=== PATIENT | female | born 1955 | race Caucasian/White ===

== ENCOUNTER → 2020-07-20 15:04 | Outpatient (CLI) | payer MEDICARE, SELFPAY ==
[2020-07-20 14:29] VITALS: BMI 45.1
--- NOTE | 2020-07-20 15:38 | RAD_ITS ---
STUDY: X-RAY - PELVIS AND RIGHT HIP REASON FOR EXAM: Female, 65 years old. Right Hip Pain TECHNIQUE: 3 views of the pelvis and hip. COMPARISON: None. FINDINGS: There is a non-specific bowel gas pattern. Normal visualized soft tissue structures. Dysraphism of the sacrum. Chronic defect of the left iliac crest. Normal bilateral superior and inferior pubic rami. Normal pubic symphysis. Normal bilateral ischial tuberosities. Severe narrowing of the weightbearing portion of the right hip with periarticular sclerosis, marginal osteophytosis and cyst formation. Erosive changes of the acetabulum and femoral head. There is osseous buttressing of the medial surface of the femoral neck, possibly prior stress fracture injury. RAD/Hip uni 4+ views with Pelvis IMPRESSION: Severe osteoarthritic changes of the right hip as described above. Osseous buttressing of the medial surface of the right femoral neck, possibly prior stress injury. Electronically Signed: Daphne Amin MD at 16:32 EDT , Service support ,
[2020-07-20 16:46] LABS: Absolute Lymphocyte Count 2.04 X10^3/uL (0.83-4.51); Absolute Neutrophil Count 4.3 X10^3/uL (2.0-7.7); Basophil# 0.02 X10^3/uL; Basophil% 0.3 % (0-1); Eosinophil# 0.13 X10^3/uL; Eosinophils% 1.9 % (0-5); Hematocrit 42.2 % (37-47); Hemoglobin 13.3 g/dL (12.0-15.0); Lymphocyte # 2.04 X10^3/ul (0.83-4.51); Lymphocyte % 29.8 % (19-41); Mean Corp Hgb Conc 31.5 g/dL (32-36); Mean Corpuscular Hgb 27.7 pg (27.0-32.0); Mean Corpuscular Volume 87.7 fL (81-99); Mean Platelet Vol. 10.9 fl (6.2-12.0); Monocyte% 5.8 % (0-10); NRBC Flagged by Analyzer 0 % (0-5); Neutrophil # 4.25 X10^3/uL (2.7-7.7); Neutrophil % 62.1 % (47-70); Platelet Count 331 K/mm3 (150-450); RBC Distribution Width CV 14.4 % (11.6-14.6); RBC Distribution Width SD 46.5 fl (35.1-43.9); Red Blood Count 4.81 M/mm3 (4.2-5.4); White Blood Count 6.9 K/mm3 (4.4-11.0)
[2020-07-20 17:14] LABS: ALB/GLOB Ratio 0.9 RATIO (0.9-2.4); AST(SGOT) 15 U/L (15-37); Alanine Aminotransfer ALT/SGPT 22 U/L (13-56); Albumin, Serum 3.7 g/dL (3.2-5.0); Alkaline Phosphatase 74 U/L (45-117); Anion Gap 6 (5-15); BUN 19 mg/dL (7-18); BUN/Creat Ratio 16.5 RATIO (10-20); Calcium,Total 9.1 mg/dL (8.5-10.1); Chloride 105 mmol/L (98-107); Cholesterol 234 mg/dL (200); Creatinine, Serum 1.15 mg/dL (0.55-1.02); EST Glomerular Filtration Rate 51 mL/min (>60); Est Glom Filt Rate - Afr Amer 61 mL/min (>60); Glucose 96 mg/dL (74-106); High Density Lipoprotein 66 mg/dL; Potassium 4.1 mmol/L (3.5-5.1); Protein, Total 7.7 g/dL (6.4-8.2); Sodium Level 141 mmol/L (136-145); Triglycerides 114 mg/dL; Very Low Density Lipoprotein 23 mg/dL (5-40)
== END ==
PROVIDERS: PCP Internal Medicine; Referring Provider Internal Medicine; Visit Provider Internal Medicine
DX: M25.551 Pain in right hip (principal); I10 Essential (primary) hypertension
CPT/HCPCS: 36415; 73503; 80053; 80061; 85025

== ENCOUNTER → 2020-11-03 09:24 | Outpatient (CLI) | payer MEDICARE, SELFPAY ==
[2020-11-03 11:49] LABS: ALB/GLOB Ratio 1.1 RATIO (0.9-2.4); AST(SGOT) 18 U/L (15-37); Alanine Aminotransfer ALT/SGPT 31 U/L (13-56); Albumin, Serum 3.8 g/dL (3.2-5.0); Alkaline Phosphatase 66 U/L (45-117); Anion Gap 5 (5-15); BUN 20 mg/dL (7-18); BUN/Creat Ratio 16.9 RATIO (10-20); Calcium,Total 9.4 mg/dL (8.5-10.1); Chloride 104 mmol/L (98-107); Creatinine, Serum 1.18 mg/dL (0.55-1.02); EST Glomerular Filtration Rate 49 mL/min (>60); Est Glom Filt Rate - Afr Amer 59 mL/min (>60); Globulin 3.5 g/dL (2.2-4.2); Glucose 94 mg/dL (74-106); Potassium 4.6 mmol/L (3.5-5.1); Protein, Total 7.3 g/dL (6.4-8.2); Sodium Level 139 mmol/L (136-145)
== END ==
PROVIDERS: PCP Internal Medicine; Referring Provider Physician Assistant; Visit Provider Physician Assistant
DX: I10 Essential (primary) hypertension (principal)
CPT/HCPCS: 36415; 80053

== ENCOUNTER 2020-12-15 13:30 | Outpatient (RCR) | payer MEDICARE, SELFPAY ==
[2020-08-26 10:39] VITALS: BMI 43.4
--- NOTE | 2020-08-31 14:21 | HP.PTEVAL ---
Patient's Visit Information VALDEZ KHAN is a 65 year old F referred to Physical Therapy by Dr. Jordon Jay DO with a diagnosis of RIGHT HIP DJD. Date of Evaluation: 08/31/20 Physical Therapist: Bette Wakefield PT, Cert MDT - Visit Plan Frequency: 2-3x /Week Duration: 4-6 Weeks Plan: AQUATIC THERAPY FOR PAIN RELEIF, POSTURE CORRECTION/STRENGTHENING, INSTRUCTION IN APPROPRIATE BODY MECHANICS AND ACTIVITY MODIFICATIONS. DLS STARTING WITH A NEUTRAL SPINE PROGRESSING ROM TOLERATED. EVA LE ROM, STRETCHING AND STRENGTHENING. HEP INSTRUCTION. - Subjective PART OF THIS HISTORY COMES FROM ORTHO CONSULT WITH DR. JAY BUT ALL WAS REVIEWED WITH MYA AND EDITED BY THIS PT. VALDEZ KHAN is a 65 year old F here today to establish as a new patient. Patient has c/o right hip swelling, grinding and popping. Patient voiced her right lateral thigh feels like it is getting hard. Also getting right thigh spasms. Previous Anterior right thigh numbness, in 2018. C/o right knee, foot and ankle swelling, reports calf pain with ambulation. Denies h/o DVT's. Onset: 2018. Before 2018, patient only had some numbness at the time. 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 Patient has previously had one injection in 2018, which helped for three months. Denies h/o falls. Denies any previous physical therapy. Denies any previous surgeries. Patient reports her ambulation is affected. Patient just began ambulating with a walker for about one month. Was using a cane before the walker for about 1.5 years due to her right hip pain. Patient was taking ibuprofen for pain relief and was told to d/c by Dr. Khan because of her kidney levels. Patient was told to switch to Tylenol. Patient continues to take 2 ibuprofen once or twice daily. Patient reports the tylenol just does not do anything to help. She reports the pain is really bad at night. This PT encouraged patient to call Dr. Khan about other alternatives to Tylonol due to reports of high pain levels. Pain: Worst 8/10, Least 2/10. Patient reports her right hip pain is sharp and she denies low back pain. Denies previous surgeries with her right hip and back. 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 Other: Patient reports she quit work in Apr 2017 due to right hip pain and she went on disability the beginning of this month (August 2020). Patient reports her put her on a diet program to lose weight and she has not contacted the [facility] because she wants to see how that goes first. - Objective Sitting/Standing Posture: POOR. PATIENT SITS AND STANDS WITH DECREASED DAVINA BEARING ON THE RIGHT LE. Lordosis: NORMAL. Active Correction of posture: INCREASES RIGHT HIP PAIN. Other Observations: SLOW ANTALGIC INDEP GAIT INTO PT X APPROX 300 FEET WITH A FWW THAT IS TOO HIGH FOR PATIENT. LIMPING ON R LE AND LEANING ON FOREARMS ON WALKER. NO LOB. UE DEPENDENT TO TRANSFER FROM SIT TO STAND AND REVERSE. Motor deficit: LLE GROSSLY 5/5 WITH MMT EXCEPT HIP 4-/5. RLE: HIP 3-/5, KNEE EXT 3-/5, KNEE FLEX 3+/5, ANKLE DORSIFLEX 2/5, PLANTAR FLEX 3+/5. Sensory deficit: EVA LE LIGHT TOUCH SENSATION INTACT AND SYMMETRICAL EXCEPT RIGHT TOE AREA. ROM deficit: TIGHT EVA GASTROC SOLEUS COMPLEX'S, RIGHT HS'S AND EVA HIP FLEXORS. Dural Signs: NEGATIVE EVA LE'S. Lumbar mvmt loss: flex - MOD. ext - BLANCA. R SG - MOD. L SG - MOD. Core strength: POOR. Palpation: TENDERNESS WITH PALPATION OF THE RIGHT HIP REGION AND LATERAL RIGHT KNEE. RIGHT ANKLE EDEMA. TREATMENT: NEUROMUSCULAR REEDUCATION - RETRAINING OF MVMT AND POSTURE FOR SITTING, LYING AND STANDING ACTIVITIES. WALKER ADJUSTMENT FOR APPROPRIATE HEIGHT AND GAIT TRAINING WITH FWW WBAT R LE. - Goals Goal 1:: DECREASE C/O RIGHT HIP PAIN TO EASE ADL'S Goal Time Frame: 4-6 Weeks Goal 2:: PATIENT WILL BE ABLE TO AMBULATE INDEP'LY COMMUNITY DISTANCES WITH LEAST ASSISTIVE DEVICE Goal Time Frame: 4-6 Weeks Goal 3:: PATIENT WILL BE INDEP WITH A WATER EX PROGRAM FOR CONTINUED IMPROVEMENT ONCE FORMAL PHYSICAL THERAPY CONCLUDES Goal Time Frame: 4-6 Weeks Goal 4:: PATIENT WILL BE ABLE TO GO UP AND DOWN STEPS SAFELY RECIPRICALLY WITH LEAST ASSISTIVE DEVICE Goal Time Frame: 4-6 Weeks Goal 5:: LEFS SCORE WILL IMPROVE BY 10 POINTS. Goal Time Frame: 4-6 Weeks - Anticipated Interventions Patient/Client Instruction: Educate patient on: Condition, Plan of Care, Risk Factors, Benefits of Fitness Program For the Purpose of:: To improve self management Therapeutic Exercise to Include: Strength training, Body mechanics, Postural training, Flexibilty training, Gait and locomotor training, Neuromotor development, In an aquatic setting, Dynamic Lumbar Stabilization For the Purpose of:: To decrease pain, To increase ROM, To improve muscle performance and motor function, To increase tolerance to activity/condition/position, To improve ability of physical actions for home/community/work/leisure, To improve gait and locomotor functions Thank you for the opportunity to evaluate your patient. For Medicare and Medicare HMO plans, please review the plan of care and approve it. It will need to be FAXED BACK to us at [phone] for Medicare purposes. For Medicare only, by signing this I certify the plan of care. Please let me know if there are questions or concerns regarding this plan of care. Physician Signature: Date:
--- NOTE | 2020-10-14 16:17 | HP.PTREVAL_ITS ---
Dr. Jordon Jay, DO, It has been my pleasure to treat VALDEZ KHAN over the last 9 visits for RIGHT HIP DJD. Please see the progress note below for an update on the physical therapy plan of care! Subjective: PATIENT REPORTS SHE CAN DO THINGS LONGER THAN SHE COULD BEFORE AND SHE CAN SIT UP STRAIGHTER. STATES SHE CAN STAND LONGER TOO (ABOUT 20 TO 25 [place]) BUT THAT IS STILL WITH MOST OF THE WEIGHT ON THE LEFT FOOT. STATES SHE TRIED TO DO A LITTLE VACUUMING TODAY AND RESULTED IN INCREASED HIP AND KNEE PAIN. PATIENT REPORTS SHE HAS LOST [address] JAY WANTS HER TO LOSE [address] JAY SAID HER HIP IS BONE ON BONE AND SHE NEEDS SURGERY BUT WANTS HER TO DO PT AND LOSE WEIGHT FIRST. FOLLOW UP WITH DR. JAY PENDING IN ABOUT 1 MONTH. PATIENT Objective/Function: PATIENT WAS SEEN TODAY FOR RE-ASSESSMENT OF PROGRESS TOWARD THE SET PT GOALS AND THE NEED FOR FURTHER PHYSICAL THERAPY VS READINESS FOR DISCHARGE. PATIENT IS MAKING SLOW PROGRESS TOWARD SET PT GOALS AND IS REPORTING DECREASED PAIN IN HER HIP AND IMPROVED FUNCTION (SEE LEFS) BUT R KNEE PAIN IS NOT GETTING BETTER (NO WORSE). SHE IS A GOOD CANDIDATE TO CONTINUE AQUATIC THERAPY BASED ON PROGRESS MADE AND ROOM FOR FURTHER IMPROVEMENT. UPON EXAM TODAY: Sitting/Standing Posture: POOR. PATIENT SITS AND STANDS WITH DECREASED DAVINA BEARING ON THE RIGHT LE. Lordosis: NORMAL. Active Correction of posture: NE - INCREASED PAIN AT EVAL. Other Observations: SLOW ANTALGIC INDEP GAIT INTO PT X APPROX 300 FEET WITH FWW LIMPING ON R LE BUT NOT LEANING FORWARD ON FOREARMS LIKE UPON INITIAL EVAL. NO LOB. NOW ABLE TO TRANSFER FROM SIT TO STAND AND REVERSE WITHOUT UE ASSIST BUT AGAIN WITH MOST WEIGHT BEARING ON LLE. Motor deficit: LLE GROSSLY 5/5 WITH MMT EXCEPT HIP 4/5. RLE: HIP 3/5, KNEE EXT 3/5, KNEE FLEX 4-/5, ANKLE DORSIFLEX 2/5, PLANTAR FLEX 3+/5. ROM deficit: TIGHT EVA GASTROC SOLEUS COMPLEX'S, RIGHT HS'S AND EVA HIP FLEXORS. Core strength: POOR Plan Plan: RECOMMEND CONTINUED PT/AQUATIC THERAPY AND PATIENT IS AGREEABLE. 2X'S A WK X 10 VISITS. AQUATIC THERAPY FOR PAIN RELEIF, POSTURE CORRECTION/STRENGTHENING, INSTRUCTION IN APPROPRIATE BODY MECHANICS AND ACTIVITY MODIFICATIONS. DLS STARTING WITH A NEUTRAL SPINE PROGRESSING ROM TOLERATED. EVA LE ROM, STRETCHING AND STRENGTHENING. HEP INSTRUCTION. Balance/Gait/Functional tests - Balance/Special Test Scores Lower Extremity Functional Score: 25 Goals Goal 1:: DECREASE C/O RIGHT HIP PAIN TO EASE ADL'S Goal Time Frame: 4-6 Weeks Goal Progress: Progressing Goal 2:: PATIENT WILL BE ABLE TO AMBULATE INDEP'LY COMMUNITY DISTANCES WITH LEAST ASSISTIVE DEVICE Goal Time Frame: 4-6 Weeks Goal Progress: Progressing Goal 3:: PATIENT WILL BE INDEP WITH A WATER EX PROGRAM FOR CONTINUED IMPROVEMENT ONCE FORMAL PHYSICAL THERAPY CONCLUDES Goal Time Frame: 4-6 Weeks Goal Progress: Progressing Goal 4:: PATIENT WILL BE ABLE TO GO UP AND DOWN STEPS SAFELY RECIPRICALLY WITH LEAST ASSISTIVE DEVICE Goal Time Frame: 4-6 Weeks Goal Progress: Progressing Goal 5:: LEFS SCORE WILL IMPROVE BY 10 POINTS. Goal Time Frame: 4-6 Weeks Goal Progress: Goal Met Goal 6:: LEFT SCORE WILL IMPROVE BY 5 MORE POINTS. Goal Time Frame: 2-4 Weeks Anticipated Interventions Patient/Client Instruction: Educate patient on: Condition, Plan of Care, Risk Factors, Benefits of Fitness Program For the Purpose of:: To improve self management Therapeutic Exercise to Include: Strength training, Body mechanics, Postural training, Flexibilty training, Gait and locomotor training, Neuromotor development, In an aquatic setting, Dynamic Lumbar Stabilization For the Purpose of:: To decrease pain, To increase ROM, To improve muscle performance and motor function, To increase tolerance to activity/condition/position, To improve ability of physical actions for home/community/work/leisure, To improve gait and locomotor functions Please do not hesitate to contact me at [phone] by phone or if you have questions or concerns regarding this new plan of care! Sincerely, Bette Wakefield, PT, Cert MDT
--- NOTE | 2020-11-14 16:57 | HP.PTREVAL_ITS ---
Dr. Jordon Jay, DO, It has been my pleasure to treat VALDEZ KHAN over the last 18 visits for RIGHT HIP DJD. Please see the progress note below for an update on the physical therapy plan of care! Subjective: I AM BETTER THAN I WAS BEFORE I STARTED HERE. I'M ABLE TO MOVE A LITTLE BETTER AND WALK A LITTLE BETTER BUT THERE IS STILL A LOT OF PAIN ROSE ENT REPORTS SHE IS HAVING A LOT OF PAIN IN THE SIDE OF HER RIGHT KNEE AND PAIN IN HER THIGH. PATIENT REPORTS HER RIGHT KNEE STARTED HURTING MORE ABOUT 2 WEEKS AGO FOR NO APPARENT REASON AND SHE HAS STOPPED IMROVING VERY MUCH IF AT ALL SINCE THEN. RIGHT GROIN PAIN COMES AND GOES - I FEEL LIKE THE GROIN PAIN HAS GOT BETTER BUT STILL GETS A LOT OF GROIN PAIN MOVING IN STANDING. Objective/Function: PATIENT WAS SEEN TODAY FOR RE-ASSESSMENT OF PROGRESS TOWARD THE SET PT GOALS AND THE NEED FOR FURTHER PHYSICAL THERAPY VS READINESS FOR DISCHARGE. PATIENT WITH C/O INCREASED RIGHT KNEE PAIN AND LACK OF CONTINUED IMPROVEMENT. PHYSICIAN RE-CHECK IS INDICATED AND SCHEDULED FOR SATURDAY. VERY MINIMAL RIGHT LE STRENGTH IMPROVMENT WITH TESTING TODAY COMPARED TO LAST RE-CHECK AND OTHERWISE OBJECTIVELY PATIENT DOES NOT APPEAR TO BE IMPROVING. UPON EXAM TODAY: Sitting/Standing Posture: POOR. PATIENT SITS AND STANDS WITH DECREASED DAVINA BEARING ON THE RIGHT LE. Lordosis: NORMAL. Active Correction of posture: NE. Other Observations: SLOW ANTALGIC INDEP GAIT INTO PT X APPROX 300 FEET WITH FWW LIMPING ON R LE. NO LOB. NOW ABLE TO TRANSFER FROM SIT TO STAND AND REVERSE WITHOUT UE ASSIST BUT AGAIN WITH MOST WEIGHT BEARING ON LLE. Motor deficit: LLE GROSSLY 5/5 WITH MMT EXCEPT HIP 4/5. RLE: HIP 3+/5, KNEE EXT 4-/5, KNEE FLEX 4/5, ANKLE DORSIFLEX 2/5, PLANTAR FLEX 3+/5. ROM deficit: TIGHT EVA GASTROC SOLEUS COMPLEX'S, RIGHT HS'S AND EVA HIP FLEXORS. Core strength: POOR Plan Plan: HOLD PT UNTIL PHYSICIAN RE-ASSESSMENT. Balance/Gait/Functional tests - Balance/Special Test Scores Lower Extremity Functional Score: 26 Goals Goal 1:: DECREASE C/O RIGHT HIP PAIN TO EASE ADL'S Goal Time Frame: 4-6 Weeks Goal Progress: Not Progressing Goal 2:: PATIENT WILL BE ABLE TO AMBULATE INDEP'LY COMMUNITY DISTANCES WITH LEAST ASSISTIVE DEVICE Goal Time Frame: 4-6 Weeks Goal Progress: Not Progressing Goal 3:: PATIENT WILL BE INDEP WITH A WATER EX PROGRAM FOR CONTINUED IMPROVEMENT ONCE FORMAL PHYSICAL THERAPY CONCLUDES Goal Time Frame: 4-6 Weeks Goal Progress: Not Progressing Goal 4:: PATIENT WILL BE ABLE TO GO UP AND DOWN STEPS SAFELY RECIPRICALLY WITH LEAST ASSISTIVE DEVICE Goal Time Frame: 4-6 Weeks Goal Progress: Not Progressing Goal 5:: LEFS SCORE WILL IMPROVE BY 10 POINTS. Goal Time Frame: 4-6 Weeks Goal Progress: Not Progressing Goal 6:: LEFS SCORE WILL IMPROVE BY 5 MORE POINTS Goal Time Frame: 2-4 Weeks Goal Progress: Not Progressing Anticipated Interventions Patient/Client Instruction: Educate patient on: Condition, Plan of Care, Risk Factors, Benefits of Fitness Program For the Purpose of:: To improve self management Therapeutic Exercise to Include: Strength training, Body mechanics, Postural training, Flexibilty training, Gait and locomotor training, Neuromotor development, In an aquatic setting, Dynamic Lumbar Stabilization For the Purpose of:: To decrease pain, To increase ROM, To improve muscle performance and motor function, To increase tolerance to activity/condition/position, To improve ability of physical actions for home/community/work/leisure, To improve gait and locomotor functions Please do not hesitate to contact me at [phone] by phone or if you have questions or concerns regarding this new plan of care! Sincerely, Bette Wakefield, PT, Cert MDT
--- NOTE | 2020-12-15 14:01 | HP.PTDCSUM ---
It has been my pleasure to treat VALDEZ KHAN referred by Dr. Jordon Jay DO, with the diagnosis of RIGHT HIP DJD for a total of 25 visit(s). Discharge Date: 12/15/20 Please see the following information for a summary of their discharge status. Subjective: PATIENT REPORTS DELAYED ONSET ACHING RIGHT HIP AFTER EACH VISIT AND I CAN ONLY TAKE SO MUCH. PATIENT REPORTS UP TO 8/10 PAIN ABOUT 2 HOURS AFTER LAST SESSION. PATIENT DOES REPORT IMPROVEMENT WITH PT THIS EPISODE OF CARE IN TERMS OF HER HIP FEELING LOOSER AND STATES SHE IS ABLE TO WALK A LITTLE BIT BETTER AND FOR A LITTLE BIT LONGER. PATIENT REPORTS SHE FEELS SHE DID BETTER IN THE WATER THAN ON LAND BUT THE DOCTOR WANTED HER TO TRY [place]. STATES SHE STILL NEEDS TO LOSE SOME WEIGHT TO MEET DR. JAY'S EXPECTATIONS TO HAVE SURGERY. STATES SHE IS CONTINUING TO USE THE WALKER FOR SAFETY. RLE Pain Intensity (Out of 10): 4 % Improvement: 40 Objective/Function: PATIENT WAS SEEN TODAY FOR RE-ASSESSMENT OF PROGRESS TOWARD THE SET PT GOALS AND THE NEED FOR FURTHER PHYSICAL THERAPY VS READINESS FOR DISCHARGE. THERE ARE NO SIGNIFICANT OBJECTIVE CHANGES SINCE LAST RE-CHECK. PATIENT TOLERATES WATER EX BETTER THAN LAND EX AND IS INDEP WITH A POOL PROGRAM. THIS PT ENCOURAGED PATIENT TO CONTINUE WITH INDEP WATER EX TOLERATED UNTIL SHE IS ALIN TO HAVE SURGERY AND SHE WILL CONSIDER. PATIENT WITH C/O INCREASED RIGHT KNEE PAIN AND STILL LACK OF CONTINUED IMPROVEMENT. UPON EXAM TODAY: Sitting/Standing Posture: POOR. PATIENT SITS AND STANDS WITH DECREASED DAVINA BEARING ON THE RIGHT LE. Lordosis: NORMAL. Active Correction of posture: NE. Other Observations: SLOW ANTALGIC INDEP GAIT INTO PT X APPROX 300 FEET WITH FWW LIMPING ON R LE. NO LOB. NOW ABLE TO TRANSFER FROM SIT TO STAND AND REVERSE WITHOUT UE ASSIST BUT AGAIN WITH MOST WEIGHT BEARING ON LLE. Motor deficit: LLE GROSSLY 5/5 WITH MMT EXCEPT HIP 4/5. RLE: HIP 3+/5, KNEE EXT 4-/5, KNEE FLEX 4/5, ANKLE DORSIFLEX 2/5, PLANTAR FLEX 3+/5. ROM deficit: TIGHT EVA GASTROC SOLEUS COMPLEX'S, RIGHT HS'S AND EVA HIP FLEXORS. Core strength: POOR Goal 1:: DECREASE C/O RIGHT HIP PAIN TO EASE ADL'S Goal Progress: Not Progressing Goal 2:: PATIENT WILL BE ABLE TO AMBULATE INDEP'LY COMMUNITY DISTANCES WITH LEAST ASSISTIVE DEVICE Goal Progress: Not Progressing Goal 3:: PATIENT WILL BE INDEP WITH A WATER EX PROGRAM FOR CONTINUED IMPROVEMENT ONCE FORMAL PHYSICAL THERAPY CONCLUDES Goal Progress: Not Progressing Goal 4:: PATIENT WILL BE ABLE TO GO UP AND DOWN STEPS SAFELY RECIPRICALLY WITH LEAST ASSISTIVE DEVICE Goal Progress: Not Progressing Goal 5:: LEFS SCORE WILL IMPROVE BY 10 POINTS. Goal Progress: Not Progressing Goal 6:: LEFS SCORE WILL IMPROVE BY 5 MORE POINTS Goal Progress: Not Progressing Plan: D/C If there are questions or concerns regarding this patient's physical therapy, please feel free to call me at [phone]. Thank you for the referral of this patient. Sincerely, Bette Wakefield, PT, Cert MDT Balance/Gait/Functional tests - Balance/Special Test Scores Lower Extremity Functional Score: 24
== END 2020-12-15 19:00 | disposition home or self-care (01) ==
LOC: PT 13:30
PROVIDERS: PCP Internal Medicine; Referring Provider Orthopaedic Surgery; Visit Provider Orthopaedic Surgery
DX: M16.11 Unilateral primary osteoarthritis, right hip (principal)
CPT/HCPCS: 97035; 97110; 97112; 97113; 97162; 97164; 97530

== ENCOUNTER → 2021-02-03 10:42 | Outpatient (CLI) | payer MEDICARE, SELFPAY ==
[2021-02-03 12:36] LABS: Absolute Lymphocyte Count 1.65 X10^3/uL (0.83-4.51); Absolute Neutrophil Count 3.4 X10^3/uL (2.0-7.7); Basophil# 0.02 X10^3/uL; Basophil% 0.4 % (0-1); Eosinophil# 0.15 X10^3/uL; Eosinophils% 2.7 % (0-5); Hematocrit 39.9 % (37-47); Lymphocyte # 1.65 X10^3/ul (0.83-4.51); Lymphocyte % 29.2 % (19-41); Mean Corp Hgb Conc 32.6 g/dL (32-36); Mean Corpuscular Hgb 28.1 pg (27.0-32.0); Mean Corpuscular Volume 86.4 fL (81-99); Mean Platelet Vol. 10.9 fl (6.2-12.0); Monocyte# 0.41 X10^3/uL; Monocyte% 7.2 % (0-10); NRBC Flagged by Analyzer 0 % (0-5); Neutrophil # 3.42 X10^3/uL (2.7-7.7); Neutrophil % 60.3 % (47-70); Platelet Count 305 K/mm3 (150-450); RBC Distribution Width SD 47.9 fl (35.1-43.9); Red Blood Count 4.62 M/mm3 (4.2-5.4); White Blood Count 5.7 K/mm3 (4.4-11.0)
[2021-02-03 12:48] LABS: AST(SGOT) 12 U/L (15-37); Alanine Aminotransfer ALT/SGPT 16 U/L (13-56); Albumin, Serum 3.7 g/dL (3.2-5.0); Alkaline Phosphatase 59 U/L (45-117); Anion Gap 6 (5-15); BUN 20 mg/dL (7-18); Calcium,Total 9.6 mg/dL (8.5-10.1); Chloride 106 mmol/L (98-107); Creatinine, Serum 1.33 mg/dL (0.55-1.02); EST Glomerular Filtration Rate 43 mL/min (>60); Est Glom Filt Rate - Afr Amer 52 mL/min (>60); Globulin 3.7 g/dL (2.2-4.2); Glucose 110 mg/dL (74-106); Potassium 3.8 mmol/L (3.5-5.1); Protein, Total 7.4 g/dL (6.4-8.2); Sodium Level 140 mmol/L (136-145)
== END ==
PROVIDERS: PCP Internal Medicine; Referring Provider Internal Medicine; Visit Provider Internal Medicine
DX: Z01.818 Encounter for other preprocedural examination (principal)
CPT/HCPCS: 36415; 80053; 85025

== ENCOUNTER → 2021-02-07 14:40 | Outpatient (CLI) | payer MEDICARE, SELFPAY ==
--- NOTE | 2021-02-07 14:52 | CT_ITS ---
INDICATION: CT template preoperative assessment and measurement of right total hip arthroplasty. COMPARISON: None. TECHNIQUE: Scans through the pelvis and right femur were obtained without oral or IV contrast. Thin slice axial reformat and coronal reformat images were obtained. CT scan done according to ALARA (As Low As Reasonably Achievable). FINDINGS: Measurements are available from images. There is severe right hip degeneration with subchondral cystic sclerotic degeneration without femoral head collapse. Femur is normal. There is laminectomy of L5-S1. There are partially calcified uterine fibroids. IMPRESSION: Treatment planning/staging right hip prearthroplasty scan. Advanced right hip degeneration. Electronically Signed: Kennedy Villanueva MD at 10:49 EST Tel , Service support , INDICATION: CT template preoperative assessment and measurement of right total hip arthroplasty. COMPARISON: None. TECHNIQUE: Scans through the pelvis and right femur were obtained without oral or IV contrast. Thin slice axial reformat and coronal reformat images were obtained. CT scan done according to ALARA (As Low As Reasonably Achievable). FINDINGS: Measurements are available from images. There is severe right hip degeneration with subchondral cystic sclerotic degeneration without femoral head collapse. Femur is normal. There is laminectomy of L5-S1. There are partially calcified uterine fibroids. CT/Extremity Lower without Contra
== END ==
PROVIDERS: PCP Internal Medicine; Referring Provider Orthopaedic Surgery; Visit Provider Orthopaedic Surgery
DX: M16.11 Unilateral primary osteoarthritis, right hip (principal)
CPT/HCPCS: 73700

== ENCOUNTER 2021-02-21 08:40 | Day surgery (SDC) | payer MEDICARE, SELFPAY ==
--- NOTE | 2021-02-07 14:53 | EKG12_ITS ---
Test Reason : PRE OP Blood Pressure : / mmHG Vent. Rate : 099 BPM Atrial Rate : 099 BPM P-R Int : 146 ms QRS Dur : 070 ms QT Int : 328 ms P-R-T Axes : 051 -51 009 degrees QTc Int : 420 ms Normal sinus rhythm Left axis deviation Inferior infarct , age undetermined Anterolateral infarct , age undetermined Abnormal ECG Confirmed by TATIANA ALMODOVAR, CT ([id number]), slot editor MONIKA DUTTA ([id number]) on 02/08/2021 7:42:06 AM Referred By: Jordon Jay Confirmed By:CT SIMPSON MD
[2021-02-07 16:50] LABS: Absolute Lymphocyte Count 2.05 X10^3/uL (0.83-4.51); Absolute Neutrophil Count 4.7 X10^3/uL (2.0-7.7); Basophil# 0.03 X10^3/uL; Basophil% 0.4 % (0-1); Eosinophil# 0.15 X10^3/uL; Eosinophils% 2.1 % (0-5); Hematocrit 41.1 % (37-47); Hemoglobin 13.5 g/dL (12.0-15.0); Lymphocyte # 2.05 X10^3/ul (0.83-4.51); Lymphocyte % 28.2 % (19-41); Mean Corp Hgb Conc 32.8 g/dL (32-36); Mean Corpuscular Hgb 28.5 pg (27.0-32.0); Mean Corpuscular Volume 86.7 fL (81-99); Monocyte# 0.38 X10^3/uL; Monocyte% 5.2 % (0-10); NRBC Flagged by Analyzer 0 % (0-5); Neutrophil # 4.66 X10^3/uL (2.7-7.7); Platelet Count 310 K/mm3 (150-450); RBC Distribution Width CV 14.9 % (11.6-14.6); RBC Distribution Width SD 47.8 fl (35.1-43.9); Red Blood Count 4.74 M/mm3 (4.2-5.4); White Blood Count 7.3 K/mm3 (4.4-11.0)
[2021-02-07 17:09] LABS: Partial Thromboplast Time 30.2 Seconds (24.1-36.2); Prothrombin Time (Protime)PT. 12.9 SECONDS (11.7-14.9)
[2021-02-07 17:37] LABS: Magnesium 2.2 mg/dL (1.6-2.6)
[2021-02-07 17:39] LABS: Anion Gap 8 (5-15); BUN 14 mg/dL (7-18); BUN/Creat Ratio 13.9 RATIO (10-20); Calcium,Total 9.4 mg/dL (8.5-10.1); Chloride 105 mmol/L (98-107); Creatinine, Serum 1.01 mg/dL (0.55-1.02); EST Glomerular Filtration Rate 59 mL/min (>60); Est Glom Filt Rate - Afr Amer 71 mL/min (>60); Glucose 88 mg/dL (74-106); Potassium 3.5 mmol/L (3.5-5.1); Sodium Level 140 mmol/L (136-145)
[2021-02-09 08:42] LABS: Fructosamine 241 umol/L (0-285)
[2021-02-21] VITALS (12 sets, daily range): BP systolic 70–136; BP diastolic 46–82; PULSE 54–99; RESP 16; TEMP 36.2–36.6; O2SAT 97–100; BMI 40.7
[2021-02-21] MEDS: Lactated Ringers 1,000 ML 100 ML IV ×2 (09:31→12:01)
[2021-02-21] MEDS: Lactated Ringers 1,000 ML 999 ML IV (09:31)
[2021-02-21] MEDS: Scopolamine 1mg/72hr Patch 1 PATCH TD (09:32)
[2021-02-21] MEDS: Gabapentin 600 MG Tablet PO (09:32)
[2021-02-21] MEDS: Acetaminophen 500 MG Tablet 1000 MG PO ×2 (09:32→18:17)
[2021-02-21 10:00] LABS: Bedside Glucose 86 mg/dL (70-110)
--- NOTE | 2021-02-21 10:57 | PCM.HP.BLA ---
History and Physical Date of Admission: 02/21/21 Date of Service: 01/25/21 MR#:[id number]: VALDEZ KHANRep #:[id number] Provider:Dr. Jordon Jay, DOAge/Sex: 65/F Location:[facility]:Signed Intake Vital Signs 01/25/21 15:15 Height 4 ft 11 in Weight: 195 lb 4 oz BMI 39.4 Intake Visit Reasons: RIGHT HIP Is patient in pain?: Yes Allergies Sulfa (Sulfonamide Antibiotics) Allergy (Severe, Verified 01/25/21 14:58) Anaphylaxis cigarette smoke Allergy (Mild, Verified 01/25/21 14:58) hoarsness house dust mite Allergy (Mild, Verified 01/25/21 14:58) hoarsness Medications aspirin 81 mg tablet,delayed release 81 mg PO DAILY 07/05/20 [History Confirmed 01/25/21] vitamin C 500 mg-multivitamin with minerals chewable tablet tablet PO 07/05/20 [History Confirmed 01/25/21] zinc gluconate 30 mg tablet 30 mg PO DAILY 07/05/20 [History Confirmed 01/25/21] amlodipine 10 mg tablet 10 mg PO DAILY #120 tab 11/14/20 [Rx Confirmed 01/25/21] acetaminophen 500 mg tablet 1,000 mg PO Q6H PRN tab 11/17/20 [History Confirmed 01/25/21] PFSH Medical History History of basal cell carcinoma history of club feet history of cracked palate History of pneumonia Hypertension Osteoarthritis of right hip Right hip pain Seasonal allergies Surgical History H/O foot surgery History of Hx of rhinoplasty Family History Mother Hypertension Hyperlipemia Arthritis Father Hypertension Skin cancer Arthritis Social History household members: spouse housing: house Smoking Status: Never smoker alcohol intake: never substance use type: does not use what type of physical activity do you participate in: none do you feel safe at home: Yes HPI RIGHT HIP Details: Parts of this documentation were recorded by a scribe, this documentation accurately reflects the service provided and the decisions made by me, Dr. Jordon Jay DO 01/25/21 0759. VALDEZ KHAN is a 65 year old F here today for continued right hip pain. Patient complains of pain over her lateral hip into her lateral knee. Patient notes that she has popping and clicking of her hip. She denies any instability. Patient completed aquatic therapy and land therapy which the aquatic was slightly helpful. Patient notes that she ambulates with a walker due to her increased pain. Patient is taking aleve for pain. Patient had injections over her lateral hip a few years ago. Ortho Exam General General: Yes no acute distress Neurologic: Yes alert Psychologic: Yes reasonable and appropriate Right Hip Skin: Yes CDI, No Ecchymosis, No soft tissue swelling and No Erythema Special Tests: Yes TTP Greater Troch and Yes Illiotibial band tenderness HIP: Skin: No Ecchymosis, No soft tissue swelling and No Erythema internal rotation @90 degree flexion: 10 (w/ groin Pain) degrees external rotation @90 degree extension: 20 degrees Special Tests: Yes Illiotibial band tenderness HIP: tender on bursa, distal IT band tenderness, 20 degrees external rotation, 10 degrees internal w/ groin pain Coding Level of Care Code Off vis,est,level 3 Diagnoses Trochanteric bursitis, right hip M70.61 Osteoarthritis of right hip M16.11 Osteoarthritis type: primary Assessment and Plan Assessment and Plan (1) Trochanteric bursitis, right hip: Status: Acute Plan - Dr. Jordon Jay, DO: Educated the patient about the anatomy of the hip and etiology of her pain. Spoke with her about her IT band syndrome and greater troch bursitis. Recommended the patient have an injection for her lateral hip pain. Explained her hip osteoarthritis is causing her groin pain. Spoke with the patient that a total hip arthroplasty will help her groin pain but she will continue to have her lateral hip pain. Explained she surgical procedure, risks and recovery for a total hip arthroplasty. She will be on a blood thinner following her surgery to prevent risk of blood clot. She will wear compression stockings to help with the swelling. Explained the patient will be walking immediately post op. Patient will be in outpatient physical therapy post op. Spoke with her about her hip precautions. Explained the curve for lessened pain. She will need to take antibiotics prior to any dental procedures. Patient will need a CT scan for the makoplasty prior to the procedure. Patient will be same day surgery. Spoke with the increased risk of failure if she gains weight. Risks, benefits and alternatives of surgery reviewed including but not limited to bleeding, infection, nerve, artery and/or tissue damage, fracture, VTE, leg length discrepancy, dislocation, need for hip precautions, continued pain and expected post-operative course. Follow up for post op or sooner if pain, swelling, numbness or associated symptoms, or concerns develop. All questions answered. Patient in agreement of plan. (2) Osteoarthritis of right hip: Status: Acute Qualifiers: Osteoarthritis type: primary Qualified Code(s): M16.11 - Unilateral primary osteoarthritis, right hip 01/25/21 1649<Electronically signed by Jordon Jay DO>Date Jordon Jay DO Cosigner Signature:Date I have re-examined the patient. There are no clinical changes since date of exam
[2021-02-21] MEDS: Cefazolin 2 GM in 0.9% Normal Saline 100 ML IV (11:17)
[2021-02-21] MEDS: dexAMETHasone 10 MG/ML Vial IV (11:30)
--- NOTE | 2021-02-21 11:30 | HIP_PTH ---
PATIENT: VALDEZ KHAN LOC: [facility] [place] U#:[id number] AGE/SX: 65/F ROOM: RE02/21/[address]: Dr. Jordon Jay DO : 1955 BED: DIS: 02/21/2021 SPEC #: [id number] RECD: 02/21/21 14:25 STATUS: [place] #: [id number] KYLEIGH: 02/21/21 11:[address]: Jordon Jay DEPT: SURGICAL PATHOLOGY RECD BY: Russ Heath ENTERED: 02/22/21 09:37 SP TYPE: TOTAL HIP OTHR DR: Dr. Charity Khan MD Tissues: Hip, NOS Procedures: Decalcification bone/plaque Surgery Specimen Level IV HEADER OPERATION: ERAS, total hip replacement robotic arm assist PRE-OP DIAGNOSIS: Osteoarthritis of right hip TISSUE SUBMITTED: Right hip bone and soft tissue MICROSCOPIC DIAGNOSIS Bone and tissue of right hip, total hip resection: Severe degenerative joint disease. Mild synovial hyperplasia and associated mild chronic inflammation. AM:lexy 02/24/2021 MICROSCOPIC DESCRIPTION Slides are reviewed. GROSS DESCRIPTION Received is one container labeled with the patient's name and designated bone and soft tissue hip, right. The specimen consists of a hernandez femoral head measuring 6 x 5 x 5 cm. The articular surface displays prominent osteophyte formation, eburnation and bone erosion. Also present in the specimen container are multiple irregular fragments of bone reamings and pink-yellow soft tissue measuring in aggregate 6 x 5.5 x 2 cm. Clinical Services Assistant sections are submitted in two cassettes as follows: 1 - soft tissue, 2 - bone after decalcification. / AM:lexy 02/22/21 TC:5 CPT: 77851, 79269
--- NOTE | 2021-02-21 14:07 | PCM.OPRPT ---
Report of Operation Date of Procedure: 02/21/21 Description of Surgical Findings:: Preoperative diagnosis: Right hip DJD Postoperative diagnosis: Same Procedure: CT-guided Makoplasty assisted right total hip arthroplasty Implants: [place] Accolade II stem size 3, 127 degree neck angle 0 neck length 52 mm Trident II acetabular shell with 35 mm cancellous screw 36 mm ceramic head Anesthesia: Spinal EBL: 300 cc Complications: None Condition: Stable to PACU Indication for procedure: This is a 65-year-old obese female who has had long-standing arthrosis of the hip who has failed conservative treatment and wished to undergo total hip arthroplasty. We did discuss operative versus nonoperative intervention including risks of bleeding, infection , nerve artery tissue damage, need for further surgery, fracture, leg length discrepancy dislocation blood clot and need for postoperative physical therapy and postoperative expectations. An informed consent was signed. Procedure: Patient was met in the preoperative holding area once again the operative extremity was identified by both patient and physician and was marked. Patient was met by anesthesia . Anesthesia was started. patient was then positioned in the lateral decubitus position on a well-padded pegboard with an axillary roll. All bony prominences were checked and padded. The patient was prepped and draped in the usual sterile fashion. A timeout was called to ensure the proper patient procedure and extremity were being contemplated. Anatomic landmarks were palpated and marked for a standard posterior lateral approach. Prior to this the ASIS was palpated and 3 fingerbreadths proximal to this 3 pins were placed at a 45 degree angle into the iliac crest with good purchase, stab incisions were made with a 15 blade into the skin prior to placement. The Makoplasty array was then secured. A 10 blade scalpel was used to make a posterior incision through the skin and subcutaneous tissue. retractors were used and electrocautery was used to maintain meticulous hemostasis and dissect full-thickness flaps until the gluteal fascia was reached. The gluteal fascia was incised in line with the gluteal fibers. The bursal tissue was then freed from the underside and a Charnley retractor was placed. The femoral trochanteric checkpoint was placed and leg length was assessed using the trochanteric checkpoint and an EKG lead that was placed on the knee prior to prepping the leg .the fat pad was then elevated off of the external rotators with electrocautery and the external rotators were dissected off of the greater trochanter including the piriformis and were tagged with #1 Ethibond for later repair. The joint capsule opened with posterior trapdoor technique. The hip was surgically dislocated. The measurement on the preoperative CT from the top of the lesser trochanter to the femoral neck cut was marked Hohmann was placed around the lesser trochanter. A neck cutting guide was used to tabatha the neck with a Bovie and an oscillating saw was used complete the femoral neck cut. The femoral head was then removed and sized. We then turned our attention to the acetabulum. A Bovie was used to make a perforation in the anterior joint capsule and a Oakley retractor was placed this was repeated in the 6 o'clock position and a wide balnca was placed there. With a long handled knife the labral and pulvinar tissue were removed. We then registered the acetabulum with the pointing array and confirmed our landmarks. Once the socket was thoroughly prepared and labral tissue and pulvinar was removed we single reamed with the robotic arm. We then used the robotic arm to position the acetabular implant and impacted it into place under robotic guidance. We then proceeded to place a posterior superior screw by drilling first measuring and inserting the screw. We then inserted a trial liner. And turned our attention back to the femur at this point a femoral elevator was used. As well as a pointed wide Hohmann around the lesser trochanter and a Hohmann to help retract the gluteus medius. A box chisel was used to remove excess lateral neck followed by a canal finder and a lateralizing reamer. This was followed by sequential broaches. Attention was made of the version within the canal based on preoperative templating. Once the final broach was seated we then trialed reduced the hip it was determined that a 127 degree neck angle with a 0 neck length was the appropriate size. We then checked stability with shuck testing as well as flexion and internal rotation. then proceeded with hip extension and checked leg lengths at the knees and heels as well as with the trochanteric checkpoint and knee EKG lead. At this point trials were removed. A liner was inserted to the cup. The femoral stem was inserted. We re-trialed and then proceeded to impact the femoral head onto the Jean taper. We then surgically reduce the hip check stability again and leg lengths and were satisfied. Betadine rinse was allowed to sit for 5 minutes while everyone changed their gloves. Thorough irrigation was performed. Followed by closure of the external rotators with #2 FiberWire followed by closure of gluteal fascia with #1 Ethibond. 0 Vicryl fat stitches and 2-0 Vicryl subcutaneous stitches and dilia in the skin. A pulls were placed in the pin sites over the iliac crest with Xeroform 4 x 4 and OpSite. dressing was applied to incisional area with Mepilex Ag and an abduction pillow was placed. Patient tolerated the procedure well there was no intraoperative complications all counts were correct and the patient was brought back to the PACU in stable condition
--- NOTE | 2021-02-21 14:10 | RAD_ITS ---
STUDY: X-RAY - PELVIS AND RIGHT HIP REASON FOR EXAM: Postoperative evaluation of right hip arthroplasty. TECHNIQUE: 2 views of the pelvis and hip. COMPARISON: Radiographs 07/20/2020. FINDINGS: There is postoperative gas in the soft tissues. There is dysraphism of the sacrum and chronic deformity of the left iliac wing. Normal bilateral superior and inferior pubic rami. Normal pubic symphysis. Normal bilateral ischial tuberosities. There is a right hip arthroplasty without evidence of complication. RAD/Hip Min 2 Views (Portable) IMPRESSION: Uncomplicated right hip arthroplasty. Electronically Signed: Slade Sutton MD at 9:14 EST Tel , Service support ,
--- NOTE | 2021-02-21 14:10 | EX.PCM.DISCH ---
Discharge Instructions Dressing / Incision Additional Dressing/Incision Instructions:: Do not shower 72hrs. Begin daily showering warm water antibacterial soap postop day #3( 72hrs Post-operatively) and then daily. Leave the dressing on for 72 hours postoperatively then may remove prior to first shower and change dressing daily after this until no drainage for 2 consecutive days then may leave open to air. Follow hip precautions that were reviewed in hospital. Wear compression stockings, may remove at night. Start physical therapy as directed in hospital. Follow prescriptions instructions do not take any other pain medication or differ dosing without consulting your physician. Do not take oral NSAIDs until blood thinner has been completed , then may begin the day after completion if needed . May resume baby aspirin 48 hours after surgery , call Dr. Jay's office with any concerns. Follow Up Care Please Follow Up With: Jordon Jay DO When: 2 weeks Test Results: Test results from this visit will be discussed in further detail at your follow-up appointment, if applicable. Discharge Plan Admission Attending Provider: Jordon Jay Primary Care Provider: Charity Khan Discharge Orders/Prescriptions Prescriptions: New acetaminophen 500 mg Tablet 1,000 mg PO Q6H Qty: 90 RF: 0 ondansetron HCl [Zofran] 4 MG tablet 4 mg PO Q6H PRN PRN (Reason: Nausea) 5 Days Qty: 5 RF: 0 cephalexin [cephalexin] 500 MG capsule 1,000 mg PO Q8 Qty: 4 RF: 0 oxycodone 5 mg tablet 5 mg PO Q4H PRN (Reason: pain) 7 Days Qty: 60 RF: 0 Eliquis 2.5 mg tablet 2.5 mg PO BID Qty: 42 RF: 0 Continued Emergen-C 500 mg tablet,chewable 1 tablet PO DAILY RF: 0 zinc gluconate 30 mg tablet 30 mg PO DAILY RF: 0 acetaminophen [Tylenol Extra Strength] 500 mg tablet 1,000 mg PO Q6H PRN (Reason: Pain) RF: 0 amlodipine 10 mg tablet 10 mg PO DAILY Qty: 120 RF: 0 mupirocin 2 % ointment 1 applic topical BID Qty: 22 RF: 0 Discontinued aspirin 81 mg tablet,delayed release (DR/EC) 81 mg PO DAILY RF: 0 Referrals / Follow Up: Charity Khan MD [Primary Care Provider] - Disposition Disposition (needs filled in before D/C Order can be placed): Home, Self Care
[2021-02-21] MEDS: Lactated Ringers 1,000 ML 125 ML IV (16:01)
[2021-02-21] MEDS: Cefazolin 1 GM/50 ML BAG IV (18:00)
== END 2021-02-21 18:40 | disposition home or self-care (01) ==
LOC: SDC 08:41 → AC 08:47
PROVIDERS: Anesthesiology; PCP Internal Medicine; Referring Provider Orthopaedic Surgery; Visit Provider Orthopaedic Surgery
PROC: 8E0Y0CZ Robotic Assisted Procedure of Lower Extremity, Open Approach (ICD-10-PCS; CPT 27130; principal; 2021-02-21 11:00)
DX: M16.11 Unilateral primary osteoarthritis, right hip (principal); M70.61 Trochanteric bursitis, right hip; I10 Essential (primary) hypertension; E66.9 Obesity, unspecified; Z68.41 Body mass index [BMI] 40.0-44.9, adult; Z79.899 Other long term (current) drug therapy; Z79.82 Long term (current) use of aspirin
CPT/HCPCS: 01214; 27130; 36415; 73502; 80048; 82962; 82985; 83735; 85025; 85610; 85730; 86850; 86900; 86901; 87077; 87081; 87426; 88305; 88311; 93005; 97161; C1776; C9803; J7120; J2405

== ENCOUNTER 2021-04-10 12:00 | Outpatient (RCR) | payer MEDICARE, SELFPAY ==
--- NOTE | 2021-02-23 12:35 | HP.PTEVAL ---
Patient's Visit Information VALDEZ KHAN is a 65 year old F referred to Physical Therapy by Dr. Jordon Jay DO with a diagnosis of RIGHT THR. Date of Evaluation: 02/23/21 Physical Therapist: Bette Wakefield PT, Cert MDT - Visit Plan Frequency: 2-3x /Week Duration: 4-6 Weeks Plan: RIGHT LE REHAB PER THR PROTOCOL. - Subjective DX AND DOS: R THR 02/21/21. Work/Leisure: DISABLED. Present symptoms: RIGHT HIP PAIN. PATIENT DENIES EVA LE NUMBNESS AND TINGLING NOW. Present since: 2018. Pain Scale: WORST 8/10, LEAST 3/10. Currently: 3/10. Commenced as a result of: ARTHRITIS. Worse: STANDING AND WALKING. Better: ALEVE, LYING DOWN. Disturbed sleep: YES. Gait: USING FWW AT HOME MAINLY JUST TO THE BATHROOM AND BACK. GOING TO THE KITCHEN A LITTLE BIT TOO. Difficulty initiating urination: NO NEW BOWEL OR BLADDER PROBLEMS. Unexplained weight loss: ON A DIET AND HAS LOST ABOUT 25 LBS. Imaging: NONE SINCE SURGERY THAT PATIENT IS AWARE OF. PRIOR TREATMENT: PATIENT DID [facility]AND AND WATER PT FROM ABOUT AUGUST 2020 TO NOV 2020 HERE AT [facility]. OTHER: STATES SHE WAS ABLE TO WALK ALL THE WAY AROUND THE NURSES STATION IN THE HOSPITAL. SUBJECTIVE PT EVAL INFO FROM 08/31/20: PART OF THIS HISTORY COMES FROM ORTHO CONSULT WITH DR. JAY BUT ALL WAS REVIEWED WITH MYA AND EDITED BY THIS PT. VALDEZ KHAN is a 65 year old F here today to establish as a new patient. Patient has c/o right hip swelling, grinding and popping. Patient voiced her right lateral thigh feels like it is getting hard. Also getting right thigh spasms. Previous Anterior right thigh numbness, in 2018. C/o right knee, foot and ankle swelling, reports calf pain with ambulation. Denies h/o DVT's. Onset: 2018. Before 2018, patient only had some numbness at the time. 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 Patient has previously had one injection in 2018, which helped for three months. Denies h/o falls. Denies any previous physical therapy. Denies any previous surgeries. Patient reports her ambulation is affected. Patient just began ambulating with a walker for about one month. Was using a cane before the walker for about 1.5 years due to her right hip pain. Patient was taking ibuprofen for pain relief and was told to d/c by Dr. Khan because of her kidney levels. Patient was told to switch to Tylenol. Patient continues to take 2 ibuprofen once or twice daily. Patient reports the tylenol just does not do anything to help. She reports the pain is really bad at night. This PT encouraged patient to call Dr. Khan about other alternatives to Tylonol due to reports of high pain levels. Pain: Worst 8/10, Least 2/10. Patient reports her right hip pain is sharp and she denies low back pain. Denies previous surgeries with her right hip and back. 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 Other: Patient reports she quit work in Apr 2017 due to right hip pain and she went on disability the beginning of this month (August 2020). Patient reports her put her on a diet program to lose weight and she has not contacted the [facility] because she wants to see how that goes first. - Objective DATE OF SURGERY: 02/21/21. GAIT: THIS PATIENT CAME TO PT IN HER WHEELCHAIR STATING SHE CAN'T WALK VERY FAR. SHE DID NOT BRING HER WALKER. CLINIC WALKER USED AND PATIENT ABLE TO DEMO INDEP GAIT SHORT DISTANCES IN THE TREATMENT ROOM WITH FWW WBAT ON RIGHT LE. INDEP TRANSFERS SIT TO STAND AND REVERSE. ALSO INDEP SIT TO SUPINE AND REVERSE. SENSATION: TU.44. GIRTH PATELLA: 50.75 CM. GIRTH 6 SUPRAPATELLAR: 68 CM. KNEE FLEXION AROM: R 100 DEG IN SUPINE WITH A HEEL SLIDE. KNEE EXT AROM: FULL. KNEE FLEXION MMT: 4-/5. KNEE EXT MMT: 3+/5. HIP FLEXION AROM: 80 DEG. HIP EXTENSION AROM: -20 DEG. HIP FLEXION MMT: 3-/5. HIP EXTENSION MMT: NT. INCISION: INSISION IS BANDAGED AND NOT VISIBLE. REVIEWED SIGNS OF INFECTION WITH PATIENT TO WATCH OUT FOR. TREATMENT: INSTRUCTED PATIENT IN AP'S, ANKLE CIRCLES, QS'S, GS'S, HEEL SLIDES AND ASSISTED SLR'S (). PATIENT DID WELL WITH THE EX'S AFTER INSTRUCTIONS GIVEN AND I SHOWED HER WHERE THE EX'S ARE IN THE BOOK SHE WAS GIVEN FOR SURGERY. THR PRECAUTIONS REVIEWED AND PATIENT COMMUNICATES A GOOD UNDERSTANDING. - Balance/Special Test Scores Lower Extremity Functional Score: 7 WOMAC Total Score: 72 WOMAC Percentatge: 25.0000 - Goals Goal 1:: INDEP AND SAFE GAIT ON LEVEL SURFACES AND UP AND DOWN STEPS WITH LEAST ASSISTIVE DEVICE. Goal Time Frame: 4-6 Weeks Goal 2:: INCREASE FUNCTION ROM OF RIGHT LE TO EASE ADLS. Goal Time Frame: 4-6 Weeks Goal 3:: IMRPOVE RIGHT LE FUNCTIONAL STRENGTH TO EASE ADL'S Goal Time Frame: 4-6 Weeks Goal 4:: PATIENT WILL BE INDEP WITH A HEP FOR CONTINUED IMPROVEMENT ONCE FORMAL PHYSICAL THERAPY CONCLUDES. Goal Time Frame: 4-6 Weeks - Anticipated Interventions Patient/Client Instruction: Educate patient on: Condition, Plan of Care, Risk Factors For the Purpose of:: To improve self management Therapeutic Exercise to Include: Strength training, Flexibilty training, Gait and locomotor training, Neuromotor development, Active ROM For the Purpose of:: To decrease pain, To increase ROM, To improve muscle performance and motor function, To increase tolerance to activity/condition/position, To improve ability of physical actions for home/community/work/leisure, To improve gait and locomotor functions Thank you for the opportunity to evaluate your patient. For Medicare and Medicare HMO plans, please review the plan of care and approve it. It will need to be FAXED BACK to us at [phone] for Medicare purposes. For Medicare only, by signing this I certify the plan of care. Please let me know if there are questions or concerns regarding this plan of care. Physician Signature: Date:
--- NOTE | 2021-03-16 13:30 | HP.PTREVAL_ITS ---
Dr. Jordon Jay, DO, It has been my pleasure to treat VALDEZ KHAN over the last 11 visits for RIGHT THR. Please see the progress note below for an update on the physical therapy plan of care! Subjective: PATIENT REPORTS SHE IS DOING REALLY GOOD. SHE REPORTS THE THERAPY IS REALLY HELPING. REPORTS SHE WOULD REALLY LIKE TO CONTINUE THERAPY. FOLLOW UP [facility] DR. JAY 04/03/20 Objective/Function: PATIENT WAS SEEN TODAY FOR RE-ASSESSMENT OF PROGRESS TOWARD THE SET PT GOALS AND THE NEED FOR FURTHER PHYSICAL THERAPY VS READINESS FOR DISCHARGE. UPON EXAM TODAY: DATE OF SURGERY: 02/21/21. GAIT: THIS PATIENT AMBULATES INDEP'LY INTO PT TODAY WITH A STRAIGHT CANE AND NO LOB. SHE DEMO'S INDEP TRANSFERS SIT TO STAND AND REVERSE WITHOUT UE ASSIST. ALSO INDEP SIT TO SUPINE AND REVERSE. TU.28 WITH STRAIGHT CANE. KNEE FLEXION AROM: R 115 DEG IN SUPINE WITH A HEEL SLIDE. KNEE EXT AROM: FULL. KNEE FLEXION MMT: 4/5. KNEE EXT MMT: 4/5. HIP FLEXION AROM: 85 DEG. HIP EXTENSION AROM: -10 DEG. HIP FLEXION MMT: 4/5. OTHER: PATIENT IS PLEASANT AND COOPERATIVE TO WORK WITH AND MAKING GOOD PROGRESS WITH PHYSICAL THEAPY. SHE IS A GOOD CANDIDATE TO CONTINUE PT BASED ON PROGRESS MADE AND ROOM FOR FURHTER IMPROVEMENT. PATIENT IS AGREEABLE. Plan Plan: RIGHT LE REHAB PER THR PROTOCOL. Balance/Gait/Functional tests - Balance/Special Test Scores Lower Extremity Functional Score: 40 WOMAC Total Score: 21 WOMAC Percentage: 78.1300 Goals Goal 1:: INDEP AND SAFE GAIT ON LEVEL SURFACES AND UP AND DOWN STEPS WITH LEAST ASSISTIVE DEVICE. Goal Time Frame: 4-6 Weeks Goal Progress: Progressing Goal 2:: INCREASE FUNCTION ROM OF RIGHT LE TO EASE ADLS. Goal Time Frame: 4-6 Weeks Goal Progress: Progressing Goal 3:: IMRPOVE RIGHT LE FUNCTIONAL STRENGTH TO EASE ADL'S Goal Time Frame: 4-6 Weeks Goal Progress: Progressing Goal 4:: PATIENT WILL BE INDEP WITH A HEP FOR CONTINUED IMPROVEMENT ONCE FORMAL PHYSICAL THERAPY CONCLUDES. Goal Time Frame: 4-6 Weeks Goal Progress: Progressing Anticipated Interventions Patient/Client Instruction: Educate patient on: Condition, Plan of Care, Risk Factors For the Purpose of:: To improve self management Therapeutic Exercise to Include: Strength training, Flexibilty training, Gait and locomotor training, Neuromotor development, Active ROM For the Purpose of:: To decrease pain, To increase ROM, To improve muscle performance and motor function, To increase tolerance to activity/condition/position, To improve ability of physical actions for home/community/work/leisure, To improve gait and locomotor functions Please do not hesitate to contact me at [phone] by phone or if you have questions or concerns regarding this new plan of care! Sincerely, Bette Wakefield, PT, Cert MDT
--- NOTE | 2021-04-10 15:08 | HP.PTREVAL_ITS ---
Dr. Jordon Jay, DO, It has been my pleasure to treat VALDEZ KHAN over the last 20 visits for RIGHT THR. Please see the progress note below for an update on the physical therapy plan of care! Subjective: PATIENT REPORTS THE STANDING PART IS A LOT BETTER NOW. STATES THAT SHE USE TO ONLY BE ABLE TO STAND ABOUT 5 TO 10 MINUTES EVEN WITHOUT BEARING WEIG HT ON HER RIGHT LEG AND NOW SHE CAN STAND WITH WEIGHT ON IT FOR 25 MIN OR SO WITHOUT IT ACHING. YESTERDAY I ONLY USED THE CANE ONE TIME. WOKE UP WITH RIGHT SIDE ACHYING TODAY FOR NO APPARENT REASON. NO RIGHT SIDE PAIN YESTERDAY. PATIENT REPORTS SHE IS CONSIDERING A LOCAL POOL MEMBERSHIP TO RESUME HER POOL EX PROGRAM WHEN OK'D BY DR. JAY. Objective/Function: PATIENT WAS SEEN TODAY FOR RE-ASSESSMENT OF PROGRESS TOWARD THE SET PT GOALS AND THE NEED FOR FURTHER PHYSICAL THERAPY VS READINESS FOR DISCHARGE. UPON EXAM TODAY: DATE OF SURGERY: 02/21/21. GAIT: THIS PATIENT AMBULATES INDEP'LY INTO PT TODAY WITH A STRAIGHT CANE BUT IT IS NOT NECESSARY FOR HER TO USE IT. SHE DEMO'S INDEP TRANSFERS SIT TO STAND AND REVERSE WITHOUT UE ASSIST. ALSO INDEP SIT TO SUPINE AND REVERSE. TU.78 WITHOUT AD. KNEE FLEXION AROM: R 120 DEG IN SUPINE WITH A HEEL SLIDE. KNEE EXT AROM: FULL. KNEE FLEXION MMT: 5/5. KNEE EXT MMT: 5/5. HIP FLEXION AROM: 90 DEG. HIP E XTENSION AROM: TO NEUTRAL. HIP FLEXION MMT: 4/5. OTHER: PATIENT IS PLEASANT AND COOPERATIVE TO WORK WITH AND MAKING GOOD PROGRESS WITH PHYSICAL THEAPY. SHE IS A GOOD CANDIDATE TO CONTINUE PT BASED ON PROGRESS MADE AND ROOM FOR FURHTER IMPROVEMENT. PATIENT IS AGREEABLE. TODAY SHE DEMO'S IMPROVED TUG TIME, INCREASED RIGHT HIP/KNEE FLEX ROM AND INCREASED RIGHT LE STRENGTH. RIGHT HIP EXTERNAL ROTATION IS STILL LIMITED MAKING IT DIFFICULT TO DO ADLS SUCH PUTTING SHOES AND SOCKS ON. PATIENT TOLERATED ABOVE EX'S WELL TODAY AND DEMONSTRATED/COMMUNICATED A GOOD UNDERSTANDING OF HOME INSTRUCTIONS AFTER GIVEN. Plan Plan: CONTINUE PT DECREASING TO 2X'S PER WEEK AND PROGRESSING TOLERATED FOR RIGHT LE REHAB PER THR PROTOCOL. PATIENT IS AGREEABLE. INCREASE FOCUS ON CORE STRENGTH AND ROM TOLERATED. Balance/Gait/Functional tests - Balance/Special Test Scores Lower Extremity Functional Score: 42 WOMAC Total Score: 17 WOMAC Percentage: 82.3000 Goals Goal 1:: INDEP AND SAFE GAIT ON LEVEL SURFACES AND UP AND DOWN STEPS WITH LEAST ASSISTIVE DEVICE. Goal Time Frame: 4-6 Weeks Goal Progress: Progressing Goal 2:: INCREASE FUNCTION ROM OF RIGHT LE TO EASE ADLS. Goal Time Frame: 4-6 Weeks Goal Progress: Progressing Goal 3:: IMRPOVE RIGHT LE FUNCTIONAL STRENGTH TO EASE ADL'S Goal Time Frame: 4-6 Weeks Goal Progress: Progressing Goal 4:: PATIENT WILL BE INDEP WITH A HEP FOR CONTINUED IMPROVEMENT ONCE FORMAL PHYSICAL THERAPY CONCLUDES. Goal Time Frame: 4-6 Weeks Goal Progress: Progressing Anticipated Interventions Patient/Client Instruction: Educate patient on: Condition, Plan of Care, Risk Factors For the Purpose of:: To improve self management Therapeutic Exercise to Include: Strength training, Flexibilty training, Gait and locomotor training, Neuromotor development, Active ROM For the Purpose of:: To decrease pain, To increase ROM, To improve muscle performance and motor function, To increase tolerance to activity/condition/position, To improve ability of physical actions for home/community/work/leisure, To improve gait and locomotor functions Please do not hesitate to contact me at [phone] by phone or if you have questions or concerns regarding this new plan of care! Sincerely, Bette Wakefield, PT, Cert MDT
== END 2021-04-10 19:00 | disposition home or self-care (01) ==
LOC: PT 12:00
PROVIDERS: PCP Internal Medicine; Referring Provider Orthopaedic Surgery; Visit Provider Orthopaedic Surgery
DX: Z47.1 Aftercare following joint replacement surgery (principal); M54.50 Low back pain, unspecified; Z96.641 Presence of right artificial hip joint
CPT/HCPCS: 97110; 97162; 97164; 97530

== ENCOUNTER 2021-05-24 12:40 | Outpatient (RCR) | payer MEDICARE, SELFPAY ==
--- NOTE | 2021-05-24 14:04 | HP.PTEVAL_ITS ---
Patient's Visit Information VALDEZ KHAN is a 65 year old F referred to Physical Therapy by Dr. Jordon Jay DO with a diagnosis of LUMBAR DEGNERATIVE SPONDYLOSIS, DDD AND SCOLIOSIS. Date of Evaluation: 05/24/21 Physical Therapist: Bette Wakefield, PT, Cert MDT - Visit Plan Frequency: 1x/Week Duration: 1 Week Plan: RECOMMEND FOLLOW UP WITH PAIN MGMT DOCTOR AND/OR SALESPERSON PIANOS AND ORGANS PER DR. JAY DUE TO PATIENTS HIGH PT CO-PAY AND RECENT PREVIOUS EPISODES OF CARE WITH PT THAT INCORPORATED CORE STRENGTH AND STABILITY EX'S. ALSO RECOMMEND PATIENT CONTINUE CURRENT HEP AND INDEP POOL EX'S TOLERATED WHILE SEEKING OTHER CONSULTS. PATIENT AGREEABLE. - Subjective Disability: YES - APPROX NOV 2019 FOR R HIP. Present symptoms: PAIN AT THE TOP OF THE RIGHT HIP AND IN RIGHT LOW BACK. Present since: MAR 2021. Pain Scale: WORST 7/10, LEAST 2/10. Currently: 3/10. Commenced as a result of: NO APPARENT REASON. Symptoms at onset: PAIN TOP OF RIGHT HIP. Worse: STANDING AND WALKING. Better: LEANING TO THE LEFT IN SITTING. Disturbed sleep: YES. Previous history/Previous treatment: PHYSICAL THERPAY AND MALOXACAM. Coughing/sneezing/straining: POSITIVE. Gait: INDEP GAIT WITHOUT ASSITVIVE DEVICE LIMITING GAIT TO ABOUT A BLOCK. Difficulty initiating urination: NO BOWL OR BLADDER DYSFUNCTION. Accidents: NO. Unexplained weight loss: NO. Imaging: RECENT LUMBAR X-RAY: STUDY: X-RAY - LUMBAR SPINE. REASON FOR EXAM: Female, 65 years old. pain. TECHNIQUE: 2 view(s) of the lumbar spine were obtained. COMPARISON: None. . FINDINGS: Normal lumbar lordosis. There is a dextroscoliosis of the lumbar spine. There is a normal alignment of the vertebrae. Normal vertebral bodies and endplates. Normal disc space heights. Facet. hypertrophy in the lower lumbar spine. The soft tissue structures are unremarkable. . RAD/Lumbar Spine 2 or 3 Views. IMPRESSION: Dextroscoliosis with degenerative disc disease. MRI would be useful. . Electronically Signed: Forrest Vann MD. at 9:47 EST. , Fax . . PMH/Recent major surgery: R THR FEB 21 2021. EVA CLUB FEET WITH SURGERIES. SKIN CANCER. HTN. OTHER: PATIENT REPORTS AT HER [address] JAY TOLD HER THAT HER R THR IS HEALED AND THAT SHE HAS DEVELOPED SCOLIOSIS. PATIENT REPORTS SHE IS DOING HER HOME EX'S FROM HER PRIOR EPISODE OF CARE WITH PT INCLUDING EVA LE DURAL STRETCHING, SINK EX'S AND BRIDGING. - Objective Sitting/Standing Posture: SCOLIOTIC. Active Correction of posture: BETTER ACTIVELY BUT WORSE WITH LUMBAR SUPPORT IN SITTING. Other Observations: INDEP GAIT AND TRANSFERS. NO AD. NO LOB. Motor deficit: EVA LE'S GROSSLY 5/5 WITH MMTING EXCEPT RIGHT HIP 4/5. Sensory deficit: EVA LE LIGHT TOUCH SENSATION GROSSLY INTACT AND SYMMETRICAL. ROM deficit: RIGHT FOOT DROP. Dural Signs: NEGATIVE EVA LE'S. Lumbar mvmt loss: flex - NIL. ext - MOD. R SG - MIN. L SG - MOD. PATIENT REPORTS PINCHING PAIN WHEN BENDS TO THE RIGHT. Core strength: POOR. Palpation: RIGHT RIB HUMP. TENDERNESS RIGHT ILIAC CREST. TREATMENT: NEUROMUSCULAR REEDUCATION - RETRAINING OF MVMT AND POSTURE FOR SITTING, LYING AND STANDING ACTIVITIES. REVIEWED HOME EX AND INSTRUCTIONS GIVEN LAST EPISODE OF CARE WITH PT. ENCOURAGED RESUMPTION OF INDEP POOL PROGRAM. PATIENT COMMUNICATED A GOOD UNDERSTANDING OF ALL INSTRUCTIONS GIVEN. PATIENT AGREEABLE WITH POC. - Balance/Special Test Scores Oswestry Low Back Score: 19 - Goals Goal 1:: SUCCESSFUL COMPLETION OF INITIAL EVAL Goal Time Frame: 1 Week Goal 2:: PATIENT WILL COMMUNICATE A GOOD UNDERSTANDING OF HOME INSTRUCTIONS. Goal Time Frame: 1 Week - Anticipated Interventions Patient/Client Instruction: Educate patient on: Condition, Plan of Care For the Purpose of:: To improve self management Therapeutic Exercise to Include: Neuromotor development For the Purpose of:: To improve ability of physical actions for home/community/work/leisure Thank you for the opportunity to evaluate your patient. For Medicare and Medicare HMO plans, please review the plan of care and approve it. It will need to be FAXED BACK to us at [phone] for Medicare purposes. For Medicare only, by signing this I certify the plan of care. Please let me know if there are questions or concerns regarding this plan of care. Physician Signature: Date:
== END 2021-05-24 19:00 | disposition home or self-care (01) ==
LOC: PT 12:40
PROVIDERS: PCP Internal Medicine; Referring Provider Orthopaedic Surgery; Visit Provider Orthopaedic Surgery
DX: M43.06 Spondylolysis, lumbar region (principal); M51.36 Other intervertebral disc degeneration, lumbar region; M41.9 Scoliosis, unspecified
CPT/HCPCS: 97112; 97162

== ENCOUNTER → 2021-08-07 | Outpatient (CLI) | payer MEDICARE, SELFPAY ==
--- NOTE | 2021-08-07 12:08 | MRI_ITS ---
STUDY: MRI CERVICAL SPINE WITHOUT CONTRAST REASON FOR EXAM: Female, 66 years old. Right C6 radiculopathy TECHNIQUE: Standardized fat and water weighted pulse sequences were obtained in the sagittal and axial planes. COMPARISON: None FINDINGS: Normal foramen magnum and brainstem-cervical cord junction. Normal craniovertebral junction. Normal anterior atlantoaxial articulation. Normal odontoid process. Normal cervical lordosis. Normal vertebral bodies and posterior osseous elements. C2-3: Normal endplates. Normal disc height, signal and morphology. Normal central canal and intervertebral neural foramina. C3-4: Mild right facet hypertrophy and right uncovertebral joint hypertrophy produces moderate right neural foraminal stenosis. No central spinal stenosis. C4-5: Mild broad disc osteophyte complex produces mild spinal stenosis and mild bilateral neural foraminal stenosis. C5-6: Moderate bilobed disc osteophyte complex and bilateral hypertrophy produces moderate spinal stenosis with abutment of the central spinal cord, moderate right neural foraminal stenosis and mild left neural foraminal stenosis. C6-7: Moderate broad disc osteophyte complex produces moderate spinal stenosis with abutment of the central spinal cord but no neural foraminal stenosis. C7-T1: Mild broad disc osteophyte complex present mild spinal stenosis but no neural foraminal stenosis. Normal cervical cord. Normal visualized soft tissue structures. MRI/Spine Cervical (Routine) IMPRESSION: Multilevel degenerative changes, as described above. Electronically Signed: Forrest Vann MD at 9:14 EDT ,
--- NOTE | 2021-08-07 12:08 | MRI_ITS ---
STUDY: MRI THORACIC SPINE WITHOUT CONTRAST REASON FOR EXAM: Female, 66 years old. Degenerative scoliosis -- TECHNIQUE: Standardized fat and water weighted pulse sequences were obtained in the sagittal and axial planes. COMPARISON: 07/03/2021 FINDINGS: Normal kyphosis of the thoracic spine. Mild levoscoliosis of the lower thoracic spine. T1-2, T2-3, T3-4, T4-5, T5-6, T6-7, T7-8, T8-9, T9-10, T10-11, T11-12: At T7/T8, there is a small left paracentral disc protrusion which produces mild spinal stenosis with abutment of the left hemicord but no jey cord compression. There is dilatation of the central canal within the spinal cord extending from T8 to T10 consistent with a syrinx. Correlation with MRI with contrast is recommended to exclude obstructing mass. Normal conus medullaris that terminates at the L1.. The soft tissue structures are unremarkable. MRI/Spine Thoracic (Routine) IMPRESSION: 1. Syrinx of the lower thoracic spinal cord and correlation with MRI with contrast is recommended to exclude obstructing mass. 2. Mild focal degenerative disc disease at T7/T8 but no jey cord compression. 3. Mild levoscoliosis of the lower thoracic spine. Electronically Signed: Forrest Vann MD at 11:57 EDT ,
== END | disposition home or self-care (01) ==
LOC: MRI 12:08
PROVIDERS: PCP Internal Medicine; Referring Provider Orthopaedic Surgery; Visit Provider Orthopaedic Surgery
DX: M54.12 Radiculopathy, cervical region (principal); M41.80 Other forms of scoliosis, site unspecified
CPT/HCPCS: 72141; 72146

== ENCOUNTER → 2022-07-20 | Outpatient (CLI) | payer MEDICARE, SELFPAY ==
[2022-07-20 12:42] LABS: Absolute Lymphocyte Count 2.19 X10^3/uL (0.83-4.51); Absolute Neutrophil Count 4.8 X10^3/uL (2.0-7.7); Basophil# 0.04 X10^3/uL; Basophil% 0.5 % (0-1); Eosinophil# 0.23 X10^3/uL; Hemoglobin 13.3 g/dL (12.0-15.0); Lymphocyte # 2.19 X10^3/ul (0.83-4.51); Lymphocyte % 28.3 % (19-41); Mean Corp Hgb Conc 30.9 g/dL (32-36); Mean Corpuscular Hgb 26.9 pg (27.0-32.0); Mean Platelet Vol. 11.1 fl (6.2-12.0); Monocyte# 0.48 X10^3/uL; Monocyte% 6.2 % (0-10); NRBC Flagged by Analyzer 0 % (0-5); Neutrophil # 4.79 X10^3/uL (2.7-7.7); Neutrophil % 61.7 % (47-70); Platelet Count 374 K/mm3 (150-450); RBC Distribution Width SD 50.7 fl (35.1-43.9); Red Blood Count 4.94 M/mm3 (4.2-5.4); White Blood Count 7.8 K/mm3 (4.4-11.0)
[2022-07-20 13:13] LABS: ALB/GLOB Ratio 0.9 RATIO (0.9-2.4); AST(SGOT) 13 U/L (15-37); Alanine Aminotransfer ALT/SGPT 20 U/L (13-56); Albumin, Serum 3.5 g/dL (3.2-5.0); Alkaline Phosphatase 76 U/L (45-117); Anion Gap 9 (5-15); BUN 18 mg/dL (7-18); BUN/Creat Ratio 13.7 RATIO (10-20); Calcium,Total 9.7 mg/dL (8.5-10.1); Chloride 104 mmol/L (98-107); Cholesterol 232 mg/dL (200); Creatinine, Serum 1.31 mg/dL (0.55-1.02); EST Glomerular Filtration Rate 43 mL/min (>60); Est Glom Filt Rate - Afr Amer 52 mL/min (>60); Globulin 4.1 g/dL (2.2-4.2); Glucose 104 mg/dL (74-106); High Density Lipoprotein 67 mg/dL; Potassium 3.8 mmol/L (3.5-5.1); Protein, Total 7.6 g/dL (6.4-8.2); Sodium Level 140 mmol/L (136-145); Triglycerides 103 mg/dL; Very Low Density Lipoprotein 21 mg/dL (5-40)
== END | disposition home or self-care (01) ==
LOC: BIMLAB 08:48
PROVIDERS: PCP Internal Medicine; Referring Provider Internal Medicine; Visit Provider Internal Medicine
DX: I10 Essential (primary) hypertension (principal)
CPT/HCPCS: 36415; 80053; 80061; 85025

== ENCOUNTER → 2022-08-09 | Outpatient (CLI) | payer MEDICARE, SELFPAY ==
--- NOTE | 2022-08-09 14:15 | BI_ITS ---
MAMMOGRAPHY - BILATERAL SCREENING REASON FOR EXAM: Female, 67 years old. Routine annual screening examination. PERTINENT HISTORY: Non-contributory. TECHNIQUE: Digital bilateral breast kylah (3D mammographic acquisition) in the CC and MLO projections. 2-D mediolateral oblique (MLO) and craniocaudad (CC) views of both breasts were obtained. CAD: Full Field Digital Mammography with Computer Added Detection was performed. COMPARISON: None. Baseline examination. FINDINGS: Breast Composition: The breasts are almost entirely fatty. There are no dominant masses or suspicious calcifications. No other significant abnormalities are identified. BI/SCRN MAMM (CAD)W/KYLAH BILAT IMPRESSION: Negative screening mammogram. Yearly followup mammogram recommended. (A) ASSESSMENT CATEGORY: BIRADS Category 1: Negative. A letter regarding these results will be sent to the patient by the facility within 30 days. Approximately 10% of breast cancers are not detected by mammography. A normal mammogram should not delay biopsy of a clinically suspicious abnormality. Electronically Signed: Piter Rae DO at 14:19 EDT ,
--- NOTE | 2022-08-09 14:33 | BD_ITS ---
STUDY: DUAL ENERGY X-RAY ABSORPTIOMETRY / DXA REASON FOR EXAM: Female, 67 years old. Post Menopausal TECHNIQUE: Bone Mineral Density (BMD) measurements of lumbar spine and left hip were obtained. COMPARISON: None. FINDINGS: Lumbar Spine (L1-L4): g/cm2 (0.965) / T-score (-0.7) / Z-score (1.1) Findings are suggestive of normal bone density with a low fracture risk. Left Femur Total: g/cm2 (0.914) / T-score (-0.2) / Z-score (1.0) Left Femoral Neck: g/cm2 (0.667) / T-score (-1.6) / Z-score (-0.1) BD/Dexa Bone Density Study IMPRESSION: The patient is considered osteopenic as outlined below according to World [place] Organization (WHO) criteria with a moderate fracture risk. Reference Information: The T-score is the number of standard deviations above or below the standard which is normal for young adults at their peak bone mineral density. The World Health Organization (WHO) interprets the T-scores as follows: Above -1 Normal bone density Between -1 and -2.5 Osteopenia Equal to / or below -2.5 Osteoporosis As a practical clinical guideline, osteopenia may be graded as follows: Mild -1 through -1.5 Moderate -1.6 through -2.0 Severe -2.1 through -2.4 The Z-score is the number of standard deviations above or below age-matched controls. A Z-score of less than -1.5 would be considered abnormal. References: 1. NIH Osteoporosis and Related Bone Diseases www osteo.org 2. International Society for Clinical Densitometry www iscd.org 3. National Osteoporosis Foundation www nof.org Electronically Signed: Sammy Julian MD at 13:25 EDT ,
== END | disposition home or self-care (01) ==
PROVIDERS: PCP Internal Medicine; Referring Provider Internal Medicine; Visit Provider Internal Medicine
DX: Z12.31 Encounter for screening mammogram for malignant neoplasm of breast (principal); Z78.0 Asymptomatic menopausal state
CPT/HCPCS: 77063; 77067; 77080

== ENCOUNTER → 2023-05-13 | Outpatient (CLI) | payer MEDICARE, SELFPAY ==
[2023-05-13 12:26] LABS: Absolute Lymphocyte Count 1.85 X10^3/uL (0.83-4.51); Absolute Neutrophil Count 3.9 X10^3/uL (2.0-7.7); Basophil# 0.02 X10^3/uL; Basophil% 0.3 % (0-1); Eosinophil# 0.18 X10^3/uL; Eosinophils% 2.8 % (0-5); Hematocrit 41.5 % (37-47); Hemoglobin 13.2 g/dL (12.0-15.0); Lymphocyte # 1.85 X10^3/ul (0.83-4.51); Mean Corp Hgb Conc 31.8 g/dL (32-36); Mean Corpuscular Hgb 27.6 pg (27.0-32.0); Mean Corpuscular Volume 86.6 fL (81-99); Mean Platelet Vol. 10.5 fl (6.2-12.0); Monocyte# 0.48 X10^3/uL; Monocyte% 7.5 % (0-10); NRBC Flagged by Analyzer 0 % (0-5); Neutrophil # 3.85 X10^3/uL (2.7-7.7); Neutrophil % 60.2 % (47-70); Platelet Count 349 K/mm3 (150-450); RBC Distribution Width CV 15.9 % (11.6-14.6); RBC Distribution Width SD 50.1 fl (35.1-43.9); Red Blood Count 4.79 M/mm3 (4.2-5.4); White Blood Count 6.4 K/mm3 (4.4-11.0)
[2023-05-13 13:18] LABS: ALB/GLOB Ratio 0.8 RATIO (0.9-2.4); AST(SGOT) 12 U/L (15-37); Alanine Aminotransfer ALT/SGPT 20 U/L (13-56); Albumin, Serum 3.3 g/dL (3.2-5.0); Alkaline Phosphatase 72 U/L (45-117); Anion Gap 5 (5-15); BUN 17 mg/dL (7-18); BUN/Creat Ratio 12.7 RATIO (10-20); Calcium,Total 9.3 mg/dL (8.5-10.1); Chloride 106 mmol/L (98-107); Cholesterol 250 mg/dL (200); Creatinine, Serum 1.34 mg/dL (0.55-1.02); EST Glomerular Filtration Rate 42 mL/min (>60); Est Glom Filt Rate - Afr Amer 51 mL/min (>60); Glucose 113 mg/dL (74-106); High Density Lipoprotein 70 mg/dL; Potassium 3.7 mmol/L (3.5-5.1); Protein, Total 7.3 g/dL (6.4-8.2); Sodium Level 139 mmol/L (136-145); T4 Free Direct 0.88 ng/dL (0.76-1.46); Triglycerides 126 mg/dL; Very Low Density Lipoprotein 25 mg/dL (5-40)
[2023-05-13 13:26] LABS: Vitamin D,25 Hydroxy 72.6 ng/mL
== END | disposition home or self-care (01) ==
LOC: BIMLAB 09:31
PROVIDERS: PCP Internal Medicine; Visit Provider Internal Medicine
DX: I10 Essential (primary) hypertension (principal); M85.80 Other specified disorders of bone density and structure, unspecified site; R00.0 Tachycardia, unspecified
CPT/HCPCS: 36415; 80053; 80061; 82306; 84439; 84443; 85025

== ENCOUNTER → 2023-08-13 | Outpatient (CLI) | payer MEDICARE, SELFPAY ==
--- NOTE | 2023-08-13 11:50 | BI_ITS ---
MAMMOGRAPHY - BILATERAL SCREENING REASON FOR EXAM: Female, 68 years old. Routine annual screening examination. PERTINENT HISTORY: Non-contributory. TECHNIQUE: Digital bilateral breast kylah (3D mammographic acquisition) in the CC and MLO projections. 2-D mediolateral oblique (MLO) and craniocaudad (CC) views of both breasts were obtained. CAD: Full Field Digital Mammography with Computer Added Detection was performed. COMPARISON: Comparison is made with prior study August 09, 2022. FINDINGS: Breast Composition: The breasts are almost entirely fatty. There are no dominant masses or suspicious calcifications. Stable benign-appearing bilateral axillary lymph nodes. No other significant abnormalities are identified. There has been no significant change since the prior study. BI/SCRN MAMM (CAD)W/KYLAH BILAT IMPRESSION: Stable bilateral screening mammogram. Yearly follow-up mammogram recommended. (A) ASSESSMENT CATEGORY: BIRADS Category 2: Benign. A letter regarding these results will be sent to the patient by the facility within 30 days. Approximately 10% of breast cancers are not detected by mammography. A normal mammogram should not delay biopsy of a clinically suspicious abnormality. [id number] Electronically Signed: Sammy Julian MD at 14:31 EDT ,
== END | disposition home or self-care (01) ==
LOC: OPBI 11:49
PROVIDERS: PCP Internal Medicine; Referring Provider Internal Medicine; Visit Provider Internal Medicine
DX: Z12.31 Encounter for screening mammogram for malignant neoplasm of breast (principal)
CPT/HCPCS: 77063; 77067

== ENCOUNTER → 2023-12-04 | Outpatient (CLI) | payer MEDICARE, SELFPAY ==
[2023-12-04 12:28] LABS: Anion Gap 8 (5-15); BUN 20 mg/dL (7-18); BUN/Creat Ratio 13.7 RATIO (10-20); Calcium,Total 8.9 mg/dL (8.5-10.1); Chloride 107 mmol/L (98-107); Creatinine, Serum 1.46 mg/dL (0.55-1.02); EST Glomerular Filtration Rate 38 mL/min (>60); Est Glom Filt Rate - Afr Amer 46 mL/min (>60); Glucose 99 mg/dL (74-106); Potassium 4.4 mmol/L (3.5-5.1); Sodium Level 143 mmol/L (136-145)
== END | disposition home or self-care (01) ==
LOC: BIMLAB 10:35
PROVIDERS: PCP Internal Medicine; Referring Provider Internal Medicine; Visit Provider Internal Medicine
DX: I10 Essential (primary) hypertension (principal)
CPT/HCPCS: 36415; 80048

== ENCOUNTER → 2024-03-05 | Outpatient (CLI) | payer MEDICARE, SELFPAY ==
[2024-03-05 15:58] LABS: Anion Gap 5 (5-15); BUN 18 mg/dL (7-18); Calcium,Total 9.4 mg/dL (8.5-10.1); Chloride 105 mmol/L (98-107); Creatinine, Serum 1.63 mg/dL (0.55-1.02); EST Glomerular Filtration Rate 34 mL/min (>60); Est Glom Filt Rate - Afr Amer 41 mL/min (>60); Glucose 101 mg/dL (74-106); Potassium 4.1 mmol/L (3.5-5.1); Sodium Level 139 mmol/L (136-145)
[2024-03-05 16:37] LABS: Microalbumin:Creatinine Ratio 2337.9 mg/g CRE (<30 mg/g CRE)
== END | disposition home or self-care (01) ==
LOC: BIMLAB 12:04
PROVIDERS: PCP Internal Medicine; Referring Provider Internal Medicine; Visit Provider Internal Medicine
DX: I10 Essential (primary) hypertension (principal)
CPT/HCPCS: 36415; 80048; 82043; 82570

== ENCOUNTER → 2024-03-09 | Outpatient (CLI) | payer MEDICARE, SELFPAY ==
[2024-03-09 14:19] LABS: Mucous, Urine 0 SEEN /hpf (<or=2+); White Blood Cells 0 SEEN /hpf (0-5)
[2024-03-09 15:19] LABS: Color, Urine Yellow (Yellow); Glucose, Dipstick Normal (Normal); Ketone-Dipstick Negative (Negative); Leukocyte Esterase-Dipstick Negative /ul (Negative); Nitrite-Dipstick Negative (Negative); Occult Blood-Urine 250 /ul (Negative); Protein-Dipstick 500 mg/dl (Negative); Specific Gravity, Urine 1.015 (1.002-1.030); Urine Bilirubin Dipstick Negative (Negative); Urine Clarity Clear (Clear); Urine Urobilinogen Normal (Normal)
[2024-03-09 15:32] LABS: Bacteria 1+ /hpf (None Seen); Red Blood Cells-Urine 5-10 SEEN /hpf (0-5); Squamous Epithelial Cells - UA 0-5 SEEN /hpf (5-10)
== END | disposition home or self-care (01) ==
LOC: LABSPEC 14:16
PROVIDERS: PCP Internal Medicine; Referring Provider Internal Medicine; Visit Provider Internal Medicine
DX: R82.90 Unspecified abnormal findings in urine (principal)
CPT/HCPCS: 81001; 87086

== ENCOUNTER → 2024-04-29 | Outpatient (CLI) | payer MEDICARE, SELFPAY ==
[2024-04-29 13:01] LABS: Hemoglobin 13.1 g/dL (12.0-15.0); Mean Corpuscular Hgb 27.5 pg (27.0-32.0); Mean Corpuscular Volume 86.1 fL (81-99); Mean Platelet Vol. 10.6 fl (6.2-12.0); Platelet Count 383 K/mm3 (150-450); RBC Distribution Width CV 14.6 % (11.6-14.6); RBC Distribution Width SD 46.5 fl (35.1-43.9); Red Blood Count 4.76 M/mm3 (4.2-5.4); White Blood Count 8.5 K/mm3 (4.4-11.0)
[2024-04-29 13:18] LABS: Albumin, Serum 3.3 g/dL (3.2-5.0); BUN 27 mg/dL (7-18); BUN/Creat Ratio 14.8 RATIO (10-20); Calcium,Total 9.4 mg/dL (8.5-10.1); Chloride 106 mmol/L (98-107); Creatinine, Serum 1.82 mg/dL (0.55-1.02); EST Glomerular Filtration Rate 30 mL/min (>60); Est Glom Filt Rate - Afr Amer 36 mL/min (>60); Glucose 110 mg/dL (74-106); Phosphorus 3.2 mg/dL (2.5-4.9); Sodium Level 139 mmol/L (136-145)
[2024-04-29 13:53] LABS: Protein, Urine (Random) 188.8 mg/dL (<11.9); Protein:Creat Ratio 2272 mg/g CRE (0-200)
[2024-05-04 16:08] LABS: PROELU- Albumin, Urine 70.3 % (.); PROELU- Alpha-1-Globulin,Ur 5.3 % (.); PROELU- Alpha-2-Globulin,Ur 6.5 % (.); PROELU- Beta Globulin, Ur 10.7 % (.); PROELU- Gamma Globulin, Ur 7.1 % (.); Total Protein, Ur 188.8 mg/dL (Not Estab.)
== END | disposition home or self-care (01) ==
LOC: LAB 11:46
PROVIDERS: PCP Internal Medicine; Referring Provider Internal Medicine Nephrology; Visit Provider Internal Medicine Nephrology
DX: N17.9 Acute kidney failure, unspecified (principal); N18.32 Chronic kidney disease, stage 3b; R80.9 Proteinuria, unspecified
CPT/HCPCS: 36415; 80069; 82570; 84156; 84166; 85027

== ENCOUNTER → 2024-05-04 | Outpatient (CLI) | payer MEDICARE, SELFPAY ==
--- NOTE | 2024-05-04 12:51 | US_ITS ---
PROCEDURE: KIDNEY AND BLADDER REASON FOR EXAM: CKD 3 TECHNIQUE: Ultrasound of the kidneys and bladder COMPARISON: None. FINDINGS: Kidneys are echogenic, bilaterally No hydronephrosis. No cysts or large solid renal masses. Grossly normal bladder contour. No large bladder wall mass visualized. RIGHT Kidney Size: 10.6 x 5.6 x 4.8 Volume: 149.78 mL Parenchymal Thickness: 18 mm (>14mm is normal) LEFT Kidney Size: 10.9 x 4.7 x 6.2 Volume: 166.25 mL Parenchymal Thickness: 20 mm (>14mm is normal) BLADDER: Prevoid volume: 443 mL Postvoid volume: Not visualized mL US/Kidney and Bladder IMPRESSION: Bilateral medical renal disease Reading Location: [facility]
[2024-05-04 14:39] LABS: PTHIN 63.3 pg/mL (18.4-80.1)
== END | disposition home or self-care (01) ==
PROVIDERS: PCP Internal Medicine; Referring Provider Internal Medicine Nephrology; Visit Provider Internal Medicine Nephrology
DX: N18.32 Chronic kidney disease, stage 3b (principal)
CPT/HCPCS: 76770; 83970

== ENCOUNTER → 2024-05-28 | Outpatient (CLI) | payer MEDICARE, SELFPAY ==
[2024-05-28 15:40] LABS: Albumin, Serum 3.9 g/dL (3.4-4.8); Anion Gap 12 (5-15); BUN 25 mg/dL (4-19); BUN/Creat Ratio 16.1 RATIO (10-20); Calcium,Total 9.9 mg/dL (7.6-11.0); Carbon Dioxide 25.3 mmol/L (21.0-32.0); Chloride 102 mmol/L (98-108); Creatinine, Serum 1.57 mg/dL (0.70-1.20); EST Glomerular Filtration Rate 36 (>60); Glucose 101 mg/dL (70-99); Potassium 4.1 mmol/L (3.3-5.1); Sodium Level 140 mmol/L (133-145)
[2024-05-28 18:36] LABS: Phosphorus 3.8 mg/dL (2.7-4.5); Rheumatoid Factor < 10.0 IU/mL (<15)
[2024-06-01 13:07] LABS: ANTINUCLEAR ANTIBODIES DIRECT Negative (Negative)
[2024-06-01 17:07] LABS: Complement C3 144 mg/dL (82-167); Cytoplasmic Ab (C-ANCA) <1:20 titer (Neg:<1:20); PROEL- Albumin 3.3 g/dL (2.9-4.4); PROEL- Alpha-1 Globulin 0.3 g/dL (0.0-0.4); PROEL- Alpha-2 Globulin 0.9 g/dL (0.4-1.0); PROEL- Beta Globulin 1.2 g/dL (0.7-1.3); PROEL- Gamma Globulin 0.8 g/dL (0.4-1.8); PROEL- Globulin, Total 3.2 g/dL (2.2-3.9); PROEL- TOTAL PROTEIN 6.5 g/dL (6.0-8.5); PROEL-M-Spike Comment: g/dL (Not Observed); Perinuclear Ab (P-ANCA) <1:20 titer (Neg:<1:20)
== END | disposition home or self-care (01) ==
LOC: BIMLAB 13:06
PROVIDERS: PCP Internal Medicine; Referring Provider Internal Medicine Nephrology; Visit Provider Internal Medicine Nephrology
DX: N17.9 Acute kidney failure, unspecified (principal); N18.32 Chronic kidney disease, stage 3b; R80.9 Proteinuria, unspecified; R31.9 Hematuria, unspecified
CPT/HCPCS: 36415; 80069; 84165; 86037; 86038; 86160; 86431

== ENCOUNTER → 2024-06-12 | Outpatient (CLI) | payer MEDICARE, SELFPAY ==
--- NOTE | 2024-06-12 12:45 | RAD_ITS ---
EXAM: BONE SURVEY COMP(AXIAL APPEND) 06/12/2024 REASON FOR EXAM: ABNORMAL SERUM PROTEIN F,69 y/o TECHNIQUE: Radiographic images are obtained of nearly the entire axial and appendicular skeleton COMPARISON: None. FINDINGS: Skull and cervical spine demonstrate no focal lytic lesions. No obvious lytic lesions in the thoracic spine ribcage are lumbar spine. Potential 1 cm lesion with sclerotic margins in the left femoral head or possibly the acetabulum. Bones of the upper and lower extremity otherwise demonstrate no lytic lesions RAD/Bone Survey Comp(Axial&Append) IMPRESSION: A lytic lesion is seen involving the left hip. That is difficult to determine whether the lesion is in the left femoral head or the left acetabulum as it projects over both. An MRI of the left hip might be helpful. Recommend follow-up, if clinically warranted. Reading Location: [facility]
== END | disposition home or self-care (01) ==
LOC: RAD 12:28
PROVIDERS: PCP Internal Medicine; Referring Provider Internal Medicine Medical Oncology; Visit Provider Internal Medicine Medical Oncology
DX: R77.8 Other specified abnormalities of plasma proteins (principal)
CPT/HCPCS: 77075

== ENCOUNTER → 2024-07-31 | Outpatient (CLI) | payer MEDICARE, SELFPAY ==
--- NOTE | 2024-07-31 08:17 | MRI_ITS ---
EXAM: PELVIS W/WO CONTRAST 07/31/2024 CLINICAL HISTORY: LYTIC LEASION LEFT HIP. TECHNIQUE: MRI of the pelvis was performed. Multiplanar and multisequence images were obtained intravenous gadolinium contrast. CONTRAST: 20 cc Clariscan COMPARISON: June 12, 2024 FINDINGS: Metallic artifact is noted consistent with hardware in the right hip. The uterus measures 6.5 by 7.7 by 10.4 cm. There are multiple uterine fibroids with the largest subserosal fibroid at the fundus measuring 5.0 cm, and posterior submucosal fibroid measuring 4.3 cm. The endometrium measures 0.33 cm. The right ovary measures 2.1 by 1.1 cm. The left ovary measures 1.8 x 0.9 cm. There is no adnexal mass or free fluid. There is no visible pathologic adenopathy. There is no visible abnormality in the included bowel or mesentery. There is normal marrow signal in the pelvic bones and in the proximal left femur with no suspicious lesion or abnormal enhancement following contrast, to correspond with the plain film finding. The adjacent muscular structures appear intact. There is a small amount of fluid in the left trochanteric bursa. MRI/Pelvis W/WO Contrast IMPRESSION: Fibroid uterus. Mild left trochanteric bursitis. There is normal marrow signal in the pelvic bones and in the proximal left femu r with no suspicious lesion or abnormal enhancement following contrast, to correspond with the plain film finding. Reading Location: [facility]
== END | disposition home or self-care (01) ==
LOC: OPMRI 07:46
PROVIDERS: PCP Internal Medicine; Referring Provider Internal Medicine Medical Oncology; Visit Provider Internal Medicine Medical Oncology
DX: M89.8X8 Other specified disorders of bone, other site (principal); R77.8 Other specified abnormalities of plasma proteins; R80.9 Proteinuria, unspecified
CPT/HCPCS: 72197; A9575

== ENCOUNTER → 2024-08-13 | Outpatient (CLI) | payer MEDICARE, SELFPAY ==
--- NOTE | 2024-08-13 08:00 | BD_ITS ---
PROCEDURE: DEXA BONE DENSITY STUDY 08/13/2024 REASON FOR EXAM: POST MENOPAUSAL F, age 69 y/o . Postmenopausal. Status post right hip replacement.. TECHNIQUE: DXA scan of sites with data reported below. . REFERENCE LINKS: ISCD Adult Positions COMPARISON: None FINDINGS: BMD and T-SCORES Lumbar spine: 1.001 g/cm2, T-score -0.3 Levels: L1 through L4 Left femoral neck: 0.697 g/cm2, T-score -1.4 Femoral neck comparison data not recommended for monitoring change. Left total hip: 0.961 g/cm2, T-score 0.2 The World Health Organization has defined the following categories based on bone density: Normal bone density: T-score equal to or greater than -1.0 Osteopenia: T-score between -1.0 and -2.5 Osteoporosis: T-score equal to or less than -2.5 The patient does meet the pharmacological treatment recommendations for prevention of osteoporosis. BD/Dexa Bone Density Study IMPRESSION: OSTEOPENIA. Recommend follow-up as clinically warranted. Reading Location: [id number]
--- NOTE | 2024-08-13 08:30 | BI_ITS ---
EXAM: SCRN MAMM (CAD)W/KYLAH BILAT DATE: 08/13/2024 CLINICAL HISTORY: F, Age 69 y/o , BREAST CANCER SCREENING No family history. BREAST CANCER RISK ASSESSMENT: Not assessed. TECHNIQUE: Bilateral screening digital breast tomosynthesis with 2D and 3D images. Computer aided detection. COMPARISON: Prior exam(s) dated August 13, 2023.. FINDINGS: TISSUE DENSITY: The breast tissue is almost entirely fatty. Bilateral Breast Mammographic Findings: No significant masses, calcifications or other abnormalities are identified. Stable small benign-appearing bilateral axillary lymph nodes. No suspicious masses, areas of developing architectural distortion, or suspicious calcifications. There has been no significant interval change. BI/SCRN MAMM (CAD)W/KYLAH BILAT IMPRESSION: OVERALL FINAL ASSESSMENT: BIRADS 2 BENIGN FINDING RECOMMENDATION: Routine annual follow-up in 1 Year A letter with findings and recommendations will be mailed to the patient. Reading Location: [id number]
== END | disposition home or self-care (01) ==
LOC: OPBD 07:36
PROVIDERS: PCP Internal Medicine; Referring Provider Internal Medicine; Visit Provider Internal Medicine
DX: Z12.31 Encounter for screening mammogram for malignant neoplasm of breast (principal); Z78.0 Asymptomatic menopausal state
CPT/HCPCS: 77063; 77067; 77080

== ENCOUNTER → 2024-10-29 | Outpatient (CLI) | payer MEDICARE, SELFPAY ==
--- NOTE | 2024-10-29 13:12 | CT_ITS ---
PROCEDURE: CT CHEST, ABD, PELVIS WO CONT 10/29/2024 REASON FOR EXAM: R/O MALIGNANCY TECHNIQUE: Chest, abdomen and pelvis CT without intravenous contrast. Coronal and Sagittal reconstruction series were provided. One or more dose reduction techniques were used (e.g., Automated exposure control, adjustment of the mA and/or kV according to patient size, use of iterative reconstruction technique. RADIATION DOSE SUMMARY: CTDlvol: 21.14 mGy DLP: 1083 mGycm COMPARISON: None. FINDINGS: Mild cardiomegaly. Mild pericardial effusion. Bilateral basilar atelectatic pulmonary changes. Enlarged uterus with multiple fibroids, the largest calcified in the fundus measuring 5.4 cm. Fat containing umbilical hernia without incarceration. A few scattered simple hepatic cysts are noted with the largest in the left hepatic lobe measuring 2.7 cm. Normal unenhanced main pulmonary artery and right and left pulmonary arteries. Normal bilateral peripheral pulmonary arteries. Normal thoracic aorta and visualized great vessels. There is no demonstrated aortic aneurysm. Normal heart and pericardium. Normal mediastinum. Normal hilar regions. Normal visualized trachea and bronchi. The remaining lungs are well expanded. Normal remaining pulmonary parenchyma. Normal pleura. Normal remaining unenhanced liver. Normal gallbladder and extrahepatic biliary system. Normal unenhanced spleen. Normal pancreas. Normal bilateral adrenal glands. Normal size of the right kidney. There is no right renal mass. There are no right renal calculi. There is no right hydronephrosis. Normal visualized right ureter. Normal size of the left kidney. There is no left renal mass. There are no left renal calculi. There is no left hydronephrosis. Normal visualized left ureter. Normal visualized stomach. Normal small intestine. Normal colon. The appendix is visualized and appears normal. There is no demonstrated peritoneal fluid. Normal abdominal aorta. Normal inferior vena cava. Normal retroperitoneum. Normal urinary bladder. There is no pelvic lymphadenopathy. There is no pelvic fluid. CT/CT Chest, Abd, Pelvis WO Cont IMPRESSION: Mild cardiomegaly. Mild pericardial effusion. Bilateral basilar atelectatic pulmonary changes. Enlarged uterus with multiple fibroids, the largest calcified in the fundus jamison suring 5.4 cm. Fat containing umbilical hernia without incarceration. A few scattered simple hepatic cysts are noted with the largest in the left hep atic lobe measuring 2.7 cm. Reading [facility]
[2024-10-29 13:53] LABS: Hematocrit 36.8 % (37-47); Hemoglobin 12.0 g/dL (12.0-15.0); Immature Granulocytes Count 0.010 X10^3/uL (0.0-0.0); Mean Corp Hgb Conc 32.6 g/dL (32-36); Mean Corpuscular Volume 86.4 fL (81-99); Mean Platelet Vol. 10.4 fl (6.2-12.0); NRBC Flagged by Analyzer 0 % (0-5); Platelet Count 312 K/mm3 (150-450); RBC Distribution Width CV 14.8 % (11.6-14.6); RBC Distribution Width SD 47.5 fl (35.1-43.9); Red Blood Count 4.26 M/mm3 (4.2-5.4); White Blood Count 5.6 K/mm3 (4.4-11.0)
[2024-10-29 15:01] LABS: Albumin, Serum 3.6 g/dL (3.4-4.8); Anion Gap 13 (5-15); BUN 20 mg/dL (4-19); BUN/Creat Ratio 11.6 RATIO (10-20); Calcium,Total 8.9 mg/dL (7.6-11.0); Carbon Dioxide 23.6 mmol/L (21.0-32.0); Chloride 104 mmol/L (98-108); Glucose 97 mg/dL (70-99); Potassium 4.3 mmol/L (3.3-5.1)
[2024-10-29 15:02] LABS: Creatinine, Urine (random) 49.30 mg/dL (28.00-217.00)
[2024-10-29 15:03] LABS: AST(SGOT) 20 U/L (<=31); Alanine Aminotransfer ALT/SGPT 14 U/L (<=34); Albumin, Serum 3.7 g/dL (3.4-4.8); Alkaline Phosphatase 69 U/L (35-104); Anion Gap 11 (5-15); BUN 21 mg/dL (4-19); BUN/Creat Ratio 12.2 RATIO (10-20); Calcium,Total 8.9 mg/dL (7.6-11.0); Carbon Dioxide 25.5 mmol/L (21.0-32.0); Chloride 104 mmol/L (98-108); Globulin 2.6 g/dL (2.2-4.2); Glucose 97 mg/dL (70-99); LDH 170 U/L (84-246); Potassium 4.3 mmol/L (3.3-5.1)
[2024-10-29 15:03] LABS: Cholesterol 270 mg/dL (<=200); Low Density Lipoprotein Calc. 176 mg/dL; Triglycerides 175 mg/dL; Very Low Density Lipoprotein 35 mg/dL (5-40); cholesterol:hdl ratio screen 4.55
[2024-10-29 15:14] LABS: Protein, Urine (Random) 249.0 mg/dL (0.0-12.0); Protein:Creat Ratio 5051 mg/g CRE (0-200)
== END | disposition home or self-care (01) ==
LOC: CT 12:57
PROVIDERS: Internal Medicine Nephrology; PCP Internal Medicine; Referring Provider Internal Medicine Medical Oncology; Visit Provider Internal Medicine Medical Oncology
DX: R76.8 Other specified abnormal immunological findings in serum (principal); R80.9 Proteinuria, unspecified; R77.8 Other specified abnormalities of plasma proteins; I10 Essential (primary) hypertension
CPT/HCPCS: 36415; 71250; 74176; 80053; 80061; 80069; 82570; 82784; 83615; 83883; 84156; 84165; 85025; 86334

== ENCOUNTER → 2024-12-08 | Outpatient (CLI) | payer MEDICARE, SELFPAY ==
--- NOTE | 2024-12-08 13:47 | ECHODONC_ITS ---
Reason For Study Reason For Study: Pericardial Effusion Procedure This was a 2D Doppler, Color Flow transthoracic echocardiogram. Myocardial strain analysis was performed in this exam to aid in the assessment of cardiac function. Exam performed in department. Left Ventricle Normal left ventricle. The global longitudinal strain = -17.3 % (normal). The left ventricular ejection fraction is 65 %. Stage 1 diastolic dysfunction. No regional wall motion abnormalities noted. Right Ventricle Normal RV size. Normal systolic function. Atria Normal left atrium. Normal right atrium. Mitral Valve Normal mitral valve. Tricuspid Valve Normal tricuspid valve. Aortic Valve Trisinus/trileaflet aortic valve. Pulmonic Valve Normal pulmonic valve. Great Vessels Normal aortic root. The pulmonary artery is normal size. Inferior vena cava collapse with respiration. Pericardium/Pleural Small (<1.0 cm) pericardial effusion. MMode/2D Measurements & Calculations LVIDd: 4.6 cm IVSd: 1.0 cm LVOT diam: 2.1 cm LVIDs: 2.9 cm LVPWd: 1.0 cm LVOT area: 3.5 cm2 RVDd: 3.4 cm FS: 38.1 % Ao root diam: 3.6 cm LAV(MOD-bp): 49.7 ml LVAd ap4: 29.2 cm2 LAV(MOD-bp) Indexed: 25.9 ml/m2 LVLd ap4: 7.8 cm LAV(MOD-sp2): 43.7 ml EDV(MOD-sp4): 89.4 ml LAV(MOD-sp4): 58.9 ml EDV(sp4-el): 92.4 ml LVAs ap4: 15.0 cm2 LVLs ap4: 6.7 cm ESV(MOD-sp4): 28.6 ml ESV(sp4-el): 28.7 ml EF(MOD-sp4): 68.0 % EF(sp4-el): 68.9 % SV(MOD-sp4): 60.8 ml SV(sp4-el): 63.6 ml LA A4 area: 18.3 cm2 SI(MOD-sp4): 31.6 ml/m2 LA dimension(2D): 4.1 cm RA A4 area: 13.9 cm2 Time Measurements MV dec time: 0.18 sec Doppler Measurements & Calculations MV E max nicholas: 84.0 cm/sec Lat Peak E' Nicholas: 6.0 cm/sec Med Peak E' Nicholas: 4.9 cm/sec MV A max nicholas: 101.7 cm/sec E/E' lat: 13.9 E/E' med: 17.0 MV E/A: 0.83 MV V2 max: 122.4 cm/sec MV P1/2t max nicholas: 101.9 cm/sec Ao V2 max: 209.2 cm/sec MV max P.0 mmHg MV P1/2t: 65.1 msec Ao max P.5 mmHg MV V2 mean: 65.4 cm/sec Ao V2 mean: 143.8 cm/sec MV mean P.0 mmHg MV dec slope: 458.5 cm/sec2 Ao mean P.4 mmHg MV V2 VTI: 29.4 cm MVA(P1/2t): 3.4 cm2 Ao V2 VTI: 40.6 cm AV (velocity ratio): 0.65 MVA(VTI): 3.2 cm2 FOREST(I,D): 2.3 cm2 FOREST(V,D): 1.8 cm2 LV V1 max: 109.7 cm/sec SV(LVOT): 92.7 ml PA V2 max: 89.3 cm/sec LV V1 max P.9 mmHg LV V1 mean P.1 mmHg LV V1 mean: 84.6 cm/sec LV V1 VTI: 26.6 cm ECHO/ONC Echo Complete Interpretation Summary Normal left ventricle. The global longitudinal strain = -17.3 % (normal). The left ventricular ejection fraction is 65 %. Stage 1 diastolic dysfunction. Ordering Physician: Jordon Chaparro Referring Physician: Jordon Chaparro Performed By: Lyla Traore RDCS, RVT
== END | disposition home or self-care (01) ==
PROVIDERS: PCP Internal Medicine; Referring Provider Internal Medicine Medical Oncology; Visit Provider Internal Medicine Medical Oncology
DX: I31.39 Other pericardial effusion (noninflammatory) (principal)
CPT/HCPCS: 93306; 93356

== ENCOUNTER → 2024-12-30 | Outpatient (CLI) | payer MEDICARE, SELFPAY ==
[2024-12-30 10:35] LABS: Albumin, Serum 3.7 g/dL (3.4-4.8); Anion Gap 11 (5-15); BUN 24 mg/dL (4-19); BUN/Creat Ratio 13.1 RATIO (10-20); Calcium,Total 9.3 mg/dL (7.6-11.0); Carbon Dioxide 25.3 mmol/L (21.0-32.0); Chloride 105 mmol/L (98-108); Glucose 108 mg/dL (70-99); Potassium 4.3 mmol/L (3.3-5.1)
[2024-12-30 10:41] LABS: Creatinine, Urine (random) 105.00 mg/dL (28.00-217.00)
[2024-12-30 10:59] LABS: Protein, Urine (Random) > 600.0 mg/dL (0.0-12.0); Protein:Creat Ratio 5724 mg/g CRE (0-200)
== END | disposition home or self-care (01) ==
LOC: LAB 09:14
PROVIDERS: PCP Internal Medicine; Visit Provider Internal Medicine Nephrology
DX: N18.32 Chronic kidney disease, stage 3b (principal); R80.9 Proteinuria, unspecified
CPT/HCPCS: 36415; 80069; 82570; 84156

== ENCOUNTER → 2025-01-07 | Outpatient (CLI) | payer MEDICARE, SELFPAY ==
[2025-01-07 13:09] LABS: Hematocrit 35.1 % (37-47); Hemoglobin 11.5 g/dL (12.0-15.0); Mean Corp Hgb Conc 32.8 g/dL (32-36); Mean Corpuscular Volume 86.7 fL (81-99); Mean Platelet Vol. 10.2 fl (6.2-12.0); Platelet Count 322 K/mm3 (150-450); RBC Distribution Width CV 14.7 % (11.6-14.6); RBC Distribution Width SD 47.2 fl (35.1-43.9); Red Blood Count 4.05 M/mm3 (4.2-5.4); White Blood Count 7.0 K/mm3 (4.4-11.0)
[2025-01-07 13:33] LABS: Prothrombin Time (Protime)PT. 12.7 SECONDS (11.7-14.9)
[2025-01-07 13:34] LABS: Partial Thromboplast Time 25.9 Seconds (24.1-36.2)
[2025-01-07 13:39] LABS: PTHIN 67 pg/mL (11-61)
[2025-01-07 13:45] LABS: Albumin, Serum 3.5 g/dL (3.4-4.8); Anion Gap 10 (5-15); BUN 21 mg/dL (4-19); BUN/Creat Ratio 11.5 RATIO (10-20); Calcium,Total 9.0 mg/dL (7.6-11.0); Carbon Dioxide 25.7 mmol/L (21.0-32.0); Chloride 105 mmol/L (98-108); Glucose 92 mg/dL (70-99); Potassium 4.4 mmol/L (3.3-5.1)
== END | disposition home or self-care (01) ==
LOC: LAB 12:06
PROVIDERS: PCP Internal Medicine; Referring Provider Internal Medicine Nephrology; Visit Provider Internal Medicine Nephrology
DX: N18.32 Chronic kidney disease, stage 3b (principal); R80.1 Persistent proteinuria, unspecified
CPT/HCPCS: 36415; 80069; 83970; 85027; 85610; 85730

== ENCOUNTER → 2025-01-12 | Outpatient (CLI) | payer MEDICARE, SELFPAY ==
[2025-01-12] VITALS (7 sets, daily range): BP systolic 114–170; BP diastolic 63–97; PULSE 76–102; RESP 18; TEMP 36.9; O2SAT 92–97; BMI 46.3
--- NOTE | 2025-01-12 09:05 | US_ITS ---
PROCEDURE: US/Kidney Biopsy
[2025-01-12 10:07] LABS: Hematocrit 36.5 % (37-47); Hemoglobin 11.8 g/dL (12.0-15.0); Immature Granulocytes Count 0.010 X10^3/uL (0.0-0.0); Mean Corp Hgb Conc 32.3 g/dL (32-36); Mean Corpuscular Volume 87.5 fL (81-99); Mean Platelet Vol. 10.0 fl (6.2-12.0); NRBC Flagged by Analyzer 0 % (0-5); Platelet Count 322 K/mm3 (150-450); RBC Distribution Width CV 14.6 % (11.6-14.6); RBC Distribution Width SD 47.2 fl (35.1-43.9); Red Blood Count 4.17 M/mm3 (4.2-5.4); White Blood Count 5.7 K/mm3 (4.4-11.0)
[2025-01-12 10:14] LABS: Prothrombin Time (Protime)PT. 12.5 SECONDS (11.7-14.9)
[2025-01-12 10:15] LABS: Partial Thromboplast Time 26.6 Seconds (24.1-36.2)
[2025-01-12] MEDS: Lidocaine 2% (20 ml mdv) 20 ML Vial INFILT (10:19)
[2025-01-12 11:40] LABS: Pathology Sent to OSU SEE PATHOLOGY REPORT
== END | disposition home or self-care (01) ==
LOC: CT 08:54
PROVIDERS: Radiology Nuclear Radiology; PCP Internal Medicine; Referring Provider Internal Medicine Nephrology; Visit Provider Internal Medicine Nephrology
DX: R80.1 Persistent proteinuria, unspecified (principal); N18.30 Chronic kidney disease, stage 3 unspecified; I12.9 Hypertensive chronic kidney disease with stage 1 through stage 4 chronic kidney disease, or unspecified chronic kidney disease
CPT/HCPCS: 50200; 36415; 76942; 85025; 85610; 85730

== ENCOUNTER → 2025-01-26 | Outpatient (CLI) | payer MEDICARE, SELFPAY ==
[2025-01-26 14:09] LABS: Hematocrit 35.4 % (37-47); Hemoglobin 11.7 g/dL (12.0-15.0); Mean Corp Hgb Conc 33.1 g/dL (32-36); Mean Corpuscular Volume 85.7 fL (81-99); Mean Platelet Vol. 9.9 fl (6.2-12.0); Platelet Count 318 K/mm3 (150-450); RBC Distribution Width CV 14.4 % (11.6-14.6); RBC Distribution Width SD 44.7 fl (35.1-43.9); Red Blood Count 4.13 M/mm3 (4.2-5.4); White Blood Count 7.7 K/mm3 (4.4-11.0)
== END | disposition home or self-care (01) ==
LOC: LAB 13:43
PROVIDERS: PCP Internal Medicine; Referring Provider Internal Medicine Nephrology; Visit Provider Internal Medicine Nephrology
DX: N02.B9 Other recurrent and persistent immunoglobulin A nephropathy (principal)
CPT/HCPCS: 36415; 85027

== ENCOUNTER → 2025-02-18 | Outpatient (CLI) | payer MEDICARE, SELFPAY ==
[2025-02-18 14:18] LABS: Hematocrit 37.0 % (37-47); Hemoglobin 11.8 g/dL (12.0-15.0); Immature Granulocytes Count 0.110 X10^3/uL (0.0-0.0); Mean Corp Hgb Conc 31.9 g/dL (32-36); Mean Corpuscular Volume 88.7 fL (81-99); Mean Platelet Vol. 9.9 fl (6.2-12.0); NRBC Flagged by Analyzer 0 % (0-5); Platelet Count 345 K/mm3 (150-450); RBC Distribution Width CV 15.8 % (11.6-14.6); RBC Distribution Width SD 51.6 fl (35.1-43.9); Red Blood Count 4.17 M/mm3 (4.2-5.4); White Blood Count 11.3 K/mm3 (4.4-11.0)
[2025-02-18 14:51] LABS: AST(SGOT) 13 U/L (<=31); Alanine Aminotransfer ALT/SGPT 11 U/L (<=34); Albumin, Serum 3.6 g/dL (3.4-4.8); Alkaline Phosphatase 62 U/L (35-104); Anion Gap 12 (5-15); BUN 30 mg/dL (4-19); BUN/Creat Ratio 17.2 RATIO (10-20); Calcium,Total 9.0 mg/dL (7.6-11.0); Carbon Dioxide 24.3 mmol/L (21.0-32.0); Chloride 105 mmol/L (98-108); Globulin 2.2 g/dL (2.2-4.2); Glucose 140 mg/dL (70-99); LDH 210 U/L (84-246); Potassium 4.4 mmol/L (3.3-5.1)
[2025-02-18 22:04] LABS: Xtra Tube Kwok EXTRA TUBE
[2025-02-23 16:09] LABS: Albumin 3.0 g/dL (2.9-4.4); Gamma Globulin 0.6 g/dL (0.4-1.8); Immunoglobulin A 245 mg/dL (87-352); Immunoglobulin G 654 mg/dL (586-1602); Immunoglobulin M 27 mg/dL (26-217); PROEL- TOTAL PROTEIN 5.8 g/dL (6.0-8.5)
== END | disposition home or self-care (01) ==
LOC: POLAB3 13:56
PROVIDERS: Internal Medicine Medical Oncology; PCP Internal Medicine; Visit Provider Internal Medicine Nephrology
DX: N18.32 Chronic kidney disease, stage 3b (principal); R77.8 Other specified abnormalities of plasma proteins; R76.89 Other specified abnormal immunological findings in serum; R80.9 Proteinuria, unspecified
CPT/HCPCS: 36415; 80053; 82784; 83615; 83883; 84165; 84439; 84443; 85025; 86334

== ENCOUNTER → 2025-03-01 | Outpatient (CLI) | payer MEDICARE, SELFPAY ==
[2025-03-01 16:53] LABS: AST(SGOT) 15 U/L (<=31); Alanine Aminotransfer ALT/SGPT 14 U/L (<=34); Albumin, Serum 3.7 g/dL (3.4-4.8); Alkaline Phosphatase 55 U/L (35-104); Anion Gap 12 (5-15); BUN 26 mg/dL (4-19); BUN/Creat Ratio 15.0 RATIO (10-20); Calcium,Total 8.7 mg/dL (7.6-11.0); Carbon Dioxide 25.0 mmol/L (21.0-32.0); Chloride 104 mmol/L (98-108); Globulin 2.3 g/dL (2.2-4.2); Glucose 115 mg/dL (70-99); Potassium 4.5 mmol/L (3.3-5.1)
--- OUTSIDE RECORDS SUMMARY | 2025-03-01 20:26 | XMS RPT_ITS | CCD ---
Author Organization [facility] Care Team Providers Care Composite Bond Technician Name Role Phone MARIO RABAGO Unavailable Unavailable PROVIDER, UNKNOWN Attending Unavailable PROVIDER, UNKNOWN Admitting Unavailable Dr. Charity Khan Primary Care Provider [phone] Dr. Charity Khan Referring Provider [phone] Dr. Héctor Mc Attending Provider [phone] Dr. Lalo Cooper Attending Provider [phone] Unavailable Primary Care Provider UnavailDr. Charity Vale Primary Care Provider [phone] Dr. Charity Khan Attending Provider [phone] Dr. Charity Khan Referring Provider [phone] Leatha Richardson MD Primary Care Provider LEATHA RICHARDSON Primary Care Unavailable FANG AUGUSTIN Referring Unavailable LEATHA RICHARDSON Primary Care Unavailable FANG AUGUSTIN Referring Unavailable DIMAS, LEATHA William Primary Care Unavailable FANG AUGUSTIN Attending Unavailable DIMAS, LEATHA L Primary Care Unavailable PONCHO JOSEPH Attending Unavailable FANG AUGSUTIN Referring Unavailable Leatha Richardson MD Primary Care Provider Dr. Charity Khan Primary Care Provider [phone] Dr. Charity Khan Attending Provider [phone] Dr. Charity Khan Referring Provider [phone] Unavailable Primary Care Provider UnavailDr. Charity Vale MD Primary Care Provider Bill ALMODOVAR, Dr. Nash Attending Provider Bill ALMODOVAR, Dr. Nash Referring Provider Dr. Tara Lyon DO Attending Provider Camron PROCTOR, Dr. Pacheco Referring Provider Yuko Delgado Attending Provider Unavailable Krysta ALMODOVAR, Dr. Ruvalcaba Attending Provider Krysta ALMODOVAR, Dr. Ruvalcaba Referring Provider Bill ALMODOVAR, Dr. Nash Primary Care Provider Bill ALMODOVAR, Dr. Nash Attending Provider Bill ALMODOVAR, Dr. Nash Referring Provider Krysta ALMODOVAR, Dr. Ruvalcaba Referring Provider Bill ALMODOVAR, Dr. Nash Primary Care Provider Krysta ALMODOVAR, Dr. Ruvalcaba Attending Provider Bill ALMODOVAR, Dr. Nash Primary Care Provider Krysta ALMODOVAR, Dr. Ruvalcaba Attending Provider Krysta ALMODOVAR, Dr. Ruvalcaba Referring Provider Bill ALMODOVAR, Dr. Nash Referring Provider Bill ALMODOVAR, Dr. Nash Attending Provider [phone] Camron PROCTOR, Dr. Pacheco Other Provider Bill ALMODOVAR, Dr. Nash Primary Care Physician Bill ALMODOVAR, Dr. Nash Attending Physician Bill ALMODOVAR, Dr. Nash Referring Provider Krysta ALMODOVAR, Dr. Ruvalcaba Attending Physician Krysta ALMODOVAR, Dr. Ruvalcaba Referring Provider Dr. Tara Lyon DO Nurse Practitioner Kenneth ALMODOVAR, Dr. May Attending Physician Oleghe, Efewongbe Primary Care Unavailable Tara Lyon Consulting Unavailable Jordon Chaparro Referring Unavailable Jordon Chaparro Attending Unavailable Oleghe, Efewongbe Primary Care Unavailable Jordon Chaparro Referring Unavailable Jordon Chaparro Attending Unavailable Oleghe, Efewongbe Primary Care Unavailable Jordon Chaparro Attending Unavailable Jordon Chaparro Referring Unavailable Tara Lyon Attending Unavailable Camron Tara Referring Unavailable Oleghe, Efewongbe Primary Care Unavailable Oleghe, Efewongbe Primary Care Unavailable Yuko Delgado Attending Unavailable Oleghe, Efewongbe Primary Care Unavailable Lalo Cooper Attending Unavailable Oleghe, Efewongbe Referring Unavailable Oleghe, Efewongbe Attending Unavailable Oleghe, Efewongbe Primary Care Unavailable Oleghe, Efewongbe Referring Unavailable Oleghe, Efewongbe Attending Unavailable Oleghe, Efewongbe Primary Care Unavailable Tara Lyon Attending Unavailable Oleghe, Efewongbe Primary Care Unavailable Oleghe, Efewongbe Primary Care Unavailable Jordon Chaparro Referring Unavailable Jordon Chaparro Attending Unavailable Tara Lyon Attending Unavailable Camron, Tara Referring Unavailable Oleghe, Efewongbe Primary Care Unavailable Oleghe, Efewongbe Primary Care Unavailable Oleghe, Efewongbe Referring Unavailable Oleghe, Efewongbe Attending Unavailable Oleghe, Efewongbe Referring Unavailable Oleghe, Efewongbe Primary Care Unavailable Oleghe, Efewongbe Attending Unavailable Oleghe, Efewongbe Primary Care Unavailable Oleghe, Efewongbe Referring Unavailable Jordon Chaparro Attending Unavailable Oleghe, Efewongbe Referring Unavailable Oleghe, Efewongbe Primary Care Unavailable Oleghe, Efewongbe Attending Unavailable Oleghe, Efewongbe Primary Care Unavailable Oleghe, Efewongbe Referring Unavailable Jordon Chaparro Attending Unavailable Oleghe, Efewongbe Referring Unavailable Oleghe, Efewongbe Primary Care Unavailable Oleghe, Efewongbe Attending Unavailable Tara Lyon Attending Unavailable Camron, Tara Referring Unavailable Oleghe, Efewongbe Primary Care Unavailable Oleghe, Efewongbe Primary Care Unavailable Jordon Chaparro Referring Unavailable Jordon Chaparro Attending Unavailable Tara Lyon Attending Unavailable Camron, Tara Referring Unavailable Oleghe, Efewongbe Primary Care Unavailable Tara Lyon Referring Unavailable Oleghe, Efewongbe Primary Care Unavailable Jordon Chaparro Attending Unavailable Oleghe, Efewongbe Referring Unavailable Oleghe, Efewongbe Primary Care Unavailable Oleghe, Efewongbe Attending Unavailable Oleghe, Efewongbe Primary Care Unavailable Oleghe, Efewongbe Referring Unavailable Jordon Chaparro Attending Unavailable Camron, Tara Attending Unavailable Oleghe, Efewongbe Primary Care Unavailable Camron, Tara Attending Unavailable Camron, Tara Referring Unavailable Oleghe, Efewongbe Primary Care Unavailable Oleghe, Efewongbe Primary Care Unavailable Oleghe, Efewongbe Referring Unavailable Krysta, Jordon Attending Unavailable Camron, Tara Attending Unavailable Camron, Tara Referring Unavailable Oleghe, Efewongbe Primary Care Unavailable Jeremiahe , Dr. Nash Primary Care Physician Bill ALMODOVAR, Dr. Nash Attending Physician Bill ALMODOVAR, Dr. Nash Referring Provider Dr. Jordon Chaparro MD Attending Physician Dr. Jordon Chaparro MD Referring Provider [phone] Tara Lyon DO Nurse Practitioner Kenneth ALMODOVAR, Dr. May Attending Physician Dr. Tara Lyon DO Attending Physician Dr. Tara Lyon DO Referring Provider Allergies Allergy Classification Reported Allergen(s) Allergy Type Date of Onset Reaction(s) Facility (20 sources) Sulfonamides (Antibiotic); Translations: [SULFA (SULFONAMIDE ANTIBIOTICS)] Propensity to adverse reactions (disorder) 7 Anaphylaxis [facility] Repository (4 sources) Sulfonamides (Antibiotic); Translations: [SULFA ANTIBIOTICS] Propensity to adverse reactions to drug (disorder) [facility] (15 sources) cigarette smoke; Translations: [cigarette smoke] Allergy to substance 2 [facility] (15 sources) house dust mite; Translations: [house dust mite] Allergy to substance [facility] Medications Current Medications Medication Drug Class(es) Dates Sig (Normalized) Sig (Original) calcium ascorbate 500 mg oral tablet (12 sources) Start: 10-22-2022 Start: 10-22-2022 take 600 mg by mouth once heri y Ascorbate Calcium (Vitamin C) Active 600 MG PO DAILY October 21, 2022 11:00pm carvedilol 3.125 mg oral tablet (6 sources) alpha-Adrenergic Rukhsana, beta-Adrenergic Rukhsana Start: 10-07-2024 take 1 tablet by mouth every twelve hours at mealtime cholecalciferol 0.025 mg oral capsule (20 sources) Vitamin D Start: 06-08-2024 take 1 capsule by mouth once daily Start: 10-22-2022 End: 06-08-2024 take 1 capsule by mouth once daily Cholecalciferol (Vitamin D3) 25 mcg (1,000 unit) capsule Discontinued 25 ug PO DAILY October 21, 2022 11:00pm June 08, 2024 9:05am ciclopirox 80 mg/ml topical solution (3 sources) Start: 06-05-2017 ciclopirox (PE NLAC) 8 % solution Apply topically at bedtime. 1 Bottle 4 06/05/2017 Active Compress.Stocking,Knee,Reg,L rg misc (11 sources) Start: 09-04-2023 Compress.Stock ing,Knee,Reg,Lrg misc Active 0 .MEDSUPPLY 2 September 03, 2023 11:00pm Venous insufficiency (chronic) (peripheral) wear daily for venous insufficiency 20-30 mmHg Start: 09-04-2023 Compress.Stock ing,Knee,Reg,Lrg misc Active 0 .MEDSUPPLY 2 September 04, 2023 12:00am Venous insufficiency (chronic) (peripheral) wear daily for venous insufficiency 20-30 mmHg Start: 09-04-2023 Compress.Stock ing,Knee,Reg,Lrg misc Active 0 .MEDSUPPLY 2 September 04, 2023 12:00am wear daily for venous insufficiency 20-30 mmHg cyclobenzaprine hydrochloride 10 mg oral tablet (13 sources) Muscle Relaxant Start: 10-22-2022 End: 01-06-2025 take 1 tablet by mouth three times daily as needed for muscle spasms Handicap Placard (13 sources) Start: 07-23-2022 Handicap Placard Active 0 .ROUTE .MEDSUPPLY 1 0 July 22, 2022 11:00pm Other reduced mobility As directed, length of time 3 years Start: 07-23-[address] Active 0 .ROUTE .MEDSUPPLY 1 0 July 23, 2022 12:00am Other reduced mobility As directed, length of time 3 years Start: 07-23-[address] Active 0 .ROUTE .MEDSUPPLY July 22, 2022 11:00pm As directed, length of time 3 years Start: 07-23-[address] Active 0 .ROUTE .MEDSUPPLY July 23, 2022 12:00am As directed, length of time 3 years zinc gluconate 30 mg oral tablet (18 sources) Start: 07-05-2020 take 1 tablet by mouth once daily Comment on above: Take 30 mg by mouth. Completed/Discontinued Medications Medication Drug Class(es) Dates Sig (Normalized) Sig (Original) acetaminophen 500 mg oral tablet (20 sources) Start: 02-21-2021 End: 05-17-2021 take 1000 mg by mouth every six hours Acetaminophen Discontinued 1000 MG PO EVERY 6 HOURS 90 February 21, 2021 12:00am May 17, 2021 9:51am Start: 11-17-2020 End: 05-17-2021 take 2 tablets by mouth every six hours Acetaminophen 500 mg Tablet Discontinued 1000 mg PO EVERY 6 HOURS 90 0 February 21, 2021 12:00am May 17, 2021 9:51am Start: 05-09-2017 take 2 tablets by mo [facility] three times daily as needed acetaminophen (TYLENOL) 500 MG tablet Take 2 Tablets by mouth 3 times daily as needed. 180 Tablet 1 05/09/2017 Active amLODIPine 10 mg oral tablet (20 sources) Dihydropyridine Calcium Channel Rukhsana Start: 07-20-2020 End: 10-14-2024 take 1 tablet by mouth once daily Amlodipine 10 mg tablet Discontinued 0 .ROUTE .COMPLEX 90 April 21, 2024 12:45pm October 14, 2024 8:03pm Hypertension Essential (primary) hypertension TAKE 1 TABLET BY MOUTH EVERY DAY apixaban 2.5 mg oral tablet (14 sources) Factor Xa Inhibitor Start: 02-21-2021 End: 04-05-2021 take 1 tablet by mouth twice daily Apixaban (Eliquis) 2.5 mg tablet Discontinued 2.5 mg PO TWICE A DAY 42 February 21, 2021 12:00am April 05, 2021 12:11pm Began the morning after surgery aspirin 81 mg delayed release oral tablet (14 sources) Platelet Aggregation Inhibitor, Nonsteroidal Anti-inflammatory Drug Start: 07-05-2020 End: 02-21-2021 take 1 tablet by mouth once daily Aspirin 81 mg tablet,delayed release (DR/EC) Discontinued 81 mg PO DAILY July 04, 2020 11:00pm February 21, 2021 2:11pm azithromycin 250 mg oral tablet (12 sources) Macrolide Antimicrobial Start: 11-06-2022 End: 05-13-2023 Azithromycin 250 mg tablet Discontinued 250 mg PO daily 12 November 05, 2022 11:00pm May 13, 2023 8:39am 2 tablets today, then 1 tablet daily on days 2 through 11 benzonatate 200 mg oral capsule (12 sources) Non-narcotic Antitussive Start: 11-06-2022 End: 05-13-2023 take 1 capsule by mouth three times daily as needed for cough Benzonatate 200 mg capsule Discontinued 200 mg PO THREE TIMES A DAY as needed for cough November 05, 2022 11:00pm May 13, 2023 8:39am cephalexin 500 mg oral capsule (14 sources) Cephalosporin Antibacterial Start: 02-21-2021 End: 04-05-2021 Cephalexin 500 MG capsule Discontinued 1000 mg PO EVERY 8 HOURS 4 February 21, 2021 12:00am April 05, 2021 12:11pm take 2 tabs at 9:00 pm and 2 tabs after 5 am when you wake up Start: 02-21-2021 End: 04-05-2021 Cephalexin Discontinued 1000 MG PO EVERY 8 HOURS February 21, 2021 12:00am April 05, 2021 12:11pm take 2 tabs at 9:00 pm and 2 tabs after 5 am when you wake up hydrocortisone 0.025 mg/mg topical ointment (11 sources) Corticosteroid Start: 09-04-2023 End: 01-06-2025 Hydrocortisone 2.5 % ointment Discontinued 1 NMA TOPICAL TWICE A DAY as needed for rash 28.35 1 September 03, 2023 11:00pm January 06, 2025 9:47am iv contrast (will be provided with radiology test) (7 sources) Start: 08-16-2022 End: 08-17-2022 inject 1 dose intravenously once iv contrast (will be provided with radiology test) Indications: Syringomyelia and syringobulbia (HCC) MRI TSP Inject, intravenously, once for 1 dose. No IV access, insert saline lock prior to the beginning of sedation, infusion, injection of imaging exam. Discontinue saline lock post exam. If Pt. has a central line or IVAD, may access for administration according to line specific nursing protocol. Once exam is complete flush line and de-access according to line specific nursing protocol in the MR contrast administration guidelines link. 1 Each 0 08/16/2022 08/17/2022 Active Start: 08-16-2022 End: 08-17-2022 iv contrast (will be provide d with radiology test) Indications: Syringomyelia and syringobulbia (HCC) MRI CSP Inject, intravenously, once for 1 dose. No IV access, insert saline lock prior to the beginning of sedation, infusion, injection of imaging exam. Discontinue saline lock post exam. If Pt. has a central line or IVAD, may access for administration according to line specific nursing protocol. Once exam is complete flush line and de-access according to line specific nursing protocol in the MR contrast administration guidelines link. 1 Each 0 08/16/2022 08/17/2022 Active Start: 08-16-2022 End: 08-17-2022 iv contrast (will be provide d with radiology test) Indications: Syringomyelia and syringobulbia (HCC) MRI LSP Inject, intravenously, once for 1 dose. No IV access, insert saline lock prior to the beginning of sedation, infusion, injection of imaging exam. Discontinue saline lock post exam. If Pt. has a central line or IVAD, may access for administration according to line specific nursing protocol. Once exam is complete flush line and de-access according to line specific nursing protocol in the MR contrast administration guidelines link. 1 Each 0 08/16/2022 08/17/2022 Active Start: 08-16-2022 inject 1 dose intravenously on ce iv contrast (will be provided with radiology test) Indications: Syringomyelia and syringobulbia (HCC) MRI Brain Inject, intravenously, once for 1 dose.No IV access, insert saline lock prior to beginning of sedation, infusion, injection of imaging exam.Discontinue saline lock post exam. If Pt. has a central line or IVAD, may access for administration according to line specific nursing protocol.Once exam is complete flush line and de-access according to line specific nursing protocol in the MR contrast administration guidelines link 1 Each 0 08/16/2022 Active Comment on above: MRI TSP Inject, intr avenously, once for 1 dose. No IV access, insert saline lock prior to the beginning of sedation, infusion, injection of imaging exam. Discontinue saline lock post exam. If Pt. has a central line or IVAD, may access for administration according to line specific nursing protocol. Once exam is complete flush line and de-access according to line specific nursing protocol in the MR contrast administration guidelines link. MRI CSP Inject, intr avenously, once for 1 dose. No IV access, insert saline lock prior to the beginning of sedation, infusion, injection of imaging exam. Discontinue saline lock post exam. If Pt. has a central line or IVAD, may access for administration according to line specific nursing protocol. Once exam is complete flush line and de-access according to line specific nursing protocol in the MR contrast administration guidelines link. MRI LSP Inject, intr avenously, once for 1 dose. No IV access, insert saline lock prior to the beginning of sedation, infusion, injection of imaging exam. Discontinue saline lock post exam. If Pt. has a central line or IVAD, may access for administration according to line specific nursing protocol. Once exam is complete flush line and de-access according to line specific nursing protocol in the MR contrast administration guidelines link. MRI Brain Inject, in travenously, once for 1 dose.No IV access, insert saline lock prior to beginning of sedation, infusion, injection of imaging exam.Discontinue saline lock post exam. If Pt. has a central line or IVAD, may access for administration according to line specific nursing protocol.Once exam is complete flush line and de-access according to line specific nursing protocol in the MR contrast administration guidelines link meloxicam 15 mg oral tablet (14 sources) Nonsteroidal Anti-inflammatory Drug Start: 04-05-19 End: 07-04-19 22 take 1 tablet by mouth once daily Meloxicam (Mobic) 15 mg tablet Discontinued 15 mg PO DAILY 30 April 05, 2021 12:00am July 03, 2021 9:20am 24 hr metoprolol succinate 25 mg extended release oral tablet (20 sources) beta-Adrenergic Rukhsana Start: 09-04-19 End: 10-08-19 take 1 tablet by mouth once daily Metoprolol Succinate 25 mg tablet extended release 24 hr Discontinued 25 mg PO DAILY 90 June 16, 2024 2:52pm October 07, 2024 1:17pm mupirocin 0.02 mg/mg topical ointment (14 sources) RNA Synthetase Inhibitor Antibacterial Start: 02-14-20 End: 05-18-19 Mupirocin 2 % ointment Discontinued 1 NMA TOPICAL TWICE A DAY February 13, 2021 12:00am May 17, 2021 9:51am Infection due to Staphylococcus aureus Methicillin susceptible Staphylococcus aureus infection, unspecified site Preop Apply a pea size amount to each nares 2 times per day, for 5 days prior to procedure. naproxen sodium 220 mg oral tablet (14 sources) Nonsteroidal Anti-inflammatory Drug Start: 05-18-19 End: 10-23-19 take 1 tablet by mouth twice daily as needed Naproxen Sodium (Aleve) 220 mg tablet Discontinued 220 mg PO TWICE A DAY as needed May 17, 2021 12:00am October 22, 2022 7:52am ondansetron 4 mg oral tablet (14 sources) Serotonin-3 Receptor Antagonist Start: 02-22-20 End: 04-05-19 take 1 tablet by mouth every six hours as needed for nausea Ondansetron Hcl (Zofran) 4 MG tablet Discontinued 4 mg PO EVERY 6 HOURS NEEDED as needed for Nausea 5 5 0 February 21, 2021 12:00am April 05, 2021 12:11pm oxyCODONE hydrochloride 5 mg oral tablet (14 sources) Opioid Agonist Start: 02-22-20 End: 04-05-19 22 take 1 tablet by mouth every four hours as needed for pain Oxycodone 5 mg tablet Discontinued 5 mg PO Q4H as needed for pain 60 7 0 February 21, 2021 April 05, 2021 12:11pm Other acute postprocedural pain Other acute postprocedural pain Red Beet-Sour Jeter Extract 250-0.5 mg tablet,chewable (11 sources) Start: 09-04-19 End: 03-09-20 Red Beet-Sour Jeter Extract 250-0.5 mg tablet,chewable Discontinued {tbl} PO September 03, 2023 11:00pm March 09, 2024 1:43pm Start: 09-04-2023 End: 03-09-2024 Red Beet-Sour Jeter Extract 250-0.5 mg tablet,chewable Discontinued {tbl} PO September 04, 2023 12:00am March 09, 2024 2:43pm Vitamin Y-Acysuhyuytqg-Ilroz al (Emergen-C) 500 mg tablet,chewable (14 sources) Start: 07-05-2020 End: 01-06-2025 Vitamin U-Jnuzdisyhtzo-Ytlpg al (Emergen-C) 500 mg tablet,chewable Discontinued 1 {tbl} PO DAILY July 04, 2020 11:00pm January 06, 2025 9:47am Start: 07-05-2020 Start: 07-05-2020 Vitamin C-Mult ivitamin-Mineral (Emergen-C) 500 mg tablet,chewable Active 1 {tbl} PO DAILY July 05, 2020 12:00am Start: 07-05-2020 take 1 tablet by mouth once da arpan Vitamin B-Pvfpvadklihi-Tokdduk (Emergen-C) 500 mg tablet,chewable Active 1 TABLET PO DAILY July 04, 2020 11:00pm Start: 07-05-2020 take 1 tablet by mouth once da arpan Vitamin D-Quprggmwqacs-Sbofgyf (Emergen-C) 500 mg tablet,chewable Active 1 TABLET PO DAILY July 05, 2020 12:00am Problems Active Problems Problem Classification Problem Date Documented Date Episodic/Chronic Allergic reactions (11 sources) Inflammatory dermatosis; Translations: [Dermatitis, unspecified] 09-04-2023 Episodic Cardiac dysrhythmias (1 source) Tachycardia, unspecified; Translations: [Tachycardia, unspecified] 05-13-2023 Episodic Chronic kidney disease (19 sources) Chronic kidney disease stage 3; Translations: [Stage 3 chronic kidney disease] 03-05-2024 Chronic Chronic kidney disease (3 sources) Chronic kidney disease; Translations: [Chronic kidney disease, stage 3b] Onset: 03-09-2024 Essential hypertension (20 sources) Hypertensive disorder; Translations: [Essential (primary) hypertension] Onset: 10-07-2024 07-05-2020 Chronic Genitourinary symptoms and ill-defined conditions (20 sources) Microalbuminuria; Translations: [Proteinuria, unspecified] Onset: 04-09-2024 03-05-2024 Episodic Comment on above: Nephrotic range prot einuria. R/O malignancy Nephrotic range prot einuria. CT c/a/p on 10/29/2024 shows no evidence of malignancy.Repeat 24hr urine collection shows >2gram protein. Heart valve disorders (20 sources) Tachycardia; Translations: [Unspecified abnormalities of heart beat] Onset: 03-25-2017 03-25-2017 Episodic Immunizations and screening for infectious disease (20 sources) Other specified abnormal immunological findings in serum; Translations: [Elevated serum immunoglobulin free light chains] Onset: 12-14-2024 08-05-2024 Episodic Comment on above: Levels not suggestiv e of Plasma cell dyscrasia. Levels not suggestiv e of Plasma cell dyscrasia.[place] light chain level is stable. Neoplasms of unspecified nature or uncertain behavior (1 source) Monoclonal gammopathy; Translations: [Monoclonal gammopathy] Onset: 06-08-2024 Chronic Osteoarthritis (14 sources) Osteoarthritis of right hip joint; Translations: [Unilateral primary osteoarthritis, right hip] 11-17-2020 Chronic Other acquired deformities (14 sources) Degenerative disorder of musculoskeletal system; Translations: [Other forms of scoliosis, site unspecified] 05-17-2021 Chronic Other acquired deformities (2 sources) Other forms of scoliosis, site unspecified; Translations: [Scoliosis [and kyphoscoliosis], idiopathic] Chronic Other acquired deformities (15 sources) Scoliosis deformity of spine; Translations: [Scoliosis, unspecified] 07-20-2022 Chronic Other acquired deformities (2 sources) Scoliosis, unspecified; Translations: [Scoliosis, unspecified scoliosis type, unspecified spinal region] Onset: 08-16-2022 Chronic Other bone disease and musculoskeletal deformities (13 sources) Other specified disorders of bone, unspecified site; Translations: [Lytic lesion of bone on x-ray] 06-18-2024 Episodic Other congenital anomalies (2 sources) Other specified congenital deformities of feet; Translations: [[place], unspecified] Onset: 03-25-2017 03-25-2017 Chronic Other congenital anomalies (1 source) [place], unspecified Onset: 03-25-2017 03-25-2017 Chronic Other connective tissue disease (14 sources) History of total hip arthroplasty; Translations: [Presence of right artificial hip joint] 04-05-2021 Chronic Other connective tissue disease (11 sources) Trochanteric bursitis; Translations: [Trochanteric bursitis, right hip] 11-17-2020 Episodic Other connective tissue disease (14 sources) Iliotibial band friction syndrome; Translations: [Iliotibial band syndrome, unspecified leg] 11-17-2020 Episodic Other connective tissue disease (3 sources) Trochanteric bursitis of right hip; Translations: [Trochanteric bursitis, right hip] 11-17-2020 Episodic Other ear and sense organ disorders (2 sources) Sensation of blocked ear; Translations: [Other specified disorders of left ear] 01-06-2025 Episodic Other hematologic conditions (20 sources) Protein electrophoresis abnormal; Translations: [Other specified abnormalities of plasma proteins] 06-10-2024 Episodic Comment on above: SPEP, IFX and SFLC r esults are not suggestive of Plasma cell dyscrasia. Other hematologic conditions (2 sources) Other specified abnormalities of plasma proteins; Translations: [Other specified abnormalities of plasma proteins] Onset: 06-18-2024 Episodic Other lower respiratory disease (14 sources) H/O: pneumonia; Translations: [Personal history of pneumonia (recurrent)] 07-05-2020 Episodic Other nervous system disorders (14 sources) Syringomyelia; Translations: [Syringomyelia and syringobulbia] 07-20-2022 Chronic Other nervous system disorders (4 sources) Syringomyelia and syringobulbia; Translations: [Syringomyelia and syringobulbia] Onset: 08-16-2022 Chronic Other nervous system disorders (6 sources) Syringomyelia and syringobulbia; Translations: [Syringomyelia and syringobulbia] Onset: 08-16-2022 Chronic Other nervous system disorders (14 sources) Acute postoperative pain; Translations: [Other acute postprocedural pain] 02-21-2021 Episodic Other non-epithelial cancer of skin (20 sources) History of malignant basal cell neoplasm of skin; Translations: [Personal history of other malignant neoplasm of skin] 07-05-2020 Episodic Other non-traumatic joint disorders (14 sources) Hip pain; Translations: [Pain in right hip] 07-20-2020 Episodic Other nutritional; endocrine; and metabolic disorders (14 sources) Obesity; Translations: [Obesity, unspecified] 11-17-2020 Chronic Other screening for suspected conditions (not mental disorders or infectious disease) (10 sources) Imaging result abnormal; Translations: [Abnormal findings on diagnostic imaging of other specified body structures] Onset: 12-14-2024 12-14-2024 Chronic Comment on above: Pericardial effusion on CT imaging. Echo on 12/08/2024 shows small pericardial effusion, EF 65%. Other upper respiratory disease (14 sources) Seasonal allergy; Translations: [Other seasonal allergic rhinitis] 07-05-2020 Chronic Other upper respiratory infections (12 sources) Acute sinusitis; Translations: [Acute sinusitis, unspecified] 11-06-2022 Episodic Residual codes; unclassified (14 sources) Pain; Translations: [Pain, unspecified] 05-17-2021 Episodic Spondylosis; intervertebral disc disorders; other back problems (20 sources) Cervical radiculopathy; Translations: [Radiculopathy, cervical region] Episodic Unclassified (1 source) Unknown / UNK(Unknown) Onset: 12-23-2016 Unclassified (3 sources) Encounter for health maintenance examination Unclassified (6 sources) Z00.00 - Encounter for general adult medical examination without abnormal findings Unclassified (3 sources) Patient encounter status Unclassified (1 source) Other pericardial effusion (noninflammatory); Translations: [Other pericardial effusion (noninflammatory)] Onset: 12-14-2024 Past or Other Problems Problem Classification Problem Date Documented Da te Episodic/Chronic Acute and unspecified renal failure (1 source) Acute kidney failure, unspecified; Translations: [Acute kidney failure, unspecified] Onset: 06-06-2024 Episodic Diabetes mellitus without complication (12 sources) Hyperglycemia; Translations: [Hyperglycemia, unspecified] Onset: 03-09-2024 03-09-2024 Episodic Melanomas of skin (3 sources) H/O Malignant melanoma; Translations: [Personal history of malignant melanoma of skin] Onset: 03-25-2017 03-25-2017 Episodic Mycoses (3 sources) Onychomycosis; Translations: [Tinea unguium] Onset: 03-25-2017 03-25-2017 Episodic Other bone disease and musculoskeletal deformities (1 source) Other specified disorders of bone, other site; Translations: [Other specified disorders of bone, other site] Onset: 08-04-2024 Episodic Other connective tissue disease (2 sources) Pain in right lower limb; Translations: [Pain in right leg] Onset: 03-25-2017 03-25-2017 Episodic Other connective tissue disease (1 source) Pain in limb Onset: 03-25-2017 03-25-2017 Episodic Other screening for suspected conditions (not mental disorders or infectious disease) (14 sources) Patient encounter status; Translations: [Encounter for screening for malignant neoplasm of colon] Onset: 08-18-2024 07-20-2022 Episodic Residual codes; unclassified (1 source) Asymptomatic menopausal state; Translations: [Asymptomatic menopausal state] Onset: 06-10-2024 Episodic Unclassified (14 sources) history of club feet 10-17-2021 Unclassified (14 sources) history of cracked palate 10-17-2021 Comment on above: BABY Urinary tract infections (1 source) Tubulo-interstitial nephritis, not specified as acute or chronic Onset: 12-23-2016 Episodic Results Test Name Value Interpretation Reference Range Facility CBC-Complete Blood Cnt No Di ffon 01-26-2025 Erythrocyte distribution width (RBC) [Ratio] 14.4 % Normal 11.6-14.6 [facility] Comment on above: Performed By: #### L 3300.1200, L505.7010, L3100.5800, L3100.5700, L500.3600, L3100.5475, L3100.3450 #### [facility] [address] [place], [place], [id number] Hematocrit (Bld) [Volume fraction] 35.4 % Low 37-47 [facility] Comment on above: Performed By: #### L 3300.1200, L505.7010, L3100.5800, L3100.5700, L500.3600, L3100.5475, L3100.3450 #### [facility] [address] [place], [address] Hemoglobin (Bld) [Mass/Vol] 11.7 g/dL Low 12.0-15. 0 [facility] Comment on above: Performed By: #### L 3300.1200, L505.7010, L3100.5800, L3100.5700, L500.3600, L3100.5475, L3100.3450 #### [facility] [address] [place], [address] MCH (RBC) [Entitic mass] 28.3 pg Normal 27.0-32.0 [facility] Comment on above: Performed By: #### L 3300.1200, L505.7010, L3100.5800, L3100.5700, L500.3600, L3100.5475, L3100.3450 #### [facility] [address] [place], [address] MCHC (RBC) [Mass/Vol] 33.1 g/dL Normal 32-36 [facility] Comment on above: Performed By: #### L 3300.1200, L505.7010, L3100.5800, L3100.5700, L500.3600, L3100.5475, L3100.3450 #### [facility] [address] [place], [address] MCV (RBC) [Entitic vol] 85.7 fL Normal 81-99 [facility] Comment on above: Performed By: #### L 3300.1200, L505.7010, L3100.5800, L3100.5700, L500.3600, L3100.5475, L3100.3450 #### [facility] [address] [place], [address] Platelet mean volume (Bld) [Entitic vol] 9.9 fL Normal 6.2-12.0 [facility] Comment on above: Performed By: #### L 3300.1200, L505.7010, L3100.5800, L3100.5700, L500.3600, L3100.5475, L3100.3450 #### [facility] [address] [place], [address] Platelets (Bld) [#/Vol] 318 10*3/uL Normal 150-450 [facility] Comment on above: Performed By: #### L 3300.1200, L505.7010, L3100.5800, L3100.5700, L500.3600, L3100.5475, L3100.3450 #### [facility] [address] [place], [address] RBC (Bld) [#/Vol] 4.13 10*6/uL Low 4.2-5.4 [facility] Comment on above: Performed By: #### L 3300.1200, L505.7010, L3100.5800, L3100.5700, L500.3600, L3100.5475, L3100.3450 #### [facility] [address] [place], [address] RDW SD 44.7 fl High 35.1-43.9 [facility] Comment on above: Performed By: #### L 3300.1200, L505.7010, L3100.5800, L3100.5700, L500.3600, L3100.5475, L3100.3450 #### [facility] [address] [place], [address] WBC (Bld) [#/Vol] 7.7 10*3/uL Normal 4.4-11.0 [facility] Comment on above: Performed By: #### L 3300.1200, L505.7010, L3100.5800, L3100.5700, L500.3600, L3100.5475, L3100.3450 #### [facility] [address] [place], [address] Erythrocyte distribution wid th ratioOrdered By: Tara Lyon on 01-26-2025 Erythrocyte distribution width (RBC) [Ratio] 14.4 % 11.6-14.6 [facility] Erythrocyte distribution wid th standard deviationOrdered By: Tara Lyon on 01-26-2025 Erythrocyte distribution width (RBC) [Ratio] 44.7 fl High 35.1-43.9 [facility] Hematocrit Auto (Bld) [Volum e fraction]Ordered By: Tara Lyon on 01-26-2025 Hematocrit (Bld) [Volume fraction] 35.4 % Low 37-47 [facility] Hemoglobin measurementOrdere d By: Tara Lyon on 01-26-2025 Hemoglobin (Bld) [Mass/Vol] 11.7 g/dL Low 12.0-15. 0 [facility] MCV (mean corpuscular volume ) determinationOrdered By: Tara Lyon on 01-26-2025 MCV (RBC) [Entitic vol] 85.7 fL 81-99 [facility] Mean corpuscular hemoglobin (MCH) determinationOrdered By: Tara Lyon on 01-26-2025 MCH (RBC) [Entitic mass] 28.3 pg 27.0-32.0 [facility] Mean corpuscular hemoglobin concentration (MCHC) determinationOrdered By: Tara Lyon on 01-26-2025 MCHC (RBC) [Mass/Vol] 33.1 g/dL 32-36 [facility] Mean platelet volume determi nationOrdered By: Tara Lyon on 01-26-2025 Platelet mean volume (Bld) [Entitic vol] 9.9 fL 6.2-12.0 [facility] Platelet countOrdered By: Eileen Lyon on 01-26-2025 Platelets (Bld) [#/Vol] 318 10*3/uL 150-450 [facility] RBC Auto (Bld) [#/Vol]Ordere d By: Tara Lyon on 01-26-2025 RBC (Bld) [#/Vol] 4.13 10*6/uL Low 4.2-5.4 [facility] White blood cell (WBC) count Ordered By: Tara Lyon on 01-26-2025 WBC (Bld) [#/Vol] 7.7 10*3/uL 4.4-11.0 [facility] Absolute lymphocyte countOrd ered By: Aroldo Covington on 01-12-2025 Lymphocytes Auto (Unsp spec) [#/Vol] 1.92 10*3/uL 0.83-4.51 [facility] Absolute neutrophil countOrd ered By: Aroldo Covington on 01-12-2025 Neutrophils (Bld) [#/Vol] 3.2 10*3/uL 2.0-7.7 [facility] Activated partial thrombopla stin time (aPTT) in platelet poor plasma by coagulation aOrdered By: Aroldo Covington on 01-12-2025 aPTT Coag (PPP) [Time] 26.6 s 24.1-36.2 [facility] Automated lymphocyte count a s percentage of total leukocytesOrdered By: Aroldo Covington on 01-12-2025 Lymphocytes/100 WBC Auto (Unsp spec) 33.4 % 19-41 [facility] Basophil percentageOrdered B y: Aroldo Covington on 01-12-2025 Basophils/100 WBC (Bld) 0.7 % 0-1 [facility] CBC W/Diff, Automatedon 12-17 Absolute Lymph 1.92 X10 3/uL Normal 0.83-4.51 [facility] Comment on above: Performed By: #### L 300.3900, L100.0100, L300.4310 ####[facility] [address] [place], [address] Absolute Neut 3.2 X10 3/uL Normal 2.0-7.7 [facility] Comment on above: Performed By: #### L 300.3900, L100.0100, L300.4310 ####[facility] [address] [place], [address] Basophils/100 WBC (Bld) 0.7 % Normal 0-1 [facility] Comment on above: Performed By: #### L 300.3900, L100.0100, L300.4310 ####[facility] [address] [place], [address] Eosinophils/100 WBC (Bld) 4.9 % Normal 0-5 [facility] Comment on above: Performed By: #### L 300.3900, L100.0100, L300.4310 ####[facility] [address] [place], [address] Erythrocyte distribution width (RBC) [Ratio] 14.6 % Normal 11.6-14.6 [facility] Comment on above: Performed By: #### L 300.3900, L100.0100, L300.4310 ####[facility] [address] [place], [address] Hematocrit (Bld) [Volume fraction] 36.5 % Low 37-47 [facility] Comment on above: Performed By: #### L 300.3900, L100.0100, L300.4310 ####[facility] [address] [place], [address] Hemoglobin (Bld) [Mass/Vol] 11.8 g/dL Low 12.0-15. 0 [facility] Comment on above: Performed By: #### L 300.3900, L100.0100, L300.4310 ####[facility] [address] [place], [address] IG% 0.200 Normal 0.0-0.9 [facility] Comment on above: Result Comment: IG% - Immature Granulocytes (promyelocytes, myelocytes and metamyelocytes) > 1% indicates that a LEFT SHIFT is Present. Performed By: #### L 300.3900, L100.0100, L300.4310 ####[facility] [address] [place], [address] Lymphocytes/100 WBC (Bld) 33.4 % Normal 19-41 [facility] Comment on above: Performed By: #### L 300.3900, L100.0100, L300.4310 ####[facility] [address] [place], [address] MCH (RBC) [Entitic mass] 28.3 pg Normal 27.0-32.0 [facility] Comment on above: Performed By: #### L 300.3900, L100.0100, L300.4310 ####[facility] [address] [place], [address] MCHC (RBC) [Mass/Vol] 32.3 g/dL Normal 32-36 [facility] Comment on above: Performed By: #### L 300.3900, L100.0100, L300.4310 ####[facility] [address] [place], [address] MCV (RBC) [Entitic vol] 87.5 fL Normal 81-99 [facility] Comment on above: Performed By: #### L 300.3900, L100.0100, L300.4310 ####[facility] [address] [place], [address] Monocytes/100 WBC (Bld) 5.7 % Normal 0-10 [facility] Comment on above: Performed By: #### L 300.3900, L100.0100, L300.4310 ####[facility] [address] [place], [address] Neutrophils/100 WBC (Bld) 55.1 % Normal 47-70 [facility] Comment on above: Performed By: #### L 300.3900, L100.0100, L300.4310 ####[facility] [address] [place], [address] Nucleated RBC (Bld) [#/Vol] 0 10*3/uL Normal 0-5 [facility] Comment on above: Performed By: #### L 300.3900, L100.0100, L300.4310 ####[facility] [address] [place], [address] Platelet mean volume (Bld) [Entitic vol] 10.0 fL Normal 6.2-12.0 [facility] Comment on above: Performed By: #### L 300.3900, L100.0100, L300.4310 ####[facility] [address] [place], [address] Platelets (Bld) [#/Vol] 322 10*3/uL Normal 150-450 [facility] Comment on above: Performed By: #### L 300.3900, L100.0100, L300.4310 ####[facility] [address] [place], [address] RBC (Bld) [#/Vol] 4.17 10*6/uL Low 4.2-5.4 [facility] Comment on above: Performed By: #### L 300.3900, L100.0100, L300.4310 ####[facility] [address] [place], [address] RDW SD 47.2 fl High 35.1-43.9 [facility] Comment on above: Performed By: #### L 300.3900, L100.0100, L300.4310 ####[facility] [address] [place], [address] WBC (Bld) [#/Vol] 5.7 10*3/uL Normal 4.4-11.0 [facility] Comment on above: Performed By: #### L 300.3900, L100.0100, L300.4310 ####[facility] [address] [place], [address] Eosinophil percentageOrdered By: Aroldo Covington on 01-12-2025 Eosinophils/100 WBC (Bld) 4.9 % 0-5 [facility] Erythrocyte distribution wid th ratioOrdered By: Aroldo Covington on 01-12-2025 Erythrocyte distribution width (RBC) [Ratio] 14.6 % 11.6-14.6 [facility] Erythrocyte distribution wid th standard deviationOrdered By: Aroldo Covington on 01-12-2025 Erythrocyte distribution width (RBC) [Ratio] 47.2 fl High 35.1-43.9 [facility] Hematocrit Auto (Bld) [Volum e fraction]Ordered By: Aroldo Covington on 01-12-2025 Hematocrit (Bld) [Volume fraction] 36.5 % Low 37-47 [facility] Hemoglobin measurementOrdere d By: Aroldo Covington on 01-12-2025 Hemoglobin (Bld) [Mass/Vol] 11.8 g/dL Low 12.0-15. 0 [facility] Immature granulocytes/100 WB C Auto (Bld)Ordered By: Aroldo Covington on 01-12-2025 Immature granulocytes/100 WBC (Bld) 0.200 % 0.0-0.9 [facility] Comment on above: IG% - Immature Granu locytes (promyelocytes, myelocytes and metamyelocytes) > 1% indicates that a LEFT SHIFT is Present. International normalized rat io (INR) calculationOrdered By: Aroldo Covington on 01-12-2025 INR Coag (Bld) [Relative time] 0.9 {INR} [facility] Kidney Biopsyon 01-12-2025 Kidney Biopsy [facility] [address] [place] [address] Kidney Biopsy MR#: [id number] Acct: [id number] Name: RENE RIDER Rep #: [id number] : 1955 F 69 From: Aroldo Staton PCP: Dr. Charity Khan MD Status: [facility] CLI Study: Kidney Biopsy Date of Exam: 01/12/25 Exam# [id number] Ordering Dr: Tara Lyon DO PROCEDURE: KIDNEY BIOPSY 01/12/2025 REASON FOR EXAM: PERSISTENT PROTEINURIA TECHNIQUE: Procedure Code: USKIB Modality: US Procedure: KIDNEY BIOPSY COMPARISON: CT examination of 10/29/2024. FINDINGS: Following informed consent, an using standard sterile technique, a right inferior kidney biopsy was performed with ultrasound guidance. 2% lidocaine local anesthesia was followed by placement of a 15 cm 18 gauge [employer] core biopsy system. 4 samples were then obtained. No complication was encountered, in the patient left the department in good condition without significant complaint. US/Kidney Biopsy IMPRESSION: Successful ultrasound-guided right inferior kidney core biopsy. Pathology results pending. Reading Location: [place] [address] CC: Dr. Tara Lyon DO; Dr. Charity Khan MD Photographer Apprentice: Signed Normal [facility] L350.1810on 01-12-2025 Path [facility] SEE PATHOLOGY REPORT Normal [facility] Comment on above: Order Comment: RESUL TS FAXED TO DR. LYON 01/15/25 [address]. Result Comment: Spec imen sent to [facility] Pathology Department. Report available in EMR. Performed By: #### L 350.1810 ####[facility] [address] [place], [address] MCV (mean corpuscular volume ) determinationOrdered By: Aroldo Covington on 01-12-2025 MCV (RBC) [Entitic vol] 87.5 fL 81-99 [facility] Mean corpuscular hemoglobin (MCH) determinationOrdered By: Aroldo Covington on 01-12-2025 MCH (RBC) [Entitic mass] 28.3 pg 27.0-32.0 [facility] Mean corpuscular hemoglobin concentration (MCHC) determinationOrdered By: Aroldo Covington on 01-12-2025 MCHC (RBC) [Mass/Vol] 32.3 g/dL 32-36 [facility] Mean platelet volume determi nationOrdered By: Aroldo Covington on 01-12-2025 Platelet mean volume (Bld) [Entitic vol] 10.0 fL 6.2-12.0 [facility] Monocyte percentageOrdered B y: Aroldo Covington on 01-12-2025 Monocytes/100 WBC (Bld) 5.7 % 0-10 [facility] Neutrophil percentageOrdered By: Aroldo Covington on 01-12-2025 Neutrophils/100 WBC (Bld) 55.1 % 47-70 [facility] Nucleated red blood cell per centageOrdered By: Aroldo Covington on 01-12-2025 Nucleated RBC/100 WBC (Bld) [Ratio] 0 % 0-5 [facility] Partial Thromboplast Timeon 01-12-2025 aPTT Coag (Bld) [Time] 26.6 s Normal 24.1-36.2 [facility] Comment on above: Performed By: #### L 300.3900, L100.0100, L300.4310 ####[facility] [address] [place], [address] Platelet countOrdered By: Alonso Covington on 01-12-2025 Platelets (Bld) [#/Vol] 322 10*3/uL 150-450 [facility] Prothrombin Time w/INRon INR Coag (PPP) [Relative time] 0.9 {INR} Normal [facility] Comment on above: Performed By: #### L 300.3900, L100.0100, L300.4310 ####[facility] [address] [place], [address] PT Coag (PPP) [Time] 12.5 s Normal 11.7-14.9 [facility] Comment on above: Performed By: #### L 300.3900, L100.0100, L300.4310 ####[facility] [address] [place], [address] Prothrombin timeOrdered By: Aroldo Covington on 01-12-2025 PT Coag (PPP) [Time] 12.5 s 11.7-14.9 [facility] RBC Auto (Bld) [#/Vol]Ordere d By: Aroldo Covington on 01-12-2025 RBC (Bld) [#/Vol] 4.17 10*6/uL Low 4.2-5.4 [facility] SURG PATH REQUESTon 01-13-20 Case Report Normal [facility] Comment on above: Result Comment: Surg ical Pathology Report Case: [id number] Authorizing Provider: Tara Lyon DO Collected: 01/12/2025 10:00 AM Ordering Location[facility] Received: 01/13/2025 06:35 AM [facility] Pathologist: Jose Wilks MD, PhD Specimen: KIDNEY Performed By: #### S URGP #### [facility] (DEFAULT) [address] [place] [address] Clinical History The patient is a 69-year-old female whose serum creatinine is 1.85 mg/dL (fluctuating between 1.5-1.8 mg/dL). Patient noticed to have proteinuria of 2 g/24 hours in June 2024. However, her proteinuria increased to 5 g/g per urinary protein-creatinine ratio in October and currently 5.7 g/g. SPEP shows some abnormality in the gamma region, but no obvious M-spike. Serum albumin is 3.5 g/dL. Patient weighs 222 lbs, her BMI is 46.5, and blood pressure 132/68 mmHg. Normal [facility] Comment on above: Performed By: #### S URGP #### [facility] (DEFAULT) [address] [place] [id number] Gross Description Normal [facility] Comment on above: Result Comment: Katelin carrera from [facility], [place], [place], is a [place] kidney biopsy with two containers labeled with the patient's name and date of . The vial with formalin contains two pieces of 0.1 cm hernandez-pink renal cores with the aggregate length of 2.6 cm. One 0.2 cm piece in total length is submitted for electron microscopy. The IF transport medium vial contains two pieces of 0.1 cm hernandez-pink renal cores with the aggregate length of 2.8 cm. One 1.0 cm piece in total length is submitted for immunofluorescence and is cut into two pieces. The remaining two 1.8 cm pieces in total length are transferred from the IF transport medium and combined with the formalin fixed pieces. All formalin-fixed tissue is submitted for light microscopy. TE 2 Summary of Sections: A1 - four pieces A2 - two pieces IF tissue Grosser for this case was: [address] Performed By: #### S URGP #### [facility] (DEFAULT) [address] [address] Microscopic Description Normal [facility] Comment on above: Result Comment: LIG T MICROSCOPY Paraffin sections stained with H&E, PAS, Trichrome, and Smith methenamine silver contain renal cortex with up to 21 glomeruli on different levels. Up to eight of those are globally sclerosed/obsolescent. Three glomeruli have periglomerular fibrosis, 2-3 glomeruli show segmental sclerosing lesions/adhesions of the glomerular capillary loops to the Perez's capsule, and 2-3 glomeruli have small segmental endocapillary proliferative lesions. No obvious active cellular crescents are noted. There appears to be mild to moderate interstitial fibrosis and tubular atrophy involving approximately 20-25% of the renal cortex in the tissue examined. Focal inflammatory cell infiltrates are noted in the areas of fibrosis. Sections of interlobular size arteries have mild to moderate intimal thickening, and mild arteriolar hyaline change is seen. Congo red stain is negative. DIRECT IMMUNOFLUORESCENCE Frozen sections contain renal cortex with up to 8-9 glomeruli on different levels; 3-4 of those are globally sclerosed/obsolescent. Immunofluorescence with antibodies to albumin, IgG, IgA, IgM, C1q, C3, fibrinogen, and both kappa and lambda light chains is performed, and the results are as follows: Albumin: 2+ in tubular protein reabsorption droplets Ig+ in tubular protein reabsorption droplets, 2+ in tubular casts IgA: 2+ granular diffuse global in the mesangium, segmental along the glomerular capillary loops, 3+ in tubular casts, 2+ in tubular protein reabsorption droplets IgM: 1+ granular diffuse segmental in the mesangium, 2+ in tubular casts C1q: No relevant staining C3: 1+ granular diffuse global in the mesangium, segmental along the glomerular capillary loops, 1+ in tubular basement membranes, 2+ in tubular casts and arteriolar bui Fibrinogen: 2+ focal segmental in a glomerulus (light microscopic examination of that glomerulus does not show obvious crescent) [place] light chain: 2+ granular diffuse global in the mesangium, segmental along the glomerular capillary loops, 2+ in tubular protein reabsorption droplets, and 2+ in tubular casts Lambda light chain: 2+ granular diffuse global in the mesangium, segmental along the glomerular capillary loops, 2+ in tubular protein reabsorption droplets, and 2+ in tubular casts (Grading of the staining intensity is performed on a semiquantitative scale from 0 to 3+) All positive and negative controls were reviewed by the attending pathologist and showed appropriate reactivity. All immunohistochemistry, in situ hybridization, immunofluorescence, and histochemical tests were developed, and their performance characteristics were determined, by the [facility], Department of Pathology. One or more tests reported here have not been cleared by or approved by the [place] Food and Drug Administration (FDA). The FDA has determined that such clearance or approval is not necessary. This laboratory is regulated under CLIA as qualified to perform high-complexity testing. The tests are used for clinical purposes and should not be regarded as investigational or for research. ELECTRON MICROSCOPY Methylene blue/basic fuchsin stained semithin sections contain renal cortex with one glomerulus.Ultrastructurally, electron-dense immune-type complex deposits are not identified in the mesangium/paramesangium. Rare segmental deposits are noted along the glomerular capillary loops, predominantly intramembranously. Segmental subendothelial electron lucent widening with electron densities in the widened subendothelial space, which may represent hyaline deposits, is noted. The glomerular basement membrane (GBM) appears to be of normal thickness and texture. Podocyte foot processes are moderate to segmentally prominent. No endothelial tubuloreticular inclusions are identified. Performed By: #### S URGP #### [facility] (DEFAULT) [address] [place] [address] Pathologic Diagnosis Normal [facility] Comment on above: Result Comment: Katelin prado, [place], biopsy: Morphologic features suggestive of IgA nephropathy, Culebra classification M1 E1 S1 T0 C0 Note: Light microscopy shows glomeruli with increased mesangial cellularity, a few glomeruli with segmental sclerosing lesions, and a few glomeruli with segmental endocapillary proliferative lesions. Immunofluorescence shows positive staining for IgA in the mesangium. Electron microscopy indicates mesangial and paramesangial immune complex deposits. Such findings indicate IgA nephropathy. Several electron dense deposits as well as segmental staining for IgA is noted along the glomerular capillary loops. Even though such findings could be seen in patients with IgA nephropathy, an underlying infections would be excluded. Segmental subendothelial electron lucent widening is noted, which may indicate glomerular hyperfiltration/hyperperfusion injury; investigation for circulating antiphospholipid antibodies would be suggested. There is no evidence of monoclonal immunoglobulin deposition or amyloid in the tissue examined. The degree of underlying chronic kidney injury appears to be mild to moderate. (The Culebra classification score appears to be still T0 but is reaching T1). Biopsy findings were discussed with Dr. Lyon on 01/13/2025. at 1645 EDT Performed By: #### S URGP #### [facility] (DEFAULT) [address] [address] Professional Interpretation Performed at: [facility] Comment on above: Result Comment: [facility] For Immediate Release to [facility] Yes [address] [address] Performed By: #### S URGP #### [facility] (DEFAULT) [address] [address] White blood cell (WBC) count Ordered By: Aroldo Covington on 01-12-2025 WBC (Bld) [#/Vol] 5.7 10*3/uL 4.4-11.0 [facility] Activated partial thrombopla stin time (aPTT) in platelet poor plasma by coagulation aOrdered By: Tara Lyon on 01-07-2025 aPTT Coag (PPP) [Time] 25.9 s 24.1-36.2 [facility] Anion gap in Serum or Plasma Ordered By: Tara Lyon on 01-07-2025 Anion gap [Moles/Vol] 10 mmol/L - [facility] BUN/creatinine ratioOrdered By: Tara Lyon on 01-07-2025 Urea nitrogen/Creatinine [Mass ratio] 11.5 mg/mg - [facility] CBC-Complete Blood Cnt No Di ffon 01-07-2025 Erythrocyte distribution width (RBC) [Ratio] 14.7 % High 11.6-14.6 [facility] Comment on above: Performed By: #### L 3300.1200, L505.7010, L3100.5800, L3100.5700, L500.3600, L3100.5475, L3100.3450 #### [facility] [address] [place], [address] Hematocrit (Bld) [Volume fraction] 35.1 % Low 37-47 [facility] Comment on above: Performed By: #### L 3300.1200, L505.7010, L3100.5800, L3100.5700, L500.3600, L3100.5475, L3100.3450 #### [facility] [address] [place], [address] Hemoglobin (Bld) [Mass/Vol] 11.5 g/dL Low 12.0-15. 0 [facility] Comment on above: Performed By: #### L 3300.1200, L505.7010, L3100.5800, L3100.5700, L500.3600, L3100.5475, L3100.3450 #### [facility] [address] [place], [address] MCH (RBC) [Entitic mass] 28.4 pg Normal 27.0-32.0 [facility] Comment on above: Performed By: #### L 3300.1200, L505.7010, L3100.5800, L3100.5700, L500.3600, L3100.5475, L3100.3450 #### [facility] [address] [place], [address] MCHC (RBC) [Mass/Vol] 32.8 g/dL Normal 32-36 [facility] Comment on above: Performed By: #### L 3300.1200, L505.7010, L3100.5800, L3100.5700, L500.3600, L3100.5475, L3100.3450 #### [facility] [address] [place], [address] MCV (RBC) [Entitic vol] 86.7 fL Normal 81-99 [facility] Comment on above: Performed By: #### L 3300.1200, L505.7010, L3100.5800, L3100.5700, L500.3600, L3100.5475, L3100.3450 #### [facility] [address] [place], [address] Platelet mean volume (Bld) [Entitic vol] 10.2 fL Normal 6.2-12.0 [facility] Comment on above: Performed By: #### L 3300.1200, L505.7010, L3100.5800, L3100.5700, L500.3600, L3100.5475, L3100.3450 #### [facility] [address] [place], [address] Platelets (Bld) [#/Vol] 322 10*3/uL Normal 150-450 [facility] Comment on above: Performed By: #### L 3300.1200, L505.7010, L3100.5800, L3100.5700, L500.3600, L3100.5475, L3100.3450 #### [facility] [address] [place], [address] RBC (Bld) [#/Vol] 4.05 10*6/uL Low 4.2-5.4 [facility] Comment on above: Performed By: #### L 3300.1200, L505.7010, L3100.5800, L3100.5700, L500.3600, L3100.5475, L3100.3450 #### [facility] [address] [place], [address] RDW SD 47.2 fl High 35.1-43.9 [facility] Comment on above: Performed By: #### L 3300.1200, L505.7010, L3100.5800, L3100.5700, L500.3600, L3100.5475, L3100.3450 #### [facility] [address] [place], [address] WBC (Bld) [#/Vol] 7.0 10*3/uL Normal 4.4-11.0 [facility] Comment on above: Performed By: #### L 3300.1200, L505.7010, L3100.5800, L3100.5700, L500.3600, L3100.5475, L3100.3450 #### [facility] [address] [place], [address] Carbon dioxide, total [Moles /volume] in Central venous bloodOrdered By: Tara Lyon on 01-07-2025 CO2 [Moles/Vol] 25.7 mmol/L 21.0-32.0 [facility] Chloride assayOrdered By: Eileen Lyon on 01-07-2025 Chloride [Moles/Vol] 105 mmol/L 98-108 [facility] Erythrocyte distribution wid th ratioOrdered By: Tara Lyon on 01-07-2025 Erythrocyte distribution width (RBC) [Ratio] 14.7 % High 11.6-14.6 [facility] Erythrocyte distribution wid th standard deviationOrdered By: Tara Lyon on 01-07-2025 Erythrocyte distribution width (RBC) [Ratio] 47.2 fl High 35.1-43.9 [facility] Glomerular filtration rate ( GFR) estimation/1.73 sq m using serum, plasma, or whole bOrdered By: Tara Lyon on 01-07-2025 GFR/1.73 sq M.predicted among non-blacks MDRD (S/P/Bld) [Vol rate/Area] 30 mL/min/{1.73_m2} Low >60 [facility] Comment on above: mL/min/1.73m2 CKD-EP I Creatinine Equation (2020) Hematocrit Auto (Bld) [Volum e fraction]Ordered By: Tara Lyon on 01-07-2025 Hematocrit (Bld) [Volume fraction] 35.1 % Low 37-47 [facility] Hemoglobin measurementOrdere d By: Tara Lyon on 01-07-2025 Hemoglobin (Bld) [Mass/Vol] 11.5 g/dL Low 12.0-15. 0 [facility] International normalized rat io (INR) calculationOrdered By: Tara Lyon on 01-07-2025 INR Coag (Bld) [Relative time] 0.9 {INR} [facility] MCV (mean corpuscular volume ) determinationOrdered By: Tara Lyon on 01-07-2025 MCV (RBC) [Entitic vol] 86.7 fL 81-99 [facility] Mean corpuscular hemoglobin (MCH) determinationOrdered By: Tara Lyon on 01-07-2025 MCH (RBC) [Entitic mass] 28.4 pg 27.0-32.0 [facility] Mean corpuscular hemoglobin concentration (MCHC) determinationOrdered By: Tara Lyon on 01-07-2025 MCHC (RBC) [Mass/Vol] 32.8 g/dL 32-36 [facility] Mean platelet volume determi nationOrdered By: Tara Lyon on 01-07-2025 Platelet mean volume (Bld) [Entitic vol] 10.2 fL 6.2-12.0 [facility] PTHINon 01-07-2025 PTH 67 pg/mL High 11-61 [facility] Comment on above: Performed By: #### L 3300.1200, L505.7010, L3100.5800, L3100.5700, L500.3600, L3100.5475, L3100.3450 #### [facility] [address] [place], [place], [id number] Partial Thromboplast Timeon 01-07-2025 aPTT Coag (Bld) [Time] 25.9 s Normal 24.1-36.2 [facility] Comment on above: Performed By: #### L 3300.1200, L505.7010, L3100.5800, L3100.5700, L500.3600, L3100.5475, L3100.3450 #### [facility] [address] [place], [address] Platelet countOrdered By: Eileen Lyon on 01-07-2025 Platelets (Bld) [#/Vol] 322 10*3/uL 150-450 [facility] Potassium measurement (mass/ volume)Ordered By: Tara Lyon on 01-07-2025 Potassium (Unsp spec) [Mass/Vol] 4.4 mmol/L 3.3-5.1 [facility] Prothrombin Time w/INRon INR Coag (PPP) [Relative time] 0.9 {INR} Normal [facility] Comment on above: Performed By: #### L 3300.1200, L505.7010, L3100.5800, L3100.5700, L500.3600, L3100.5475, L3100.3450 #### [facility] [address] [place], [address] PT Coag (PPP) [Time] 12.7 s Normal 11.7-14.9 [facility] Comment on above: Performed By: #### L 3300.1200, L505.7010, L3100.5800, L3100.5700, L500.3600, L3100.5475, L3100.3450 #### [facility] [address] [place], [address] Prothrombin timeOrdered By: Tara Lyon on 01-07-2025 PT Coag (PPP) [Time] 12.7 s 11.7-14.9 [facility] RBC Auto (Bld) [#/Vol]Ordere d By: Tara Lyon on 01-07-2025 RBC (Bld) [#/Vol] 4.05 10*6/uL Low 4.2-5.4 [facility] Renal Profileon 01-07-2025 Albumin [Mass/Vol] 3.5 g/dL Normal 3.4-4.8 [facility] Comment on above: Performed By: #### L 3300.1200, L505.7010, L3100.5800, L3100.5700, L500.3600, L3100.5475, L3100.3450 #### [facility] [address] [place], [address] BUN/CRE 11.5 RATIO Normal 01-04 [facility] Comment on above: Performed By: #### L 3300.1200, L505.7010, L3100.5800, L3100.5700, L500.3600, L3100.5475, L3100.3450 #### [facility] [address] [place], [address] Calcium [Mass/Vol] 9.0 mg/dL Normal 7.6-11.0 [facility] Comment on above: Performed By: #### L 3300.1200, L505.7010, L3100.5800, L3100.5700, L500.3600, L3100.5475, L3100.3450 #### [facility] [address] [place], [address] Chloride [Moles/Vol] 105 mmol/L Normal 98-108 [facility] Comment on above: Performed By: #### L 3300.1200, L505.7010, L3100.5800, L3100.5700, L500.3600, L3100.5475, L3100.3450 #### [facility] [address] [place], [address] CO2 [Moles/Vol] 25.7 mmol/L Normal 21.0-32.0 [facility] Comment on above: Performed By: #### L 3300.1200, L505.7010, L3100.5800, L3100.5700, L500.3600, L3100.5475, L3100.3450 #### [facility] [address] [place], [address] Creatinine [Mass/Vol] 1.81 mg/dL High 0.70-1.20 [facility] Comment on above: Performed By: #### L 3300.1200, L505.7010, L3100.5800, L3100.5700, L500.3600, L3100.5475, L3100.3450 #### [facility] [address] [place], [address] GAP 10 Normal 5-15 [facility] Comment on above: Performed By: #### L 3300.1200, L505.7010, L3100.5800, L3100.5700, L500.3600, L3100.5475, L3100.3450 #### [facility] [address] [place], [address] GFR/1.73 sq M.predicted among non-blacks MDRD (S/P/Bld) [Vol rate/Area] 30 mL/min/{1.73_m2} Low >60 [facility] Comment on above: Result Comment: mL/m in/1.73m2 CKD-EPI Creatinine Equation (2020) Performed By: #### L 3300.1200, L505.7010, L3100.5800, L3100.5700, L500.3600, L3100.5475, L3100.3450 #### [facility] [address] [place], [address] Glucose [Mass/Vol] 92 mg/dL Normal 70-99 [facility] Comment on above: Performed By: #### L 3300.1200, L505.7010, L3100.5800, L3100.5700, L500.3600, L3100.5475, L3100.3450 #### [facility] [address] [place], [address] Phosphate [Mass/Vol] 3.6 mg/dL Normal 2.7-4.5 [facility] Comment on above: Performed By: #### L 3300.1200, L505.7010, L3100.5800, L3100.5700, L500.3600, L3100.5475, L3100.3450 #### [facility] [address] [place], [address] Potassium [Moles/Vol] 4.4 mmol/L Normal 3.3-5.1 [facility] Comment on above: Performed By: #### L 3300.1200, L505.7010, L3100.5800, L3100.5700, L500.3600, L3100.5475, L3100.3450 #### [facility] [address] [place], [place], [address] Sodium [Moles/Vol] 140 mmol/L Normal 133-145 [facility] Comment on above: Performed By: #### L 3300.1200, L505.7010, L3100.5800, L3100.5700, L500.3600, L3100.5475, L3100.3450 #### [facility] [address] [place], [address] Urea nitrogen [Mass/Vol] 21 mg/dL High - [facility] Comment on above: Performed By: #### L 3300.1200, L505.7010, L3100.5800, L3100.5700, L500.3600, L3100.5475, L3100.3450 #### [facility] [address] [place], [place], [address] Serum creatinine measurement (mass/volume)Ordered By: Tara Lyon on 01-07-2025 Creatinine [Mass/Vol] 1.81 mg/dL High 0.70-1.20 [facility] Serum glucose measurement (m ass/volume)Ordered By: Tara Lyon on 01-07-2025 Glucose [Mass/Vol] 92 mg/dL 70-99 [facility] Serum or plasma albumin nava urement (mass/volume)Ordered By: Tara Lyon on 01-07-2025 Albumin [Mass/Vol] 3.5 g/dL 3.4-4.8 [facility] Serum or plasma calcium nava urement (mass/volume)Ordered By: Tara Lyon on 01-07-2025 Calcium [Mass/Vol] 9.0 mg/dL 7.6-11.0 [facility] Serum or plasma urea nitroge n measurement (mass/volume)Ordered By: Tara Lyon on 01-07-2025 Urea nitrogen [Mass/Vol] 21 mg/dL High 07-04 [facility] Sodium levelOrdered By: Juhi Lyon on 01-07-2025 Sodium [Moles/Vol] 140 mmol/L 133-145 [facility] White blood cell (WBC) count Ordered By: Tara Lyon on 01-07-2025 WBC (Bld) [#/Vol] 7.0 10*3/uL 4.4-11.0 [facility] Internal Medicine Office Vis iton 01-06-2025 Internal Medicine Office Visit [facility] Internal Medicine [address] [place] [address] [place] [address] OFFICE VISIT Date of Service: 01/06/25 MR#: [id number] Acct: [id number] Name: RENE RIDER Rep #: [id number] : 1955 Provider: Dr. Charity tristan MD Age/Sex: 69/F Location: [facility] Status: Signed Intake Vital Signs 10/07/24 13:49 12/14/24 11:22 01/06/25 10:51 Height 4 ft 11 in 4 ft 11 in 4 ft 11 in Weight: 222 lb BMI 44.8 BP 120/74 Blood Pressure Location Lt brachial Position Sitting Respiration 14 Pulse 82 Pulse Source Monitor Temp 97 F L Temp Source Temporal Pulse Oximetry (%) 95 Oxygen Delivery Method room air Intake Visit Reasons: 3 M FU Chief Complaint: Follow-up chronic conditions Recreation Manager Required: No Is patient in pain?: No Allergies Sulfa (Sulfonamide Antibiotics) Allergy (Severe, Verified 01/06/25 10:20) Anaphylaxis cigarette smoke Allergy (Mild, Verified 01/06/25 10:20) hoarsness house dust mite Allergy (Mild, Verified 01/06/25 10:20) hoarsness Medications ???Medication ???Instructions ???Recorded ???Confirmed ???Type zinc gluconate 30 mg tablet 30 mg PO DAILY 07/05/20 01/06/25 H istory acetaminophen 500 mg tablet 1,000 mg PO Q6H PRN Pain 11/17/20 01/06/25 History (Tylenol Extra Strength) Handicap Placard #1 ea 07/23/22 01/06/25 Rx ascorbate calcium (vitamin C) 500 600 mg PO DAILY 10/22/22 01/06/25 History mg tablet compress.rolandaing,paulina e,reg,lrg #2 ea 09/04/23 01/06/25 Rx cholecalciferol (vitamin D3) 25 50 mcg PO DAILY 06/08/24 01/06/25 History mcg (1,000 unit) capsule carvedilol 3.125 mg tablet (Coreg) 3.125 mg PO Q12H #60 tabs 01/06/25 Rx amlodipine 10 mg tablet See Rx Instructions .Route 5 01/06/25 Rx .COMPLEX #90 tabs cyclobenzaprine 10 mg tablet 10 mg PO TID PRN muscle spasm #90 01/06/25 01/06/25 Rx tabs Have you fallen in the past year?: No Nurse's Note: Pt needs refill on flexril. Pt states it helps her fall asleep when she is real stiff. Pt will get flu shot when she goes to [facility]r picker refill at pharmacy. Pt states she has had intermittent L ear plugged feeling. She wonders if it is due to weather as it tends to happen when it changes and she as a h/o allergies. Pt has tried treating w/ otc ear drops and cleaned them out, she states this didn't help much but if she blew her nose or used saline nasal spray it 'popped open Pt is okay w/ ear issue today [facility] Medical History (Updated 01/06/25 @ 16:[address] Charity Khan MD) Congestion of left ear MGUS (monoclonal gammopathy of unknown significance) Blood glucose elevated Microalbuminuria CKD (chronic kidney disease), stage III Dermatitis Tachycardia Acute sinusitis, unspecified Chronic back pain Health care maintenance Colon cancer screening Scoliosis Cancer Anxiety Alcohol use Bladder disease Arthritis Migraine headache Non-smoker Leg cramps History of pain when walking Hypertension Preoperative evaluation to rule out surgical contraindication Osteoarthritis of right hip Right hip pain History of basal cell carcinoma History of pneumonia history of cracked palate history of club feet Hypertension Seasonal allergies Surgical History Status post Mohs surgery History of hip replacement, total H/O foot surgery History of Hx of rhinoplasty Family History Mother Hypertension Hyperlipemia Arthritis Father Hypertension Skin cancer Arthritis Social History household members: spouse housing: house Smoking Status: Never smoker alcohol intake: never substance use type: does not use what type of physical activity do you participate in: none do you feel safe at home: Yes HPI HPI Chief Complaint: Follow-up chronic conditions Details: RENE RIDER, is a 69-year-old female with a history of proteinuria, presenting for evaluation of left ear congestion and follow-up of her chronic conditions. The patient reports a sensation of being underwater in her left ear, which she attributes to possible allergies. She denies any changes in hearing, otorrhea, cephalalgia, chills, or fever. She notes that the congestion was previously more severe, but has improved slightly. The patient is also awaiting a renal biopsy, which was recommended by her state editor, Dr. Lyon, due to proteinuria. She reports that a radiologist is supposed to contact her to schedule the biopsy. She mentions that her previous physician, Dr. Chaparro, recommended a high-protein diet, but she is unsure if this was a miscommunication. She is cu (more content not included)... Normal [facility] Anion gap in Serum or Plasma Ordered By: Tara Lyon on 12-30-2024 Anion gap [Moles/Vol] 11 mmol/L 07-30 [facility] BUN/creatinine ratioOrdered By: Tara Lyon on 12-30-2024 Urea nitrogen/Creatinine [Mass ratio] 13.1 mg/mg 01-04 [facility] Carbon dioxide, total [Moles /volume] in Central venous bloodOrdered By: Tara Lyon on 12-30-2024 CO2 [Moles/Vol] 25.3 mmol/L 21.0-32.0 [facility] Chloride assayOrdered By: Eileen Lyon on 12-30-2024 Chloride [Moles/Vol] 105 mmol/L 98-108 [facility] Glomerular filtration rate ( GFR) estimation/1.73 sq m using serum, plasma, or whole bOrdered By: Tara Lyon on 12-30-2024 GFR/1.73 sq M.predicted among non-blacks MDRD (S/P/Bld) [Vol rate/Area] 30 mL/min/{1.73_m2} Low >60 [facility] Comment on above: mL/min/1.73m2 CKD-EP I Creatinine Equation (2020) Potassium measurement (mass/ volume)Ordered By: Tara Lyon on 12-30-2024 Potassium (Unsp spec) [Mass/Vol] 4.3 mmol/L 3.3-5.1 [facility] Protein+Creatinine Ratio,Uri neon 12-30-2024 PROT:CRE RATIO 5724 mg/g CRE High 0-200 [facility] Comment on above: Performed By: #### L 3300.1200, L505.7010, L3100.5800, L3100.5700, L500.3600, L3100.5475, L3100.3450 #### [facility] [address] [place], [place], [id number] PROTEIN,UR.RAN. > 600.0 High 0.0-12.0 [facility] Comment on above: Performed By: #### L 3300.1200, L505.7010, L3100.5800, L3100.5700, L500.3600, L3100.5475, L3100.3450 #### [facility] [address] [place], [place], [id number] Random urine creatinine nava urement (mass/volume)Ordered By: Tara Lyon on 12-30-2024 Creatinine Unsp time (U) [Mass/Vol] 105.00 mg/dL 28.00-217.0 0 [facility] Renal Profileon 12-30-2024 Albumin [Mass/Vol] 3.7 g/dL Normal 3.4-4.8 [facility] Comment on above: Performed By: #### L 3300.1200, L505.7010, L3100.5800, L3100.5700, L500.3600, L3100.5475, L3100.3450 #### [facility] [address] [place], [place], [id number] BUN/CRE 13.1 RATIO Normal 10-20 [facility] Comment on above: Performed By: #### L 3300.1200, L505.7010, L3100.5800, L3100.5700, L500.3600, L3100.5475, L3100.3450 #### [facility] [address] [place], [address] Calcium [Mass/Vol] 9.3 mg/dL Normal 7.6-11.0 [facility] Comment on above: Performed By: #### L 3300.1200, L505.7010, L3100.5800, L3100.5700, L500.3600, L3100.5475, L3100.3450 #### [facility] [address] [place], [address] Chloride [Moles/Vol] 105 mmol/L Normal 98-108 [facility] [facility] Comment on above: Performed By: #### L 3300.1200, L505.7010, L3100.5800, L3100.5700, L500.3600, L3100.5475, L3100.3450 #### [facility] [address] [place], [address] CO2 [Moles/Vol] 25.3 mmol/L Normal 21.0-32.0 [facility] Comment on above: Performed By: #### L 3300.1200, L505.7010, L3100.5800, L3100.5700, L500.3600, L3100.5475, L3100.3450 #### [facility] [address] [place], [address] Creatinine [Mass/Vol] 1.85 mg/dL High 0.70-1.20 [facility] Comment on above: Performed By: #### L 3300.1200, L505.7010, L3100.5800, L3100.5700, L500.3600, L3100.5475, L3100.3450 #### [facility] [address] [place], [address] GAP 11 Normal 5-15 [facility] Comment on above: Performed By: #### L 3300.1200, L505.7010, L3100.5800, L3100.5700, L500.3600, L3100.5475, L3100.3450 #### [facility] [address] [place], [address] GFR/1.73 sq M.predicted among non-blacks MDRD (S/P/Bld) [Vol rate/Area] 30 mL/min/{1.73_m2} Low >60 [facility] Comment on above: Result Comment: mL/m in/1.73m2 CKD-EPI Creatinine Equation (2020) Performed By: #### L 3300.1200, L505.7010, L3100.5800, L3100.5700, L500.3600, L3100.5475, L3100.3450 #### [facility] [address] [place], [address] Glucose [Mass/Vol] 108 mg/dL High 70-99 [facility] Comment on above: Performed By: #### L 3300.1200, L505.7010, L3100.5800, L3100.5700, L500.3600, L3100.5475, L3100.3450 #### [facility] [address] [place], [address] Phosphate [Mass/Vol] 3.9 mg/dL Normal 2.7-4.5 [facility] Comment on above: Performed By: #### L 3300.1200, L505.7010, L3100.5800, L3100.5700, L500.3600, L3100.5475, L3100.3450 #### [facility] [address] [place], [address] Potassium [Moles/Vol] 4.3 mmol/L Normal 3.3-5.1 [facility] Comment on above: Performed By: #### L 3300.1200, L505.7010, L3100.5800, L3100.5700, L500.3600, L3100.5475, L3100.3450 #### [facility] [address] [place], [place], [address] Sodium [Moles/Vol] 141 mmol/L Normal 133-145 [facility] Comment on above: Performed By: #### L 3300.1200, L505.7010, L3100.5800, L3100.5700, L500.3600, L3100.5475, L3100.3450 #### [facility] [address] [place], [address] Urea nitrogen [Mass/Vol] 24 mg/dL High 07-04 [facility] Comment on above: Performed By: #### L 3300.1200, L505.7010, L3100.5800, L3100.5700, L500.3600, L3100.5475, L3100.3450 #### [facility] [address] [facility] [place], [place], [address] Serum creatinine measurement (mass/volume)Ordered By: Tara Lyon on 12-30-2024 Creatinine [Mass/Vol] 1.85 mg/dL High 0.70-1.20 [facility] Serum glucose measurement (m ass/volume)Ordered By: Tara Lyon on 12-30-2024 Glucose [Mass/Vol] 108 mg/dL High 70-99 [facility] Serum or plasma albumin nava urement (mass/volume)Ordered By: Tara Lyon on 12-30-2024 Albumin [Mass/Vol] 3.7 g/dL 3.4-4.8 [facility] Serum or plasma calcium nava urement (mass/volume)Ordered By: Tara Lyon on 12-30-2024 Calcium [Mass/Vol] 9.3 mg/dL 7.6-11.0 [facility] Serum or plasma urea nitroge n measurement (mass/volume)Ordered By: Tara Lyon on 12-30-2024 Urea nitrogen [Mass/Vol] 24 mg/dL High 07-04 [facility] Sodium levelOrdered By: Juhi Lyon on 12-30-2024 Sodium [Moles/Vol] 141 mmol/L 133-145 [facility] Urine protein measurement (m ass/volume)Ordered By: Tara Lyon on 12-30-2024 Protein (U) [Mass/Vol] mg/dL High 0.0-12.0 [facility] Urine protein/creatinine mas s ratioOrdered By: Tara Lyon on 12-30-2024 Protein/Creatinine (U) [Mass ratio] 5724 mg/g CRE High 0-200 [facility] L3410.9992on 12-15-2024 [facility] Misc. COMMENT Normal . [facility] Comment on above: Order Comment: [id number] 7ANA WITH REFLEX Result Comment: Test Ordered: [id number] WHITNEY, IFA Rfx 9 Denis Multiplex WHITNEY by IFA Rfx Titer/Pattern Negative CB Reference Range: . Negative <1:80 Borderline 1:80 Positive >1:80 ICAP nomenclature: AC-0 For more information about Hep-2 cell patterns use ANApatterns.org, the official website for the International Consensus on Antinuclear Antibody (WHITNEY) Patterns (ICAP). Please Note: Comment CB Reference Range: . WHITNEY Multiplex methodology was designed to detect up to 11 antibodies of the 100+ antibodies that may be detected by WHITNEY IFA methodology. Performed at: [facility] [address] [id number] School Janitor: Cj Fitch PhD, Phone: [phone] Performed By: #### L 3410.9992 ####[facility] [address] [facility] [place], [place], [address] Oncology Visit Reporton 11-17 Oncology Visit Report [facility] [address] [place] [address] OFFICE VISIT Date of Service: 12/14/24 1120 MR#: [id number] Acct: [id number] Name: RENE RIDER Rep #: [id number] : 1955 From: Jordon Chaparro MD Age/Sex: 69/F Location: [facility] Status: Signed HPI Subjective Date of Service 12/14/24 Chief Complaint F/U abnormal serum protein. History of Present Illness 69-year-old woman was found to have creatinine of 1.57. SPEP on 05/28/2024 showed asymmetric gammaglobulin. She was referred for further evaluation. Had blood work 06/08/2024 showed normal immunoglobulins, no M spike, free kappa light chain 32.7, free lambda light chain 18.8, free kappa lambda ratio 1.74. Skeletal survey on 06/12/2024 showed lytic lesion involving the left hip and MRI was suggested. MRI pelvis on 07/31/2024 showed Mild L Trochanteric bursitis, Pelvic bones were normal. CT c/a/p on 10/29/2024 showed no malignancy, small pericardial effusion. Echocardiogram and 24hr urine collection for Protein were requested and she comes for follow-up. She feels well, denies pain. Gets swelling of the legs, using compression stockings. [facility] Medical History MGUS (monoclonal gammopathy of unknown significance) Blood glucose elevated Microalbuminuria CKD (chronic kidney disease), stage III Dermatitis Tachycardia Acute sinusitis, unspecified Chronic back pain Health care maintenance Colon cancer screening Scoliosis Cancer Anxiety Alcohol use Bladder disease Arthritis Migraine headache Non-smoker Leg cramps History of pain when walking Hypertension Preoperative evaluation to rule out surgical contraindication Osteoarthritis of right hip Right hip pain History of basal cell carcinoma History of pneumonia history of cracked palate history of club feet Hypertension Seasonal allergies Surgical History Status post Mohs surgery History of hip replacement, total H/O foot surgery History of Hx of rhinoplasty Family History Mother Hypertension Hyperlipemia Arthritis Father Hypertension Skin cancer Arthritis Social History household members: spouse housing: house Smoking Status: Never smoker alcohol intake: never substance use type: does not use what type of physical activity do you participate in: none do you feel safe at home: Yes Intake Vital Signs 11/11/24 09:55 12/14/24 11:22 Height 4 ft 11 in 4 ft 11 in Weight: 102.654 kg BMI 45.7 BP 142/90 H Blood Pressure Location Rt brachial Position Sitting Respiration 18 Pulse 80 Pulse Source Monitor Temp 97.4 F L Temperature Source Temporal Artery Pulse Oximetry (%) 96 Oxygen Delivery Method room air Intake Accompanied by: Is patient in pain?: No Allergies Sulfa (Sulfonamide Antibiotics) Allergy (Severe, Verified 12/14/24 11:25) Anaphylaxis cigarette smoke Allergy (Mild, Verified 12/14/24 11:25) hoarsness house dust mite Allergy (Mild, Verified 12/14/24 11:25) hoarsness Medications ???Medication ???Instructions ???Recorded ???Confirmed ???Type vitamin C 500 mg-multivitamin with 1 tablet PO DAILY 07/05/2012/14 History minerals chewable tablet (Emergen-C) zinc gluconate 30 mg tablet 30 mg PO DAILY 07/05/20 12/14/24 H istory acetaminophen 500 mg tablet 1,000 mg PO Q6H PRN Pain 11/17/20 12/14/24 History (Tylenol Extra Strength) Handicap Placard #1 ea 07/23/22 12/14/24 Rx ascorbate calcium (vitamin C) 500 600 mg PO DAILY 10/22/22 12/14/24 History mg tablet cyclobenzaprine 10 mg tablet 10 mg PO TID PRN muscle spasm #90 10/22/22 12/14/24 Rx tabs compress.paulina geiger,reg,lrg #2 ea 09/04/23 12/14/24 Rx hydrocortisone 2.5 % topical 1 applic topical BID PRN rash 08/1612/14/24 Rx ointment #28.35 grams cholecalciferol (vitamin D3) 25 50 mcg PO DAILY 06/08/24 12/14/24 History mcg (1,000 unit) capsule carvedilol 3.125 mg tablet (Coreg) 3.125 mg PO Q12H #60 tabs 12/14/24 Rx amlodipine 10 mg tablet See Rx Instructions .Route 5 12/14/24 Rx .COMPLEX #90 tabs Have you fallen in the past year?: Yes Central Venous Access Central Venous Access: No 12/08/2024 Echocardiogram reviewed. ECHO/ONC Echo Complete Interpretation Summary Normal left ventricle. The global longitudinal strain = -17.3 % (normal). The left ventricular ejection fraction is 65 %. Stage 1 diastolic dysfunction. Ordering Physician: Jordon Chapraro Referring Physician: Madison Chaparro (more content not included)... Normal [facility] Echocardiogram study reportO rdered By: Lalo Cooper on 12-08-2024 Study report [facility] [address] [place] [address] ONC Echo Complete 12/08/24 1414 MR#: [id number] Acct: [id number] Name: RENE RIDER Rep #:[id number] : 1955 69 From: Lalo Staton Attending Dr: Dr. Jordon Chaparro MD S tatus: REG CLI Ordering Dr: Jordon Chaparro MD Date: Location: [facility] Sex: F C Admitted: Reason For Study Reason For Study: Pericardial Effusion Procedure This was a 2D Doppler, Color Flow transthoracic echocardiogram. Myocardial strain analysis was performed in this exam to aid in the assessment of cardiac function. Exam performed in department. Left Ventricle Normal left ventricle. The global longitudinal strain = -17.3 % (normal). The left ventricular ejection fraction is 65 %. Stage 1 diastolic dysfunction. No regional wall motion abnormalities noted. Right Ventricle Normal RV size. Normal systolic function. Atria Normal left atrium. Normal right atrium. Mitral Valve Normal mitral valve. Tricuspid Valve Normal tricuspid valve. Aortic Valve Trisinus/trileaflet aortic valve. Pulmonic Valve Normal pulmonic valve. Great Vessels Normal aortic root. The pulmonary artery is normal size. Inferior vena cava collapse with respiration. Pericardium/Pleural Small (<1.0 cm) pericardial effusion. MMode/2D Measurements & Calculations LVIDd: 4.6 cm IVSd: 1.0 cm LVOT diam: 2.1 cm LVIDs: 2.9 cm LVPWd: 1.0 cm LVOT area: 3.5 cm2 RVDd: 3.4 cm FS: 38.1 % Ao root diam: 3.6 cm LAV(MOD-bp): 49.7 ml LVAd ap4: 29.2 cm2 LAV(MOD-bp) Indexed: 25.9 ml/m2 LVLd ap4: 7.8 cm LAV(MOD-sp2): 43.7 ml EDV(MOD-sp4): 89.4 ml LAV(MOD-sp4): 58.9 ml EDV(sp4-el): 92.4 ml LVAs ap4: 15.0 cm2 LVLs ap4: 6.7 cm ESV(MOD-sp4): 28.6 ml ESV(sp4-el): 28.7 ml EF(MOD-sp4): 68.0 % EF(sp4-el): 68.9 % SV(MOD-sp4): 60.8 ml SV(sp4-el): 63.6 ml LA A4 area: 18.3 cm2 SI(MOD-sp4): 31.6 ml/m2 LA dimension(2D): 4.1 cm RA A4 area: 13.9 cm2 Time Measurements MV dec time: 0.18 sec Doppler Measurements & Calculations MV E max kera: 84.0 cm/sec Lat Peak E' Kera: 6.0 cm/sec Med Peak E' Kera: 4.9 cm/sec MV A max kera: 101.7 cm/sec E/E' lat: 13.9 E/E' med: 17.0 MV E/A: 0.83 MV V2 max: 122.4 cm/sec MV P1/2t max kera: 101.9 cm/sec Ao V2 max: 209.2 cm/sec MV max P.0 mmHg MV P1/2t: 65.1 msec Ao max P.5 mmHg MV V2 mean: 65.4 cm/sec Ao V2 mean: 143.8 cm/sec MV mean P.0 mmHg MV dec slope: 458.5 cm/sec2 Ao mean P.4 mmHg MV V2 VTI: 29.4 cm MVA(P1/2t): 3.4 cm2 Ao V2 VTI: 40.6 cm AV (velocity ratio): 0.65 MVA(VTI): 3.2 cm2 FOREST(I,D): 2.3 cm2 FOREST(V,D): 1.8 cm2 LV V1 max: 109.7 cm/sec SV(LVOT): 92.7 ml PA V2 max: 89.3 cm/sec LV V1 max P.9 mmHg LV V1 mean P.1 mmHg LV V1 mean: 84.6 cm/sec LV V1 VTI: 26.6 cm ECHO/ONC Echo Complete Interpretation Summary Normal left ventricle. The global longitudinal strain = -17.3 % (normal). The left ventricular ejection fraction is 65 %. Stage 1 diastolic dysfunction. Ordering Physician: Jordon Chaparro Referring Physician: Jordon Chaparro Performed By: Lyla Traore, RDCS, RVT 12/08/241844 Date _ Lalo Cooper MD CC: Dr. Charity Khan MD; Dr. Jordon Chaparro MD ~ Date Dictated: 12/08/241413 Date Transcribed: 12/08/241844 Photographer Apprentice: Signed [facility] Work Phone: ONC Echo Completeon 12-09-19 ONC Echo Complete [facility] [address] [place] [address] ONC Echo Complete 12/08/24 141 MR#: [id number] Acct: [id number] Name: RENE RIDER Rep #: [id number] : 1955 69 From: Lalo Cooper MD Attending Dr: Dr. Jordon Chaparro MD Status: [place] Ordering Dr: Jordon Chaparro MD Date: 12/08/24 Location: [facility] Sex: F C Admitted: Reason For Study Reason For Study: Pericardial Effusion Procedure This was a 2D Doppler, Color Flow transthoracic echocardiogram. Myocardial strain analysis was performed in this exam to aid in the assessment of cardiac function. Exam performed in department. Left Ventricle Normal left ventricle. The global longitudinal strain = -17.3 % (normal). The left ventricular ejection fraction is 65 %. Stage 1 diastolic dysfunction. No regional wall motion abnormalities noted. Right Ventricle Normal RV size. Normal systolic function. Atria Normal left atrium. Normal right atrium. Mitral Valve Normal mitral valve. Tricuspid Valve Normal tricuspid valve. Aortic Valve Trisinus/trileaflet aortic valve. Pulmonic Valve Normal pulmonic valve. Great Vessels Normal aortic root. The pulmonary artery is normal size. Inferior vena cava collapse with respiration. Pericardium/Pleural Small (<1.0 cm) pericardial effusion. MMode/2D Measurements Calculations LVIDd: 4.6 cm IVSd: 1.0 cm LVOT diam: 2.1 cm LVIDs: 2.9 cm LVPWd: 1.0 cm LVOT area: 3.5 cm2 RVDd: 3.4 cm FS: 38.1 % Ao root diam: 3.6 cm LAV(MOD-bp): 49.7 ml LVAd ap4: 29.2 cm2 LAV(MOD-bp) Indexed: 25.9 ml/m2 LVLd ap4: 7.8 cm LAV(MOD-sp2): 43.7 ml EDV(MOD-sp4): 89.4 ml LAV(MOD-sp4): 58.9 ml EDV(sp4-el): 92.4 ml LVAs ap4: 15.0 cm2 LVLs ap4: 6.7 cm ESV(MOD-sp4): 28.6 ml ESV(sp4-el): 28.7 ml EF(MOD-sp4): 68.0 % EF(sp4-el): 68.9 % SV(MOD-sp4): 60.8 ml SV(sp4-el): 63.6 ml LA A4 area: 18.3 cm2 SI(MOD-sp4): 31.6 ml/m2 LA dimension(2D): 4.1 cm RA A4 area: 13.9 cm2 Time Measurements MV dec time: 0.18 sec Doppler Measurements Calculations MV E max kera: 84.0 cm/sec Lat Peak E' Kera: 6.0 cm/sec Med Peak E' Kera: 4.9 cm/sec MV A max kera: 101.7 cm/sec E/E' lat: 13.9 E/E' med: 17.0 MV E/A: 0.83 MV V2 max: 122.4 cm/sec MV P1/2t max kera: 101.9 cm/sec Ao V2 max: 209.2 cm/sec MV max P.0 mmHg MV P1/2t: 65.1 msec Ao max P.5 mmHg MV V2 mean: 65.4 cm/sec Ao V2 mean: 143.8 cm/sec MV mean P.0 mmHg MV dec slope: 458.5 cm/sec2 Ao mean P.4 mmHg MV V2 VTI: 29.4 cm MVA(P1/2t): 3.4 cm2 Ao V2 VTI: 40.6 cm AV (velocity ratio): 0.65 MVA(VTI): 3.2 cm2 FOREST(I,D): 2.3 cm2 FOREST(V,D): 1.8 cm2 LV V1 max: 109.7 cm/sec SV(LVOT): 92.7 ml PA V2 max: 89.3 cm/sec LV V1 max P.9 mmHg LV V1 mean P.1 mmHg LV V1 mean: 84.6 cm/sec LV V1 VTI: 26.6 cm ECHO/ONC Echo Complete Interpretation Summary Normal left ventricle. The global longitudinal strain = -17.3 % (normal). The left ventricular ejection fraction is 65 %. Stage 1 diastolic dysfunction. Ordering Physician: Jordon Chaparro Referring Physician: Jordon Chaparro Performed By: Lyla Traore, GOSIA, RVT 12/08/24 0085 Date Lalo Cooper MD CC: Dr. Charity Khan MD; Dr. Jordon Chaparro MD Date Dictated: 12/08/24 1414 Date Transcribed: 12/08/24 1845 Photographer Apprentice: Signed Normal [facility] 24 hour urine protein measur ementOrdered By: Jordon Chaparro on 11-13-2024 24 hour urine protein measurement 2420 mL [facility] 24 hour urine protein measur ement (mass/volume)Ordered By: Jordon Chaparro on 11-13-2024 Protein (24H U) [Mass/Vol] 109.0 mg/dL High 0.0-11.8 [facility] 24 hour urine total protein measurement (mass/time)Ordered By: Jordon Chaparro on 11-13-2024 Protein (24H U) [Mass/Time] 2637.8 mg/24HR High 0-15 1 [facility] - Specimen inform ationOrdered By: Jordon Chaparro on 11-13-2024 Collection duration (U) 24.0 HOURS 24.0-24.0 [facility] Protein, Urine 24HRon 2024 UR TOTAL VOLUME 2420 mL Normal [facility] Comment on above: Performed By: #### L 500.9000 ####[facility] [id number] [place], [address] Oncology Visit Reporton 10-17 Oncology Visit Report [facility] [address] [facility] [place] [address] OFFICE VISIT Date of Service: 11/11/24 0954 MR#: [id number] Acct: [id number] Name: RENE RIDER Rep #: [id number] : 1955 From: Jordon Chaparro MD Age/Sex: 69/F Location: [facility] Status: Signed HPI Subjective Date of Service 11/11/24 Chief Complaint F/U abnormal serum protein. History of Present Illness 69-year-old woman was found to have creatinine of 1.57. SPEP on 05/28/2024 showed asymmetric gammaglobulin. She was referred for further evaluation. Had blood work 06/08/2024 showed normal immunoglobulins, no M spike, free kappa light chain 32.7, free lambda light chain 18.8, free kappa lambda ratio 1.74. Skeletal survey on 06/12/2024 showed lytic lesion involving the left hip and MRI was suggested. MRI was requested and she comes for follow-up. She feels well, denies pain. [facility] Medical History MGUS (monoclonal gammopathy of unknown significance) Blood glucose elevated Microalbuminuria CKD (chronic kidney disease), stage III Dermatitis Tachycardia Acute sinusitis, unspecified Chronic back pain Health care maintenance Colon cancer screening Scoliosis Cancer Anxiety Alcohol use Bladder disease Arthritis Migraine headache Non-smoker Leg cramps History of pain when walking Hypertension Preoperative evaluation to rule out surgical contraindication Osteoarthritis of right hip Right hip pain History of basal cell carcinoma History of pneumonia history of cracked palate history of club feet Hypertension Seasonal allergies Surgical History Status post Mohs surgery History of hip replacement, total H/O foot surgery History of Hx of rhinoplasty Family History Mother Hypertension Hyperlipemia Arthritis Father Hypertension Skin cancer Arthritis Social History household members: spouse housing: house Smoking Status: Never smoker alcohol intake: never substance use type: does not use what type of physical activity do you participate in: none do you feel safe at home: Yes Intake Vital Signs 08/05/24 15:36 10/07/24 13:49 11/11/24 09:55 Height 4 ft 9 in 4 ft 11 in 4 ft 11 in Weight: 102.313 kg BMI 45.5 BP 134/90 H Blood Pressure Location Lt brachial Position Sitting Respiration 18 Pulse 96 Pulse Source Monitor Temp 98.2 F Temperature Source Temporal Artery Pulse Oximetry (%) 99 Oxygen Delivery Method room air Intake Accompanied by: Is patient in pain?: No Allergies Sulfa (Sulfonamide Antibiotics) Allergy (Severe, Verified 11/11/24 09:54) Anaphylaxis cigarette smoke Allergy (Mild, Verified 11/11/24 09:54) hoarsness house dust mite Allergy (Mild, Verified 11/11/24 09:54) hoarsness Medications ???Medication ???Instructions ???Recorded ???Confirmed ???Type vitamin C 500 mg-multivitamin with 1 tablet PO DAILY 07/05/2011/11 History minerals chewable tablet (Emergen-C) zinc gluconate 30 mg tablet 30 mg PO DAILY 07/05/20 11/11/24 H istory acetaminophen 500 mg tablet 1,000 mg PO Q6H PRN Pain 11/17/20 11/11/24 History (Tylenol Extra Strength) Handicap Placard #1 ea 07/23/22 11/11/24 Rx ascorbate calcium (vitamin C) 500 600 mg PO DAILY 10/22/22 11/11/24 History mg tablet cyclobenzaprine 10 mg tablet 10 mg PO TID PRN muscle spasm #90 10/22/22 11/11/24 Rx tabs compress.juanjo,paulina e,reg,lrg #2 ea 09/04/23 11/11/24 Rx hydrocortisone 2.5 % topical 1 applic topical BID PRN rash 08/1611/11/24 Rx ointment #28.35 grams cholecalciferol (vitamin D3) 25 50 mcg PO DAILY 06/08/24 11/11/24 History mcg (1,000 unit) capsule carvedilol 3.125 mg tablet (Coreg) 3.125 mg PO Q12H #60 tabs 11/11/24 Rx amlodipine 10 mg tablet See Rx Instructions .Route 5 11/11/24 Rx .COMPLEX #90 tabs Have you fallen in the past year?: Yes Central Venous Access Central Venous Access: No Laboratory Tests 03/09/24 04/29/24 05/28/24 14:18 11:51 13:10 WBC 8.5 Hgb 13.1 Hct 41.0 Plt Count 383 Absolute Neuts (auto) Absolute Lymphs (auto) ESR Sodium 140 Potassium 4.1 Chloride 102 Carbon Dioxide 25.3 BUN 25 H Creatinine 1.57 H Est GFR (MDRD) Non-Af Glucose 101 H Uric Acid Calcium 9.9 Phosphorus 3.8 Total Bilirubin AST ALT Alkaline Phosphatase Lactate Dehydrogenase C-React Prot Ext Range Total Protein Total Protein (PEP) 6.5 Albumin 3.9 Albumin (PEP) 3.3 Globulin Globulin (PEP) 3.2 M-Agustin Commen (more content not included)... Normal [facility] DAVID + Protein Elect, Serumon 11-03-2024 Albumin [Mass/Vol] 3.0 g/dL Normal 2.9-4.4 [facility] Comment on above: Order Comment: N Performed By: #### L 3300.1200, L505.7010, L3100.5800, L3100.5700, L500.3600, L3100.5475, L3100.3450 #### [facility] [address] [place], [address] Albumin/Globulin [Mass ratio] 1.1 {ratio} Normal 0.7-1.7 [facility] Comment on above: Order Comment: N Performed By: #### L 3300.1200, L505.7010, L3100.5800, L3100.5700, L500.3600, L3100.5475, L3100.3450 #### [facility] [address] [place], [address] [id number] 0.3 g/dL Normal 0.0-0.4 [facility] Comment on above: Order Comment: N Performed By: #### L 3300.1200, L505.7010, L3100.5800, L3100.5700, L500.3600, L3100.5475, L3100.3450 #### [facility] [address] [place], [address] [id number] 0.9 g/dL Normal 0.4-1.0 [facility] Comment on above: Order Comment: N Performed By: #### L 3300.1200, L505.7010, L3100.5800, L3100.5700, L500.3600, L3100.5475, L3100.3450 #### [facility] [address] [place], [address] BETA GLOBULIN 1.1 g/dL Normal 0.7-1.3 [facility] Comment on above: Order Comment: N Performed By: #### L 3300.1200, L505.7010, L3100.5800, L3100.5700, L500.3600, L3100.5475, L3100.3450 #### [facility] [address] [place], [address] GAMMA GLOBULIN 0.7 g/dL Normal 0.4-1.8 [facility] Comment on above: Order Comment: N Performed By: #### L 3300.1200, L505.7010, L3100.5800, L3100.5700, L500.3600, L3100.5475, L3100.3450 #### [facility] [address] [place], [address] Globulin (S) [Mass/Vol] 3.0 g/dL Normal 2.2-3.9 [facility] Comment on above: Order Comment: N Performed By: #### L 3300.1200, L505.7010, L3100.5800, L3100.5700, L500.3600, L3100.5475, L3100.3450 #### [facility] [address] [place], [address] DAVID RESULT,S Comment: Normal . [facility] Comment on above: Order Comment: N Result Comment: Pres ence of monoclonal protein is unclear at this time. Suggest repeat in 3 to 6 months if clinically indicated. Performed By: #### L 3300.1200, L505.7010, L3100.5800, L3100.5700, L500.3600, L3100.5475, L3100.3450 #### [facility] [address] [place], [place], [id number] [phone]) IMMUNOGLOB A QN 270 mg/dL Normal 87-352 [facility] Comment on above: Order Comment: N Performed By: #### L 3300.1200, L505.7010, L3100.5800, L3100.5700, L500.3600, L3100.5475, L3100.3450 #### [facility] [address] [place], [address] IMMUNOGLOB G QN 747 mg/dL Normal 586-1602 [facility] Comment on above: Order Comment: N Performed By: #### L 3300.1200, L505.7010, L3100.5800, L3100.5700, L500.3600, L3100.5475, L3100.3450 #### [facility] [address] [place], [address] IMMUNOGLOB M QN 21 mg/dL Low 26-217 [facility] Comment on above: Order Comment: N Result Comment: Resu lt confirmed on concentration. Performed By: #### L 3300.1200, L505.7010, L3100.5800, L3100.5700, L500.3600, L3100.5475, L3100.3450 #### [facility] [address] [place], [address] M-Agustin Not Observed Normal Not Observed [facility] Comment on above: Order Comment: N Performed By: #### L 3300.1200, L505.7010, L3100.5800, L3100.5700, L500.3600, L3100.5475, L3100.3450 #### [facility] [address] [place], [address] NOTE: Comment Normal . [facility] Comment on above: Order Comment: N Result Comment: Prot ein electrophoresis scan will follow via computer, mail, or silverware buffing machine operator delivery. Performed By: #### L 3300.1200, L505.7010, L3100.5800, L3100.5700, L500.3600, L3100.5475, L3100.3450 #### [facility] [address] [place], [address] Protein [Mass/Vol] 6.0 g/dL Normal 6.0-8.5 [facility] Comment on above: Order Comment: N Performed By: #### L 3300.1200, L505.7010, L3100.5800, L3100.5700, L500.3600, L3100.5475, L3100.3450 #### [facility] [address] [place], [place], [id number] [place] Lambda Light Chainson 11-03-2024 FR KAPPA LT CHN 35.9 mg/L Abnormal 3.3-19.4 [facility] Comment on above: Performed By: #### L 3300.1200, L505.7010, L3100.5800, L3100.5700, L500.3600, L3100.5475, L3100.3450 #### [facility] [address] [facility] [place], [address] FR LAMBDA LT CH 21.4 mg/L Normal 5.7-26.3 [facility] Comment on above: Performed By: #### L 3300.1200, L505.7010, L3100.5800, L3100.5700, L500.3600, L3100.5475, L3100.3450 #### [facility] [address] [facility] [place], [address] KAPPA/LAMBDA % 1.68 Abnormal 0.26-1.65 [facility] Comment on above: Result Comment: Perf ormed at: - [facility] [id number] School Janitor: Cj Fitch PhD, Phone: [phone] Performed By: #### L 3300.1200, L505.7010, L3100.5800, L3100.5700, L500.3600, L3100.5475, L3100.3450 #### [facility] [address] [facility] [place], [address] Absolute lymphocyte countOrd ered By: Jordon Chaparro on 10-29-2024 Lymphocytes Auto (Unsp spec) [#/Vol] 1.86 10*3/uL 0.83-4.51 [facility] Absolute neutrophil countOrd ered By: Jordon Thurmanh on 10-29-2024 Neutrophils (Bld) [#/Vol] 3.2 10*3/uL 2.0-7.7 [facility] Albumin Elph [Mass/Vol]Order ed By: Jordon Chaparro on 10-29-2024 Albumin [Mass/Vol] 3.0 g/dL 2.9-4.4 [facility] Anion gap in Serum or Plasma Ordered By: Jordon Chaparro on 10-29-2024 Anion gap [Moles/Vol] 11 mmol/L 5- [facility] Automated lymphocyte count a s percentage of total leukocytesOrdered By: Jordon Chaparro on 10-29-2024 Lymphocytes/100 WBC Auto (Unsp spec) 33.4 % - [facility] BUN/creatinine ratioOrdered By: [facility] on 10-29-2024 Urea nitrogen/Creatinine [Mass ratio] 12.2 mg/mg - [facility] Basophil percentageOrdered B y: Jordon Chaparro on 10-29-2024 Basophils/100 WBC (Bld) 0.5 % 0- [facility] Bilirubin, totalOrdered By: Jordon Chaparro on 10-29-2024 Bilirubin [Mass/Vol] 0.25 mg/dL 0.00-1.30 [facility] CBC W/Diff, Automatedon 10-16 Absolute Lymph 1.86 X10 3/uL Normal 0.83-4.51 [facility] Comment on above: Performed By: #### L 3300.1200, L505.7010, L3100.5800, L3100.5700, L500.3600, L3100.5475, L3100.3450 #### [facility] [address] [place], [address] Absolute Neut 3.2 X10 3/uL Normal 2.0-7.7 [facility] Comment on above: Performed By: #### L 3300.1200, L505.7010, L3100.5800, L3100.5700, L500.3600, L3100.5475, L3100.3450 #### [facility] [address] [place], [address] Basophils/100 WBC (Bld) 0.5 % Normal 0-1 [facility] Comment on above: Performed By: #### L 3300.1200, L505.7010, L3100.5800, L3100.5700, L500.3600, L3100.5475, L3100.3450 #### [facility] [address] [place], [address] Eosinophils/100 WBC (Bld) 3.2 % Normal 0-5 [facility] Comment on above: Performed By: #### L 3300.1200, L505.7010, L3100.5800, L3100.5700, L500.3600, L3100.5475, L3100.3450 #### [facility] [address] [place], [address] Erythrocyte distribution width (RBC) [Ratio] 14.8 % High 11.6-14.6 [facility] Comment on above: Performed By: #### L 3300.1200, L505.7010, L3100.5800, L3100.5700, L500.3600, L3100.5475, L3100.3450 #### [facility] [address] [place], [address] Hematocrit (Bld) [Volume fraction] 36.8 % Low 37-47 [facility] Comment on above: Performed By: #### L 3300.1200, L505.7010, L3100.5800, L3100.5700, L500.3600, L3100.5475, L3100.3450 #### [facility] [address] [place], [address] Hemoglobin (Bld) [Mass/Vol] 12.0 g/dL Normal 12.0-15. 0 [facility] Comment on above: Performed By: #### L 3300.1200, L505.7010, L3100.5800, L3100.5700, L500.3600, L3100.5475, L3100.3450 #### [facility] [address] [place], [address] IG% 0.200 Normal 0.0-0.9 [facility] Comment on above: Result Comment: IG% - Immature Granulocytes (promyelocytes, myelocytes and metamyelocytes) > 1% indicates that a LEFT SHIFT is Present. Performed By: #### L 3300.1200, L505.7010, L3100.5800, L3100.5700, L500.3600, L3100.5475, L3100.3450 #### [facility] [address] [place], [address] Lymphocytes/100 WBC (Bld) 33.4 % Normal 19-41 [facility] Comment on above: Performed By: #### L 3300.1200, L505.7010, L3100.5800, L3100.5700, L500.3600, L3100.5475, L3100.3450 #### [facility] [address] [place], [address] MCH (RBC) [Entitic mass] 28.2 pg Normal 27.0-32.0 [facility] Comment on above: Performed By: #### L 3300.1200, L505.7010, L3100.5800, L3100.5700, L500.3600, L3100.5475, L3100.3450 #### [facility] [address] [place], [address] MCHC (RBC) [Mass/Vol] 32.6 g/dL Normal 32-36 [facility] Comment on above: Performed By: #### L 3300.1200, L505.7010, L3100.5800, L3100.5700, L500.3600, L3100.5475, L3100.3450 #### [facility] [address] [place], [address] MCV (RBC) [Entitic vol] 86.4 fL Normal 81-99 [facility] Comment on above: Performed By: #### L 3300.1200, L505.7010, L3100.5800, L3100.5700, L500.3600, L3100.5475, L3100.3450 #### [facility] [address] [place], [address] Monocytes/100 WBC (Bld) 5.9 % Normal 0-10 [facility] Comment on above: Performed By: #### L 3300.1200, L505.7010, L3100.5800, L3100.5700, L500.3600, L3100.5475, L3100.3450 #### [facility] [address] [place], [address] Neutrophils/100 WBC (Bld) 56.8 % Normal 47-70 [facility] Comment on above: Performed By: #### L 3300.1200, L505.7010, L3100.5800, L3100.5700, L500.3600, L3100.5475, L3100.3450 #### [facility] [address] [place], [address] Nucleated RBC (Bld) [#/Vol] 0 10*3/uL Normal 0-5 [facility] Comment on above: Performed By: #### L 3300.1200, L505.7010, L3100.5800, L3100.5700, L500.3600, L3100.5475, L3100.3450 #### [facility] [address] [place], [address] Platelet mean volume (Bld) [Entitic vol] 10.4 fL Normal 6.2-12.0 [facility] Comment on above: Performed By: #### L 3300.1200, L505.7010, L3100.5800, L3100.5700, L500.3600, L3100.5475, L3100.3450 #### [facility] [address] [place], [address] Platelets (Bld) [#/Vol] 312 10*3/uL Normal 150-450 [facility] Comment on above: Performed By: #### L 3300.1200, L505.7010, L3100.5800, L3100.5700, L500.3600, L3100.5475, L3100.3450 #### [facility] [address] [place], [address] RBC (Bld) [#/Vol] 4.26 10*6/uL Normal 4.2-5.4 [facility] Comment on above: Performed By: #### L 3300.1200, L505.7010, L3100.5800, L3100.5700, L500.3600, L3100.5475, L3100.3450 #### [facility] [address] [place], [address] RDW SD 47.5 fl High 35.1-43.9 [facility] Comment on above: Performed By: #### L 3300.1200, L505.7010, L3100.5800, L3100.5700, L500.3600, L3100.5475, L3100.3450 #### [facility] [address] [place], [address] WBC (Bld) [#/Vol] 5.6 10*3/uL Normal 4.4-11.0 [facility] Comment on above: Performed By: #### L 3300.1200, L505.7010, L3100.5800, L3100.5700, L500.3600, L3100.5475, L3100.3450 #### [facility] [address] [place], [address] CT Chest, Abd, Pelvis [facility] ton 10-29-2024 CT Chest, Abd, Pelvis WO [facility] [address] [place] [address] CT Chest, Abd, Pelvis WO Cont MR#: [id number] Acct: [id number] Name: RENE RIDER Rep #: [id number] : 1955 F 69 From: Jami avendano MD PCP: Dr. Charity Khan MD Status: REG CLI Study: CT Chest, Abd, Pelvis WO Cont Date of Exam: Exam# [id number] Ordering Dr: Jordon Chaparro MD PROCEDURE: CT CHEST, ABD, PELVIS WO CONT 10/29/2024 REASON FOR EXAM: R/O MALIGNANCY TECHNIQUE: Chest, abdomen and pelvis CT without intravenous contrast. Coronal and Sagittal reconstruction series were provided. One or more dose reduction techniques were used (e.g., Automated exposure control, adjustment of the mA and/or kV according to patient size, use of iterative reconstruction technique. RADIATION DOSE SUMMARY: CTDlvol: 21.14 mGy DLP: 1083 mGycm COMPARISON: None. FINDINGS: Mild cardiomegaly. Mild pericardial effusion. Bilateral basilar atelectatic pulmonary changes. Enlarged uterus with multiple fibroids, the largest calcified in the fundus measuring 5.4 cm. Fat containing umbilical hernia without incarceration. A few scattered simple hepatic cysts are noted with the largest in the left hepatic lobe measuring 2.7 cm. Normal unenhanced main pulmonary artery and right and left pulmonary arteries. Normal bilateral peripheral pulmonary arteries. Normal thoracic aorta and visualized great vessels. There is no demonstrated aortic aneurysm. Normal heart and pericardium. Normal mediastinum. Normal hilar regions. Normal visualized trachea and bronchi. The remaining lungs are well expanded. Normal remaining pulmonary parenchyma. Normal pleura. Normal remaining unenhanced liver. Normal gallbladder and extrahepatic biliary system. Normal unenhanced spleen. Normal pancreas. Normal bilateral adrenal glands. Normal size of the right kidney. There is no right renal mass. There are no right renal calculi. There is no right hydronephrosis. Normal visualized right ureter. Normal size of the left kidney. There is no left renal mass. There are no left renal calculi. There is no left hydronephrosis. Normal visualized left ureter. Normal visualized stomach. Normal small intestine. Normal colon. The appendix is visualized and appears normal. There is no demonstrated peritoneal fluid. Normal abdominal aorta. Normal inferior vena cava. Normal retroperitoneum. Normal urinary bladder. There is no pelvic lymphadenopathy. There is no pelvic fluid. CT/CT Chest, Abd, Pelvis WO Cont IMPRESSION: Mild cardiomegaly. Mild pericardial effusion. Bilateral basilar atelectatic pulmonary changes. Enlarged uterus with multiple fibroids, the largest calcified in the fundus measuring 5.4 cm. Fat containing umbilical hernia without incarceration. A few scattered simple hepatic cysts are noted with the largest in the left hepatic lobe measuring 2.7 cm. Reading Location: [place] [address] CC: Dr. Charity Khan MD; Dr. Jordon Chaparro MD Photographer Apprentice: Signed Normal [facility] Calculated very low density lipoprotein (VLDL) cholesterol measurementOrdered By: Charity Khan on 10-29-2024 Calculated very low density lipoprotein (VLDL) cholesterol measurement 35 mg/dL 5-40 [facility] Carbon dioxide, total [Moles /volume] in Central venous bloodOrdered By: Jordon Chaparro on 10-29-2024 CO2 [Moles/Vol] 25.5 mmol/L 21.0-32.0 [facility] Chloride assayOrdered By: Madison Chaparro on 10-29-2024 Chloride [Moles/Vol] 104 mmol/L 98-108 [facility] Comprehensive Metabolic Prof ilon 10-29-2024 Albumin [Mass/Vol] 3.7 g/dL Normal 3.4-4.8 [facility] Comment on above: Performed By: #### L 3300.1200, L505.7010, L3100.5800, L3100.5700, L500.3600, L3100.5475, L3100.3450 #### [facility] [place], [address] Albumin/Globulin [Mass ratio] 1.4 {ratio} Normal 0.9-2.4 [facility] Comment on above: Performed By: #### L 3300.1200, L505.7010, L3100.5800, L3100.5700, L500.3600, L3100.5475, L3100.3450 #### [facility] [address] [place], [address] ALK PHOS 69 U/L Normal 35-104 [facility] Comment on above: Performed By: #### L 3300.1200, L505.7010, L3100.5800, L3100.5700, L500.3600, L3100.5475, L3100.3450 #### [facility] [address] [place], [address] ALT [Catalytic activity/Vol] 14 U/L Normal <=34 [facility] Comment on above: Performed By: #### L 3300.1200, L505.7010, L3100.5800, L3100.5700, L500.3600, L3100.5475, L3100.3450 #### [facility] [address] [place], [place], [id number] AST [Catalytic activity/Vol] 20 U/L Normal <=31 [facility] Comment on above: Performed By: #### L 3300.1200, L505.7010, L3100.5800, L3100.5700, L500.3600, L3100.5475, L3100.3450 #### [facility] [address] [place], [place], [address] Bilirubin [Mass/Vol] 0.25 mg/dL Normal 0.00-1.30 [facility] Comment on above: Performed By: #### L 3300.1200, L505.7010, L3100.5800, L3100.5700, L500.3600, L3100.5475, L3100.3450 #### [facility] [address] [place], [address] BUN/CRE 12.2 RATIO Normal 10-20 [facility] Comment on above: Performed By: #### L 3300.1200, L505.7010, L3100.5800, L3100.5700, L500.3600, L3100.5475, L3100.3450 #### [facility] [address] [place], [address] Calcium [Mass/Vol] 8.9 mg/dL Normal 7.6-11.0 [facility] Comment on above: Performed By: #### L 3300.1200, L505.7010, L3100.5800, L3100.5700, L500.3600, L3100.5475, L3100.3450 #### [facility] [address] [place], [address] Chloride [Moles/Vol] 104 mmol/L Normal 98-108 [facility] Comment on above: Performed By: #### L 3300.1200, L505.7010, L3100.5800, L3100.5700, L500.3600, L3100.5475, L3100.3450 #### [facility] [address] [place], [address] CO2 [Moles/Vol] 25.5 mmol/L Normal 21.0-32.0 [facility] Comment on above: Performed By: #### L 3300.1200, L505.7010, L3100.5800, L3100.5700, L500.3600, L3100.5475, L3100.3450 #### [facility] [address] [place], [address] Creatinine [Mass/Vol] 1.73 mg/dL High 0.70-1.20 [facility] Comment on above: Performed By: #### L 3300.1200, L505.7010, L3100.5800, L3100.5700, L500.3600, L3100.5475, L3100.3450 #### [facility] [address] [place], [address] GAP 11 Normal 5-15 [facility] Comment on above: Performed By: #### L 3300.1200, L505.7010, L3100.5800, L3100.5700, L500.3600, L3100.5475, L3100.3450 #### [facility] [address] [place], [address] GFR/1.73 sq M.predicted among non-blacks MDRD (S/P/Bld) [Vol rate/Area] 32 mL/min/{1.73_m2} Low >60 [facility] Comment on above: Result Comment: mL/m in/1.73m2 CKD-EPI Creatinine Equation (2020) Performed By: #### L 3300.1200, L505.7010, L3100.5800, L3100.5700, L500.3600, L3100.5475, L3100.3450 #### [facility] [address] [place], [address] Globulin (S) [Mass/Vol] 2.6 g/dL Normal 2.2-4.2 [facility] Comment on above: Performed By: #### L 3300.1200, L505.7010, L3100.5800, L3100.5700, L500.3600, L3100.5475, L3100.3450 #### [facility] [address] [place], [address] Glucose [Mass/Vol] 97 mg/dL Normal 70-99 [facility] Comment on above: Performed By: #### L 3300.1200, L505.7010, L3100.5800, L3100.5700, L500.3600, L3100.5475, L3100.3450 #### [facility] [address] [place], [address] Potassium [Moles/Vol] 4.3 mmol/L Normal 3.3-5.1 [facility] Comment on above: Performed By: #### L 3300.1200, L505.7010, L3100.5800, L3100.5700, L500.3600, L3100.5475, L3100.3450 #### [facility] [address] [place], [address] Sodium [Moles/Vol] 141 mmol/L Normal 133-145 [facility] Comment on above: Performed By: #### L 3300.1200, L505.7010, L3100.5800, L3100.5700, L500.3600, L3100.5475, L3100.3450 #### [facility] [address] [place], [address] T PROT 6.3 g/dL Normal 5.9-8.4 [facility] Comment on above: Performed By: #### L 3300.1200, L505.7010, L3100.5800, L3100.5700, L500.3600, L3100.5475, L3100.3450 #### [facility] [address] [place], [address] Urea nitrogen [Mass/Vol] 21 mg/dL High 4-19 [facility] Comment on above: Performed By: #### L 3300.1200, L505.7010, L3100.5800, L3100.5700, L500.3600, L3100.5475, L3100.3450 #### [facility] [address] [place], [address] Eosinophil percentageOrdered By: Jordon Chaparro on 10-29-2024 Eosinophils/100 WBC (Bld) 3.2 % 0-5 [facility] Erythrocyte distribution wid th ratioOrdered By: Jordon Chaparro on 10-29-2024 Erythrocyte distribution width (RBC) [Ratio] 14.8 % High 11.6-14.6 [facility] Erythrocyte distribution wid th standard deviationOrdered By: Jordon Chaparro on 10-29-2024 Erythrocyte distribution width (RBC) [Ratio] 47.5 fl High 35.1-43.9 [facility] Glomerular filtration rate ( GFR) estimation/1.73 sq m using serum, plasma, or whole bOrdered By: Jordon Chaparro on 10-29-2024 GFR/1.73 sq M.predicted among non-blacks MDRD (S/P/Bld) [Vol rate/Area] 32 mL/min/{1.73_m2} Low >60 [facility] Comment on above: mL/min/1.73m2 CKD-EP I Creatinine Equation (2020) Hematocrit Auto (Bld) [Volum e fraction]Ordered By: Jordon Chaparro on 10-29-2024 Hematocrit (Bld) [Volume fraction] 36.8 % Low 37-47 [facility] Hemoglobin measurementOrdere d By: Jordon Chaparro on 10-29-2024 Hemoglobin (Bld) [Mass/Vol] 12.0 g/dL 12.0-15. 0 [facility] Immature granulocytes/100 WB C Auto (Bld)Ordered By: Jordon Chaparro on 10-29-2024 Immature granulocytes/100 WBC (Bld) 0.200 % 0.0-0.9 [facility] Comment on above: IG% - Immature Granu locytes (promyelocytes, myelocytes and metamyelocytes) > 1% indicates that a LEFT SHIFT is Present. Interpretation of serum or p lasma protein pattern by immunofixation (narrative resultOrdered By: Jordon Chaparro on 10-29-2024 Protein Fractions Immunofixation Ceasar [Interp] Not Observed g/dL Not Observed [facility] LDHon 10-29-2024 LDH 170 U/L Normal 84-246 [facility] Comment on above: Order Comment: 1 Performed By: #### L 3300.1200, L505.7010, L3100.5800, L3100.5700, L500.3600, L3100.5475, L3100.3450 #### [facility] [address] [place], [address] LDL calc ser/plasOrdered By: Charity Khan on 10-29-2024 Cholesterol in LDL [Mass/Vol] 176 mg/dL [facility] Comment on above: Mveijyratd=353-183 m g/dL & Higher Jrwf=777 mg/dL or greaterFriedwald Equation for LDL-C Laboratory - Chemistry and C hemistry - challengeOrdered By: Jordon Chaparro on 10-29-2024 AST [Catalytic activity/Vol] 20 U/L <32 [facility] Lactate dehydrogenase (LDH) measurementOrdered By: Jordon Chaparro on 10-29-2024 LDH [Catalytic activity/Vol] 170 U/L 84-246 [facility] Lipid Profileon 10-29-2024 CHOL:HDL 4.55 Normal [facility] Comment on above: Performed By: #### L 500.4100 ####[facility] [address] [place], [address] Cholesterol [Mass/Vol] 270 mg/dL High <=200 [facility] Comment on above: Result Comment: Chol esterol level, Desirable <200 mg/dL Borderline high cholesterol 200-239 mg/dL High cholesterol >=240 mg/dL Recommendations of the NCEP Adult Treatment Panel for the following risk-cutoff thresholds for the [place] population. Performed By: #### L 500.4100 ####[facility] [address] [place], [address] Cholesterol in HDL [Mass/Vol] 59 mg/dL Normal [facility] Comment on above: Result Comment: Shira onal Cholesterol Education Program (NCEP) guidelines: <40 mg/dL: Low HDL-cholesterol (major risk factor for CHD) >= 60 mg/dL: High HDL-cholesterol (negative risk factor for CHD) HDL-cholesterol is affected by a number of factors, e.g. smoking, exercise, hormones, sex and age. Performed By: #### L 500.4100 ####[facility] [address] [place], [address] Cholesterol in LDL [Mass/Vol] 176 mg/dL Normal [facility] Comment on above: Result Comment: Bord rztvlg=189-355 mg/dL Higher Vhhi=121 mg/dL or greater Friedwald Equation for LDL-C Performed By: #### L 500.4100 ####[facility] [address] [place], [address] Cholesterol in VLDL [Mass/Vol] 35 mg/dL Normal 5-40 [facility] Comment on above: Performed By: #### L 500.4100 ####[facility] [address] [place], [place], [address] Triglyceride [Mass/Vol] 175 mg/dL Normal [facility] Comment on above: Result Comment: The drugs N-Acetylcysteine and Metamizole may falsely depress this assay. Normal range: <150 mg/dL Borderline High: 150-199 mg/dL High: 200-499 mg/dL Very High: >500 mg/dL Performed By: #### L 500.4100 ####[facility] [address] [place], [address] MCV (mean corpuscular volume ) determinationOrdered By: Jordon Chaparro on 10-29-2024 MCV (RBC) [Entitic vol] 86.4 fL 81-99 [facility] Mean corpuscular hemoglobin (MCH) determinationOrdered By: Jordon Chaparro on 10-29-2024 MCH (RBC) [Entitic mass] 28.2 pg 27.0-32.0 [facility] Mean corpuscular hemoglobin concentration (MCHC) determinationOrdered By: Jordon Chaparro on 10-29-2024 MCHC (RBC) [Mass/Vol] 32.6 g/dL 32-36 [facility] Mean platelet volume determi nationOrdered By: Jordon Chaparro on 10-29-2024 Platelet mean volume (Bld) [Entitic vol] 10.4 fL 6.2-12.0 [facility] Monocyte percentageOrdered B y: Jordon Chaparro on 10-29-2024 Monocytes/100 WBC (Bld) 5.9 % 0-10 [facility] Neutrophil percentageOrdered By: Jordon Chaparro on 10-29-2024 Neutrophils/100 WBC (Bld) 56.8 % 47-70 [facility] No Panel InformationOrdered By: Jordon Chaparro on 10-29-2024 Addendum Document Comment . [facility] Comment on above: Protein electrophore sis scan will follow via computer,mail, or silverware buffing machine operator delivery. Nucleated red blood cell per centageOrdered By: Jordon Chaparro on 10-29-2024 Nucleated RBC/100 WBC (Bld) [Ratio] 0 % 0-5 [facility] Platelet countOrdered By: Madison Chaparro on 10-29-2024 Platelets (Bld) [#/Vol] 312 10*3/uL 150-450 [facility] Potassium measurement (mass/ volume)Ordered By: Jordon Chaparro on 10-29-2024 Potassium (Unsp spec) [Mass/Vol] 4.3 mmol/L 3.3-5.1 [facility] Protein+Creatinine Ratio,Uri neon 10-29-2024 PROT:CRE RATIO 5051 mg/g CRE High 0-200 [facility] Comment on above: Performed By: #### L 3300.1200, L505.7010, L3100.5800, L3100.5700, L500.3600, L3100.5475, L3100.3450 #### [facility] [address] [place], [address] Protein (U) [Mass/Vol] 249.0 mg/dL High 0.0-12.0 [facility] Comment on above: Performed By: #### L 3300.1200, L505.7010, L3100.5800, L3100.5700, L500.3600, L3100.5475, L3100.3450 #### [facility] [address] [facility], [address] RBC Auto (Bld) [#/Vol]Ordere d By: Jordon Chaparro on 10-29-2024 RBC (Bld) [#/Vol] 4.26 10*6/uL 4.2-5.4 [facility] Random urine creatinine nava urement (mass/volume)Ordered By: Tara Lyon on 10-29-2024 Creatinine Unsp time (U) [Mass/Vol] 49.30 mg/dL 28.00-217.0 0 [facility] Renal Profileon 10-29-2024 Albumin [Mass/Vol] 3.6 g/dL Normal 3.4-4.8 [facility] Comment on above: Performed By: #### L 3300.1200, L505.7010, L3100.5800, L3100.5700, L500.3600, L3100.5475, L3100.3450 #### [facility] [address] [place], [address] BUN/CRE 11.6 RATIO Normal 10-20 [facility] Comment on above: Performed By: #### L 3300.1200, L505.7010, L3100.5800, L3100.5700, L500.3600, L3100.5475, L3100.3450 #### [facility] [address] [place], [address] Calcium [Mass/Vol] 8.9 mg/dL Normal 7.6-11.0 [facility] Comment on above: Performed By: #### L 3300.1200, L505.7010, L3100.5800, L3100.5700, L500.3600, L3100.5475, L3100.3450 #### [facility] [address] [place], [address] Chloride [Moles/Vol] 104 mmol/L Normal 98-108 [facility] Comment on above: Performed By: #### L 3300.1200, L505.7010, L3100.5800, L3100.5700, L500.3600, L3100.5475, L3100.3450 #### [facility] [address] [place], [address] CO2 [Moles/Vol] 23.6 mmol/L Normal 21.0-32.0 [facility] Comment on above: Performed By: #### L 3300.1200, L505.7010, L3100.5800, L3100.5700, L500.3600, L3100.5475, L3100.3450 #### [facility] [address] [place], [address] Creatinine [Mass/Vol] 1.74 mg/dL High 0.70-1.20 [facility] Comment on above: Performed By: #### L 3300.1200, L505.7010, L3100.5800, L3100.5700, L500.3600, L3100.5475, L3100.3450 #### [facility] [address] [place], [address] GAP 13 Normal 5-15 [facility] Comment on above: Performed By: #### L 3300.1200, L505.7010, L3100.5800, L3100.5700, L500.3600, L3100.5475, L3100.3450 #### [facility] [address] [place], [address] GFR/1.73 sq M.predicted among non-blacks MDRD (S/P/Bld) [Vol rate/Area] 32 mL/min/{1.73_m2} Low >60 [facility] Comment on above: Result Comment: mL/m in/1.73m2 CKD-EPI Creatinine Equation (2020) Performed By: #### L 3300.1200, L505.7010, L3100.5800, L3100.5700, L500.3600, L3100.5475, L3100.3450 #### [facility] [address] [place], [address] Glucose [Mass/Vol] 97 mg/dL Normal 70-99 [facility] Comment on above: Performed By: #### L 3300.1200, L505.7010, L3100.5800, L3100.5700, L500.3600, L3100.5475, L3100.3450 #### [facility] [address] [place], [address] Phosphate [Mass/Vol] 3.7 mg/dL Normal 2.7-4.5 [facility] Comment on above: Performed By: #### L 3300.1200, L505.7010, L3100.5800, L3100.5700, L500.3600, L3100.5475, L3100.3450 #### [facility] [address] [place], [address] Potassium [Moles/Vol] 4.3 mmol/L Normal 3.3-5.1 [facility] Comment on above: Performed By: #### L 3300.1200, L505.7010, L3100.5800, L3100.5700, L500.3600, L3100.5475, L3100.3450 #### [facility] [address] [place], [address] Sodium [Moles/Vol] 140 mmol/L Normal 133-145 [facility] Comment on above: Performed By: #### L 3300.1200, L505.7010, L3100.5800, L3100.5700, L500.3600, L3100.5475, L3100.3450 #### [facility] [address] [place], [address] Urea nitrogen [Mass/Vol] 20 mg/dL High 4-19 [facility] Comment on above: Performed By: #### L 3300.1200, L505.7010, L3100.5800, L3100.5700, L500.3600, L3100.5475, L3100.3450 #### [facility] [address] [place], [address] Screening total cholesterol/ high density lipoprotein (HDL) cholesterol ratioOrdered By: Charity Khan on 10-29-2024 Cholesterol.total/Cholester ol in HDL [Mass ratio] 4.55 {ratio} [facility] Serum creatinine measurement (mass/volume)Ordered By: Jordon Chaparro on 10-29-2024 Creatinine [Mass/Vol] 1.73 mg/dL High 0.70-1.20 [facility] Serum globulin measurementOr dered By: Jordon Chaparro on 10-29-2024 Globulin (S) [Mass/Vol] 2.6 g/dL 2.2-4.2 [facility] Serum globulin measurement ( mass/volume)Ordered By: Jordon Chaparro on 10-29-2024 Globulin (S) [Mass/Vol] 3.0 g/dL 2.2-3.9 [facility] Serum glucose measurement (m ass/volume)Ordered By: Jordon Chaparro on 10-29-2024 Glucose [Mass/Vol] 97 mg/dL 70-99 [facility] Serum immunoglobulin kappa l ight chains/immunoglobulin lambda light chains mass ratioOrdered By: Jordon Chaparro on 10-29-2024 Immunoglobulin light chains.kappa/Immunoglobulin light chains.lambda (S) [Mass ratio] 1.68 High 0.26-1.65 [facility] Comment on above: Performed at: [place] [id number] Director: Cj Fitch PhD, Phone: [phone] Serum or plasma IgA measurem ent (mass/volume)Ordered By: Jordon Chaparro on 10-29-2024 IgA [Mass/Vol] 270 mg/dL 87-352 [facility] Serum or plasma IgG measurem ent (mass/volume)Ordered By: Jordon Chaparro on 10-29-2024 IgG [Mass/Vol] 747 mg/dL 586-1602 [facility] Serum or plasma alanine vidal otransferase (ALT) measurementOrdered By: Jordon Chaparro on 10-29-2024 ALT [Catalytic activity/Vol] 14 U/L <35 [facility] Serum or plasma albumin nava urement (mass/volume)Ordered By: Jordon Chaparro on 10-29-2024 Albumin [Mass/Vol] 3.7 g/dL 3.4-4.8 [facility] Serum or plasma albumin/glob ulin mass ratioOrdered By: Jordon Chaparro on 10-29-2024 Albumin/Globulin [Mass ratio] 1.4 {ratio} 0.9-2.4 [facility] Serum or plasma alkaline camryn sphatase measurementOrdered By: Jordon Chaparro on 10-29-2024 ALP [Catalytic activity/Vol] 69 U/L 35-104 [facility] Serum or plasma alpha 1 glob ulin measurement by electrophoresis (mass/volume)Ordered By: Jordon Chaparro on 10-29-2024 Alpha 1 globulin Elph [Mass/Vol] 0.3 g/dL 0.0-0.4 [facility] Alpha 1 globulin Elph [Mass/Vol] 0.9 g/dL 0.4-1.0 [facility] Serum or plasma beta globuli n measurement by electrophoresis (mass/volume)Ordered By: Jordon Chaparro on 10-29-2024 Beta globulin Elph [Mass/Vol] 1.1 g/dL 0.7-1.3 [facility] Serum or plasma calcium nava urement (mass/volume)Ordered By: Jordon Chaparro on 10-29-2024 Calcium [Mass/Vol] 8.9 mg/dL 7.6-11.0 [facility] Serum or plasma cholesterol in HDL measurement (mass/volume)Ordered By: Charity Khan on 10-29-2024 Cholesterol in HDL [Mass/Vol] 59 mg/dL >40 [facility] Comment on above: National Cholesterol Education Program (NCEP) guidelines:<40 mg/dL: Low HDL-cholesterol (major risk factor for CHD)>= 60 mg/dL: High HDL-cholesterol (negative risk factor for CHD)HDL-cholesterol is affected by a number of factors, e.g. smoking, exercise, hormones, sex and age. Serum or plasma cholesterol measurement (mass/volume)Ordered By: Charity Khan on 10-29-2024 Cholesterol [Mass/Vol] 270 mg/dL High <201 [facility] Comment on above: Cholesterol level, D esirable <200 mg/dLBorderline high cholesterol 200-239 mg/dLHigh cholesterol >=240 mg/dLRecommendations of the NCEP Adult Treatment Panel for the following risk-cutoff thresholds for the [place] population. Serum or plasma gamma globul in measurement by electrophoresis (mass/volume)Ordered By: Jordon Chaparro on 10-29-2024 Gamma globulin Elph [Mass/Vol] 0.7 g/dL 0.4-1.8 [facility] Serum or plasma immunoelectr ophoresis interpretation (nominal result)Ordered By: Jordon Chaparro on 10-29-2024 Interpretation IEP [Interp] Comment: . [facility] Comment on above: Presence of monoclon al protein is unclear at this time. Suggestrepeat in 3 to 6 months if clinically indicated. Serum or plasma immunoglobul in kappa light chains measurement (mass/volume)Ordered By: Jordon Chaparro on 10-29-2024 Immunoglobulin light chains.kappa [Mass/Vol] 35.9 mg/L High 3.3-19.4 [facility] Serum or plasma protein nava urement (mass/volume)Ordered By: Jordon Chaparro on 10-29-2024 Protein [Mass/Vol] 6.0 g/dL 6.0-8.5 [facility] Serum or plasma urea nitroge n measurement (mass/volume)Ordered By: Jordon Chaparro on 10-29-2024 Urea nitrogen [Mass/Vol] 21 mg/dL High 4-19 [facility] Sodium levelOrdered By: Steve Chaparro on 10-29-2024 Sodium [Moles/Vol] 141 mmol/L 133-145 [facility] Total proteinOrdered By: Adrian Chaparro on 10-29-2024 Protein [Mass/Vol] 6.3 g/dL 5.9-8.4 [facility] Triglycerides measurementOrd ered By: Charity Khan on 10-29-2024 Triglyceride [Mass/Vol] 175 mg/dL <199 [facility] Comment on above: The drugs N-Acetylcy steine and Metamizole may falsely depress this assay. Normal range: <150 mg/dLBorderline High: 150-199 mg/dLHigh: 200-499 mg/dLVery High: >500 mg/dL Urine protein measurement (m ass/volume)Ordered By: Tara Lyon on 10-29-2024 Protein (U) [Mass/Vol] 249.0 mg/dL High 0.0-12.0 [facility] Urine protein/creatinine mas s ratioOrdered By: Tara Lyon on 10-29-2024 Protein/Creatinine (U) [Mass ratio] 5051 mg/g CRE High 0-200 [facility] White blood cell (WBC) count Ordered By: Jordon Chaparro on 10-29-2024 WBC (Bld) [#/Vol] 5.6 10*3/uL 4.4-11.0 [facility] Internal Medicine Office Vis maya 10-07-2024 Internal Medicine Office Visit [facility] [address] [place] [address] [address] [place] [address] OFFICE VISIT Date of Service: 10/07/24 MR#: [id number] Acct: [id number] Name: RENE RIDER Rep #: [id number] : 1955 Provider: Dr. Charity tristan MD Age/Sex: 69/F Location[place] [facility] [place] Status: Signed Intake Vital Signs 06/10/24 15:01 08/05/24 15:36 10/07/24 13:49 Height 4 ft 9 in 4 ft 9 in 4 ft 11 in Weight: 222 lb BMI 44.8 BP 130/80 H Blood Pressure Location Lt brachial Position Sitting Respiration 16 Pulse 120 H Pulse Source Monitor Temp 99.6 F H Temp Source Temporal Pulse Oximetry (%) 96 Oxygen Delivery Method room air Intake Visit Reasons: 4 M FU Chief Complaint: F/U Recreation Manager Required: No Accompanied by: Self Is patient in pain?: No Allergies Sulfa (Sulfonamide Antibiotics) Allergy (Severe, Verified 10/07/24 13:54) Anaphylaxis cigarette smoke Allergy (Mild, Verified 10/07/24 13:54) hoarsness house dust mite Allergy (Mild, Verified 10/07/24 13:54) hoarsness Medications ???Medication ???Instructions ???Recorded ???Confirmed ???Type vitamin C 500 mg-multivitamin with 1 tablet PO DAILY 07/05/2010/07 History minerals chewable tablet (Emergen-C) zinc gluconate 30 mg tablet 30 mg PO DAILY 07/05/20 10/07/24 H istory acetaminophen 500 mg tablet 1,000 mg PO Q6H PRN Pain 11/17/20 10/07/24 History (Tylenol Extra Strength) Handicap Placard #1 ea 07/23/22 10/07/24 Rx ascorbate calcium (vitamin C) 500 600 mg PO DAILY 10/22/22 10/07/24 History mg tablet cyclobenzaprine 10 mg tablet 10 mg PO TID PRN muscle spasm #90 10/22/22 10/07/24 Rx tabs compress.stocking,kne e,reg,lrg #2 ea 09/04/23 10/07/24 Rx hydrocortisone 2.5 % topical 1 applic topical BID PRN rash 08/1610/07/24 Rx ointment #28.35 grams amlodipine 10 mg tablet See Rx Instructions .Route 5 10/07/24 Rx .COMPLEX #90 tabs cholecalciferol (vitamin D3) 25 50 mcg PO DAILY 06/08/24 10/07/24 History mcg (1,000 unit) capsule carvedilol 3.125 mg tablet (Coreg) 3.125 mg PO Q12H #60 tabs 10/07/24 Rx Have you fallen in the past year?: Yes (twice in last couple month ) Nurse's Note: F/U PFSH Medical History MGUS (monoclonal gammopathy of unknown significance) Blood glucose elevated Microalbuminuria CKD (chronic kidney disease), stage III Dermatitis Tachycardia Acute sinusitis, unspecified Chronic back pain Health care maintenance Colon cancer screening Scoliosis Cancer Anxiety Alcohol use Bladder disease Arthritis Migraine headache Non-smoker Leg cramps History of pain when walking Hypertension Preoperative evaluation to rule out surgical contraindication Osteoarthritis of right hip Right hip pain History of basal cell carcinoma History of pneumonia history of cracked palate history of club feet Hypertension Seasonal allergies Surgical History Status post Mohs surgery History of hip replacement, total H/O foot surgery History of Hx of rhinoplasty Family History Mother Hypertension Hyperlipemia Arthritis Father Hypertension Skin cancer Arthritis Social History household members: spouse housing: house Smoking Status: Never smoker alcohol intake: never substance use type: does not use what type of physical activity do you participate in: none do you feel safe at home: Yes HPI HPI Chief Complaint: F/U Details: RENE RIDER, is a 69-year-old female presenting with concerns related to chronic kidney disease and hypertension management. The patient has a history of chronic kidney disease, stage 3, which was first noted in 2020. At that time, the glomerular filtration rate (GFR) was low, and it was unclear if the condition was acute or chronic due to lack of prior records. The patient was informed about the condition, but no specific treatment was initiated at that time with recommendation for adequate hydration and avoiding nephrotoxic agents. Records were also requested but not gotten. Following some worsening, was referred to nephrology. The patient has nephrotic range proteinuria, with a 24-hour urine protein level of 2000 mg, which is significant. The patient is undergoing further evaluation to rule out malignancy and so far, no concerns have been noted. Currently following up with oncology. The patient also reports hypertension, with home blood pressure readings averaging in the 110s/80s, and heart rate ranging from the 70s to low 100s. The patient is on metoprolol but expressed concerns about its association with her kidney issues. She woul (more content not included)... Normal [facility] Bone density reportOrdered B y: Sammy Julian on 08-13-2024 Study report Skeletal system DXA [facility] [address] [place], [place] [address] Dexa Bone Density Study MR#: [id number] Acct: [id number] Name: RENE RIDER Rep #: [id number] : 1955 F 69 From: Pedro Julian MD PCP: Dr. Charity Khan MD Status: Lindsay ANDRES CLI Study:Dexa Bone Density Study Date of Exam: 08/13/24 Exam# [id number] Ordering Dr: Dixon Khan MD PROCEDURE: DEXA BONE DENSITY STUDY 08/13/2024 REASON FOR EXAM: POST MENOPAUSAL F, age 69 y/o . Postmenopausal. Status post right hip replacement.. TECHNIQUE: DXA scan of sites with data reported below. . [facility] COMPARISON: None FINDINGS: BMD and T-SCORES Lumbar spine: 1.001 g/cm2, T-score -0.3 Levels: L1 through L4 Left femoral neck: 0.697 g/cm2, T-score -1.4 Femoral neck comparison data not recommended for monitoring change. Left total hip: 0.961 g/cm2, T-score 0.2 The World Health Organization has defined the following categories based on bonedensity: Normal bone density: T-score equal to or greater than -1.0 Osteopenia: T-score between -1.0 and -2.5 Osteoporosis: T-score equal to or less than -2.5 The patient does meet the pharmacological treatment recommendations for prevention of osteoporosis. BD/Dexa Bone Density Study IMPRESSION: OSTEOPENIA. Recommend follow-up as clinically warranted. Reading Location: [id number] CC: Dr. Charity Khan MD ~ Photographer Apprentice: Signed [facility] Breast imaging reportOrdered By: Sammy Julian on 08-13-2024 Study report [facility] [address] [place] [address] SCRN MAMM (CAD)W/KYLAH BILAT MR#: [id number] Acct: [id number] Name: RENE RIDER Rep #: [id number] : 1955 F 69 From: Pedro Julian MD PCP: Dr. Charity Khan MD Status: R EG CLI Study:SCRN MAMM (CAD)W/KYLAH BILAT Date of Exa m: 08/13/24 Exam# [id number] Ordering Dr: Dixon Khan MD EXAM: SCRN MAMM (CAD)W/KYLAH BILAT DATE: 08/13/2024 CLINICAL HISTORY: F, Age 69 y/o , BREAST CANCER SCREENING No family history. BREAST CANCER RISK ASSESSMENT: Not assessed. TECHNIQUE: Bilateral screening digital breast tomosynthesis with 2D and 3D images. Computeraided detection. COMPARISON: Prior exam(s) dated August 13, 2023.. FINDINGS: TISSUE DENSITY: The breast tissue is almost entirely fatty. Bilateral Breast Mammographic Findings: No significant masses, calcifications or other abnormalities are identified. Stable small benign-appearing bilateral axillary lymph nodes. No suspicious masses, areas of developing architectural distortion, or suspicious calcifications. There has been no significant interval change. BI/SCRN MAMM (CAD)W/KYLAH BILAT IMPRESSION: OVERALL FINAL ASSESSMENT: BIRADS 2 BENIGN FINDING RECOMMENDATION: Routine annual follow-up in 1 Year A letter with findings and recommendations will be mailed to the patient. Reading Location: [id number] CC: Dr. Charity Khan MD ~ Photographer Apprentice: Signed [facility] Dexa Bone Density Studyon Dexa Bone Density Study [facility] [address] [place], [place] [address] Dexa Bone Density Study MR#: [id number] Acct: [id number] Name: RENE RIDER Rep #: [id number] : 1955 F 69 From: Sammy hill MD PCP: Dr. Charity Khan MD Status: REG CLI Study: Dexa Bone Density Study Date of Exam: 08/13/24 Exam# [id number] Ordering Dr: Charity Khan MD PROCEDURE: DEXA BONE DENSITY STUDY 08/13/2024 REASON FOR EXAM: POST MENOPAUSAL F, age 69 y/o . Postmenopausal. Status post right hip replacement.. TECHNIQUE: DXA scan of sites with data reported below. . [facility] COMPARISON: None FINDINGS: BMD and T-SCORES Lumbar spine: 1.001 g/cm2, T-score -0.3 Levels: L1 through L4 Left femoral neck: 0.697 g/cm2, T-score -1.4 Femoral neck comparison data not recommended for monitoring change. Left total hip: 0.961 g/cm2, T-score 0.2 The World Health Organization has defined the following categories based on bone density: Normal bone density: T-score equal to or greater than -1.0 Osteopenia: T-score between -1.0 and -2.5 Osteoporosis: T-score equal to or less than -2.5 The patient does meet the pharmacological treatment recommendations for prevention of osteoporosis. BD/Dexa Bone Density Study IMPRESSION: OSTEOPENIA. Recommend follow-up as clinically warranted. Reading Location: [id number] CC: Dr. Charity Khan MD Photographer Apprentice: Signed Normal [facility] SCRN MAMM (CAD)W/KYLAH BILATo n 08-13-2024 SCRN MAMM (CAD)W/KYLAH BILAT [facility] [address] [place] [address] SCRN MAMM (CAD)W/KYLAH BILAT MR#: [id number] Acct: [id number] Name: RENE RIDER Rep #: [id number] : 1955 F 69 From: Sammy hill MD PCP: Dr. Charity Khan MD Status: [facility] CLI Study: SCRN MAMM (CAD)W/KYLAH BILAT Date of Exam: 07/17 12/10 Exam# [id number] Ordering Dr: Charity Khan MD EXAM: SCRN MAMM (CAD)W/KYLAH BILAT DATE: 08/13/2024 CLINICAL HISTORY: F, Age 69 y/o , BREAST CANCER SCREENING No family history. BREAST CANCER RISK ASSESSMENT: Not assessed. TECHNIQUE: Bilateral screening digital breast tomosynthesis with 2D and 3D images. Computer aided detection. COMPARISON: Prior exam(s) dated August 13, 2023.. FINDINGS: TISSUE DENSITY: The breast tissue is almost entirely fatty. Bilateral Breast Mammographic Findings: No significant masses, calcifications or other abnormalities are identified. Stable small benign- appearing bilateral axillary lymph nodes. No suspicious masses, areas of developing architectural distortion, or suspicious calcifications. There has been no significant interval change. BI/SCRN MAMM (CAD)W/KYLAH BILAT IMPRESSION: OVERALL FINAL ASSESSMENT: BIRADS 2 BENIGN FINDING RECOMMENDATION: Routine annual follow-up in 1 Year A letter with findings and recommendations will be mailed to the patient. Reading Location: [id number] CC: Dr. Charity Khan MD Photographer Apprentice: Signed Normal [facility] Oncology Visit Reporton 07-17 Oncology Visit Report [facility] [address] [place] [address] OFFICE VISIT Date of Service: 08/05/24 1534 MR#: [id number] Acct: [id number] Name: RENE RIDER Meri Rep #: [id number] : 1955 From: Jordon Chaparro MD Age/Sex: 69/F [place] [facility] [place] Status: Signed HPI Subjective Date of Service 08/05/24 Chief Complaint Follow-up abnormal serum protein. History of Present Illness 69-year-old woman was found to have creatinine of 1.57. SPEP on 05/28/2024 showed asymmetric gammaglobulin. She was referred for further evaluation. Had blood work 06/08/2024 showed normal immunoglobulin, no M spike, free kappa light chain 32.7, free lambda light chain 18.8, free kappa lambda ratio 1.74. Skeletal survey on 06/12/2024 showed lytic lesion involving the left hip and MRI was suggested. MRI was requested and she comes for follow-up. She feels well, denies pain. [facility] Medical History MGUS (monoclonal gammopathy of unknown significance) Blood glucose elevated Microalbuminuria CKD (chronic kidney disease), stage III Dermatitis Tachycardia Acute sinusitis, unspecified Chronic back pain Health care maintenance Colon cancer screening Scoliosis Cancer Anxiety Alcohol use Bladder disease Arthritis Migraine headache Non-smoker Leg cramps History of pain when walking Hypertension Preoperative evaluation to rule out surgical contraindication Osteoarthritis of right hip Right hip pain History of basal cell carcinoma History of pneumonia history of cracked palate history of club feet Hypertension Seasonal allergies Surgical History Status post Mohs surgery History of hip replacement, total H/O foot surgery History of Hx of rhinoplasty Family History Mother Hypertension Hyperlipemia Arthritis Father Hypertension Skin cancer Arthritis Social History household members: spouse housing: house Smoking Status: Never smoker alcohol intake: never substance use type: does not use what type of physical activity do you participate in: none do you feel safe at home: Yes Intake Vital Signs 06/18/24 14:59 08/05/24 15:36 Height 4 ft 9 in 4 ft 9 in Weight: 100.386 kg BMI 47.9 BP 138/88 H Blood Pressure Location Lt brachial Position Sitting Respiration 18 Pulse 95 Pulse Source Monitor Temp 98.9 F Temperature Source Temporal Artery Pulse Oximetry (%) 95 Oxygen Delivery Method room air Intake Is patient in pain?: No Allergies Sulfa (Sulfonamide Antibiotics) Allergy (Severe, Verified 08/05/24 15:37) Anaphylaxis cigarette smoke Allergy (Mild, Verified 08/05/24 15:37) hoarsness house dust mite Allergy (Mild, Verified 08/05/24 15:37) hoarsness Medications ???Medication ???Instructions ???Recorded ???Confirmed ???Type vitamin C 500 mg-multivitamin with 1 tablet PO DAILY 07/05/2008/05 History minerals chewable tablet (Emergen-C) zinc gluconate 30 mg tablet 30 mg PO DAILY 07/05/20 08/05/24 H istory acetaminophen 500 mg tablet 1,000 mg PO Q6H PRN Pain 11/17/20 08/05/24 History (Tylenol Extra Strength) Handicap Placard #1 ea 07/23/22 08/05/24 Rx ascorbate calcium (vitamin C) 500 600 mg PO DAILY 10/22/22 08/05/24 History mg tablet cyclobenzaprine 10 mg tablet 10 mg PO TID PRN muscle spasm #90 10/22/22 08/05/24 Rx tabs compress.stocking,kne e,reg,lrg #2 ea 09/04/23 08/05/24 Rx hydrocortisone 2.5 % topical 1 applic topical BID PRN rash 08/1608/05/24 Rx ointment #28.35 grams amlodipine 10 mg tablet See Rx Instructions .Route 5 08/05/24 Rx .COMPLEX #90 tabs cholecalciferol (vitamin D3) 25 50 mcg PO DAILY 06/08/24 08/05/24 History mcg (1,000 unit) capsule metoprolol succinate 25 mg 25 mg PO DAILY #90 tabs 06/16/24 0 08/05/24 Rx tablet,extended release 24 hr Have you fallen in the past year?: No Central Venous Access Central Venous Access: No 07/31/2024 MRI pelvis reviewed. MRI/Pelvis W/WO Contrast IMPRESSION: Fibroid uterus. Mild left trochanteric bursitis. There is normal marrow signal in the pelvic bones and in the proximal left femur with no suspicious lesion or abnormal enhancement following contrast, to correspond with the plain film finding. Exam Physical Exam Const alert, oriented x3 and no apparent distress Coding Level of Care Code Off vis,est,level 3 Exam Problem Focused Diagnoses Elevated serum immunoglobulin free light chain level R76.8 Proteinuria, unspecified type R80.9 Prote (more content not included)... Normal [facility] Magnetic resonance imaging r eportOrdered By: Matt Enrique on 08-04-2024 Study report [facility] [address] [place] [address] Pelvis W/WO Contrast MR#: [id number] Acct: [id number] Name: RENE RIDER Rep #: [id number] : 1955 F 69 From: Conrad Enrique MD PCP: Dr. Charity Khan MD Status: R EG CLI Study:Pelvis W/WO Contrast Date of Exam: 07/31/24 Exam# [id number] Ordering Dr: Adrian Chaparro MD EXAM: PELVIS W/WO CONTRAST 07/31/2024 CLINICAL HISTORY: LYTIC LEASION LEFT HIP. TECHNIQUE: MRI of the pelvis was performed. Multiplanar and multisequence images were obtained intravenous gadolinium contrast. CONTRAST: 20 cc Clariscan COMPARISON: June 12, 2024 FINDINGS: Metallic artifact is noted consistent with hardware in the right hip. The uterus measures 6.5 by 7.7 by 10.4 cm. There are multiple uterine fibroids with the largest subserosal fibroid at the fundus measuring 5.0 cm, and posterior submucosal fibroid measuring 4.3 cm. The endometrium measures 0.33 cm. The right ovary measures 2.1 by 1.1 cm. The left ovary measures 1.8 x 0.9 cm. There is no adnexal mass or free fluid. There is no visible pathologic adenopathy. There is no visible abnormality in the included bowel or mesentery. There is normal marrow signal in the pelvic bones and in the proximal left femurwith no suspicious lesion or abnormal enhancement following contrast, to correspond with the plain film finding. The adjacent muscular structures appear intact. There is a small amount of fluid in the left trochanteric bursa. MRI/Pelvis W/WO Contrast IMPRESSION: Fibroid uterus. Mild left trochanteric bursitis. There is normal marrow signal in the pelvic bones and in the proximal left femurwith no suspicious lesion or abnormal enhancement following contrast, to correspond with the plain film finding. Reading Location[facility] CC: Dr. Charity Khan MD; Dr. Jordon Chaparro MD ~ Photographer Apprentice: Signed [facility] Pelvis W/WO Contraston 07-31 Pelvis W/WO Contrast [facility] [address] [place] [address] Pelvis W/WO Contrast MR#: [id number] Acct: [id number] Name: RENE RIDER Rep #: [id number] : 1955 F 69 From: Matt Enrique MD PCP: Dr. Charity Khan MD Status: REG CLI Study: Pelvis W/WO Contrast Date of Exam: 07/31/24 Exam# [id number] Ordering Dr: Jordon Chaparro MD EXAM: PELVIS W/WO CONTRAST 07/31/2024 CLINICAL HISTORY: LYTIC LEASION LEFT HIP. TECHNIQUE: MRI of the pelvis was performed. Multiplanar and multisequence images were obtained intravenous gadolinium contrast. CONTRAST: 20 cc Clariscan COMPARISON: June 12, 2024 FINDINGS: Metallic artifact is noted consistent with hardware in the right hip. The uterus measures 6.5 by 7.7 by 10.4 cm. There are multiple uterine fibroids with the largest subserosal fibroid at the fundus measuring 5.0 cm, and posterior submucosal fibroid measuring 4.3 cm. The endometrium measures 0.33 cm. The right ovary measures 2.1 by 1.1 cm. The left ovary measures 1.8 x 0.9 cm. There is no adnexal mass or free fluid. There is no visible pathologic adenopathy. There is no visible abnormality in the included bowel or mesentery. There is normal marrow signal in the pelvic bones and in the proximal left femur with no suspicious lesion or abnormal enhancement following contrast, to correspond with the plain film finding. The adjacent muscular structures appear intact. There is a small amount of fluid in the left trochanteric bursa. MRI/Pelvis W/WO Contrast IMPRESSION: Fibroid uterus. Mild left trochanteric bursitis. There is normal marrow signal in the pelvic bones and in the proximal left femur with no suspicious lesion or abnormal enhancement following contrast, to correspond with the plain film finding. Reading Location[facility] CC: Dr. Charity Khan MD; Dr. Jordon Chaparro MD Photographer Apprentice: Signed Normal [facility] 24 HR Urine Creatinineon RANDOM UR TV 2250.0 ML Normal [facility] Comment on above: Performed By: #### L 3300.1200, L505.7010, L3100.5800, L3100.5700, L500.3600, L3100.5475, L3100.3450 #### [facility] [address] [place], [address] UR.CREAT/24hr 1246.5 mg/24 hr Normal 740.0-1540. 0 [facility] Comment on above: Performed By: #### L 3300.1200, L505.7010, L3100.5800, L3100.5700, L500.3600, L3100.5475, L3100.3450 #### [facility] [address] [place], [address] URINE CREAT 55.40 mg/dL Normal 28.00-217.0 0 [facility] Comment on above: Performed By: #### L 3300.1200, L505.7010, L3100.5800, L3100.5700, L500.3600, L3100.5475, L3100.3450 #### [facility] [address] [place], [address] 24 hour urine protein measur ementOrdered By: Jordon Chaparro on 06-22-2024 24 hour urine protein measurement 2250 mL [facility] 24 hour urine protein measur ement (mass/volume)Ordered By: Jordon Chaparro on 06-22-2024 Protein (24H U) [Mass/Vol] 92.3 mg/dL High 0.0-11.8 [facility] 24 hour urine total protein measurement (mass/time)Ordered By: Jordon Chaparro on 06-22-2024 Protein (24H U) [Mass/Time] 2076.8 mg/24HR High 0-15 1 [facility] - Specimen inform ationOrdered By: Jordon Chaparro on 06-22-2024 Collection duration (U) 24.0 HOURS 24.0-24.0 W [facility] Protein, Urine 24HRon 2024 UR COLLECT TIME 24.0 HOURS Normal 24.0 [facility] Comment on above: Performed By: #### L 3300.1200, L505.7010, L3100.5800, L3100.5700, L500.3600, L3100.5475, L3100.3450 #### [facility] [address] [place], [place], [id number] UR TOTAL VOLUME 2250 mL Normal [facility] Comment on above: Performed By: #### L 3300.1200, L505.7010, L3100.5800, L3100.5700, L500.3600, L3100.5475, L3100.3450 #### [facility] [address] [place], [place], [address] Total urine volume measureme ntOrdered By: Jordon Chaparro on 06-22-2024 Specimen volume (U) 2250.0 ML [facility] Urine creatinine measurement (mass/volume)Ordered By: Jordon Chaparro on 06-22-2024 Creatinine (U) [Mass/Vol] 55.40 mg/dL 28 .00-217.0 0 [facility] Bilirubin Test strip Ql (U)O rdered By: Jordon Chaparro on 06-18-2024 Bilirubin Ql (U) Negative Negative [facility] Cytology report of Body flui d Cyto stainOrdered By: Jordon Chaparro on 06-18-2024 Cytology report Cyto stain Doc (Body fld) SEE PATHOLOGY REPORT [facility] Comment on above: Specimen submitted t o Anatomical Pathology Department for testing. Cytology, Body Fluid / CSFon 06-18-2024 CYTOLOGY,BF/CSF SEE PATHOLOGY REPORT Normal [facility] Comment on above: Order Comment: Reaso n for Exam: URINEComments: URINEURINE Result Comment: Spec imen submitted to Anatomical Pathology Department for testing. Performed By: #### L 3300.1200, L505.7010, L3100.5800, L3100.5700, L500.3600, L3100.5475, L3100.3450 #### [facility] [address] [place], [address] Ketones Test strip Ql (U)Ord ered By: Jordon Chaparro on 06-18-2024 Ketones Ql (U) Negative Negative [facility] Microscopic analysis of urin e for red blood cells (RBC)Ordered By: Jordon Chaparro on 06-18-2024 Microscopic analysis of urine for red blood cells (RBC) 10-25 SEEN /hpf 0-5 [facility] Mucus LM Ql (Urine sed)Order ed By: Jordon Chaparro on 06-18-2024 Mucus Ql (Urine sed) 0 SEEN /hpf [facility] Nitrite Test strip Ql (U)Ord ered By: Jordon Chaparro on 06-18-2024 Nitrite Ql (U) Negative Negative [facility] Oncology Visit Reporton Oncology Visit Report [facility] [address] [place] [address] OFFICE VISIT Date of Service: 06/18/24 1458 MR#: [id number] Acct: [id number] Name: RENE RIDER Rep #: [id number] : 1955 From: Jordon Chaparro MD Age/Sex: 69/F Location: [facility] Status: Signed HPI Subjective Date of Service 06/18/24 Chief Complaint Follow-up abnormal serum protein. History of Present Illness 69-year-old woman was found to have creatinine of 1.57. SPEP on 05/28/2024 showed asymmetric gammaglobulin. She was referred for further evaluation. Had blood, skeletal survey, She feels well, denies pain. [facility] Medical History MGUS (monoclonal gammopathy of unknown significance) Blood glucose elevated Microalbuminuria CKD (chronic kidney disease), stage III Dermatitis Tachycardia Acute sinusitis, unspecified Chronic back pain Health care maintenance Colon cancer screening Scoliosis Cancer Anxiety Alcohol use Bladder disease Arthritis Migraine headache Non-smoker Leg cramps History of pain when walking Hypertension Preoperative evaluation to rule out surgical contraindication Osteoarthritis of right hip Right hip pain History of basal cell carcinoma History of pneumonia history of cracked palate history of club feet Hypertension Seasonal allergies Surgical History Status post Mohs surgery History of hip replacement, total H/O foot surgery History of Hx of rhinoplasty Family History Mother Hypertension Hyperlipemia Arthritis Father Hypertension Skin cancer Arthritis Social History household members: spouse housing: house Smoking Status: Never smoker alcohol intake: never substance use type: does not use what type of physical activity do you participate in: none do you feel safe at home: Yes Intake Vital Signs 06/08/24 10:10 06/10/24 15:01 06/18/24 14:59 Height 4 ft 9 in 4 ft 9 in 4 ft 9 in Weight: 99.478 kg BMI 47.5 BP 128/82 H Blood Pressure Location Lt brachial Position Sitting Respiration 18 Pulse 92 Pulse Source Monitor Temp 98.6 F Temperature Source Temporal Artery Pulse Oximetry (%) 98 Oxygen Delivery Method room air Intake Is patient in pain?: No Allergies Sulfa (Sulfonamide Antibiotics) Allergy (Severe, Verified 06/18/24 15:03) Anaphylaxis cigarette smoke Allergy (Mild, Verified 06/18/24 15:03) hoarsness house dust mite Allergy (Mild, Verified 06/18/24 15:03) hoarsness Medications ???Medication ???Instructions ???Recorded ???Confirmed ???Type vitamin C 500 mg-multivitamin with 1 tablet PO DAILY 07/05/2006/18 History minerals chewable tablet (Emergen-C) zinc gluconate 30 mg tablet 30 mg PO DAILY 07/05/20 06/18/24 H istory acetaminophen 500 mg tablet 1,000 mg PO Q6H PRN Pain 11/17/20 06/18/24 History (Tylenol Extra Strength) Handicap Placard #1 ea 07/23/22 06/18/24 Rx ascorbate calcium (vitamin C) 500 600 mg PO DAILY 10/22/22 06/18/24 History mg tablet cyclobenzaprine 10 mg tablet 10 mg PO TID PRN muscle spasm #90 10/22/22 06/18/24 Rx tabs compress.stocking,kne e,reg,lrg #2 ea 09/04/23 06/18/24 Rx hydrocortisone 2.5 % topical 1 applic topical BID PRN rash 08/1606/18/24 Rx ointment #28.35 grams amlodipine 10 mg tablet See Rx Instructions .Route 5 06/18/24 Rx .COMPLEX #90 tabs cholecalciferol (vitamin D3) 25 50 mcg PO DAILY 06/08/24 06/18/24 History mcg (1,000 unit) capsule metoprolol succinate 25 mg 25 mg PO DAILY #90 tabs 06/16/24 0 06/18/24 Rx tablet,extended release 24 hr Have you fallen in the past year?: No Central Venous Access Central Venous Access: No Laboratory Tests 03/09/24 04/29/24 05/28/24 14:18 11:51 13:10 WBC 8.5 Hgb 13.1 Hct 41.0 Plt Count 383 Absolute Neuts (auto) Absolute Lymphs (auto) ESR Sodium 140 Potassium 4.1 Chloride 102 Carbon Dioxide 25.3 BUN 25 H Creatinine 1.57 H Est GFR (MDRD) Non-Af Glucose 101 H Uric Acid Calcium 9.9 Phosphorus 3.8 Total Bilirubin AST ALT Alkaline Phosphatase Lactate Dehydrogenase C-React Prot Ext Range Total Protein Total Protein (PEP) 6.5 Albumin 3.9 Albumin (PEP) 3.3 Globulin Globulin (PEP) 3.2 M-Agustin Comment: Vitamin B12 Urine Color Yellow Urine Clarity Clear Urine pH 6.0 Ur Specific Carter 1.015 Urine Protein 500 H Urine Occult Blood 250 H Urine RBC 5-10 SEEN U PEP M-Agustin IgG IgA IgM DAVID M-Agustin Rheumatoid Factor < 10. (more content not included)... Normal [facility] Protein Test strip Ql (U)Ord ered By: Jordon Chaparro on 06-18-2024 Protein Ql (U) 500 mg/dl High Negative [facility] Special Stain Group IIon Special Stain Group II ---- -------- Patient Age/Sex Location Account Attending Physician -------- RENE RIDER 69/F ONC [id number] Dr. Jordon Chaparro MD -------- Specimen: [id number] Received: 06/19/24 Status: TACOS Tenorio Num: [id number] Spec Type: Fluid Subm Dr: Dr. Jordon Chaparro MD HEADER OPERATION: Not noted PRE-OP DIAGNOSIS: Proteinuria TISSUE SUBMITTED: Urine for cytology -------- DIAGNOSIS CYTOLOGY A. Urine, cytology: * No malignant cells identified. CYTOLOGY STUDY Slides are reviewed. CYTOLOGY GROSS A. Received is 7 ml of yellow cloudy fluid labeled with the patient's name and and designated per the requisition as urine. Submitted for cytology preparation (cytospin x1). Mr 06/19/2024 CPT: 25872 Signed (signature on file) Dr. Charlotte Mejia MD 06/24/24 1331 -------- Normal [facility] Comment on above: Performed By: #### P SSII ####[facility] [address] [place], [address] Squamous epithelial cells de tection in urine sediment by light microscopyOrdered By: Jordon Chaparro on 06-18-2024 Epithelial cells.squamous LM Ql (Urine sed) 0-5 SEEN /hpf 5-10 [facility] Urinalysis, Completeon 06-18 CAST,FINE GRAN 0-5 SEEN Normal 0-5 [facility] Comment on above: Order Comment: URINE MODEL MAKER FIBERGLASS TO SPECIFY Performed By: #### L 3300.1200, L505.7010, L3100.5800, L3100.5700, L500.3600, L3100.5475, L3100.3450 #### [facility] [address] [place], [address] BACTERIA 1+ /hpf Normal None Seen [facility] Comment on above: Order Comment: URINE MODEL MAKER FIBERGLASS TO SPECIFY Performed By: #### L 3300.1200, L505.7010, L3100.5800, L3100.5700, L500.3600, L3100.5475, L3100.3450 #### [facility] [address] [place], [address] EPI,SQUAMOUS 0-5 SEEN Normal 5-10 [facility] Comment on above: Order Comment: URINE MODEL MAKER FIBERGLASS TO SPECIFY Performed By: #### L 3300.1200, L505.7010, L3100.5800, L3100.5700, L500.3600, L3100.5475, L3100.3450 #### [facility] [address] [place], [address] RBC 10-25 SEEN Normal 0-5 [facility] Comment on above: Order Comment: URINE MODEL MAKER FIBERGLASS TO SPECIFY Performed By: #### L 3300.1200, L505.7010, L3100.5800, L3100.5700, L500.3600, L3100.5475, L3100.3450 #### [facility] [address] [place], [address] WBC 0-5 SEEN Normal 0-5 [facility] Comment on above: Order Comment: URINE MODEL MAKER FIBERGLASS TO SPECIFY Performed By: #### L 3300.1200, L505.7010, L3100.5800, L3100.5700, L500.3600, L3100.5475, L3100.3450 #### [facility] [address] [place], [address] Mucus Ql (Urine sed) 0 SEEN Normal [facility] Comment on above: Order Comment: URINE MODEL MAKER FIBERGLASS TO SPECIFY Performed By: #### L 3300.1200, L505.7010, L3100.5800, L3100.5700, L500.3600, L3100.5475, L3100.3450 #### [facility] [address] [place], [address] Urine clarityOrdered By: Adrian Chaparro on 06-18-2024 Clarity (U) Sl. Cloudy Clear [facility] Urine color determinationOrd ered By: Jordon Chaparro on 06-18-2024 Color (U) Yellow Yellow [facility] Urine glucose detectionOrder ed By: Jordon Chaparro on 06-18-2024 Glucose Ql (U) Normal mg/dl Normal [facility] Urine leukocyte esterase det ection by dipstickOrdered By: Jordon Chaparro on 06-18-2024 Leukocyte esterase Test strip Ql (U) Negative Negative [facility] Urine pHOrdered By: Jordon carranza on 06-18-2024 pH (U) 6.0 [pH] 5.0 - 8.0 [facility] Urine sediment bacteria coun t by microscopy (number/high power field)Ordered By: Jordon Chaparro on 06-18-2024 Bacteria LM.HPF (Urine sed) [#/Area] 1 /[HPF] None Seen [facility] Urine sediment fine granular cast count by microscopy (number/low power field)Ordered By: Jordon Chaparro on 06-18-2024 Fine Granular Casts LM.LPF (Urine sed) [#/Area] 0-5 SEEN /lpf 0-5 [facility] Urine specific gravity measu rementOrdered By: Jordon Chaparro on 06-18-2024 Specific gravity (U) [Rel density] 1.020 1.002-1.030 [facility] Urine urobilinogen measureme ntOrdered By: Jordon Chaparro on 06-18-2024 Urobilinogen Ql (U) Normal mg/dl Normal [facility] White blood cell countOrdere d By: Jordon Chaparro on 06-18-2024 White blood cell count 0-5 SEEN /hpf 0-5 [facility] Bone Survey Comp(Axial Appen d)on 06-12-2024 Bone Survey Comp(Axial Append) [facility] [address] [place], [place] [id number] Bone Survey Comp(Axial Append) MR#: [id number] Acct: [id number] Name: RIDERRENE Meri Rep #: [id number] : 1955 F 69 From: Zeferino Rojas DO PCP: Dr. Charity Khan MD Status: REG CLI Study: Bone Survey Comp(Axial Append) Date of Exam: 0 06/12/24 Exam# [id number] Ordering Dr: Jordon Chaparro MD EXAM: BONE SURVEY COMP(AXIAL APPEND) 06/12/2024 REASON FOR EXAM: ABNORMAL SERUM PROTEIN F,69 y/o TECHNIQUE: Radiographic images are obtained of nearly the entire axial and appendicular skeleton COMPARISON: None. FINDINGS: Skull and cervical spine demonstrate no focal lytic lesions. No obvious lytic lesions in the thoracic spine ribcage are lumbar spine. Potential 1 cm lesion with sclerotic margins in the left femoral head or possibly the acetabulum. Bones of the upper and lower extremity otherwise demonstrate no lytic lesions RAD/Bone Survey Comp(Axial Append) IMPRESSION: A lytic lesion is seen involving the left hip. That is difficult to determine whether the lesion is in the left femoral head or the left acetabulum as it projects over both. An MRI of the left hip might be helpful. Recommend follow-up, if clinically warranted. Reading Location[facility] CC: Dr. Charity Khan MD; Dr. Jordon Chaparro MD Photographer Apprentice: Signed Normal [facility] DAVID + Protein Elect, Serumon 06-10-2024 Albumin [Mass/Vol] 3.3 g/dL Normal 2.9-4.4 [facility] Comment on above: Order Comment: N Performed By: #### L 3300.1200, L505.7010, L3100.5800, L3100.5700, L500.3600, L3100.5475, L3100.3450 #### [facility] [address] [place], [place], [address] Albumin/Globulin [Mass ratio] 1.1 {ratio} Normal 0.7-1.7 [facility] Comment on above: Order Comment: N Performed By: #### L 3300.1200, L505.7010, L3100.5800, L3100.5700, L500.3600, L3100.5475, L3100.3450 #### [facility] [address] [place], [place], [address] SPSAB-1-HGWL 0.3 g/dL Normal 0.0-0.4 [facility] Comment on above: Order Comment: N Performed By: #### L 3300.1200, L505.7010, L3100.5800, L3100.5700, L500.3600, L3100.5475, L3100.3450 #### [facility] [address] [place], [address] QTDOC-1-TQVN 0.9 g/dL Normal 0.4-1.0 [facility] Comment on above: Order Comment: N Performed By: #### L 3300.1200, L505.7010, L3100.5800, L3100.5700, L500.3600, L3100.5475, L3100.3450 #### [facility] [address] [place], [address] BETA GLOBULIN 1.2 g/dL Normal 0.7-1.3 [facility] Comment on above: Order Comment: N Performed By: #### L 3300.1200, L505.7010, L3100.5800, L3100.5700, L500.3600, L3100.5475, L3100.3450 #### [facility] [facility] [address] [place], [address] GAMMA GLOBULIN 0.8 g/dL Normal 0.4-1.8 [facility] Comment on above: Order Comment: N Performed By: #### L 3300.1200, L505.7010, L3100.5800, L3100.5700, L500.3600, L3100.5475, L3100.3450 #### [facility] [address] [place], [address] Globulin (S) [Mass/Vol] 3.2 g/dL Normal 2.2-3.9 [facility] Comment on above: Order Comment: N Performed By: #### L 3300.1200, L505.7010, L3100.5800, L3100.5700, L500.3600, L3100.5475, L3100.3450 #### [facility] [address] [place], [address] DAVID RESULT,S Comment Normal . [facility] Comment on above: Order Comment: N Result Comment: No m onoclonality detected. Performed By: #### L 3300.1200, L505.7010, L3100.5800, L3100.5700, L500.3600, L3100.5475, L3100.3450 #### [facility] [address] [place], [address] IMMUNOGLOB A QN 277 mg/dL Normal 87-352 [facility] Comment on above: Order Comment: N Performed By: #### L 3300.1200, L505.7010, L3100.5800, L3100.5700, L500.3600, L3100.5475, L3100.3450 #### [facility] [address] [place], [address] IMMUNOGLOB G QN 834 mg/dL Normal 586-1602 [facility] Comment on above: Order Comment: N Performed By: #### L 3300.1200, L505.7010, L3100.5800, L3100.5700, L500.3600, L3100.5475, L3100.3450 #### [facility] [address] [place], [address] IMMUNOGLOB M QN 25 mg/dL Low 26-217 [facility] Comment on above: Order Comment: N Result Comment: Resu lt confirmed on concentration. Performed By: #### L 3300.1200, L505.7010, L3100.5800, L3100.5700, L500.3600, L3100.5475, L3100.3450 #### [facility] [address] [place], [address] M-Agustin Not Observed Normal Not Observed [facility] Comment on above: Order Comment: N Performed By: #### L 3300.1200, L505.7010, L3100.5800, L3100.5700, L500.3600, L3100.5475, L3100.3450 #### [facility] [address] [place], [address] NOTE: Comment Normal . [facility] Comment on above: Order Comment: N Result Comment: Prot ein electrophoresis scan will follow via computer, mail, or silverware buffing machine operator delivery. Performed By: #### L 3300.1200, L505.7010, L3100.5800, L3100.5700, L500.3600, L3100.5475, L3100.3450 #### [facility] [address] [place], [address] Protein [Mass/Vol] 6.5 g/dL Normal 6.0-8.5 [facility] Comment on above: Order Comment: N Performed By: #### L 3300.1200, L505.7010, L3100.5800, L3100.5700, L500.3600, L3100.5475, L3100.3450 #### [facility] [address] [place], [address] Internal Medicine Office Vis iton 06-10-2024 Internal Medicine Office Visit [facility] [place], [place] [address] OFFICE VISIT Date of Service: 06/10/24 MR#: [id number] Acct: [id number] Name: RENE RIDER Rep #: [id number] : 1955 Provider: Dr. Charity tristan MD Age/Sex: 69/F Location: [facility] Status: Signed Intake Vital Signs 03/09/24 13:46 06/08/24 10:10 06/10/24 14:42 Height 5 ft 4 ft 9 in 5 ft Weight: 220 lb 4 oz BMI 43.0 BP 120/82 H Blood Pressure Location Lt brachial Position Sitting Respiration 16 Pulse 102 H Pulse Source Monitor Temp 96.9 F L Temp Source Temporal Pulse Oximetry (%) 96 Oxygen Delivery Method room air Intake Visit Reasons: 3 M FU Chief Complaint: Follow-up chronic conditions Recreation Manager Required: No Accompanied by: Self Is patient in pain?: No Allergies Sulfa (Sulfonamide Antibiotics) Allergy (Severe, Verified 06/10/24 14:38) Anaphylaxis cigarette smoke Allergy (Mild, Verified 06/10/24 14:38) hoarsness house dust mite Allergy (Mild, Verified 06/10/24 14:38) hoarsness Medications ???Medication ???Instructions ???Recorded ???Confirmed ???Type vitamin C 500 mg-multivitamin with 1 tablet PO DAILY 07/05/2006/10 History minerals chewable tablet (Emergen-C) zinc gluconate 30 mg tablet 30 mg PO DAILY 07/05/20 06/10/24 H istory acetaminophen 500 mg tablet 1,000 mg PO Q6H PRN Pain 11/17/20 06/10/24 History (Tylenol Extra Strength) Handicap Placard #1 ea 07/23/22 06/10/24 Rx ascorbate calcium (vitamin C) 500 600 mg PO DAILY 10/22/22 06/10/24 History mg tablet cyclobenzaprine 10 mg tablet 10 mg PO TID PRN muscle spasm #90 10/22/22 06/10/24 Rx tabs compress.stocking,saravanane e,reg,lrg #2 ea 09/04/23 06/10/24 Rx hydrocortisone 2.5 % topical 1 applic topical BID PRN rash 08/1606/10/24 Rx ointment #28.35 grams metoprolol succinate 25 mg 25 mg PO DAILY #90 tabs 12/05/23 0 06/10/24 Rx tablet,extended release 24 hr amlodipine 10 mg tablet See Rx Instructions .Route 5 06/10/24 Rx .COMPLEX #90 tabs cholecalciferol (vitamin D3) 25 50 mcg PO DAILY 06/08/24 06/10/24 History mcg (1,000 unit) capsule Have you fallen in the past year?: No PFSH Medical History MGUS (monoclonal gammopathy of unknown significance) Blood glucose elevated Microalbuminuria CKD (chronic kidney disease), stage III Dermatitis Tachycardia Acute sinusitis, unspecified Chronic back pain Health care maintenance Colon cancer screening Scoliosis Cancer Anxiety Alcohol use Bladder disease Arthritis Migraine headache Non-smoker Leg cramps History of pain when walking Hypertension Preoperative evaluation to rule out surgical contraindication Osteoarthritis of right hip Right hip pain History of basal cell carcinoma History of pneumonia history of cracked palate history of club feet Hypertension Seasonal allergies Surgical History Status post Mohs surgery History of hip replacement, total H/O foot surgery History of Hx of rhinoplasty Family History Mother Hypertension Hyperlipemia Arthritis Father Hypertension Skin cancer Arthritis Social History household members: spouse housing: house Smoking Status: Never smoker alcohol intake: never substance use type: does not use what type of physical activity do you participate in: none do you feel safe at home: Yes HPI HPI Chief Complaint: Follow-up chronic conditions Details: RENE RIDER, is a 69 F who presents to the office today for follow-up of her chronic conditions. No acute concerns at this time. Blood pressure today at 120/82. Came in with her log which shows good control on average. Typically elevated heart rate during her visits, largely stable at home. She denies palpitations, chest tightness or shortness of breath. Was referred to nephrology due to CKD 3 with microalbuminuria. Following workup, was referred to oncology due to SPEP. Plan is for bone scan/study. Other chronic conditions are stable. ROS Const Constitutional: No body ache, excessive sweating, fatigue, fever(s), frequent falls, headache(s), snoring, weakness, weight change, sleep problems or change in appetite Eyes Eyes: No blurry vision, change in vision, bulging eyes, floaters, visual disturbances, eye pain or Light sensitivity ENT ENT: No abnormal hearing, ear or mastoid pain, tinnitus, balance problems, nosebleed/epistaxis, nasal congestion, headache(s), neck pain or sore throat Resp Respiratory: No cough, excessive phlegm production, pain on inspiration, shortness of breath, snoring or (more content not included)... Normal [facility] [place] Lambda Light Chainson 06-10-2024 FR KAPPA LT CHN 32.7 mg/L Abnormal 3.3-19.4 [facility] Comment on above: Performed By: #### L 3300.1200, L505.7010, L3100.5800, L3100.5700, L500.3600, L3100.5475, L3100.3450 #### [facility] [address] [place], [place], [id number] FR LAMBDA LT CH 18.8 mg/L Normal 5.7-26.3 [facility] Comment on above: Performed By: #### L 3300.1200, L505.7010, L3100.5800, L3100.5700, L500.3600, L3100.5475, L3100.3450 #### [facility] [address] [place], [address] KAPPA/LAMBDA % 1.74 Abnormal 0.26-1.65 [facility] Comment on above: Result Comment: Perf ormed at: [facility] [id number] School Janitor: Cj Fitch PhD, Phone: [phone] Performed By: #### L 3300.1200, L505.7010, L3100.5800, L3100.5700, L500.3600, L3100.5475, L3100.3450 #### [facility] [address] [place], [place], [address] Absolute lymphocyte countOrd ered By: Jordon Chaparro on 06-08-2024 Lymphocytes Auto (Unsp spec) [#/Vol] 1.63 10*3/uL 0.83-4.51 [facility] Absolute neutrophil countOrd ered By: Jordon Chaparro on 06-08-2024 Neutrophils (Bld) [#/Vol] 3.9 10*3/uL 2.0-7.7 [facility] Addendum DocumentOrdered By: Jordon Chaparro on 06-08-2024 Serum Immunofixation Comments Comment . [facility] Comment on above: Protein electrophore sis scan will follow via computer,mail, or silverware buffing machine operator delivery. Albumin Elph [Mass/Vol]Order ed By: Jordon Chaparro on 06-08-2024 Albumin [Mass/Vol] 3.3 g/dL 2.9-4.4 [facility] Alpha 1 globulin Elph [Mass/ Vol]Ordered By: Jordon Chaparro on 06-08-2024 Avttw-1-Djrbvwyjb (DAVID) 0.3 g/dL 0.0-0.4 [facility] Alwbb-1-Wgnqkzoyg (DAVID) 0.9 g/dL 0.4-1.0 [facility] Anion gap in Serum or Plasma Ordered By: Jordon Chaparro on 06-08-2024 Anion gap [Moles/Vol] 10 mmol/L 5-15 [facility] Automated lymphocyte count a s percentage of total leukocytesOrdered By: Jordon Chaparro on 06-08-2024 Lymphocytes/100 WBC Auto (Unsp spec) 26.4 % 19- [facility] BUN/creatinine ratioOrdered By: [facility] on 06-08-2024 Urea nitrogen/Creatinine [Mass ratio] 17.6 mg/mg 10-20 [facility] Basophil percentageOrdered B y: Jordon Chaparro on 06-08-2024 Basophils/100 WBC (Bld) 0.5 % 0-1 [facility] Beta globulin Elph [Mass/Vol ]Ordered By: Jordon Chaparro on 06-08-2024 Beta-Globulins (DAVID) 1.2 g/dL 0.7-1.3 [facility] Bilirubin Test strip Ql (U)O rdered By: Jordon Chaparro on 06-08-2024 Bilirubin Ql (U) Negative Negative [facility] Bilirubin, totalOrdered By: Jordon Chaparro on 06-08-2024 Bilirubin [Mass/Vol] 0.25 mg/dL 0.00-1.30 [facility] CBC W/Diff, Automatedon 05-17 Absolute Lymph 1.63 X10 3/uL Normal 0.83-4.51 [facility] Comment on above: Performed By: #### L 502.0250 #### [facility] [address] [place], [place], [address] Absolute Neut 3.9 X10 3/uL Normal 2.0-7.7 [facility] Comment on above: Performed By: #### L 502.0250 #### [facility] [address] [place], [address] Basophils/100 WBC (Bld) 0.5 % Normal 0-1 [facility] Comment on above: Performed By: #### L 502.0250 #### [facility] [address] [place], [address] Eosinophils/100 WBC (Bld) 2.6 % Normal 0-5 [facility] Comment on above: Performed By: #### L 502.0250 #### [facility] [address] [place], [address] Erythrocyte distribution width (RBC) [Ratio] 15.0 % High 11.6-14.6 [facility] Comment on above: Performed By: #### L 502.0250 #### [facility] [address] [place], [address] Hematocrit (Bld) [Volume fraction] 40.4 % Normal 37-47 [facility] Comment on above: Performed By: #### L 502.0250 #### [facility] [address] [place], [address] Hemoglobin (Bld) [Mass/Vol] 13.0 g/dL Normal 12.0-15. 0 [facility] Comment on above: Performed By: #### L 502.0250 #### [facility] [address] [place], [address] IG% 0.300 Normal 0.0-0.9 [facility] Comment on above: Result Comment: IG% - Immature Granulocytes (promyelocytes, myelocytes and metamyelocytes) > 1% indicates that a LEFT SHIFT is Present. Performed By: #### L 502.0250 #### [facility] [address] [place], [address] Lymphocytes/100 WBC (Bld) 26.4 % Normal 19-41 [facility] Comment on above: Performed By: #### L 502.0250 #### [facility] [address] [place], [address] MCH (RBC) [Entitic mass] 28.1 pg Normal 27.0-32.0 [facility] Comment on above: Performed By: #### L 502.0250 #### [facility] [address] [place], [address] MCHC (RBC) [Mass/Vol] 32.2 g/dL Normal 32-36 [facility] Comment on above: Performed By: #### L 502.0250 #### [facility] [address] [place], [address] MCV (RBC) [Entitic vol] 87.4 fL Normal 81-99 [facility] Comment on above: Performed By: #### L 502.0250 #### [facility] [address] [place], [address] Monocytes/100 WBC (Bld) 7.4 % Normal 0-10 [facility] Comment on above: Performed By: #### L 502.0250 #### [facility] [address] [place], [address] Neutrophils/100 WBC (Bld) 62.8 % Normal 47-70 [facility] Comment on above: Performed By: #### L 502.0250 #### [facility] [address] [place], [address] Nucleated RBC (Bld) [#/Vol] 0 10*3/uL Normal 0-5 [facility] Comment on above: Performed By: #### L 502.0250 #### [facility] [address] [place], [address] Platelet mean volume (Bld) [Entitic vol] 10.3 fL Normal 6.2-12.0 [facility] Comment on above: Performed By: #### L 502.0250 #### [facility] [address] [place], [address] Platelets (Bld) [#/Vol] 329 10*3/uL Normal 150-450 [facility] Comment on above: Performed By: #### L 502.0250 #### [facility] [address] [place], [address] RBC (Bld) [#/Vol] 4.62 10*6/uL Normal 4.2-5.4 [facility] Comment on above: Performed By: #### L 502.0250 #### [facility] [address] [place], [address] RDW SD 47.8 fl High 35.1-43.9 [facility] Comment on above: Performed By: #### L 502.0250 #### [facility] [address] [place], [address] WBC (Bld) [#/Vol] 6.2 10*3/uL Normal 4.4-11.0 [facility] Comment on above: Performed By: #### L 502.0250 #### [facility] [address] [place], [address] CRPon 06-08-2024 C-REACTIVE PROT 6.61 mg/L High 0.0-3.0 [facility] Comment on above: Performed By: #### L 3300.1200, L505.7010, L3100.5800, L3100.5700, L500.3600, L3100.5475, L3100.3450 #### [facility] [address] [place], [address] CRP [Mass/Vol]Ordered By: Madison Chaparro on 06-08-2024 C-Reactive Protein Extended Range 6.61 mg/L High 0.0-3.0 [facility] Carbon dioxide, total [Moles /volume] in Central venous bloodOrdered By: Jordon Chaparro on 06-08-2024 CO2 [Moles/Vol] 26.2 mmol/L 21.0-32.0 [facility] Chloride assayOrdered By: Madison Chaparro on 06-08-2024 Chloride [Moles/Vol] 103 mmol/L 98-108 [facility] Comprehensive Metabolic Prof ilon 06-08-2024 Albumin [Mass/Vol] 4.0 g/dL Normal 3.4-4.8 [facility] Comment on above: Performed By: #### L 3300.1200, L505.7010, L3100.5800, L3100.5700, L500.3600, L3100.5475, L3100.3450 #### [facility] [address] [place], [address] Albumin/Globulin [Mass ratio] 1.4 {ratio} Normal 0.9-2.4 [facility] Comment on above: Performed By: #### L 3300.1200, L505.7010, L3100.5800, L3100.5700, L500.3600, L3100.5475, L3100.3450 #### [facility] [address] [place], [address] ALK PHOS 71 U/L Normal 35-104 [facility] Comment on above: Performed By: #### L 3300.1200, L505.7010, L3100.5800, L3100.5700, L500.3600, L3100.5475, L3100.3450 #### [facility] [address] [place], [address] ALT [Catalytic activity/Vol] 12 U/L Normal <=34 [facility] Comment on above: Performed By: #### L 3300.1200, L505.7010, L3100.5800, L3100.5700, L500.3600, L3100.5475, L3100.3450 #### [facility] [address] [place], [address] AST [Catalytic activity/Vol] 16 U/L Normal <=31 [facility] Comment on above: Performed By: #### L 3300.1200, L505.7010, L3100.5800, L3100.5700, L500.3600, L3100.5475, L3100.3450 #### [facility] [address] [place], [address] Bilirubin [Mass/Vol] 0.25 mg/dL Normal 0.00-1.30 [facility] Comment on above: Performed By: #### L 3300.1200, L505.7010, L3100.5800, L3100.5700, L500.3600, L3100.5475, L3100.3450 #### [facility] [address] [place], [address] BUN/CRE 17.6 RATIO Normal 10-20 [facility] Comment on above: Performed By: #### L 3300.1200, L505.7010, L3100.5800, L3100.5700, L500.3600, L3100.5475, L3100.3450 #### [facility] [address] [place], [address] Calcium [Mass/Vol] 9.3 mg/dL Normal 7.6-11.0 [facility] Comment on above: Performed By: #### L 3300.1200, L505.7010, L3100.5800, L3100.5700, L500.3600, L3100.5475, L3100.3450 #### [facility] [address] [place], [address] Chloride [Moles/Vol] 103 mmol/L Normal 98-108 [facility] Comment on above: Performed By: #### L 3300.1200, L505.7010, L3100.5800, L3100.5700, L500.3600, L3100.5475, L3100.3450 #### [facility] [address] [place], [address] CO2 [Moles/Vol] 26.2 mmol/L Normal 21.0-32.0 [facility] Comment on above: Performed By: #### L 3300.1200, L505.7010, L3100.5800, L3100.5700, L500.3600, L3100.5475, L3100.3450 #### [facility] [address] [place], [address] Creatinine [Mass/Vol] 1.46 mg/dL High 0.70-1.20 [facility] Comment on above: Performed By: #### L 3300.1200, L505.7010, L3100.5800, L3100.5700, L500.3600, L3100.5475, L3100.3450 #### [facility] [address] [place], [place], [id number] (301) GAP 10 Normal 5-15 [facility] Comment on above: Performed By: #### L 3300.1200, L505.7010, L3100.5800, L3100.5700, L500.3600, L3100.5475, L3100.3450 #### [facility] [address] [place], [address] GFR/1.73 sq M.predicted among non-blacks MDRD (S/P/Bld) [Vol rate/Area] 39 mL/min/{1.73_m2} Low >60 [facility] Comment on above: Result Comment: mL/m in/1.73m2 CKD-EPI Creatinine Equation (2020) Performed By: #### L 3300.1200, L505.7010, L3100.5800, L3100.5700, L500.3600, L3100.5475, L3100.3450 #### [facility] [address] [place], [address] Globulin (S) [Mass/Vol] 2.9 g/dL Normal 2.2-4.2 [facility] Comment on above: Performed By: #### L 3300.1200, L505.7010, L3100.5800, L3100.5700, L500.3600, L3100.5475, L3100.3450 #### [facility] [address] [place], [address] Glucose [Mass/Vol] 103 mg/dL High 70-99 [facility] Comment on above: Performed By: #### L 3300.1200, L505.7010, L3100.5800, L3100.5700, L500.3600, L3100.5475, L3100.3450 #### [facility] [address] [place], [address] Potassium [Moles/Vol] 4.1 mmol/L Normal 3.3-5.1 [facility] Comment on above: Performed By: #### L 3300.1200, L505.7010, L3100.5800, L3100.5700, L500.3600, L3100.5475, L3100.3450 #### [facility] [address] [place], [address] Sodium [Moles/Vol] 138 mmol/L Normal 133-145 [facility] Comment on above: Performed By: #### L 3300.1200, L505.7010, L3100.5800, L3100.5700, L500.3600, L3100.5475, L3100.3450 #### [facility] [address] [place], [address] T PROT 6.9 g/dL Normal 5.9-8.4 [facility] Comment on above: Performed By: #### L 3300.1200, L505.7010, L3100.5800, L3100.5700, L500.3600, L3100.5475, L3100.3450 #### [facility] [address] [place], [address] Urea nitrogen [Mass/Vol] 26 mg/dL High 4-19 [facility] Comment on above: Performed By: #### L 3300.1200, L505.7010, L3100.5800, L3100.5700, L500.3600, L3100.5475, L3100.3450 #### [facility] [address] [place], [place], [address] Eosinophil percentageOrdered By: Jordon Chaparro on 06-08-2024 Eosinophils/100 WBC (Bld) 2.6 % 0-5 [facility] Epithelial cells.squamous LM Ql (Urine sed)Ordered By: Jordon Chaparro on 06-08-2024 Epithelial cells.squamous LM.HPF (Urine sed) [#/Area] 5 /[HPF] 5-10 [facility] Erythrocyte Sed Rateon 06-08 SED RATE 12 mm/hr Normal 0-30 [facility] Comment on above: Performed By: #### L 502.0250 #### [facility] [address] [place], [place], [address] Erythrocyte distribution wid th ratioOrdered By: Jordon Chaparro on 06-08-2024 Erythrocyte distribution width (RBC) [Ratio] 15.0 % High 11.6-14.6 [facility] Erythrocyte distribution wid th standard deviationOrdered By: Jordon Chaparro on 06-08-2024 Erythrocyte distribution width (RBC) [Entitic vol] 47.8 fL High 35.1-43.9 [facility] Erythrocyte distribution width (RBC) [Ratio] 47.8 fl High 35.1-43.9 [facility] Erythrocyte sedimentation ra teOrdered By: Jordon Chaparro on 06-08-2024 ESR (Bld) [Velocity] 12 mm/h 0-30 [facility] GFR/1.73 sq M.predicted abrahan g non-blacks MDRD (S/P/Bld) [Vol rate/Area]Ordered By: Jordon Chaparro on 06-08-2024 Estimated GFR (MDRD) Non-Af Amer 39 Low >60 [facility] Comment on above: mL/min/1.73m2 CKD-EP I Creatinine Equation (2020) Gamma globulin Elph [Mass/Vo l]Ordered By: Jordon Chaparro on 06-08-2024 Gamma Globulins (DAVID) 0.8 g/dL 0.4-1.8 [facility] Glomerular filtration rate ( GFR) estimation/1.73 sq m using serum, plasma, or whole bOrdered By: Jordon Chaparro on 06-08-2024 GFR/1.73 sq M.predicted among non-blacks MDRD (S/P/Bld) [Vol rate/Area] 39 mL/min/{1.73_m2} Low >60 [facility] Comment on above: mL/min/1.73m2 CKD-EP I Creatinine Equation (2020) Glucose Ql (U)Ordered By: Madison Chaparro on 06-08-2024 Urine Glucose (UA) Normal mg/dl Normal [facility] Hematocrit Auto (Bld) [Volum e fraction]Ordered By: Jordon Chaparro on 06-08-2024 Hematocrit (Bld) [Volume fraction] 40.4 % 37-47 [facility] Hemoglobin (Reticulocytes) [ Entitic mass]Ordered By: Jordon Chaparro on 06-08-2024 Reticulocyte Hemoglobin Equivalent 32.1 pg 30-35 [facility] Hemoglobin measurementOrdere d By: Jordon Chaparro on 06-08-2024 Hemoglobin (Bld) [Mass/Vol] 13.0 g/dL 12.0-15. 0 [facility] IgA [Mass/Vol]Ordered By: Madison Chaparro on 06-08-2024 Immunoglobulin A 277 mg/dL 87-352 [facility] IgG [Mass/Vol]Ordered By: Madison Chaparro on 06-08-2024 Immunoglobulin G 834 mg/dL [phone] [facility] Immature granulocytes/100 WB C Auto (Bld)Ordered By: Jordon Chaparro on 06-08-2024 Immature granulocytes/100 WBC (Bld) 0.300 % 0.0-0.9 [facility] Comment on above: IG% - Immature Granu locytes (promyelocytes, myelocytes and metamyelocytes) > 1% indicates that a LEFT SHIFT is Present. Immature reticulocyte fracti onOrdered By: Jordon Chaparro on 06-08-2024 Immature Reticulocyte Fraction 10.50 % 3.00-15.90 [facility] Immunoglobulin M measurement Ordered By: Jordon Chaparro on 06-08-2024 Immunoglobulin M 25 mg/dL Low 26-217 [facility] Comment on above: Result confirmed on concentration. Immunoglobulin light chains. kappa [Mass/Vol]Ordered By: Jordon Chaparro on 06-08-2024 Free [place] Light Chains, Quant 32.7 mg/L High 3.3-19.4 [facility] Immunoglobulin light chains. kappa/Immunoglobulin light chains.lambda (S) [Mass ratio]Ordered By: Jordon Chaparro on 06-08-2024 Free [place]/Lambda Light Chain Ratio 1.74 High 0.26-1.65 [facility] Comment on above: Performed at: [address] [id number] Director: Cj Fitch PhD, Phone: [phone] Interpretation IEP [Interp]O rdered By: Jordon Chaparro on 06-08-2024 Immunofixation Screen Comment . [facility] Comment on above: No monoclonality det ected. Interpretation of serum or p lasma protein pattern by immunofixation (narrative resultOrdered By: Jordon Chaparro on 06-08-2024 Protein Fractions Immunofixation Ceasar [Interp] Not Observed g/dL Not Observed [facility] Ketones Test strip Ql (U)Ord ered By: Jordon Chaparro on 06-08-2024 Ketones Ql (U) Negative Negative [facility] L503.0106on 06-08-2024 Cobalamin (Vitamin B12) [Mass/Vol] 416 pg/mL Normal 180-914 [facility] Comment on above: Performed By: #### L 3300.1200, L505.7010, L3100.5800, L3100.5700, L500.3600, L3100.5475, L3100.3450 #### [facility] [address] [place], [place], [address] LDHon 06-08-2024 LDH 160 U/L Normal 84-246 [facility] Comment on above: Order Comment: 1 Performed By: #### L 502.0250 #### [facility] [address] [place], [address] Laboratory - Chemistry and C hemistry - challengeOrdered By: Jordon Chaparro on 06-08-2024 AST [Catalytic activity/Vol] 16 U/L <32 [facility] Lactate dehydrogenase (LDH) measurementOrdered By: Jordon Chaparro on 06-08-2024 LDH [Catalytic activity/Vol] 160 U/L 84-246 [facility] Lambda free light chain nava urementOrdered By: Jordon Chaparro on 06-08-2024 Free Lambda Light Chains, Quant 18.8 mg/L 5.7-26.3 [facility] Lymphocytes Auto (Unsp spec) [#/Vol]Ordered By: Jordon Chaparro on 06-08-2024 Lymphocytes (Bld) [#/Vol] 1.63 10*3/uL 0.83-4.5 1 [facility] Lymphocytes/100 WBC Auto (Un sp spec)Ordered By: Jordon Chaparro on 06-08-2024 Lymphocytes/100 WBC (Bld) 26.4 % 19-41 [facility] MCV (mean corpuscular volume ) determinationOrdered By: Jordon Chaparro on 06-08-2024 MCV (RBC) [Entitic vol] 87.4 fL 81-99 [facility] Mean corpuscular hemoglobin (MCH) determinationOrdered By: Jordon Chaparro on 06-08-2024 MCH (RBC) [Entitic mass] 28.1 pg 27.0-32.0 [facility] Mean corpuscular hemoglobin concentration (MCHC) determinationOrdered By: Jordon Chaparro on 06-08-2024 MCHC (RBC) [Mass/Vol] 32.2 g/dL 32-36 [facility] Mean platelet volume determi nationOrdered By: Jordon Chaparro on 06-08-2024 Platelet mean volume (Bld) [Entitic vol] 10.3 fL 6.2-12.0 [facility] Microscopic analysis of urin e for red blood cells (RBC)Ordered By: Jordon Chaparro on 06-08-2024 Urine RBC 0-5 SEEN /hpf 0-5 [facility] Monocyte percentageOrdered B y: Jordon Chaparro on 06-08-2024 Monocytes/100 WBC (Bld) 7.4 % 0-10 [facility] Mucus LM Ql (Urine sed)Order ed By: Jordon Chaparro on 06-08-2024 Mucus Ql (Urine sed) 0 SEEN /hpf [facility] Neutrophil percentageOrdered By: Jordon Chaparro on 06-08-2024 Neutrophils/100 WBC (Bld) 62.8 % 47-70 [facility] Nitrite Test strip Ql (U)Ord ered By: Jordon Chaparro on 06-08-2024 Nitrite Ql (U) Negative Negative [facility] No Panel InformationOrdered By: Jordon Chaparro on 06-08-2024 Addendum Document Comment . [facility] Comment on above: Protein electrophore sis scan will follow via computer,mail, or silverware buffing machine operator delivery. Nucleated red blood cell per centageOrdered By: Jordon Chaparro on 06-08-2024 Nucleated RBC/100 WBC (Bld) [Ratio] 0 % 0-5 [facility] Oncology Visit Reporton 05-17 Oncology Visit Report [facility] [address] [place] [id number] OFFICE VISIT Date of Service: 06/08/24 1003 MR#: [id number] Acct: [id number] Name: RENE RIDER Rep #: [id number] : 1955 From: Jordon Chaparro MD Age/Sex: 69/F Location: [facility] Status: Signed HPI Subjective Date of Service 06/08/24 Chief Complaint Referred for abnormal SPEP. History of Present Illness 69-year-old woman was found to have creatinine of 1.57. SPEP on 05/28/2024 showed asymmetric gammaglobulin. She is now referred for further evaluation. She feels well, denies pain. [facility] Medical History (Updated 06/09/24 @ 16:[address] Jordon Chaparro MD) MGUS (monoclonal gammopathy of unknown significance) Blood glucose elevated Microalbuminuria CKD (chronic kidney disease), stage III Dermatitis Tachycardia Acute sinusitis, unspecified Chronic back pain Health care maintenance Colon cancer screening Scoliosis Cancer Anxiety Alcohol use Bladder disease Arthritis Migraine headache Non-smoker Leg cramps History of pain when walking Hypertension Preoperative evaluation to rule out surgical contraindication Osteoarthritis of right hip Right hip pain History of basal cell carcinoma History of pneumonia history of cracked palate history of club feet Hypertension Seasonal allergies Surgical History Status post Mohs surgery History of hip replacement, total H/O foot surgery History of Hx of rhinoplasty Family History Mother Hypertension Hyperlipemia Arthritis Father Hypertension Skin cancer Arthritis Social History household members: spouse housing: house Smoking Status: Never smoker alcohol intake: never substance use type: does not use what type of physical activity do you participate in: none do you feel safe at home: Yes ROS Constitutional Constitutional: Reports systems reviewed and no addt'l complaints, except as documented Eyes Eyes: Reports systems reviewed and no addt'l complaints, except as documented ENT HEENT: Reports systems reviewed and no addt'l complaints, except as documented Cardiovascular Cardiovascular: Reports systems reviewed and no addt'l complaints, except as documented Respiratory/Chest Respiratory/Chest: Reports systems reviewed and no addt'l complaints, except as documented Gastrointestinal Gastrointestinal: Reports systems reviewed and no addt'l complaints, except as documented Genitourinary Genitourinary: Reports systems reviewed and no addt'l complaints, except as documented Musculoskeletal Musculoskeletal: Reports systems reviewed and no addt'l complaints, except as documented Integumentary Integumentary: Reports systems reviewed and no addt'l complaints, except as documented Neurologic Neurologic: Reports systems reviewed and no addt'l complaints, except as documented Psychiatric Psychiatric: Reports systems reviewed and no addt'l complaints, except as documented Endocrine Endocrinology: Reports systems reviewed and no addt'l complaints, except as documented Hematologic/Lymphatic Hematologic/Lymphatic : Reports systems reviewed and no addt'l complaints, except as documented Allergic/Immunologic Allergic/Immunologic: Reports systems reviewed and no addt'l complaints, except as documented Intake Vital Signs 03/09/24 13:46 06/08/24 10:07 06/08/24 10:09 06/08/24 10:10 Height 5 ft 4 ft 9 in 5 ft 4 ft 9 in Weight: 100.329 kg 100.329 kg BMI 47.8 47.8 BP 128/83 H Blood Pressure Location Lt brachial Position Sitting Respiration 18 Pulse 103 H Pulse Source Monitor Temp 98.5 F Temperature Source Temporal Artery Pulse Oximetry (%) 99 Oxygen Delivery Method room air Intake Is patient in pain?: No Allergies Sulfa (Sulfonamide Antibiotics) Allergy (Severe, Verified 06/08/24 10:04) Anaphylaxis cigarette smoke Allergy (Mild, Verified 06/08/24 10:04) hoarsness house dust mite Allergy (Mild, Verified 06/08/24 10:04) hoarsness Medications ???Medication ???Instructions ???Recorded ???Confirmed ???Type vitamin C 500 mg-multivitamin with 1 tablet PO DAILY 07/05/2006/08 History minerals chewable tablet (Emergen-C) zinc gluconate 30 mg tablet 30 mg PO DAILY 07/05/20 06/08/24 H istory acetaminophen 500 mg tablet 1,000 mg PO Q6H PRN Pain 11/17/20 06/08/24 History (Tylenol Extra Strength) Handicap Placard #1 ea 07/23/22 06/08/24 Rx ascorbate calcium (vitamin C) 500 600 mg PO DAILY 10/22/22 06/08/24 History mg tablet cyclobenzaprine 10 mg tablet 10 mg PO TID PRN muscle spasm #90 10/22/22 06/08/24 Rx tabs compress.juanjo,paulina e,reg,lrg #2 (more content not included)... Normal [facility] Platelet countOrdered By: Madison Chaparro on 06-08-2024 Platelets (Bld) [#/Vol] 329 10*3/uL 150-450 [facility] Potassium (Unsp spec) [Mass/ Vol]Ordered By: Jordon Chaparro on 06-08-2024 Potassium [Moles/Vol] 4.1 mmol/L 3.3-5.1 [facility] Potassium measurement (mass/ volume)Ordered By: Jordon Chaparro on 06-08-2024 Potassium (Unsp spec) [Mass/Vol] 4.1 mmol/L 3.3-5.1 [facility] Protein Fractions Immunofixa tion Ceasar [Interp]Ordered By: Jordon Chaparro on 06-08-2024 M-Agustin (DAVID) Not Observed g/dL Not Observed [facility] Protein Test strip Ql (U)Ord ered By: Jordon Chaparro on 06-08-2024 Protein Ql (U) 500 mg/dl High Negative [facility] RBC Auto (Bld) [#/Vol]Ordere d By: Jordon Chaparro on 06-08-2024 RBC (Bld) [#/Vol] 4.62 10*6/uL 4.2-5.4 [facility] Retic Panelon 06-08-2024 IM RET FRACTION 10.50 Normal 3.00-15.90 [facility] Comment on above: Performed By: #### L 502.0250 #### [facility] [address] [place], [address] RET-HE 32.1 pg Normal 30-35 [facility] Comment on above: Performed By: #### L 502.0250 #### [facility] [address] [place], [address] Retic Count 1.31 Normal 0.5-1.5 [facility] Comment on above: Performed By: #### L 502.0250 #### [facility] [address] [place], [address] Reticulocyte hemoglobin equi valent (RET-He) measurementOrdered By: Jordon Chaparro on 06-08-2024 Hemoglobin (Reticulocytes) [Entitic mass] 32.1 pg 30-35 [facility] Reticulocytes Auto (Bld) [#/ Vol]Ordered By: Jordon Chaparro on 06-08-2024 Reticulocyte Count 1.31 % 0.5-1.5 [facility] Reticulocytes/100 RBC (Bld) 1.31 % 0.5-1.5 [facility] Serum albumin/globulin ratio Ordered By: Jordon Chaparro on 06-08-2024 Albumin/Globulin (DAVID) 1.1 0.7-1.7 [facility] Serum creatinine measurement (mass/volume)Ordered By: Jordon Chaparro on 06-08-2024 Creatinine [Mass/Vol] 1.46 mg/dL High 0.70-1.20 [facility] Serum globulin measurement ( mass/volume)Ordered By: Jordon Chaparro on 06-08-2024 Globulin (S) [Mass/Vol] 3.2 g/dL 2.2-3.9 [facility] Serum glucose measurement (m ass/volume)Ordered By: Jordon Chaparro on 06-08-2024 Glucose [Mass/Vol] 103 mg/dL High 70-99 [facility] Serum immunoglobulin kappa l ight chains/immunoglobulin lambda light chains mass ratioOrdered By: Jordon Chaparro on 06-08-2024 Immunoglobulin light chains.kappa/Immunoglobulin light chains.lambda (S) [Mass ratio] 1.74 High 0.26-1.65 [facility] Comment on above: Performed at: [place] [id number] Director: Cj Fitch PhD, Phone: [phone] Serum or plasma C reactive p rotein measurement (mass/volume)Ordered By: Jordon Chaparro on 06-08-2024 CRP [Mass/Vol] 6.61 mg/L High 0.0-3.0 [facility] Serum or plasma IgA measurem ent (mass/volume)Ordered By: Jordon Chaparro on 06-08-2024 IgA [Mass/Vol] 277 mg/dL 87-352 [facility] Serum or plasma IgG measurem ent (mass/volume)Ordered By: Jordon Chaparro on 06-08-2024 IgG [Mass/Vol] 834 mg/dL 586-1602 [facility] Serum or plasma alanine vidal otransferase (ALT) measurementOrdered By: Jordon Chaparro on 06-08-2024 ALT [Catalytic activity/Vol] 12 U/L <35 [facility] Serum or plasma albumin nava urement (mass/volume)Ordered By: Jordon Chaparro on 06-08-2024 Albumin [Mass/Vol] 4.0 g/dL 3.4-4.8 [facility] Serum or plasma albumin/glob ulin mass ratioOrdered By: Jordon Chaparro on 06-08-2024 Albumin/Globulin [Mass ratio] 1.4 {ratio} 0.9-2.4 [facility] Serum or plasma alkaline camryn sphatase measurementOrdered By: Jordon Chaparro on 06-08-2024 ALP [Catalytic activity/Vol] 71 U/L 35-104 [facility] Serum or plasma alpha 1 glob ulin measurement by electrophoresis (mass/volume)Ordered By: Jordon Chaparro on 06-08-2024 Alpha 1 globulin Elph [Mass/Vol] 0.3 g/dL 0.0-0.4 [facility] Alpha 1 globulin Elph [Mass/Vol] 0.9 g/dL 0.4-1.0 [facility] Serum or plasma beta globuli n measurement by electrophoresis (mass/volume)Ordered By: Jordon Chaparro on 06-08-2024 Beta globulin Elph [Mass/Vol] 1.2 g/dL 0.7-1.3 [facility] Serum or plasma calcium nava urement (mass/volume)Ordered By: Jordon Chaparro on 06-08-2024 Calcium [Mass/Vol] 9.3 mg/dL 7.6-11.0 [facility] Serum or plasma gamma globul in measurement by electrophoresis (mass/volume)Ordered By: Jordon Chaparro on 06-08-2024 Gamma globulin Elph [Mass/Vol] 0.8 g/dL 0.4-1.8 [facility] Serum or plasma immunoelectr ophoresis interpretation (nominal result)Ordered By: Jordon Chaparro on 06-08-2024 Interpretation IEP [Interp] Comment . [facility] Comment on above: No monoclonality det ected. Serum or plasma immunoglobul in kappa light chains measurement (mass/volume)Ordered By: Jordon Chaparro on 06-08-2024 Immunoglobulin light chains.kappa [Mass/Vol] 32.7 mg/L High 3.3-19.4 [facility] Serum or plasma protein nava urement (mass/volume)Ordered By: Jordon Chaparro on 06-08-2024 Protein [Mass/Vol] 6.5 g/dL 6.0-8.5 [facility] Serum or plasma urea nitroge n measurement (mass/volume)Ordered By: Jordon Chaparro on 06-08-2024 Urea nitrogen [Mass/Vol] 26 mg/dL High 4-19 [facility] Serum or plasma uric acid me asurement (mass/volume)Ordered By: Jordon Chaparro on 06-08-2024 Urate [Mass/Vol] 7.1 mg/dL High 2.6-6.0 [facility] Comment on above: The drugs N-Acetylcy steine and Metamizole may falsely depress this assay. Sodium levelOrdered By: Steve Chaparro on 06-08-2024 Sodium [Moles/Vol] 138 mmol/L 133-145 [facility] Total proteinOrdered By: Adrian swapnil Chaparro on 06-08-2024 Protein [Mass/Vol] 6.9 g/dL 5.9-8.4 [facility] Uric Acidon 06-08-2024 URIC 7.1 mg/dL High 2.6-6.0 [facility] Comment on above: Result Comment: The drugs N-Acetylcysteine and Metamizole may falsely depress this assay. Performed By: #### L 502.0250 #### [facility] [address] [place], [address] Urinalysis, Completeon 06-08 RBC 0-5 SEEN Normal 0-5 [facility] Comment on above: Order Comment: Urine , Random Performed By: #### L 502.0250 #### [facility] [address] [place], [address] EPI,SQUAMOUS 5-10 SEEN Normal 5-10 [facility] Comment on above: Order Comment: Urine , Random Performed By: #### L 502.0250 #### [facility] [address] [place], [address] BACTERIA 0 SEEN Normal None Seen [facility] Comment on above: Order Comment: Urine , Random Performed By: #### L 502.0250 #### [facility] [address] [place], [address] Mucus Ql (Urine sed) 0 SEEN Normal [facility] Comment on above: Order Comment: Urine , Random Performed By: #### L 502.0250 #### [facility] [address] [place], [address] WBC 0 SEEN Normal 0-5 [facility] Comment on above: Order Comment: Urine , Random Performed By: #### L 502.0250 #### [facility] [address] [place], [address] Urine blood detectionOrdered By: Jordon Chaparro on 06-08-2024 Urine Occult Blood 250 /ul High Negative [facility] Urine clarityOrdered By: Adrian Chaparro on 06-08-2024 Clarity (U) Clear Clear [facility] Urine color determinationOrd ered By: Jordon Chaparro on 06-08-2024 Color (U) Yellow Yellow [facility] Urine leukocyte esterase det ection by dipstickOrdered By: Jordon Chaparro on 06-08-2024 Leukocyte esterase Test strip Ql (U) Negative Negative [facility] Urine pHOrdered By: Jordon carranza on 06-08-2024 pH (U) 6.0 [pH] 5.0 - 8.0 [facility] Urine sediment bacteria coun t by microscopy (number/high power field)Ordered By: Jordon Chaparro on 06-08-2024 Bacteria LM.HPF (Urine sed) [#/Area] 0 /[HPF] None Seen [facility] Urine specific gravity measu rementOrdered By: Jordon Chaparro on 06-08-2024 Specific gravity (U) [Rel density] 1.015 1.002-1.030 [facility] Urobilinogen Ql (U)Ordered B y: Jordon Chaparro on 06-08-2024 Urine Urobilinogen Normal mg/dl Normal [facility] Vitamin B12 ser/plasOrdered By: Jordon Chaparro on 06-08-2024 Cobalamin (Vitamin B12) [Mass/Vol] 416 pg/mL 180-914 [facility] White blood cell (WBC) count Ordered By: Jordon Chaparro on 06-08-2024 WBC (Bld) [#/Vol] 6.2 10*3/uL 4.4-11.0 [facility] White blood cell countOrdere d By: Jordon Chaparro on 06-08-2024 Urine WBC 0 SEEN /hpf 0-5 [facility] ANCAon 06-01-2024 Atypical pANCA <1:20 Normal Neg:<1:20 [facility] Comment on above: Result Comment: The atypical pANCA pattern has been observed in a significant percentage of patients with ulcerative colitis, primary sclerosing cholangitis and autoimmune hepatitis. Performed By: #### L 3300.1200, L505.7010, L3100.5800, L3100.5700, L500.3600, L3100.5475, L3100.3450 ####[facility] [address] [place], [place], [id number] Cytoplasmic Ab <1:20 Normal Neg:<1:20 [facility] Comment on above: Performed By: #### L 3300.1200, L505.7010, L3100.5800, L3100.5700, L500.3600, L3100.5475, L3100.3450 ####[facility] [address] [place], [place], [phone] Perinuclear Ab. <1:20 Normal Neg:<1:20 [facility] Comment on above: Result Comment: The presence of positive fluorescence exhibiting P-ANCA or C-ANCA patterns alone is not specific for the diagnosis of Ilsa's Granulomatosis (WG) or microscopic polyangiitis. Decisions about treatment should not be based solely on ANCA IFA results. The International ANCA [employer] Consensus recommends follow up testing of positive sera with both OK- 3 and MPO-ANCA enzyme immunoassays. As many as 5% serum samples are positive only by EIA. Ref. AM J Clin Pathol 1999;111:507-513. Performed By: #### L 3300.1200, L505.7010, L3100.5800, L3100.5700, L500.3600, L3100.5475, L3100.3450 ####[facility] [address] [place], [place], [phone] ANTINUCLEAR ANTIBODIES DIRE Ton 06-01-2024 WHITNEY,DIRECT Negative Normal Negative [facility] Comment on above: Result Comment: Perf ormed at: [facility] [address] [id number] School Janitor: Cj Fitch PhD, Phone: [phone] Performed By: #### L 3300.1200, L505.7010, L3100.5800, L3100.5700, L500.3600, L3100.5475, L3100.3450 #### [facility] [address] [place], [address] Complement C3on 06-01-2024 COMP C3 144 mg/dL Normal 82-167 [facility] Comment on above: Result Comment: Perf ormed at: [facility] [address] [id number] School Janitor: Cj Fitch PhD, Phone: [phone] Performed By: #### L 3300.1200, L505.7010, L3100.5800, L3100.5700, L500.3600, L3100.5475, L3100.3450 #### [facility] [address] [place], [place], [address] Complement C4on 06-01-2024 COMPLEMENT, C4 38 mg/dL Normal 12-38 [facility] Comment on above: Performed By: #### L 3300.1200, L505.7010, L3100.5800, L3100.5700, L500.3600, L3100.5475, L3100.3450 #### [facility] [address] [place], [place], [id number] Protein Electroph, Son 06-01 Albumin [Mass/Vol] 3.3 g/dL Normal 2.9-4.4 [facility] Comment on above: Performed By: #### L 3300.1200, L505.7010, L3100.5800, L3100.5700, L500.3600, L3100.5475, L3100.3450 #### [facility] [address] [place], [address] Albumin/Globulin [Mass ratio] 1.0 {ratio} Normal 0.7-1.7 [facility] Comment on above: Performed By: #### L 3300.1200, L505.7010, L3100.5800, L3100.5700, L500.3600, L3100.5475, L3100.3450 #### [facility] [address] [place], [address] ALPHA-1 GLOBUL 0.3 g/dL Normal 0.0-0.4 [facility] Comment on above: Performed By: #### L 3300.1200, L505.7010, L3100.5800, L3100.5700, L500.3600, L3100.5475, L3100.3450 #### [facility] [address] [place], [address] ALPHA-2 GLOBUL 0.9 g/dL Normal 0.4-1.0 [facility] Comment on above: Performed By: #### L 3300.1200, L505.7010, L3100.5800, L3100.5700, L500.3600, L3100.5475, L3100.3450 #### [facility] [address] [place], [address] BETA GLOBULIN 1.2 g/dL Normal 0.7-1.3 [facility] Comment on above: Performed By: #### L 3300.1200, L505.7010, L3100.5800, L3100.5700, L500.3600, L3100.5475, L3100.3450 #### [facility] [address] [place], [address] GAMMA GLOBULIN 0.8 g/dL Normal 0.4-1.8 [facility] Comment on above: Performed By: #### L 3300.1200, L505.7010, L3100.5800, L3100.5700, L500.3600, L3100.5475, L3100.3450 #### [facility] [address] [place], [address] Globulin (S) [Mass/Vol] 3.2 g/dL Normal 2.2-3.9 [facility] Comment on above: Performed By: #### L 3300.1200, L505.7010, L3100.5800, L3100.5700, L500.3600, L3100.5475, L3100.3450 #### [facility] [address] [place], [place], [id number] INTERPRETATION Comment Normal . [facility] Comment on above: Result Comment: Prot ein electrophoresis scan will follow via computer, mail, or silverware buffing machine operator delivery. Performed By: #### L 3300.1200, L505.7010, L3100.5800, L3100.5700, L500.3600, L3100.5475, L3100.3450 #### [facility] [address] [place], [place], [id number] M-SPIKE Comment: Normal Not Observed [facility] Comment on above: Result Comment: ASYM METRICAL GAMMA Performed By: #### L 3300.1200, L505.7010, L3100.5800, L3100.5700, L500.3600, L3100.5475, L3100.3450 #### [facility] [address] [place], [place], [id number] NOTE: Comment Normal . [facility] Comment on above: Result Comment: Mellissa t band in gamma region suspicious for monoclonal immunoglobulin. This band may represent a benign spike as seen in older people or could be a paraprotein as seen in Multiple Myeloma, Waldenstrom's Macroglobulinemia or Lymphoma. Depending on clinical circumstances, further diagnostic studies may include serum immunofixation or serum free light chain quantitation. Performed By: #### L 3300.1200, L505.7010, L3100.5800, L3100.5700, L500.3600, L3100.5475, L3100.3450 #### [facility] [address] [place], [address] Protein [Mass/Vol] 6.5 g/dL Normal 6.0-8.5 [facility] Comment on above: Performed By: #### L 3300.1200, L505.7010, L3100.5800, L3100.5700, L500.3600, L3100.5475, F3746.0924 #### [facility] [address] [place], [place], [address] WHITNEY serumOrdered By: Naila Lyon on 05-28-2024 Anti-Nuclear Antibody Screen Negative Negative [facility] Comment on above: Performed at: [facility] [place] [id number] Director: Cj Fitch PhD, Phone: [phone] Addendum DocumentOrdered By: Tara Lyon on 05-28-2024 Protein Electrophoresis Note Comment . [facility] Comment on above: Faint band in gamma region suspicious for monoclonalimmunoglobulin. This band may represent a benign spike asseen in older people or could be a paraprotein as seen inMultiple Myeloma, Waldenstrom's Macroglobulinemia orLymphoma. Depending on clinical circumstances, furtherdiagnostic studies may include serum immunofixation orserum free light chain quantitation. Albumin Elph [Mass/Vol]Order ed By: Tara Lyon on 05-28-2024 Albumin [Mass/Vol] 3.3 g/dL 2.9-4.4 [facility] Albumin/Globulin Elph [Mass ratio]Ordered By: Tara Lyon on 05-28-2024 Albumin/Globulin (PEP) 1.0 0.7-1.7 [facility] Tqvqu-5-odfxekxg measurement by protein electrophoresisOrdered By: Tara Lyon on 05-28-2024 Areiy-6-Kqxlsaxiz 0.3 g/dL 0.0-0.4 [facility] Ddwxk-6-lxwqrgrh measurement by protein electrophoresisOrdered By: Tara Lyon on 05-28-2024 Ckouw-0-Kzjixpglw 0.9 g/dL 0.4-1.0 [facility] Anion gap in Serum or Plasma Ordered By: Tara Lyon on 05-28-2024 Anion gap [Moles/Vol] 12 mmol/L 5-15 [facility] Atypical perinuclear antineu trophil cytoplasmic antibodies measurementOrdered By: Tara Lyon on 05-28-2024 Atypical p-ANCA <1:20 titer Neg:<1:20 [facility] Comment on above: The atypical pANCA p attern has been observed in asignificant percentage of patients with ulcerative colitis,primary sclerosing cholangitis and autoimmune hepatitis. BUN/creatinine ratioOrdered By: Tara Lyon on 05-28-2024 Urea nitrogen/Creatinine [Mass ratio] 16.1 mg/mg 10-20 [facility] Beta globulin Elph [Mass/Vol ]Ordered By: Tara Lyon on 05-28-2024 Beta Globulins 1.2 g/dL 0.7-1.3 [facility] Carbon dioxide, total [Moles /volume] in Central venous bloodOrdered By: Tara Lyon on 05-28-2024 CO2 [Moles/Vol] 25.3 mmol/L 21.0-32.0 [facility] Chloride assayOrdered By: Eileen Lyon on 05-28-2024 Chloride [Moles/Vol] 102 mmol/L 98-108 [facility] Complement C3 assayOrdered B y: Tara Lyon on 05-28-2024 Complement C3 144 mg/dL 82-167 [facility] Comment on above: Performed at: [address] Director: Cj Fitch PhD, Phone: [phone] Complement C4 [Mass/Vol]Orde red By: Tara Lyon on 05-28-2024 Complement C4 38 mg/dL 12-38 [facility] GFR/1.73 sq M.predicted abrahan g non-blacks MDRD (S/P/Bld) [Vol rate/Area]Ordered By: Tara Lyon on 05-28-2024 Estimated GFR (MDRD) Non-Af Amer 36 Low >60 [facility] Comment on above: mL/min/1.73m2 CKD-EP I Creatinine Equation (2020) Gamma globulin measurement b y protein electrophoresisOrdered By: Tara Lyon on 05-28-2024 Gamma Globulins 0.8 g/dL 0.4-1.8 [facility] Globulin (S) [Mass/Vol]Order ed By: Tara Lyon on 05-28-2024 Globulin (PEP) 3.2 g/dL 2.2-3.9 [facility] Glomerular filtration rate ( GFR) estimation/1.73 sq m using serum, plasma, or whole bOrdered By: Tara Lyon on 05-28-2024 GFR/1.73 sq M.predicted among non-blacks MDRD (S/P/Bld) [Vol rate/Area] 36 mL/min/{1.73_m2} Low >60 [facility] Comment on above: mL/min/1.73m2 CKD-EP I Creatinine Equation (2020) Neutrophil cytoplasmic Ab.cl assic Qn (S)Ordered By: Tara Lyon on 05-28-2024 Cytoplasmic ANCA (c-ANCA) Antibody <1:20 titer Neg:<1:20 [facility] Neutrophil cytoplasmic Ab.pe rinuclear IF (S) [Titer]Ordered By: Tara Lyon on 05-28-2024 Perinuclear ANCA (p-ANCA) Antibody <1:20 titer Neg:<1:20 [facility] Comment on above: The presence of posi tive fluorescence exhibiting P-ANCA orC-ANCA patterns alone is not specific for the diagnosis ofWegener's Granulomatosis (WG) or microscopic polyangiitis.Decisions about treatment should not be based solely onANCA IFA results. The [employer] AN[employer] Consensusrecommends follow up testing of positive sera with both OK-3 and MPO-ANCA enzyme immunoassays. As many as 5% serumsamples are positive only by EIA. Ref. AM J Clin Odhkjq8112;111:507-513. No Panel InformationOrdered By: Tara Lyon on 05-28-2024 Addendum Document Comment . [facility] Comment on above: Faint band in gamma region suspicious for monoclonalimmunoglobulin. This band may represent a benign spike asseen in older people or could be a paraprotein as seen inMultiple Myeloma, Waldenstrom's Macroglobulinemia orLymphoma. Depending on clinical circumstances, furtherdiagnostic studies may include serum immunofixation orserum free light chain quantitation. Potassium (Unsp spec) [Mass/ Vol]Ordered By: Tara Lyon on 05-28-2024 Potassium [Moles/Vol] 4.1 mmol/L 3.3-5.1 [facility] Potassium measurement (mass/ volume)Ordered By: Tara Lyon on 05-28-2024 Potassium (Unsp spec) [Mass/Vol] 4.1 mmol/L 3.3-5.1 [facility] Protein Fractions Elph [Inte rp]Ordered By: Tara Lyon on 05-28-2024 Protein Electrophoresis Interpret Comment . [facility] Comment on above: Protein electrophore sis scan will follow via computer,mail, or silverware buffing machine operator delivery. Protein Fractions [Interp] Comment . [facility] Comment on above: Protein electrophore sis scan will follow via computer,mail, or silverware buffing machine operator delivery. Protein.monoclonal Elph [Mas s/Vol]Ordered By: Tara Lyon on 05-28-2024 Protein Electrophoresis M-Agustin Comment: g/dL Not Observed [facility] Comment on above: ASYMMETRICAL GAMMA Renal Profileon 05-28-2024 Phosphate [Mass/Vol] 3.8 mg/dL Normal 2.7-4.5 [facility] Comment on above: Performed By: #### L 3300.1200, L505.7010, L3100.5800, L3100.5700, L500.3600, L3100.5475, L3100.3450 #### [facility] [address] [place], [address] Rheumatoid Factoron 05-29-19 25 RHEUMATOID FAC < 10.0 Normal <15 [facility] Comment on above: Performed By: #### L 3300.1200, L505.7010, L3100.5800, L3100.5700, L500.3600, L3100.5475, L3100.3450 #### [facility] [address] [place], [address] Rheumatoid factor Ql (S)Orde red By: Tara Lyon on 05-28-2024 Rheumatoid Factor < 10.0 IU/mL <15 [facility] Serum albumin to globulin ra lalit by protein electrophoresisOrdered By: Tara Lyon on 05-28-2024 Albumin/Globulin Elph [Mass ratio] 1.0 0.7-1.7 [facility] Serum classic neutrophil cyt oplasmic antibody assay (units/volume)Ordered By: Tara Lyon on 05-28-2024 Neutrophil cytoplasmic Ab.classic Qn (S) <1:20 titer Neg:<1:20 [facility] Serum creatinine measurement (mass/volume)Ordered By: Tara Lyon on 05-28-2024 Creatinine [Mass/Vol] 1.57 mg/dL High 0.70-1.20 [facility] Serum globulin measurement ( mass/volume)Ordered By: Tara Lyon on 05-28-2024 Globulin (S) [Mass/Vol] 3.2 g/dL 2.2-3.9 [facility] Serum glucose measurement (m ass/volume)Ordered By: Tara Lyon on 05-28-2024 Glucose [Mass/Vol] 101 mg/dL High 70-99 [facility] Serum or plasma albumin nava urement (mass/volume)Ordered By: Tara Lyon on 05-28-2024 Albumin [Mass/Vol] 3.9 g/dL 3.4-4.8 [facility] Serum or plasma beta globuli n measurement by electrophoresis (mass/volume)Ordered By: Tara Lyon on 05-28-2024 Beta globulin Elph [Mass/Vol] 1.2 g/dL 0.7-1.3 [facility] Serum or plasma calcium nava urement (mass/volume)Ordered By: Tara Lyon on 05-28-2024 Calcium [Mass/Vol] 9.9 mg/dL 7.6-11.0 [facility] Serum or plasma complement C 4 measurement (mass/volume)Ordered By: Tara Lyon on 05-28-2024 Complement C4 [Mass/Vol] 38 mg/dL 12-38 [facility] Serum or plasma protein nava urement (mass/volume)Ordered By: Tara Lyon on 05-28-2024 Protein [Mass/Vol] 6.5 g/dL 6.0-8.5 [facility] Serum or plasma protein mono clonal measurement by electrophoresis (mass/volume)Ordered By: Tara Lyon on 05-28-2024 Protein.monoclonal Elph [Mass/Vol] Comment: g/dL Not Observed [facility] Comment on above: ASYMMETRICAL GAMMA Serum or plasma urea nitroge n measurement (mass/volume)Ordered By: Tara Lyon on 05-28-2024 Urea nitrogen [Mass/Vol] 25 mg/dL High 4-19 [facility] Serum perinuclear neutrophil cytoplasmic antibody titer by immunofluorescenceOrdered By: Tara Lyon on 05-28-2024 Neutrophil cytoplasmic Ab.perinuclear IF (S) [Titer] <1:20 titer Neg:<1:20 [facility] Comment on above: The presence of posi tive fluorescence exhibiting P-ANCA orC-ANCA patterns alone is not specific for the diagnosis ofWegener's Granulomatosis (WG) or microscopic polyangiitis.Decisions about treatment should not be based solely onANCA IFA results. The [employer] ANCA [employer] Consensusrecommends follow up testing of positive sera with both OK-3 and MPO-ANCA enzyme immunoassays. As many as 5% serumsamples are positive only by EIA. Ref. AM J Clin Orxprc0360;111:507-513. Serum phosphorus measurement Ordered By: Tara Lyon on 05-28-2024 Phosphorus Level 3.8 mg/dL 2.7-4.5 [facility] Serum rheumatoid factor dete ctionOrdered By: Tara Lyon on 05-28-2024 Rheumatoid factor Ql (S) < 10.0 IU/mL <15 [facility] Sodium levelOrdered By: Juhi Lyon on 05-28-2024 Sodium [Moles/Vol] 140 mmol/L 133-145 [facility] Protein Electro.Ur-Randomon 05-06-2024 M-SPIKE,U Normal [facility] Comment on above: Result Comment: NOT OBSERVED Performed By: #### L 3300.1200, L505.7010, L3100.5800, L3100.5700, L500.3600, L3100.5475, L3100.3450 #### [facility] [address] [place], [place], [id number] CBC-Complete Blood Cnt No Di ffon 05-04-2024 HCT Normal 37-47 [facility] Comment on above: Result Comment: ONLY NEEDED THE PTH Performed By: #### L 3300.1200, L505.7010, L3100.5800, L3100.5700, L500.3600, L3100.5475, L3100.3450 #### [facility] [address] [place], [place], [id number] HGB Normal 12.0-15.0 [facility] Comment on above: Result Comment: ONLY NEEDED THE PTH Performed By: #### L 3300.1200, L505.7010, L3100.5800, L3100.5700, L500.3600, L3100.5475, L3100.3450 #### [facility] [address] [place], [address] MCH Normal 27.0-32.0 [facility] Comment on above: Result Comment: ONLY NEEDED THE PTH Performed By: #### L 3300.1200, L505.7010, L3100.5800, L3100.5700, L500.3600, L3100.5475, L3100.3450 #### [facility] [address] [place], [address] MCHC Normal 32-36 [facility] Comment on above: Result Comment: ONLY NEEDED THE PTH Performed By: #### L 3300.1200, L505.7010, L3100.5800, L3100.5700, L500.3600, L3100.5475, L3100.3450 #### [facility] [address] [place], [address] MCV Normal 81-99 [facility] Comment on above: Result Comment: ONLY NEEDED THE PTH Performed By: #### L 3300.1200, L505.7010, L3100.5800, L3100.5700, L500.3600, L3100.5475, L3100.3450 #### [facility] [address] [place], [address] PLT Normal 150-450 [facility] Comment on above: Result Comment: ONLY NEEDED THE PTH Performed By: #### L 3300.1200, L505.7010, L3100.5800, L3100.5700, L500.3600, L3100.5475, L3100.3450 #### [facility] [address] [place], [address] RBC Normal 4.2-5.4 [facility] Comment on above: Result Comment: ONLY NEEDED THE PTH Performed By: #### L 3300.1200, L505.7010, L3100.5800, L3100.5700, L500.3600, L3100.5475, L3100.3450 #### [facility] [address] [place], [address] RDW CV Normal 11.6-14.6 [facility] Comment on above: Result Comment: ONLY NEEDED THE PTH Performed By: #### L 3300.1200, L505.7010, L3100.5800, L3100.5700, L500.3600, L3100.5475, L3100.3450 #### [facility] [address] [place], [address] RDW SD Normal 35.1-43.9 [facility] Comment on above: Result Comment: ONLY NEEDED THE PTH Performed By: #### L 3300.1200, L505.7010, L3100.5800, L3100.5700, L500.3600, L3100.5475, L3100.3450 #### [facility] [address] [place], [address] WBC Normal 4.4-11.0 [facility] Comment on above: Result Comment: ONLY NEEDED THE PTH Performed By: #### L 3300.1200, L505.7010, L3100.5800, L3100.5700, L500.3600, L3100.5475, L3100.3450 #### [facility] [address] [place], [address] Intact parathyroid hormone ( iPTH) measurementOrdered By: Tara Lyon on 05-04-2024 Parathyroid Hormone (Intact) 63.3 pg/mL 18.4-80.1 [facility] Kidney and Bladderon 025 Kidney and Bladder [facility] [address] [place] [address] Kidney and Bladder MR#: [id number] Acct: [id number] Name: RENE RIDER Rep #: [id number] : 1955 F 68 From: Jonathan Taylor MD PCP: Dr. Charity Khan MD Status: REG CLI Study: Kidney and Bladder Date of Exam: 05/04/24 Exam# [id number] Ordering Dr: Tara Lyon DO PROCEDURE: KIDNEY AND BLADDER REASON FOR EXAM: CKD 3 TECHNIQUE: Ultrasound of the kidneys and bladder COMPARISON: None. FINDINGS: Kidneys are echogenic, bilaterally No hydronephrosis. No cysts or large solid renal masses. Grossly normal bladder contour. No large bladder wall mass visualized. RIGHT Kidney Size: 10.6 x 5.6 x 4.8 Volume: 149.78 mL Parenchymal Thickness: 18 mm (>14mm is normal) LEFT Kidney Size: 10.9 x 4.7 x 6.2 Volume: 166.25 mL Parenchymal Thickness: 20 mm (>14mm is normal) BLADDER: Prevoid volume: 443 mL Postvoid volume: Not visualized mL US/Kidney and Bladder IMPRESSION: Bilateral medical renal disease Reading Location: [facility] CC: Dr. Tara Lyon DO; Dr. Charity Khan MD Photographer Apprentice: Signed Normal [facility] PTHINon 05-04-2024 PTH 63.3 pg/mL Normal 18.4-80.1 [facility] Comment on above: Performed By: #### L 3300.1200, L505.7010, L3100.5800, L3100.5700, L500.3600, L3100.5475, L3100.3450 #### [facility] [address] [place], [place], [id number] Protein+Creatinine Ratio,Uri neon 05-04-2024 PROT:CRE RATIO Normal 0-200 [facility] Comment on above: Result Comment: ONLY NEEDED THE PTH Performed By: #### L 3300.1200, L505.7010, L3100.5800, L3100.5700, L500.3600, L3100.5475, L3100.3450 #### [facility] [address] [place], [address] PROTEIN,UR.RAN. Normal <11.9 [facility] Comment on above: Result Comment: ONLY NEEDED THE PTH Performed By: #### L 3300.1200, L505.7010, L3100.5800, L3100.5700, L500.3600, L3100.5475, L3100.3450 #### [facility] [address] [place], [address] UR CREAT Normal NO RANGE EST. [facility] Comment on above: Result Comment: ONLY NEEDED THE PTH Performed By: #### L 3300.1200, L505.7010, L3100.5800, L3100.5700, L500.3600, L3100.5475, L3100.3450 #### [facility] [address] [place], [address] Renal Profileon 05-04-2024 ALB Normal 3.2-5.0 [facility] Comment on above: Result Comment: ONLY NEEDED THE PTH Performed By: #### L 3300.1200, L505.7010, L3100.5800, L3100.5700, L500.3600, L3100.5475, L3100.3450 #### [facility] [address] [place], [address] BUN Normal 7-18 [facility] Comment on above: Result Comment: ONLY NEEDED THE PTH Performed By: #### L 3300.1200, L505.7010, L3100.5800, L3100.5700, L500.3600, L3100.5475, L3100.3450 #### [facility] [address] [place], [address] BUN/CRE Normal 10-20 [facility] Comment on above: Result Comment: ONLY NEEDED THE PTH Performed By: #### L 3300.1200, L505.7010, L3100.5800, L3100.5700, L500.3600, L3100.5475, L3100.3450 #### [facility] [address] [place], [address] CA,Total Normal 8.5-10.1 [facility] Comment on above: Result Comment: ONLY NEEDED THE PTH Performed By: #### L 3300.1200, L505.7010, L3100.5800, L3100.5700, L500.3600, L3100.5475, L3100.3450 #### [facility] [address] [place], [address] CL Normal 98-107 [facility] Comment on above: Result Comment: ONLY NEEDED THE PTH Performed By: #### L 3300.1200, L505.7010, L3100.5800, L3100.5700, L500.3600, L3100.5475, L3100.3450 #### [facility] [address] [place], [address] CO2 Normal 21.0-32.0 [facility] Comment on above: Result Comment: ONLY NEEDED THE PTH Performed By: #### L 3300.1200, L505.7010, L3100.5800, L3100.5700, L500.3600, L3100.5475, L3100.3450 #### [facility] [address] [place], [address] CREAT,SERUM Normal 0.55-1.02 [facility] Comment on above: Result Comment: ONLY NEEDED THE PTH Performed By: #### L 3300.1200, L505.7010, L3100.5800, L3100.5700, L500.3600, L3100.5475, L3100.3450 #### [facility] [address] [place], [address] EST GFR Normal >60 [facility] Comment on above: Result Comment: ONLY NEEDED THE PTH Performed By: #### L 3300.1200, L505.7010, L3100.5800, L3100.5700, L500.3600, L3100.5475, L3100.3450 #### [facility] [address] [place], [address] EST GFR - AA Normal >60 [facility] Comment on above: Result Comment: ONLY NEEDED THE PTH Performed By: #### L 3300.1200, L505.7010, L3100.5800, L3100.5700, L500.3600, L3100.5475, L3100.3450 #### [facility] [address] [place], [address] GLU Normal 74-106 [facility] Comment on above: Result Comment: ONLY NEEDED THE PTH Performed By: #### L 3300.1200, L505.7010, L3100.5800, L3100.5700, L500.3600, L3100.5475, L3100.3450 #### [facility] [address] [place], [address] PHOS Normal 2.5-4.9 [facility] Comment on above: Result Comment: ONLY NEEDED THE PTH Performed By: #### L 3300.1200, L505.7010, L3100.5800, L3100.5700, L500.3600, L3100.5475, L3100.3450 #### [facility] [address] [place], [address] Potassium Normal 3.5-5.1 [facility] Comment on above: Result Comment: ONLY NEEDED THE PTH Performed By: #### L 3300.1200, L505.7010, L3100.5800, L3100.5700, L500.3600, L3100.5475, L3100.3450 #### [facility] [address] [place], [address] Renal Profile Normal 136-145 [facility] Comment on above: Result Comment: ONLY NEEDED THE PTH Performed By: #### L 3300.1200, L505.7010, L3100.5800, L3100.5700, L500.3600, L3100.5475, L3100.3450 #### [facility] [place], [address] 24 hour urine alpha 2 globul in/total protein ratio by electrophoresis (mass fraction)Ordered By: Tara Lyon on 04-29-2024 Alpha 2 globulin Elph (24H U) [Mass fraction] 6.5 % . [facility] 24 hour urine beta globulin/ total protein ratio by electrophoresis (mass fraction)Ordered By: Tara Lyon on 04-29-2024 Beta globulin Elph (24H U) [Mass fraction] 10.7 % . [facility] 24 hour urine gamma globulin /total protein ratio by electrophoresis (mass fraction)Ordered By: Tara Lyon on 04-29-2024 Gamma globulin Elph (24H U) [Mass fraction] 7.1 % . [facility] Albumin Elph (U) [Mass fract ion]Ordered By: Tara Lyon on 04-29-2024 Urine Albumin 70.3 % . [facility] Alpha 1 globulin Elph (U) [M ass fraction]Ordered By: Tara Lyon on 04-29-2024 Urine Efotn-8-Vffhpdan 5.3 % . [facility] Alpha 2 globulin Elph (24H U ) [Mass fraction]Ordered By: Tara Lyon on 04-29-2024 Urine Jiekj-4-Chbwqryrd 6.5 % . [facility] Beta globulin Elph (24H U) [ Mass fraction]Ordered By: Tara Lyon on 04-29-2024 Urine Beta Globulin 10.7 % . [facility] Blood urea nitrogen (BUN)/cr eatinine ratioOrdered By: Tara Lyon on 04-29-2024 Urea nitrogen/Creatinine [Mass ratio] 14.8 mg/mg 10-20 [facility] CBC-Complete Blood Cnt No Di ffon 04-29-2024 Erythrocyte distribution width (RBC) [Ratio] 14.6 % Normal 11.6-14.6 [facility] Comment on above: Performed By: #### L 3300.1200, L505.7010, L3100.5800, L3100.5700, L500.3600, L3100.5475, L3100.3450 #### [facility] [address] [place], [address] Hematocrit (Bld) [Volume fraction] 41.0 % Normal 37-47 [facility] Comment on above: Performed By: #### L 3300.1200, L505.7010, L3100.5800, L3100.5700, L500.3600, L3100.5475, L3100.3450 #### [facility] [address] [place], [address] Hemoglobin (Bld) [Mass/Vol] 13.1 g/dL Normal 12.0-15. 0 [facility] Comment on above: Performed By: #### L 3300.1200, L505.7010, L3100.5800, L3100.5700, L500.3600, L3100.5475, L3100.3450 #### [facility] [address] [place], [address] MCH (RBC) [Entitic mass] 27.5 pg Normal 27.0-32.0 [facility] Comment on above: Performed By: #### L 3300.1200, L505.7010, L3100.5800, L3100.5700, L500.3600, L3100.5475, L3100.3450 #### [facility] [address] [place], [address] MCHC (RBC) [Mass/Vol] 32.0 g/dL Normal 32-36 [facility] Comment on above: Performed By: #### L 3300.1200, L505.7010, L3100.5800, L3100.5700, L500.3600, L3100.5475, L3100.3450 #### [facility] [address] [place], [address] MCV (RBC) [Entitic vol] 86.1 fL Normal 81-99 [facility] Comment on above: Performed By: #### L 3300.1200, L505.7010, L3100.5800, L3100.5700, L500.3600, L3100.5475, L3100.3450 #### [facility] [address] [place], [address] Platelet mean volume (Bld) [Entitic vol] 10.6 fL Normal 6.2-12.0 [facility] Comment on above: Performed By: #### L 3300.1200, L505.7010, L3100.5800, L3100.5700, L500.3600, L3100.5475, L3100.3450 #### [facility] [address] [place], [address] Platelets (Bld) [#/Vol] 383 10*3/uL Normal 150-450 [facility] Comment on above: Performed By: #### L 3300.1200, L505.7010, L3100.5800, L3100.5700, L500.3600, L3100.5475, L3100.3450 #### [facility] [address] [place], [address] RBC (Bld) [#/Vol] 4.76 10*6/uL Normal 4.2-5.4 [facility] Comment on above: Performed By: #### L 3300.1200, L505.7010, L3100.5800, L3100.5700, L500.3600, L3100.5475, L3100.3450 #### [facility] [address] [place], [address] RDW SD 46.5 fl High 35.1-43.9 [facility] Comment on above: Performed By: #### L 3300.1200, L505.7010, L3100.5800, L3100.5700, L500.3600, L3100.5475, L3100.3450 #### [facility] [address] [place], [address] WBC (Bld) [#/Vol] 8.5 10*3/uL Normal 4.4-11.0 [facility] Comment on above: Performed By: #### L 3300.1200, L505.7010, L3100.5800, L3100.5700, L500.3600, L3100.5475, L3100.3450 #### [facility] [address] [place], [address] Carbon dioxide measurementOr dered By: Tara Lyon on 04-29-2024 CO2 [Moles/Vol] 25.0 mmol/L 21.0-32.0 [facility] Chloride measurementOrdered By: Tara Lyon on 04-29-2024 Chloride [Moles/Vol] 106 mmol/L 98-107 [facility] Erythrocyte distribution wid th ratioOrdered By: Tara Lyon on 04-29-2024 Erythrocyte distribution width (RBC) [Ratio] 14.6 % 11.6-14.6 [facility] Erythrocyte distribution wid th standard deviationOrdered By: Tara Lyon on 04-29-2024 Erythrocyte distribution width (RBC) [Entitic vol] 46.5 fL High 35.1-43.9 [facility] Erythrocyte distribution width (RBC) [Ratio] 46.5 fl High 35.1-43.9 [facility] Estimated glomerular filtrat ion rate (GFR) AmericanOrdered By: Tara Lyon on 04-29-2024 Estimated GFR (MDRD) Amer 36 mL/min Low >60 [facility] Comment on above: GFR Calc Gamma globulin Elph (24H U) [Mass fraction]Ordered By: Tara Lyon on 04-29-2024 Urine Gamma Globulin 7.1 % . [facility] Glomerular filtration rate ( GFR) estimationOrdered By: Tara Lyon on 04-29-2024 Estimated GFR (MDRD) Non-Af Amer 30 mL/min Low >60 [facility] Comment on above: Non- GFR Calc GFR/1.73 sq M.predicted among non-blacks MDRD (S/P/Bld) [Vol rate/Area] 30 mL/min/{1.73_m2} Low >60 [facility] Comment on above: Non- GFR Calc Glucose measurementOrdered B y: Tara Lyon on 04-29-2024 Glucose [Mass/Vol] 110 mg/dL High 74-106 [facility] Comment on above: Fasting Glucose resu lt from 100 to 125 mg/dL suggests IMPAIRED HOMEOSTASIS per A.D.A. criteria. Hematocrit Auto (Bld) [Volum e fraction]Ordered By: Tara Lyon on 04-29-2024 Hematocrit (Bld) [Volume fraction] 41.0 % 37-47 [facility] Hemoglobin measurementOrdere d By: Tara Lyon on 04-29-2024 Hemoglobin (Bld) [Mass/Vol] 13.1 g/dL 12.0-15. 0 [facility] MCV (mean corpuscular volume ) determinationOrdered By: Tara Lyon on 04-29-2024 MCV (RBC) [Entitic vol] 86.1 fL 81-99 [facility] Mean corpuscular hemoglobin (MCH) determinationOrdered By: Tara Lyon on 04-29-2024 MCH (RBC) [Entitic mass] 27.5 pg 27.0-32.0 [facility] Mean corpuscular hemoglobin concentration (MCHC) determinationOrdered By: Tara Lyon on 04-29-2024 MCHC (RBC) [Mass/Vol] 32.0 g/dL 32-36 [facility] Mean platelet volume determi nationOrdered By: Tara Lyon on 04-29-2024 Platelet mean volume (Bld) [Entitic vol] 10.6 fL 6.2-12.0 [facility] No Panel InformationOrdered By: Tara Lyon on 04-29-2024 Urine Immunofixation PEP Note Comment . [facility] Comment on above: Protein electrophore sis scan will follow via computer,mail, or silverware buffing machine operator delivery.Performed at: [address] [id number] Director: Cj Fitch PhD, Phone: [phone] Phosphorus measurementOrdere d By: Tara Lyon on 04-29-2024 Phosphorus Level 3.2 mg/dL 2.5-4.9 [facility] Platelet countOrdered By: Eileen Lyon on 04-29-2024 Platelets (Bld) [#/Vol] 383 10*3/uL 150-450 [facility] Potassium measurementOrdered By: Tara Lyon on 04-29-2024 Potassium [Moles/Vol] 4.0 mmol/L 3.5-5.1 [facility] Protein+Creatinine Ratio,Uri neon 04-29-2024 PROT:CRE RATIO 2272 mg/g CRE High 0-200 [facility] Comment on above: Performed By: #### L 3300.1200, L505.7010, L3100.5800, L3100.5700, L500.3600, L3100.5475, L3100.3450 #### [facility] [address] [place], [address] Protein (U) [Mass/Vol] 188.8 mg/dL High <11.9 [facility] Comment on above: Performed By: #### L 3300.1200, L505.7010, L3100.5800, L3100.5700, L500.3600, L3100.5475, L3100.3450 #### [facility] [address] [place], [address] UR CREAT 83.10 mg/dL Normal NO RANGE EST. [facility] Comment on above: Performed By: #### L 3300.1200, L505.7010, L3100.5800, L3100.5700, L500.3600, L3100.5475, L3100.3450 #### [facility] [address] [place], [address] Protein.monoclonal Elph (U) [Mass fraction]Ordered By: Tara Lyon on 04-29-2024 Ur Protein Electrophoresis M-Agustin See comment [facility] Comment on above: NOT OBSERVED Protein/Creatinine (U) [Mass ratio]Ordered By: Tara Lyon on 04-29-2024 Urine Protein/Creatinine Ratio 2272 mg/g CRE High 0-200 [facility] RBC Auto (Bld) [#/Vol]Ordere d By: Tara Lyon on 04-29-2024 RBC (Bld) [#/Vol] 4.76 10*6/uL 4.2-5.4 [facility] Random urine protein measure mentOrdered By: Tara Lyon on 04-29-2024 Protein (U) [Mass/Vol] 188.8 mg/dL Not Estab. [facility] Renal Profileon 04-29-2024 Albumin [Mass/Vol] 3.3 g/dL Normal 3.2-5.0 [facility] Comment on above: Performed By: #### L 3300.1200, L505.7010, L3100.5800, L3100.5700, L500.3600, L3100.5475, L3100.3450 #### [facility] [address] [place], [address] BUN/CRE 14.8 RATIO Normal 10-20 [facility] Comment on above: Performed By: #### L 3300.1200, L505.7010, L3100.5800, L3100.5700, L500.3600, L3100.5475, L3100.3450 #### [facility] [address] [place], [address] CA,Total 9.4 mg/dL Normal 8.5-10.1 [facility] Comment on above: Performed By: #### L 3300.1200, L505.7010, L3100.5800, L3100.5700, L500.3600, L3100.5475, L3100.3450 #### [facility] [address] [place], [address] Chloride [Moles/Vol] 106 mmol/L Normal 98-107 [facility] Comment on above: Performed By: #### L 3300.1200, L505.7010, L3100.5800, L3100.5700, L500.3600, L3100.5475, L3100.3450 #### [facility] [address] [place], [address] CO2 [Moles/Vol] 25.0 mmol/L Normal 21.0-32.0 [facility] Comment on above: Performed By: #### L 3300.1200, L505.7010, L3100.5800, L3100.5700, L500.3600, L3100.5475, L3100.3450 #### [facility] [address] [place], [address] Creatinine [Mass/Vol] 1.82 mg/dL High 0.55-1.02 [facility] Comment on above: Result Comment: The validity of the calculated GFR GFRAA in patients over 70 years has not been determined. Clinical correlation is essential. Performed By: #### L 3300.1200, L505.7010, L3100.5800, L3100.5700, L500.3600, L3100.5475, L3100.3450 #### [facility] [address] [place], [address] EST GFR - AA 36 mL/min Low >60 [facility] Comment on above: Result Comment: Afri can Cymro GFR Calc Performed By: #### L 3300.1200, L505.7010, L3100.5800, L3100.5700, L500.3600, L3100.5475, L3100.3450 #### [facility] [address] [place], [address] GFR/1.73 sq M.predicted among non-blacks MDRD (S/P/Bld) [Vol rate/Area] 30 mL/min/{1.73_m2} Low >60 [facility] Comment on above: Result Comment: Non- GFR Calc Performed By: #### L 3300.1200, L505.7010, L3100.5800, L3100.5700, L500.3600, L3100.5475, L3100.3450 #### [facility] [address] [place], [address] Glucose [Mass/Vol] 110 mg/dL High 74-106 [facility] Comment on above: Result Comment: Fast ing Glucose result from 100 to 125 mg/dL suggests IMPAIRED HOMEOSTASIS per A.D.A. criteria. Performed By: #### L 3300.1200, L505.7010, L3100.5800, L3100.5700, L500.3600, L3100.5475, L3100.3450 #### [facility] [address] [place], [address] Phosphate [Mass/Vol] 3.2 mg/dL Normal 2.5-4.9 [facility] Comment on above: Performed By: #### L 3300.1200, L505.7010, L3100.5800, L3100.5700, L500.3600, L3100.5475, L3100.3450 #### [facility] [address] [place], [address] Potassium [Moles/Vol] 4.0 mmol/L Normal 3.5-5.1 [facility] Comment on above: Performed By: #### L 3300.1200, L505.7010, L3100.5800, L3100.5700, L500.3600, L3100.5475, L3100.3450 #### [facility] [address] [place], [address] Sodium [Moles/Vol] 139 mmol/L Normal 136-145 [facility] Comment on above: Performed By: #### L 3300.1200, L505.7010, L3100.5800, L3100.5700, L500.3600, L3100.5475, L3100.3450 #### [facility] [address] [place], [address] Urea nitrogen [Mass/Vol] 27 mg/dL High 7-18 [facility] Comment on above: Performed By: #### L 3300.1200, L505.7010, L3100.5800, L3100.5700, L500.3600, L3100.5475, L3100.3450 #### [facility] [place], [address] Serum or plasma albumin nava urement (mass/volume)Ordered By: Tara Lyon on 04-29-2024 Albumin [Mass/Vol] 3.3 g/dL 3.2-5.0 [facility] Serum or plasma calcium nava urement (mass/volume)Ordered By: Tara Lyon on 04-29-2024 Calcium [Mass/Vol] 9.4 mg/dL 8.5-10.1 [facility] Serum or plasma creatinine m easurement (mass/volume)Ordered By: Tara Lyon on 04-29-2024 Creatinine [Mass/Vol] 1.82 mg/dL High 0.55-1.02 [facility] Comment on above: The validity of the calculated GFR & GFRAA in patients over 70 years has not been determined. Clinical correlation is essential. Serum or plasma urea nitroge n measurement (mass/volume)Ordered By: Tara Lyon on 04-29-2024 Urea nitrogen [Mass/Vol] 27 mg/dL High 7-18 [facility] Sodium levelOrdered By: Juhi Lyon on 04-29-2024 Sodium [Moles/Vol] 139 mmol/L 136-145 [facility] Urine albumin/total protein mass ratio by electrophoresisOrdered By: Tara Lyon on 04-29-2024 Albumin Elph (U) [Mass fraction] 70.3 % . [facility] Urine alpha 1 globulin/total protein ratio by electrophoresis (mass fraction)Ordered By: Tara Lyon on 04-29-2024 Alpha 1 globulin Elph (U) [Mass fraction] 5.3 % . [facility] Urine creatinine measurement (mass/volume)Ordered By: Tara Lyon on 04-29-2024 Creatinine (U) [Mass/Vol] 83.10 mg/dL NO RANGE EST. [facility] Urine monoclonal protein/tot al protein mass ratio by electrophoresisOrdered By: Tara Lyon on 04-29-2024 Protein.monoclonal Elph (U) [Mass fraction] See comment [facility] Comment on above: NOT OBSERVED Urine protein/creatinine mas s ratioOrdered By: Tara Lyon on 04-29-2024 Protein/Creatinine (U) [Mass ratio] 2272 mg/g CRE High 0-200 [facility] White blood cell (WBC) count Ordered By: Tara Lyon on 04-29-2024 WBC (Bld) [#/Vol] 8.5 10*3/uL 4.4-11.0 [facility] Urine Cultureon 03-10-2024 URC Culture exhibits no growth. Normal [facility] Comment on above: Performed By: #### M 100.2200 ####[facility] [address] [place], [address] Bilirubin Test strip Ql (U)O rdered By: Charity Khan on 03-09-2024 Bilirubin Ql (U) Negative Negative [facility] Epithelial cells.squamous LM Ql (Urine sed)Ordered By: Charity Khan on 03-09-2024 Epithelial cells.squamous LM.HPF (Urine sed) [#/Area] 0 /[HPF] 5-10 [facility] Glucose Ql (U)Ordered By: Imani Khan on 03-09-2024 Urine Glucose (UA) Normal mg/dl Normal [facility] Internal Medicine Office Vis iton 03-09-2024 Internal Medicine Office Visit [facility] [address] [place] [address] [place] [address] OFFICE VISIT Date of Service: 03/09/24 MR#: [id number] Acct: [id number] Name: RENE RIDER Meri Rep #: [id number] : 1955 Provider: Dr. Charity tristan MD Age/Sex: 68/F Location: [facility] Status: Signed Intake Vital Signs 12/04/23 10:01 03/09/24 13:46 Height 5 ft 5 ft Weight: 220 lb 217 lb BMI 43.0 42.3 BP 142/80 H 130/84 H Blood Pressure Location Lt brachial Lt brachial Position Sitting Sitting Respiration 17 16 Pulse 102 H 110 H Pulse Source Monitor Monitor Temp 98.8 F 97.5 F L Temp Source Temporal Temporal Pulse Oximetry (%) 97 98 Oxygen Delivery Method room air room air Intake Visit Reasons: 3 M FU Chief Complaint: 3 m FU Recreation Manager Required: No Accompanied by: Self Is patient in pain?: No Allergies Sulfa (Sulfonamide Antibiotics) Allergy (Severe, Verified 03/09/24 13:43) Anaphylaxis cigarette smoke Allergy (Mild, Verified 03/09/24 13:43) hoarsness house dust mite Allergy (Mild, Verified 03/09/24 13:43) hoarsness Medications ???Medication ???Instructions ???Recorded ???Confirmed ???Type vitamin C 500 mg-multivitamin with 1 tablet PO DAILY 07/05/20 03/09/24 History minerals chewable tablet (Emergen-C) zinc gluconate 30 mg tablet 30 mg PO DAILY 07/05/20 03/09/24 History acetaminophen 500 mg tablet 1,000 mg PO Q6H PRN Pain 11/17/20 03/09/24 History (Tylenol Extra Strength) Handicap Placard #1 ea 07/23/22 03/09/24 Rx ascorbate calcium (vitamin C) 500 600 mg PO DAILY 10/22/22 03/09/24 History mg tablet cholecalciferol (vitamin D3) 25 25 mcg PO DAILY 10/22/22 03/09/24 History mcg (1,000 unit) capsule cyclobenzaprine 10 mg tablet 10 mg PO TID PRN muscle spasm #90 10/22/22 03/09/24 Rx tabs compress.juanjo,paulina e,reg,lrg #2 ea 09/04/23 03/09/24 Rx hydrocortisone 2.5 % topical 1 applic topical BID PRN rash 09/04/23 03/09/24 Rx ointment #28.35 grams amlodipine 10 mg tablet See Rx Instructions .Route 10/28/23 03/09/24 Rx .COMPLEX #90 tabs metoprolol succinate 25 mg 25 mg PO DAILY #90 tabs 12/05/23 03/09/24 Rx tablet,extended release 24 hr Have you fallen in the past year?: No PFSH Medical History (Updated 03/09/24 @ 14:[address] Charity Khan MD) Blood glucose elevated Microalbuminuria CKD (chronic kidney disease), stage III Dermatitis Tachycardia Acute sinusitis, unspecified Chronic back pain Health care maintenance Colon cancer screening Scoliosis Cancer Anxiety Alcohol use Bladder disease Arthritis Migraine headache Non-smoker Leg cramps History of pain when walking Hypertension Preoperative evaluation to rule out surgical contraindication Osteoarthritis of right hip Right hip pain History of basal cell carcinoma History of pneumonia history of cracked palate history of club feet Hypertension Seasonal allergies Surgical History History of hip replacement, total H/O foot surgery History of Hx of rhinoplasty Family History Mother Hypertension Hyperlipemia Arthritis Father Hypertension Skin cancer Arthritis Social History household members: spouse housing: house Smoking Status: Never smoker alcohol intake: never substance use type: does not use what type of physical activity do you participate in: none do you feel safe at home: Yes HPI HPI Chief Complaint: 3 m FU Details: RENE RIDER, is a 68 F who presents to the office today for follow-up of her chronic conditions. No acute concerns at this time. Recently had labs done. Stable CKD 3 however, urine microalbumin testing done with significant microalbuminuria. No prior/known history of. Denies any urinary concerns. No known history of diabetes or borderline diabetes. Has been referred to nephrology. History of hypertension, currently on amlodipine. Also on metoprolol due to chronic tachycardia. These have been stable. Home log reviewed and average blood pressure readings in the 120s over 70s. Heart rate also largely in the 80s to 90s with a few readings in the low 100s. She denies palpitations, chest tightness or shortness of breath. Other chronic medical conditions are stable. ROS Const Constitutional: No body ache, chills, excessive sweating, fatigue, fever(s), frequent falls, headache(s), snoring, weakness or change in appetite Eyes Eyes: No blurry vision, change in vision, bulging eyes, floaters, visual disturbances, eye pain or Light sensitivity ENT ENT: No abnormal hearing, ear or mastoid pain, tinnitus, balance problems, nosebleed/epistaxis, nasal congestion, headache(s), neck pain or sore throat (more content not included)... Normal [facility] Ketones Test strip Ql (U)Ord ered By: Charity Khan on 03-09-2024 Ketones Ql (U) Negative Negative [facility] - Hematology and Cell countson 03-09-2024 HbA1c (Bld) [Mass fraction] 5.5 % 4.2-6.3 [facility] Microscopic analysis of urin e for red blood cells (RBC)Ordered By: Charity Khan on 03-09-2024 Urine RBC 5-10 SEEN /hpf 0-5 [facility] Mucus LM Ql (Urine sed)Order ed By: Charity Khan on 03-09-2024 Mucus Ql (Urine sed) 0 SEEN /hpf [facility] Nitrite Test strip Ql (U)Ord ered By: Charity Khan on 03-09-2024 Nitrite Ql (U) Negative Negative [facility] Protein Test strip Ql (U)Ord ered By: Charity Khan on 03-09-2024 Protein Ql (U) 500 mg/dl High Negative [facility] Urinalysis, Completeon 03-09 BACTERIA 1+ /hpf Normal None Seen [facility] Comment on above: Order Comment: BALJEET CTOR TO SPECIFY Performed By: #### L 3300.1200, L505.7010, L3100.5800, L3100.5700, L500.3600, L3100.5475, L3100.3450 #### [facility] [address] [place], [address] EPI,SQUAMOUS 0-5 SEEN Normal 5-10 [facility] Comment on above: Order Comment: BALJEET CTOR TO SPECIFY Performed By: #### L 3300.1200, L505.7010, L3100.5800, L3100.5700, L500.3600, L3100.5475, L3100.3450 #### [facility] [address] [place], [address] RBC 5-10 SEEN Normal 0-5 [facility] Comment on above: Order Comment: BALJEET CTOR TO SPECIFY Performed By: #### L 3300.1200, L505.7010, L3100.5800, L3100.5700, L500.3600, L3100.5475, L3100.3450 #### [facility] [address] [place], [address] Mucus Ql (Urine sed) 0 SEEN Normal [facility] Comment on above: Order Comment: COLLE CTOR TO SPECIFY Performed By: #### L 3300.1200, L505.7010, L3100.5800, L3100.5700, L500.3600, L3100.5475, L3100.3450 #### [facility] [address] [place], [address] WBC 0 SEEN Normal 0-5 [facility] Comment on above: Order Comment: BALJEET CTOR TO SPECIFY Performed By: #### L 3300.1200, L505.7010, L3100.5800, L3100.5700, L500.3600, L3100.5475, L3100.3450 #### [facility] [address] [place], [place], [address] Urine blood detectionOrdered By: Charity Khan on 03-09-2024 Urine Occult Blood 250 /ul High Negative [facility] Urine clarityOrdered By: Grant Khan on 03-09-2024 Clarity (U) Clear Clear [facility] Urine color determinationOrd ered By: Charity Khan on 03-09-2024 Color (U) Yellow Yellow [facility] Urine cultureOrdered By: Grant Khan on 03-09-2024 Bacteria identified Cx Nom (U) Culture exhibits no growth. [facility] Urine leukocyte esterase det ection by dipstickOrdered By: Charity Khan on 03-09-2024 Leukocyte esterase Test strip Ql (U) Negative Negative [facility] Urine pHOrdered By: Joyce Khan on 03-09-2024 pH (U) 6.0 [pH] 5.0 - 8.0 [facility] Urine sediment bacteria coun t by microscopy (number/high power field)Ordered By: Charity Khan on 03-09-2024 Bacteria LM.HPF (Urine sed) [#/Area] 1 /[HPF] None Seen [facility] Urine specific gravity measu rementOrdered By: Charity Khan on 03-09-2024 Specific gravity (U) [Rel density] 1.015 1.002-1.030 [facility] Urobilinogen Ql (U)Ordered B y: Charity Khan on 03-09-2024 Urine Urobilinogen Normal mg/dl Normal [facility] White blood cell countOrdere d By: Charity Khan on 03-09-2024 Urine WBC 0 SEEN /hpf 0-5 [facility] Basic Metabolic Profile (BMP )on 03-05-2024 BUN/CRE 11.0 RATIO Normal 10-20 [facility] Comment on above: Performed By: #### L 3300.1200, L505.7010, L3100.5800, L3100.5700, L500.3600, L3100.5475, L3100.3450 #### [facility] [address] [place], [address] CA,Total 9.4 mg/dL Normal 8.5-10.1 [facility] Comment on above: Performed By: #### L 3300.1200, L505.7010, L3100.5800, L3100.5700, L500.3600, L3100.5475, L3100.3450 #### [facility] [address] [place], [address] Chloride [Moles/Vol] 105 mmol/L Normal 98-107 [facility] Comment on above: Performed By: #### L 3300.1200, L505.7010, L3100.5800, L3100.5700, L500.3600, L3100.5475, L3100.3450 #### [facility] [address] [place], [address] CO2 [Moles/Vol] 29.0 mmol/L Normal 21.0-32.0 [facility] Comment on above: Performed By: #### L 3300.1200, L505.7010, L3100.5800, L3100.5700, L500.3600, L3100.5475, L3100.3450 #### [facility] [address] [place], [address] Creatinine [Mass/Vol] 1.63 mg/dL High 0.55-1.02 [facility] Comment on above: Result Comment: The validity of the calculated GFR GFRAA in patients over 70 years has not been determined. Clinical correlation is essential. Performed By: #### L 3300.1200, L505.7010, L3100.5800, L3100.5700, L500.3600, L3100.5475, L3100.3450 #### [facility] [address] [place], [place], [id number] EST GFR - AA 41 mL/min Low >60 [facility] Comment on above: Result Comment: Afri can Cymro GFR Calc Performed By: #### L 3300.1200, L505.7010, L3100.5800, L3100.5700, L500.3600, L3100.5475, L3100.3450 #### [facility] [address] [place], [address] GAP 5 Normal 5-15 [facility] Comment on above: Performed By: #### L 3300.1200, L505.7010, L3100.5800, L3100.5700, L500.3600, L3100.5475, L3100.3450 #### [facility] [address] [place], [address] GFR/1.73 sq M.predicted among non-blacks MDRD (S/P/Bld) [Vol rate/Area] 34 mL/min/{1.73_m2} Low >60 [facility] Comment on above: Result Comment: Non- GFR Calc Performed By: #### L 3300.1200, L505.7010, L3100.5800, L3100.5700, L500.3600, L3100.5475, L3100.3450 #### [facility] [address] [place], [address] Glucose [Mass/Vol] 101 mg/dL Normal 74-106 [facility] Comment on above: Result Comment: Fast ing Glucose result from 100 to 125 mg/dL suggests IMPAIRED HOMEOSTASIS per A.D.A. criteria. Performed By: #### L 3300.1200, L505.7010, L3100.5800, L3100.5700, L500.3600, L3100.5475, L3100.3450 #### [facility] [address] [place], [address] Potassium [Moles/Vol] 4.1 mmol/L Normal 3.5-5.1 [facility] Comment on above: Performed By: #### L 3300.1200, L505.7010, L3100.5800, L3100.5700, L500.3600, L3100.5475, L3100.3450 #### [facility] [address] [place], [address] Sodium [Moles/Vol] 139 mmol/L Normal 136-145 [facility] Comment on above: Performed By: #### L 3300.1200, L505.7010, L3100.5800, L3100.5700, L500.3600, L3100.5475, L3100.3450 #### [facility] [address] [place], [address] Urea nitrogen [Mass/Vol] 18 mg/dL Normal 7-18 [facility] Comment on above: Performed By: #### L 3300.1200, L505.7010, L3100.5800, L3100.5700, L500.3600, L3100.5475, L3100.3450 #### [facility] [address] [place], [address] Blood urea nitrogen (BUN)/cr eatinine ratioOrdered By: Charity Khan on 03-05-2024 Urea nitrogen/Creatinine [Mass ratio] 11.0 mg/mg 10-20 [facility] Carbon dioxide measurementOr dered By: Charity Khan on 03-05-2024 CO2 [Moles/Vol] 29.0 mmol/L 21.0-32.0 [facility] Chloride measurementOrdered By: Imanijair Kwonvincedixon on 03-05-2024 Chloride [Moles/Vol] 105 mmol/L 98-107 [facility] Estimated glomerular filtrat ion rate (GFR) AmericanOrdered By: Carltoncindy Kwonvincedixon on 03-05-2024 Estimated GFR (MDRD) Amer 41 mL/min Low >60 [facility] Comment on above: GFR Calc Glomerular filtration rate ( GFR) estimationOrdered By: Imanijair Kwonvincedixon on 03-05-2024 Estimated GFR (MDRD) Non-Af Amer 34 mL/min Low >60 [facility] Comment on above: Non- GFR Calc Glucose measurementOrdered B y: Charity Doylegiovanni on 03-05-2024 Glucose [Mass/Vol] 101 mg/dL 74-106 [facility] Comment on above: Fasting Glucose resu lt from 100 to 125 mg/dL suggests IMPAIRED HOMEOSTASIS per A.D.A. criteria. Microalb:Creat Ratio,Random URon 03-05-2024 Creatinine [Mass/Vol] 66.30 mg/dL Normal NO RAN GE EST. [facility] Comment on above: Performed By: #### L 502.0250 #### [facility] [address] [place], [place], [id number] MALB:CRE 2337.9 mg/g CRE High <30 mg/g CRE [facility] Comment on above: Performed By: #### L 502.0250 #### [facility] [address] [place], [place], [id number] MICROALBUMIN,UR 1550.0 mg/L Normal NO RANGE EST. [facility] Comment on above: Performed By: #### L 502.0250 #### [facility] [address] [place], [address] Potassium measurementOrdered By: Charity Khan on 03-05-2024 Potassium [Moles/Vol] 4.1 mmol/L 3.5-5.1 [facility] Random urine microalbumin me asurementOrdered By: Charity Khan on 03-05-2024 Urine Random Microalbumin 1550.0 mg/L NO RANGE EST. [facility] Serum anion gap measurementO rdered By: Charity Khan on 03-05-2024 Anion gap [Moles/Vol] 5 mmol/L 5-15 [facility] Serum or plasma calcium nava urement (mass/volume)Ordered By: Charity Khan on 03-05-2024 Calcium [Mass/Vol] 9.4 mg/dL 8.5-10.1 [facility] Serum or plasma creatinine m easurement (mass/volume)Ordered By: Charity Khan on 03-05-2024 Creatinine [Mass/Vol] 1.63 mg/dL High 0.55-1.02 [facility] Comment on above: The validity of the calculated GFR & GFRAA in patients over 70 years has not been determined. Clinical correlation is essential. Serum or plasma urea nitroge n measurement (mass/volume)Ordered By: Charity Khan on 03-05-2024 Urea nitrogen [Mass/Vol] 18 mg/dL 7-18 [facility] Sodium levelOrdered By: Promise Khan on 03-05-2024 Sodium [Moles/Vol] 139 mmol/L 136-145 [facility] Urine albumin/creatinine rat io for detection of microalbuminuriaOrdered By: Charity Khan on 03-05-2024 Urine Microalbumin/Creatinine Ratio 2337.9 mg/g CRE High <30 [facility] Urine creatinine measurement (mass/volume)Ordered By: Charity Khan on 03-05-2024 Creatinine (U) [Mass/Vol] 66.30 mg/dL NO RANGE EST. [facility] Absolute lymphocyte countOrd ered By: Charity Khan on 05-13-2023 Lymphocytes Auto (Unsp spec) [#/Vol] 1.85 10*3/uL 0.83-4.51 [facility] Automated lymphocyte count a s percentage of total leukocytesOrdered By: Charity Khan on 05-13-2023 Lymphocytes/100 WBC Auto (Unsp spec) 29.0 % 19-41 [facility] Basophil percentageOrdered B y: Charity Khan on 05-13-2023 Basophils/100 WBC (Bld) 0.3 % 0-1 [facility] Bilirubin [Mass/Vol] 0.40 mg/dL 0.20-1.00 [facility] Comment on above: For patients on eltr ombopag therapy, use of Dimension [place] TBIL is not recommended. Chloride [Moles/Vol] 106 mmol/L 98-107 [facility] Cholesterol [Mass/Vol] 250 mg/dL <200 [facility] Comment on above: <200 mg/dL Desirable 200-240 mg/dL Borderline >240 mg/dL High Risk Eosinophils/100 WBC (Bld) 2.8 % 0-5 [facility] Glucose [Mass/Vol] 113 mg/dL 74-106 [facility] Comment on above: Fasting Glucose resu lt from 100 to 125 mg/dL suggests IMPAIRED HOMEOSTASIS per A.D.A. criteria. Hemoglobin (Bld) [Mass/Vol] 13.2 g/dL 12.0-15. 0 [facility] Monocytes/100 WBC (Bld) 7.5 % 0-10 [facility] Neutrophils (Bld) [#/Vol] 3.9 10*3/uL 2.0-7.7 [facility] Neutrophils/100 WBC (Bld) 60.2 % 47-70 [facility] Potassium [Moles/Vol] 3.7 mmol/L 3.5-5.1 [facility] Protein [Mass/Vol] 7.3 g/dL 6.4-8.2 [facility] Sodium [Moles/Vol] 139 mmol/L 136-145 [facility] Triglyceride [Mass/Vol] 126 mg/dL <199 [facility] Comment on above: The drugs N-Acetylcy steine and Metamizole may falsely depress this assay.Serum Triglycerides Reference Interval Normal <150 mg/dL Borderline high 150 - 199 mg/dL High 200 - 499 mg/dL Very High > or = 500 mg/dL WBC (Bld) [#/Vol] 6.4 10*3/uL 4.4-11.0 [facility] Determination of erythrocyte mean corpuscular volume (MCV)Ordered By: Charity Khan on 05-13-2023 MCV (RBC) [Entitic vol] 86.6 fL 81-99 [facility] Erythrocyte distribution wid th ratioOrdered By: [facility] Hospital[facility] Kwondixon on 05-13-2023 Erythrocyte distribution width (RBC) [Ratio] 15.9 % 11.6-14.6 [facility] Erythrocyte distribution wid th standard deviationOrdered By: [facility] Hospitalc[facility] Kwondixon on 05-13-2023 Erythrocyte distribution width (RBC) [Entitic vol] 50.1 fL 35.1-43.9 [facility] Hematocrit Auto (Bld) [Volum e fraction]Ordered By: debbietierra amarillacindy Kwondixon on 05-13-2023 Hematocrit (Bld) [Volume fraction] 41.5 % 37-47 [facility] Immature granulocytes/100 WB C Auto (Bld)Ordered By: [facility] on 05-13-2023 Immature granulocytes/100 WBC (Bld) 0.200 % 0.0-0.9 [facility] Comment on above: IG% - Immature Granu locytes (promyelocytes, myelocytes and metamyelocytes) > 1% indicates that a LEFT SHIFT is Present. Laboratory - Chemistry and C hemistry - challengeOrdered By: debbietierra amarillacindy Khan on 05-13-2023 Albumin/Globulin [Mass ratio] 0.8 {ratio} 0.9-2.4 [facility] ALP [Catalytic activity/Vol] 72 U/L 45-117 [facility] ALT [Catalytic activity/Vol] 20 U/L 13-56 [facility] Cholesterol in HDL [Mass/Vol] 70 mg/dL >40 [facility] Comment on above: The drugs N-Acetylcy steine and Metamizole may falsely depress this assay. Reference Range HDL <40 mg/dL Low HDL Cholesterol HDL >or= 60 mg/dL High HDL Cholesterol Cholesterol in LDL [Mass/Vol] 155 mg/dL 0-130 [facility] CO2 [Moles/Vol] 28.0 mmol/L 21.0-32.0 [facility] Globulin (S) [Mass/Vol] 4.0 g/dL 2.2-4.2 [facility] Urea nitrogen/Creatinine [Mass ratio] 12.7 mg/mg 10-20 [facility] - Hematology and Cell countsOrdered By: Charity Khan on 05-13-2023 MCH (RBC) [Entitic mass] 27.6 pg 27.0-32.0 [facility] MCHC (RBC) [Mass/Vol] 31.8 g/dL 32-36 [facility] Nucleated RBC/100 WBC (Bld) [Ratio] 0 % 0-5 [facility] Platelet mean volume (Bld) [Entitic vol] 10.5 fL 6.2-12.0 [facility] Platelets (Bld) [#/Vol] 349 10*3/uL 150-450 [facility] No Panel InformationOrdered By: Charity Khan on 05-13-2023 Estimated GFR (MDRD) Amer 51 mL/min >60 [facility] Comment on above: GFR Calc Estimated GFR (MDRD) Non-Af Amer 42 mL/min >60 [facility] Comment on above: Non- GFR Calc Vitamin D 25-Hydroxy 72.6 ng/mL [facility] Comment on above: Vitamin D 25(OH) Sta tus Range Deficiency <20 ng/mL (50nmol/L) Insufficiency 20 - 30 ng/mL (50 - 75 nmol/L) Sufficiency 30 - 100 ng/mL (75 - 250 nmol/L) Toxicity >100 ng/mL (>250 nmol/L) VLDL Cholesterol 25 mg/dL 5-40 [facility] RBC Auto (Bld) [#/Vol]Ordere d By: Charity Khan on 05-13-2023 RBC (Bld) [#/Vol] 4.79 10*6/uL 4.2-5.4 [facility] Serum or plasma calcium nava urement (mass/volume)Ordered By: Charity Khan on 05-13-2023 Calcium [Mass/Vol] 9.3 mg/dL 8.5-10.1 [facility] Serum or plasma creatinine m easurement (mass/volume)Ordered By: Charity Khan on 05-13-2023 Creatinine [Mass/Vol] 1.34 mg/dL 0.55-1.02 [facility] Comment on above: The validity of the calculated GFR & GFRAA in patients over 70 years has not been determined. Clinical correlation is essential. Serum or plasma thyroid stim ulating hormone (TSH) measurement (units/volume)Ordered By: Charity Khan on 05-13-2023 TSH Qn 2.20 uIU/mL 0.358-3.74 [facility] Serum or plasma urea nitroge n measurement (mass/volume)Ordered By: Promisetierra amarillacindy Kwondixon on 05-13-2023 Urea nitrogen [Mass/Vol] 17 mg/dL 7-18 [facility] Thin prep Papanicolaou smear with manual screeningOrdered By: [facility] Hospital[facility] Khna on 05-13-2023 Thin prep Papanicolaou smear with manual screening 3.3 g/dL 3.2-5.0 [facility] Thin prep Papanicolaou smear with manual screening 12 U/L 15-37 [facility] Thin prep Papanicolaou smear with manual screening 5 5-15 [facility] Thin prep Papanicolaou smear with manual screening 0.88 ng/dL 0.76-1.46 [facility] MRI BRAIN WO/W IVCONon 09-20 MRI BRAIN WO/W IVCON * * *Final Report* * * DATE OF EXAM: Sep 20 2022 10:57AM [facility] 0295 - MRI BRAIN WO/W IVCON / PROCEDURE REASON: Syringomyelia and syringobulbia (HCC) * * * * Physician Interpretation * * * * EXAMINATION: MRI BRAIN WO/W IVCON, MRI CERVICAL SPINE WO/W IVCON, MRI LUMBAR SPINE WO/W IVCON, MRI THORACIC SPINE WO/W IVCON HISTORY: Syringomyelia and syringobulbia (HCC) TECHNIQUE: Routine brain MRI protocol without and with contrast including diffusion and gradient echo images. Cervical, thoracic and lumbar MRI without and with IV contrast MQ: [id number] Contrast: 20 mL Dotarem IV COMPARISON: MRI cervical and thoracic spine 08/07/2021 from outside institution. RESULT: BRAIN: Acute Change: There is no evidence of restricted diffusion to suggest an acute infarct. Hemorrhage: No evidence of prior parenchymal hemorrhage on the gradient echo images. Mass Lesion/ Mass Effect: No evidence of an intracranial mass or extra-axial fluid collection. No abnormal parenchymal or leptomeningeal enhancement is noted following contrast administration. No significant mass effect. Chronic Change: Scattered patchy areas of increased T2 and FLAIR signal are present in the supratentorial white matter which is a nonspecific finding but likely represents mild chronic microvascular ischemia. Parenchyma: No significant volume loss for age. The brain parenchyma is otherwise within normal limits of signal intensity and morphology. Ventricles: Normal caliber and morphology. Skull Base: Hypothalamic and pituitary region are grossly normal. Craniocervical junction is normal. No significant marrow replacement process. Vasculature: Major intracranial arterial structures, and dural venous sinuses show typical flow void, suggesting patency by spin echo criteria. Other: The visualized paranasal sinuses and mastoid air cells are clear. 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 CERVICAL: Counting reference: Craniocervical junction. Anatomic Variants: None. Alignment: Slight grade 1 anterolisthesis of C4 on C5, stable. Craniocervical junction: Craniocervical junction is normal. Cord: The visualized cord is within normal limits of signal intensity and morphology. No abnormal intradural enhancement. Bone marrow signal/fracture: No evidence of pathologic marrow infiltration. No evidence of prior fracture. Cervical soft tissues: Bilateral level 1 and 2 mildly prominent lymph nodes which are nonspecific, without significant enlargement by standard size criteria. The paraspinal soft tissues are within normal limits. C2-C3: Facet hypertrophy results in mild right neural foraminal narrowing. Left foramen is patent. Canal is patent. C3-C4: Facet hypertrophy results in moderate right neural foraminal narrowing. Left foramen is patent. Canal is patent. C4-C5: Facet hypertrophy results in moderate bilateral neural foraminal narrowing. Canal is patent. C5-C6: Facet hypertrophy results in moderate right neural foraminal narrowing. Left foramen is patent. Canal is patent. C6-C7: Mild ventral thecal sac effacement from disc osteophyte complex. Foramina are patent. C7-T1: Canal and foramina are patent. THORACIC: Counting reference: Lumbosacral junction. For the purposes of this report, L4-5 is considered the level of the iliac crest and there are 5 lumbar-type vertebrae. Anatomic Variants: None. Alignment: Sigmoid scoliosis apex right at T6-7, apex left at T9-10. Cord: Syrinx in the lower thoracic cord which spans from approximately T2 8 T11, measuring up to 2 x 3 mm in the axial plane. T2 sagittal slice selection skips the syrinx to some extent on the prior study, however compared on sagittal STIR sequence and axial T2 sequence, the findings are grossly stable. No abnormal intradural enhancement. Bone marrow signal/fracture: Intrinsically T1 hyperintense lesions in T6 and T10 bodies compatible with intraosseous hemangiomas. Endplate degenerative change along the concave scoliotic margin most notably at T7-8 on the left with type II signal changes. No evidence of pathologic marrow infiltration. No evidence of prior fracture. Thoracic soft tissues: The paraspinal soft tissues are within normal limits. Canal and foramina: Mild disc bulge at T7-8, endplate and facet hypertrophy with mild left neural foraminal narrowing. Endplate hypertrophy results in moderate neural foraminal narrowing at T4-5 on the right. LUMBAR: Counting reference: Lumbosacral junction. For the purposes of this report, L4-5 is considered the level of the iliac crest and there are 5 lumbar-type vertebrae. Alignment: Lumbar dextrocurvature apex right at L3-4. Slight retrolisthesis of L1 relative to L2. Bone marrow signal/fracture: Somewhat hypoplastic vertebral bodies at L5 and visualized sacrum. Multilevel posterior dysraphism with abnormal fusion of the posterior elements at L3, unfused (more content not included)... Normal [facility] MRI CERVICAL SPINE WO/W IVCO Non 09-20-2022 MRI CERVICAL SPINE WO/W IVCON * * *Final Report* * * DATE OF EXAM: Sep 20 2022 10:57AM [facility] 0298 - MRI CERVICAL SPINE WO/W IVCON / PROCEDURE REASON: Syringomyelia and syringobulbia (HCC) * * * * Physician Interpretation * * * * EXAMINATION: MRI BRAIN WO/W IVCON, MRI CERVICAL SPINE WO/W IVCON, MRI LUMBAR SPINE WO/W IVCON, MRI THORACIC SPINE WO/W IVCON HISTORY: Syringomyelia and syringobulbia (HCC) TECHNIQUE: Routine brain MRI protocol without and with contrast including diffusion and gradient echo images. Cervical, thoracic and lumbar MRI without and with IV contrast MQ: [id number]_2 Contrast: 20 mL Dotarem IV COMPARISON: MRI cervical and thoracic spine 08/07/2021 from outside institution. RESULT: BRAIN: Acute Change: There is no evidence of restricted diffusion to suggest an acute infarct. Hemorrhage: No evidence of prior parenchymal hemorrhage on the gradient echo images. Mass Lesion/ Mass Effect: No evidence of an intracranial mass or extra-axial fluid collection. No abnormal parenchymal or leptomeningeal enhancement is noted following contrast administration. No significant mass effect. Chronic Change: Scattered patchy areas of increased T2 and FLAIR signal are present in the supratentorial white matter which is a nonspecific finding but likely represents mild chronic microvascular ischemia. Parenchyma: No significant volume loss for age. The brain parenchyma is otherwise within normal limits of signal intensity and morphology. Ventricles: Normal caliber and morphology. Skull Base: Hypothalamic and pituitary region are grossly normal. Craniocervical junction is normal. No significant marrow replacement process. Vasculature: Major intracranial arterial structures, and dural venous sinuses show typical flow void, suggesting patency by spin echo criteria. Other: The visualized paranasal sinuses and mastoid air cells are clear. 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 CERVICAL: Counting reference: Craniocervical junction. Anatomic Variants: None. Alignment: Slight grade 1 anterolisthesis of C4 on C5, stable. Craniocervical junction: Craniocervical junction is normal. Cord: The visualized cord is within normal limits of signal intensity and morphology. No abnormal intradural enhancement. Bone marrow signal/fracture: No evidence of pathologic marrow infiltration. No evidence of prior fracture. Cervical soft tissues: Bilateral level 1 and 2 mildly prominent lymph nodes which are nonspecific, without significant enlargement by standard size criteria. The paraspinal soft tissues are within normal limits. C2-C3: Facet hypertrophy results in mild right neural foraminal narrowing. Left foramen is patent. Canal is patent. C3-C4: Facet hypertrophy results in moderate right neural foraminal narrowing. Left foramen is patent. Canal is patent. C4-C5: Facet hypertrophy results in moderate bilateral neural foraminal narrowing. Canal is patent. C5-C6: Facet hypertrophy results in moderate right neural foraminal narrowing. Left foramen is patent. Canal is patent. C6-C7: Mild ventral thecal sac effacement from disc osteophyte complex. Foramina are patent. C7-T1: Canal and foramina are patent. THORACIC: Counting reference: Lumbosacral junction. For the purposes of this report, L4-5 is considered the level of the iliac crest and there are 5 lumbar-type vertebrae. Anatomic Variants: None. Alignment: Sigmoid scoliosis apex right at T6-7, apex left at T9-10. Cord: Syrinx in the lower thoracic cord which spans from approximately T2 8 T11, measuring up to 2 x 3 mm in the axial plane. T2 sagittal slice selection skips the syrinx to some extent on the prior study, however compared on sagittal STIR sequence and axial T2 sequence, the findings are grossly stable. No abnormal intradural enhancement. Bone marrow signal/fracture: Intrinsically T1 hyperintense lesions in T6 and T10 bodies compatible with intraosseous hemangiomas. Endplate degenerative change along the concave scoliotic margin most notably at T7-8 on the left with type II signal changes. No evidence of pathologic marrow infiltration. No evidence of prior fracture. Thoracic soft tissues: The paraspinal soft tissues are within normal limits. Canal and foramina: Mild disc bulge at T7-8, endplate and facet hypertrophy with mild left neural foraminal narrowing. Endplate hypertrophy results in moderate neural foraminal narrowing at T4-5 on the right. LUMBAR: Counting reference: Lumbosacral junction. For the purposes of this report, L4-5 is considered the level of the iliac crest and there are 5 lumbar-type vertebrae. Alignment: Lumbar dextrocurvature apex right at L3-4. Slight retrolisthesis of L1 relative to L2. Bone marrow signal/fracture: Somewhat hypoplastic vertebral bodies at L5 and visualized sacrum. Multilevel posterior dysraphism with abnormal fusion of the posterior elements at L3 (more content not included)... Normal [facility] MRI LUMBAR SPINE WO/W IVCONo n 09-20-2022 MRI LUMBAR SPINE WO/W IVCON * * *Final R eport* * * DATE OF EXAM: Sep 20 2022 10:57AM [facility] 0304 - MRI LUMBAR SPINE WO/W IVCON / PROCEDURE REASON: Syringomyelia and syringobulbia (HCC) * * * * Physician Interpretation * * * * EXAMINATION: MRI BRAIN WO/W IVCON, MRI CERVICAL SPINE WO/W IVCON, MRI LUMBAR SPINE WO/W IVCON, MRI THORACIC SPINE WO/W IVCON HISTORY: Syringomyelia and syringobulbia (HCC) TECHNIQUE: Routine brain MRI protocol without and with contrast including diffusion and gradient echo images. Cervical, thoracic and lumbar MRI without and with IV contrast MQ: [id number]_2 Contrast: 20 mL Dotarem IV COMPARISON: MRI cervical and thoracic spine 08/07/2021 from outside institution. RESULT: BRAIN: Acute Change: There is no evidence of restricted diffusion to suggest an acute infarct. Hemorrhage: No evidence of prior parenchymal hemorrhage on the gradient echo images. Mass Lesion/ Mass Effect: No evidence of an intracranial mass or extra-axial fluid collection. No abnormal parenchymal or leptomeningeal enhancement is noted following contrast administration. No significant mass effect. Chronic Change: Scattered patchy areas of increased T2 and FLAIR signal are present in the supratentorial white matter which is a nonspecific finding but likely represents mild chronic microvascular ischemia. Parenchyma: No significant volume loss for age. The brain parenchyma is otherwise within normal limits of signal intensity and morphology. Ventricles: Normal caliber and morphology. Skull Base: Hypothalamic and pituitary region are grossly normal. Craniocervical junction is normal. No significant marrow replacement process. Vasculature: Major intracranial arterial structures, and dural venous sinuses show typical flow void, suggesting patency by spin echo criteria. Other: The visualized paranasal sinuses and mastoid air cells are clear. 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 CERVICAL: Counting reference: Craniocervical junction. Anatomic Variants: None. Alignment: Slight grade 1 anterolisthesis of C4 on C5, stable. Craniocervical junction: Craniocervical junction is normal. Cord: The visualized cord is within normal limits of signal intensity and morphology. No abnormal intradural enhancement. Bone marrow signal/fracture: No evidence of pathologic marrow infiltration. No evidence of prior fracture. Cervical soft tissues: Bilateral level 1 and 2 mildly prominent lymph nodes which are nonspecific, without significant enlargement by standard size criteria. The paraspinal soft tissues are within normal limits. C2-C3: Facet hypertrophy results in mild right neural foraminal narrowing. Left foramen is patent. Canal is patent. C3-C4: Facet hypertrophy results in moderate right neural foraminal narrowing. Left foramen is patent. Canal is patent. C4-C5: Facet hypertrophy results in moderate bilateral neural foraminal narrowing. Canal is patent. C5-C6: Facet hypertrophy results in moderate right neural foraminal narrowing. Left foramen is patent. Canal is patent. C6-C7: Mild ventral thecal sac effacement from disc osteophyte complex. Foramina are patent. C7-T1: Canal and foramina are patent. THORACIC: Counting reference: Lumbosacral junction. For the purposes of this report, L4-5 is considered the level of the iliac crest and there are 5 lumbar-type vertebrae. Anatomic Variants: None. Alignment: Sigmoid scoliosis apex right at T6-7, apex left at T9-10. Cord: Syrinx in the lower thoracic cord which spans from approximately T2 8 T11, measuring up to 2 x 3 mm in the axial plane. T2 sagittal slice selection skips the syrinx to some extent on the prior study, however compared on sagittal STIR sequence and axial T2 sequence, the findings are grossly stable. No abnormal intradural enhancement. Bone marrow signal/fracture: Intrinsically T1 hyperintense lesions in T6 and T10 bodies compatible with intraosseous hemangiomas. Endplate degenerative change along the concave scoliotic margin most notably at T7-8 on the left with type II signal changes. No evidence of pathologic marrow infiltration. No evidence of prior fracture. Thoracic soft tissues: The paraspinal soft tissues are within normal limits. Canal and foramina: Mild disc bulge at T7-8, endplate and facet hypertrophy with mild left neural foraminal narrowing. Endplate hypertrophy results in moderate neural foraminal narrowing at T4-5 on the right. LUMBAR: Counting reference: Lumbosacral junction. For the purposes of this report, L4-5 is considered the level of the iliac crest and there are 5 lumbar-type vertebrae. Alignment: Lumbar dextrocurvature apex right at L3-4. Slight retrolisthesis of L1 relative to L2. Bone marrow signal/fracture: Somewhat hypoplastic vertebral bodies at L5 and visualized sacrum. Multilevel posterior dysraphism with abnormal fusion of the posterior elements at L3, (more content not included)... Normal [facility] MRI THORACIC SPINE WO/W IVCO Non 09-20-2022 MRI THORACIC SPINE WO/W IVCON * * *Final Report* * * DATE OF EXAM: Sep 20 2022 10:57AM [facility] [id number] - MRI THORACIC SPINE WO/W IVCON / PROCEDURE REASON: Syringomyelia and syringobulbia (HCC) * * * * Physician Interpretation * * * * EXAMINATION: MRI BRAIN WO/W IVCON, MRI CERVICAL SPINE WO/W IVCON, MRI LUMBAR SPINE WO/W IVCON, MRI THORACIC SPINE WO/W IVCON HISTORY: Syringomyelia and syringobulbia (HCC) TECHNIQUE: Routine brain MRI protocol without and with contrast including diffusion and gradient echo images. Cervical, thoracic and lumbar MRI without and with IV contrast MQ: [id number] Contrast: 20 mL Dotarem IV COMPARISON: MRI cervical and thoracic spine 08/07/2021 from outside institution. RESULT: BRAIN: Acute Change: There is no evidence of restricted diffusion to suggest an acute infarct. Hemorrhage: No evidence of prior parenchymal hemorrhage on the gradient echo images. Mass Lesion/ Mass Effect: No evidence of an intracranial mass or extra-axial fluid collection. No abnormal parenchymal or leptomeningeal enhancement is noted following contrast administration. No significant mass effect. Chronic Change: Scattered patchy areas of increased T2 and FLAIR signal are present in the supratentorial white matter which is a nonspecific finding but likely represents mild chronic microvascular ischemia. Parenchyma: No significant volume loss for age. The brain parenchyma is otherwise within normal limits of signal intensity and morphology. Ventricles: Normal caliber and morphology. Skull Base: Hypothalamic and pituitary region are grossly normal. Craniocervical junction is normal. No significant marrow replacement process. Vasculature: Major intracranial arterial structures, and dural venous sinuses show typical flow void, suggesting patency by spin echo criteria. Other: The visualized paranasal sinuses and mastoid air cells are clear. 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 CERVICAL: Counting reference: Craniocervical junction. Anatomic Variants: None. Alignment: Slight grade 1 anterolisthesis of C4 on C5, stable. Craniocervical junction: Craniocervical junction is normal. Cord: The visualized cord is within normal limits of signal intensity and morphology. No abnormal intradural enhancement. Bone marrow signal/fracture: No evidence of pathologic marrow infiltration. No evidence of prior fracture. Cervical soft tissues: Bilateral level 1 and 2 mildly prominent lymph nodes which are nonspecific, without significant enlargement by standard size criteria. The paraspinal soft tissues are within normal limits. C2-C3: Facet hypertrophy results in mild right neural foraminal narrowing. Left foramen is patent. Canal is patent. C3-C4: Facet hypertrophy results in moderate right neural foraminal narrowing. Left foramen is patent. Canal is patent. C4-C5: Facet hypertrophy results in moderate bilateral neural foraminal narrowing. Canal is patent. C5-C6: Facet hypertrophy results in moderate right neural foraminal narrowing. Left foramen is patent. Canal is patent. C6-C7: Mild ventral thecal sac effacement from disc osteophyte complex. Foramina are patent. C7-T1: Canal and foramina are patent. THORACIC: Counting reference: Lumbosacral junction. For the purposes of this report, L4-5 is considered the level of the iliac crest and there are 5 lumbar-type vertebrae. Anatomic Variants: None. Alignment: Sigmoid scoliosis apex right at T6-7, apex left at T9-10. Cord: Syrinx in the lower thoracic cord which spans from approximately T2 8 T11, measuring up to 2 x 3 mm in the axial plane. T2 sagittal slice selection skips the syrinx to some extent on the prior study, however compared on sagittal STIR sequence and axial T2 sequence, the findings are grossly stable. No abnormal intradural enhancement. Bone marrow signal/fracture: Intrinsically T1 hyperintense lesions in T6 and T10 bodies compatible with intraosseous hemangiomas. Endplate degenerative change along the concave scoliotic margin most notably at T7-8 on the left with type II signal changes. No evidence of pathologic marrow infiltration. No evidence of prior fracture. Thoracic soft tissues: The paraspinal soft tissues are within normal limits. Canal and foramina: Mild disc bulge at T7-8, endplate and facet hypertrophy with mild left neural foraminal narrowing. Endplate hypertrophy results in moderate neural foraminal narrowing at T4-5 on the right. LUMBAR: Counting reference: Lumbosacral junction. For the purposes of this report, L4-5 is considered the level of the iliac crest and there are 5 lumbar-type vertebrae. Alignment: Lumbar dextrocurvature apex right at L3-4. Slight retrolisthesis of L1 relative to L2. Bone marrow signal/fracture: Somewhat hypoplastic vertebral bodies at L5 and visualized sacrum. Multilevel posterior dysraphism with abnormal fusion of the posterior elements at L3 (more content not included)... Normal [facility] No Panel Informationon 09-20 [facility] XR SCOLIOSIS 2V PA STAND/LAT on 07-06-2023 XR SCOLIOSIS 2V PA STAND/LAT * * *Final Report* * * DATE OF EXAM: Sep 20 2022 11:21AM [id number] - XR SCOLIOSIS 2V PA STAND/LAT / PROCEDURE REASON: Scoliosis, unspecified scoliosis type, unspecified spinal region * * * * Physician Interpretation * * * * HISTORY: 67-YEAR-OLD FEMALE WITH Scoliosis, unspecified scoliosis type, unspecified spinal region . had her hip replaced about 2 years ago and started having pain along right side of lumbar more towards lateral side no inj TECHNIQUE: XR SCOLIOSIS 2V PA STAND/LAT Laterality: NOT APPLICABLE Number of different views (projections): 2 COMPARISON: None RESULT: Scoliosis film: Counting reference, the first rib-bearing vertebral bodies considered T1. There are 12 thoracic and 5 lumbar vertebrae. Approximately 10 degree dextroscoliosis of lower thoracic spine centered measured from T8 through T12. 18 degree levoscoliosis of lumbar spine measured at T12-L4. Prominent kyphotic curve at the thoracolumbar junction. Multilevel degenerative disc disease throughout the thoracic and lumbar spine. Bones are osteopenic. The prevertebral bodies are intact. IMPRESSION: S-SHAPED SCOLIOSIS OF THE THORACOLUMBAR SPINE. PROMINENT KYPHOSIS CENTERED AT THE THORACOLUMBAR JUNCTION. Photographer Apprentice: PSCB Transcribe Date/Time: Sep 20 2022 7:56P Dictated by : CHARLEE CHUN MD This examination was interpreted and the report reviewed and electronically signed by: CHARLEE CHUN MD on Sep 20 2022 8:00PM EST [id number] Normal [facility] XR SCOLIOSIS PA STAND/LAT 2V on [facility] [facility] RENE RIDER ([id number]) 1955 F Date Time Provider Department 08/21/22 FANG AUGUSTIN NEAGC During your visit today, we recorded the following information about you: Allergies As of Date: 08/21/2022 Noted Allergy Reaction SULFA (SULFONAMIDE ANTIBIOTICS) 12/23/2016 10 - Anaphylaxis Date Reviewed: 08/16/2022 Reviewed by: Margaret Bingham Ma - Fully Assessed Reason for Visit: Appointment [[id number]] Cmt: Xray AND MRI 09/20 and office appointment 09/24 Prescriptions as of 08/21/2022 - amLODIPine (NORVASC) 10 mg tablet - Zinc Gluconate 30 mg tab Take 30 mg by mouth. - iv contrast (will be provided with radiology test) MRI Brain Inject, intravenously, once for 1 dose.No IV access, insert saline lock prior to beginning of sedation, infusion, injection of imaging exam.Discontinue saline lock post exam. If Pt. has a central line or IVAD, may access for administration according to line specific nursing protocol.Once exam is complete flush line and de-access according to line specific nursing protocol in the MR contrast administration guidelines link Problem List As Of Date 08/21/2022 Noted Resolved Syringomyelia and syringobulbia (HCC) [G95.0] 08/16/2022 Encounter Status:Closed by MIREYA RODRIGUEZ on 08/21/22 [facility] CNOVon 08-16-2022 CNOV Office Visit (NEAGCLM) RENE RIDER ([id number]) 1955 F Date Time Provider Department 08/16/22 1:30 PM FANG AUGUSTIN NENIYA During your visit today, we recorded the following information about you: Pulse Respiration Blood pressure Weight 99/minute 18/minute 131/82 94.6 kg Height 1.499 m Fang Augustin APRN.CNP 08/16/2022 4:43 PM Signed SPINE SURGERY CONSULT NOTE PERLITA Weaver Date of visit: August 16, 2022 Patient Name: Ms.Jean Jerez Adry Date of : 1955 Current Age: [age] year old Sex: female MRN/E# [id number] Last Office Visit: Visit date not found Chief Complaint: Patient presents with: New Patient HPI Ms.Jean Meri Rider presents to the office today as a new patient for evaluation of neck, middle, and low back pain. Neck pain radiates to bilateral trapezius regions, does not extend into arms. She endorses difficulty holding objects but denies dropping items. She endorses chronic gait difficulty secondary to right foot. She is not ambulating with assistive device. Middle back pain in midline and paraspinal region. Low back pain radiates to posterior aspect of bilateral lower extremities. Pain in back is more bothersome than leg pain. She endorses chronic right foot weakness, increased difficulty with gait. She reports has undergone previous MRI of thoracic spine which demonstrated a syrinx, did not have additional follow-up imaging with contrast for evaluation of lesion. PREVIOUS CONSERVATIVE TREATMENT: -Medication: Tylenol -Physical therapy: Completed at [facility]- 2021 -Previous healthcare providers: PCP -Injections: Denies PREVIOUS SPINE SURGERY: Denies Surgical Risk Factors: Smoking status: Denies Anticoagulants/antipl atelets: Denies Diabetic: Denies BMI: 42.12 PAIN EVALUATION 08/16/2022 1327 Pain Level: 5 Pain Location: Back Description: Burning;Sore;Aching;S harp Duration Amount of Time: 1 Duration Units: Years Frequency: Continuous PAST MEDICAL HISTORY Diagnosis Date Hypertension PAST SURGICAL HISTORY Procedure Laterality Date TOTAL HIP REPLACEMENT Right 2020 No family history on file. ALLERGIES Allergen Reactions Sulfa (Sulfonamide * Anaphylaxis Current Outpatient Medications Medication Sig Dispense Refill amLODIPine (NORVASC) 10 mg tablet Zinc Gluconate 30 mg tab Take 30 mg by mouth. iv contrast (will be provided with radiology test) MRI TSP Inject, intravenously, once for 1 dose. No IV access, insert saline lock prior to the beginning of sedation, infusion, injection of imaging exam. Discontinue saline lock post exam. If Pt. has a central line or IVAD, may access for administration according to line specific nursing protocol. Once exam is complete flush line and de-access according to line specific nursing protocol in the MR contrast administration guidelines link. 1 Each 0 iv contrast (will be provided with radiology test) MRI Brain Inject, intravenously, once for 1 dose.No IV access, insert saline lock prior to beginning of sedation, infusion, injection of imaging exam.Discontinue saline lock post exam. If Pt. has a central line or IVAD, may access for administration according to line specific nursing protocol.Once exam is complete flush line and de-access according to line specific nursing protocol in the MR contrast administration guidelines link 1 Each 0 iv contrast (will be provided with radiology test) MRI CSP Inject, intravenously, once for 1 dose. No IV access, insert saline lock prior to the beginning of sedation, infusion, injection of imaging exam. Discontinue saline lock post exam. If Pt. has a central line or IVAD, may access for administration according to line specific nursing protocol. Once exam is complete flush line and de-access according to line specific nursing protocol in the MR contrast administration guidelines link. 1 Each 0 iv contrast (will be provided with radiology test) MRI LSP Inject, intravenously, once for 1 dose. No IV access, insert saline lock prior to the beginning of sedation, infusion, injection of imaging exam. Discontinue saline lock post exam. If Pt. has a central line or IVAD, may access for administration according to line specific nursing protocol. Once exam is complete flush line and de-access according to line specific nursing protocol in the MR contrast administration guidelines link. 1 Each 0 No current facility-administered medications for this visit. REVIEW OF SYSTEMS Review of Systems Constitutional: Negative for chills, diaphoresis and fever. HENT: Negative for congestion, trouble swallowing and voice change. Eyes: Negative for discharge and visual disturbance. Respiratory: Negative for cough, shortness of breath and wheezing. Cardiovascular: Negative for chest pain, palpitations and leg swelling. Gastrointestinal: Negative for constipation, diarrhea (more content not included)... Normal [facility] Absolute lymphocyte countOrd ered By: Dr. Khan on 07-20-2022 Lymphocytes Auto (Unsp spec) [#/Vol] 2.19 10*3/uL 0.83-4.51 [facility] Basophil percentageOrdered B y: Dr. Khan on 07-20-2022 Basophils/100 WBC (Bld) 0.5 % 0-1 [facility] Bilirubin [Mass/Vol] 0.30 mg/dL 0.20-1.00 [facility] Comment on above: For patients on eltr ombopag therapy, use of Dimension [place] TBIL is not recommended. Chloride [Moles/Vol] 104 mmol/L 98-107 [facility] Cholesterol [Mass/Vol] 232 mg/dL <200 [facility] Comment on above: <200 mg/dL Desirable 200-240 mg/dL Borderline >240 mg/dL High Risk Eosinophils/100 WBC (Bld) 3.0 % 0-5 [facility] Glucose [Mass/Vol] 104 mg/dL 74-106 [facility] Comment on above: Fasting Glucose resu lt from 100 to 125 mg/dL suggests IMPAIRED HOMEOSTASIS per A.D.A. criteria. Neutrophils (Bld) [#/Vol] 4.8 10*3/uL 2.0-7.7 [facility] Neutrophils/100 WBC (Bld) 61.7 % 47-70 [facility] Potassium [Moles/Vol] 3.8 mmol/L 3.5-5.1 [facility] Protein [Mass/Vol] 7.6 g/dL 6.4-8.2 [facility] Sodium [Moles/Vol] 140 mmol/L 136-145 [facility] Triglyceride [Mass/Vol] 103 mg/dL <199 [facility] Comment on above: The drugs N-Acetylcy steine and Metamizole may falsely depress this assay.Serum Triglycerides Reference Interval Normal <150 mg/dL Borderline high 150 - 199 mg/dL High 200 - 499 mg/dL Very High > or = 500 mg/dL WBC (Bld) [#/Vol] 7.8 10*3/uL 4.4-11.0 [facility] Blood erythrocytes count (nu mber/volume)Ordered By: Dr. Khan on 07-20-2022 RBC (Bld) [#/Vol] 4.94 10*6/uL 4.2-5.4 [facility] Blood hemoglobin measurement (mass/volume)Ordered By: Dr. Khan on 07-20-2022 Hemoglobin (Bld) [Mass/Vol] 13.3 g/dL 12.0-15. 0 [facility] Blood lymphocytes/100 leukoc ytesOrdered By: Dr. Khan on 07-20-2022 Lymphocytes/100 WBC (Bld) 28.3 % 19-41 [facility] Blood monocytes/100 leukocyt esOrdered By: Dr. Khan on 07-20-2022 Monocytes/100 WBC (Bld) 6.2 % 0-10 [facility] Blood platelet mean volumeOr dered By: Dr. Khan on 07-20-2022 Platelet mean volume (Bld) [Entitic vol] 11.1 fL 6.2-12.0 [facility] Determination of erythrocyte mean corpuscular volume (MCV)Ordered By: Dr. Khan on 07-20-2022 MCV (RBC) [Entitic vol] 87.0 fL 81-99 [facility] Hematocrit Auto (Bld) [Volum e fraction]Ordered By: Dr. Khan on 07-20-2022 Hematocrit (Bld) [Volume fraction] 43.0 % 37-47 [facility] Laboratory - Chemistry and C hemistry - challengeOrdered By: Dr. Khan on 07-20-2022 ALP [Catalytic activity/Vol] 76 U/L 45-117 [facility] ALT [Catalytic activity/Vol] 20 U/L 13-56 [facility] CO2 [Moles/Vol] 27.0 mmol/L 21.0-32.0 [facility] Globulin (S) [Mass/Vol] 4.1 g/dL 2.2-4.2 [facility] Urea nitrogen/Creatinine [Mass ratio] 13.7 mg/mg 10-20 [facility] Laboratory - Hematology and Cell countsOrdered By: Dr. Khan on 07-20-2022 Erythrocyte distribution width (RBC) [Entitic vol] 50.7 fL 35.1-43.9 [facility] Erythrocyte distribution width (RBC) [Ratio] 16.0 % 11.6-14.6 [facility] Immature granulocytes/100 WBC (Bld) 0.300 % 0.0-0.9 [facility] Comment on above: IG% - Immature Granu locytes (promyelocytes, myelocytes and metamyelocytes) > 1% indicates that a LEFT SHIFT is Present. MCH (RBC) [Entitic mass] 26.9 pg 27.0-32.0 [facility] Nucleated RBC/100 WBC (Bld) [Ratio] 0 % 0-5 [facility] MCHC Auto (RBC) [Mass/Vol]Or dered By: Dr. Khan on 07-20-2022 MCHC (RBC) [Mass/Vol] 30.9 g/dL 32-36 [facility] No Panel InformationOrdered By: Dr. Khan on 07-20-2022 Estimated GFR (MDRD) Amer 52 mL/min >60 [facility] Comment on above: GFR Calc Estimated GFR (MDRD) Non-Af Amer 43 mL/min >60 [facility] Comment on above: Non- GFR Calc Platelets bldOrdered By: Dr. Khan on 07-20-2022 Platelets (Bld) [#/Vol] 374 10*3/uL 150-450 [facility] Serum or plasma albumin nava urement (mass/volume)Ordered By: Dr. Khan on 07-20-2022 Albumin [Mass/Vol] 3.5 g/dL 3.2-5.0 [facility] Serum or plasma albumin/glob ulin mass ratioOrdered By: Dr. Khan on 07-20-2022 Albumin/Globulin [Mass ratio] 0.9 {ratio} 0.9-2.4 [facility] Serum or plasma calcium nava urement (mass/volume)Ordered By: Dr. Khan on 07-20-2022 Calcium [Mass/Vol] 9.7 mg/dL 8.5-10.1 [facility] Serum or plasma cholesterol in HDL measurement (mass/volume)Ordered By: Dr. Khan on 07-20-2022 Cholesterol in HDL [Mass/Vol] 67 mg/dL >40 [facility] Comment on above: The drugs N-Acetylcy steine and Metamizole may falsely depress this assay. Reference Range HDL <40 mg/dL Low HDL Cholesterol HDL >or= 60 mg/dL High HDL Cholesterol Serum or plasma cholesterol in VLDL measurement (mass/volume)Ordered By: Dr. Khan on 07-20-2022 Cholesterol in VLDL [Mass/Vol] 21 mg/dL 5-40 [facility] Serum or plasma creatinine m easurement (mass/volume)Ordered By: Dr. Khan on 07-20-2022 Creatinine [Mass/Vol] 1.31 mg/dL 0.55-1.02 [facility] Comment on above: The validity of the calculated GFR & GFRAA in patients over 70 years has not been determined. Clinical correlation is essential. Serum or plasma low density lipoprotein (LDL) cholesterol measurement (mass/volume)Ordered By: Dr. Khan on 07-20-2022 Cholesterol in LDL [Mass/Vol] 144 mg/dL 0-130 [facility] Serum or plasma urea nitroge n measurement (mass/volume)Ordered By: Dr. Khan on 07-20-2022 Urea nitrogen [Mass/Vol] 18 mg/dL 7-18 [facility] Thin prep Papanicolaou smear with manual screeningOrdered By: Dr. Khan on 07-20-2022 Thin prep Papanicolaou smear with manual screening 13 U/L 15-37 [facility] Thin prep Papanicolaou smear with manual screening 9 5-15 [facility] XR HIP MINIMUM 2 VIEWS RIGHT on 01-04-2020 XR HIP MINIMUM 2 VIEWS RIGHT ORIGINAL XR XR HIP MINIMUM 2 VIEWS RIGHT, Clinical Statement: RT HIP PAIN , Comparison: None Findings: No acute fracture, dislocation, lytic process or periosteal reaction is seen in the visualized bones. No erosive type of arthritis. No soft tissue calcification. There is asymmetric severe RIGHT hip degenerative arthritis with large marginal spurs, subchondral sclerosis and cystic changes in the acetabulum and femoral head and severe superior joint space narrowing. Mild superior lateral migration of the femoral head with remodeling of the acetabulum. There seems to be spina bifida in the sacral region. Some deformity of the LEFT iliac crest, congenital versus remote trauma/other insult. Mild LEFT hip degenerative arthritis. IMPRESSION: No acute skeletal abnormality. Severe degenerative arthritis in the RIGHT hip as described. Interpreted By: Edward Montes MD Preliminary Report By: Edward Montes MD Electronically Signed By: Edward Montes MD Dictated Date: 01/04/2020 5:25:16 PM Prelim Date: 01/04/2020 5:25:16 PM Sign Date: 01/04/2020 5:26:21 PM Ordering Provider:Ijeoma Grimes [facility] ([place]) CHEST 2 VIEWS [id number] 12-24 CHEST 2 VIEWS [id number] Performed at [facility] APPROVED BY: JAMES BECKER MD EXAMINATION: CHEST RADIOGRAPH (2 VIEW FRONTAL & LATERAL) Clinical History: FeverM: XC2_3Comparison: None available RESULT: Lines, tubes, and devices: None. Lungs and pleura: No consolidation. No lung mass. No pleural effusion. No pneumothorax. Cardiomediastinal silhouette: Normal cardiomediastinal silhouette. Other: No acute bony abnormality. IMPRESSION: No acute radiographic abnormality. Normal [facility] Cult Urineon 12-24-2016 Cult Urine Test performed at [facility] Mixed skin thu. No further identification or susceptibility testing will be performed. Please submit a new specimen. Plates will be held for 5 days. Normal [facility] Comment on above: Performed By: #### C _URI ####[place] [address] Rapid Influenza A/B Agon Rapid Influenza A/B Ag [facility] the presence of Influenza A antigen.Presumptive negative for the presence of Influenza B antigen.It is suggested that negative test results should beconfirmed by cell culture, if warranted. Normal [facility] Comment on above: Performed By: #### I NAB3 ####[place] [address] Urinalysis Routineon 017 Ep Cells Urine 2-5 Normal 0-5 [facility] Comment on above: Performed By: #### M URIN ####[place] [address] Urine, appearance 2+ (SLT CLOUDY) Normal [facility] Comment on above: Performed By: #### M URIN ####[place] [address] Urine, bacteria in sediment 2+ Abnormal None [facility] Comment on above: Performed By: #### M URIN ####[place] [address] Urine, color YELLOW Normal [facility] Comment on above: Performed By: #### M URIN ####[place] [address] Urine, erythrocytes in sediment by area 0-3 Normal 0-3 [facility] Comment on above: Performed By: #### M URIN ####[facility] [place], [place] [address] Urine, leukocytes in sedmiment 21-35 Abnormal 0-5 [facility] Comment on above: Performed By: #### M URIN ####[facility] [place], [place] [address] Bilirubin Urine Negative Normal Negative [facility] Comment on above: Performed By: #### M URIN ####[facility] [place], [place] [address] Hemoglobin,Urine SMALL Abnormal Negative [facility] Comment on above: Performed By: #### M URIN ####[place] [address] Ketone Urine Negative Normal Negative [facility] Comment on above: Performed By: #### M URIN ####[address] [address] Nitrites Urine Negative Normal Negative [facility] Comment on above: Performed By: #### M URIN ####[address] [address] Protein Urine TRACE Abnormal Negative [facility] Comment on above: Performed By: #### M URIN ####[address] [address] Specific Carter, Ur 1.015 Normal 1.005-1.030 [facility] Comment on above: Performed By: #### M URIN ####[address] [address] Urine, glucose presence Negative Normal Negative [facility] Comment on above: Performed By: #### M URIN ####[address] [address] Urine, pH 5.5 [pH] Normal 5.0-8.0 [facility] Comment on above: Performed By: #### M URIN ####[address] [address] Urobilinogen,Ur 0.2 EU/dL Normal 0.0-1.0 [facility] Comment on above: Performed By: #### M URIN ####[facility] [place], [place] [address] WBC (Leukocytes) MODERATE Abnormal Negative [facility] Comment on above: Performed By: #### M URIN ####[facility] [place], [place] [address] Vital Signs Date Time Vital Sign Value Performing Clinician Geo morgan 01-12-2025 11:30-0400 Diastolic blood pressure 75 mm[Hg] Dr. Charity hKan MD Work Phone: [facility] 01-12-2025 11:30-0400 Heart rate 83 /min Dr. Charity Khan MD Work Phone: [facility] 01-12-2025 11:30-0400 Respiratory rate 18 /min Dr. Charity Khan MD Work Phone: [facility] 01-12-2025 11:30-0400 SaO2% (BldA) [Mass fraction] 96 % Dr. Charity Khan MD Work Phone: [facility] 01-12-2025 11:30-0400 Systolic blood pressure 133 mm[Hg] Dr. Charity Khan MD Work Phone: [facility] 01-12-2025 09:22-0400 Body height 147.[address] Charity Khan MD Work Phone: [facility] 01-12-2025 09:22-0400 Body mass index (BMI) [Ratio] 46.3 kg/m2 Dr. Charity Khan MD Work Phone: [facility] 01-12-2025 09:22-0400 Body temperature 98.5 [degF] Dr. Charity Khan MD Work Phone: [facility] 01-12-2025 09:22-0400 Body weight 100.[address] Charity Khan MD Work Phone: [facility] 01-06-2025 10:51-0400 Body mass index (BMI) [Ratio] 44.8 kg/m2 Dr. Charity Khan MD Work Phone: [facility] 01-06-2025 10:51-0400 Body temperature 97 [degF] Dr. Charity Khan MD Work Phone: [facility] 01-06-2025 10:51-0400 Body weight 100.[address] Charity Khan MD Work Phone: [facility] 01-06-2025 10:51-0400 Diastolic blood pressure 74 mm[Hg] Dr. Charity Khan MD Work Phone: [facility] 01-06-2025 10:51-0400 Heart rate 82 /min Dr. Charity Khan MD Work Phone: [facility] 01-06-2025 10:51-0400 Respiratory rate 14 /min Dr. Charity Khan MD Work Phone: [facility] 01-06-2025 10:51-0400 SaO2% (BldA) [Mass fraction] 95 % Dr. Charity Khan MD Work Phone: [facility] 01-06-2025 10:51-0400 Systolic blood pressure 120 mm[Hg] Dr. Charity Khan MD Work Phone: [facility] 12-14-2024 11:22-0400 Body height 149.[address] Charity Khan MD Work Phone: [facility] 12-14-2024 11:22-0400 Body mass index (BMI) [Ratio] 45.7 kg/m2 Dr. Charity Khan MD Work Phone: [facility] 12-14-2024 11:22-0400 Body temperature 97.4 [degF] Dr. Charity Khan MD Work Phone: [facility] 12-14-2024 11:22-0400 Body weight 102.[address] Charity Khan MD Work Phone: [facility] 12-14-2024 11:22-0400 Diastolic blood pressure 90 mm[Hg] Dr. Charity Khan MD Work Phone: [facility] 12-14-2024 11:22-0400 Heart rate 80 /min Dr. Charity Khan MD Work Phone: [facility] 12-14-2024 11:22-0400 Respiratory rate 18 /min Dr. Charity Khan MD Work Phone: [facility] 12-14-2024 11:22-0400 SaO2% (BldA) [Mass fraction] 96 % Dr. Charity Khan MD Work Phone: [facility] 12-14-2024 11:22-0400 Systolic blood pressure 142 mm[Hg] Dr. Charity Khan MD Work Phone: [facility] 11-11-2024 09:55-0400 Body mass index (BMI) [Ratio] 45.5 kg/m2 Dr. Charity Khan MD Work Phone: [facility] 11-11-2024 09:55-0400 Body temperature 98.2 [degF] Dr. Charity Khan MD Work Phone: [facility] 11-11-2024 09:55-0400 Body weight 102.[address] Charity Khan MD Work Phone: [facility] 11-11-2024 09:55-0400 Diastolic blood pressure 90 mm[Hg] Dr. Charity Khan MD Work Phone: [facility] 11-11-2024 09:55-0400 Heart rate 96 /min Dr. Charity Khan MD Work Phone: [facility] 11-11-2024 09:55-0400 Respiratory rate 18 /min Dr. Charity Khan MD Work Phone: [facility] 11-11-2024 09:55-0400 SaO2% (BldA) [Mass fraction] 99 % Dr. Charity Khan MD Work Phone: [facility] 11-11-2024 09:55-0400 Systolic blood pressure 134 mm[Hg] Dr. Charity Khan MD Work Phone: [facility] 10-07-2024 13:49-0400 Body height 149.[address] Charity Khan MD Work Phone: [facility] 10-07-2024 13:49-0400 Body mass index (BMI) [Ratio] 44.8 kg/m2 Dr. Charity Khan MD Work Phone: [facility] 10-07-2024 13:49-0400 Body temperature 99.6 [degF] Dr. Charity Khan MD Work Phone: [facility] 10-07-2024 13:49-0400 Body weight 100.[address] Charity Khan MD Work Phone: [facility] 10-07-2024 13:49-0400 Diastolic blood pressure 80 mm[Hg] Dr. Charity Khan MD Work Phone: [facility] 10-07-2024 13:49-0400 Heart rate 120 /min Dr. Charity Khan MD Work Phone: [facility] 10-07-2024 13:49-0400 Respiratory rate 16 /min Dr. Charity Khan MD Work Phone: [facility] 10-07-2024 13:49-0400 SaO2% (BldA) [Mass fraction] 96 % Dr. Charity Khan MD Work Phone: [facility] 10-07-2024 13:49-0400 Systolic blood pressure 130 mm[Hg] Dr. Charity Khan MD Work Phone: [facility] 08-05-2024 15:36-0400 Body height 144.[address] Charity Khan MD Work Phone: [facility] 08-05-2024 15:36-0400 Body mass index (BMI) [Ratio] 47.9 kg/m2 Dr. Charity Khan MD Work Phone: [facility] 08-05-2024 15:36-0400 Body temperature 98.9 [degF] Dr. Charity Khna MD Work Phone: [facility] 08-05-2024 15:36-0400 Body weight 100.[address] Charity Khan MD Work Phone: [facility] 08-05-2024 15:36-0400 Diastolic blood pressure 88 mm[Hg] Dr. Charity Khan MD Work Phone: [facility] 08-05-2024 15:36-0400 Heart rate 95 /min Dr. Charity Khan MD Work Phone: [facility] 08-05-2024 15:36-0400 Respiratory rate 18 /min Dr. Charity Khan MD Work Phone: [facility] 08-05-2024 15:36-0400 SaO2% (BldA) [Mass fraction] 95 % Dr. Charity Khan MD Work Phone: [facility] 08-05-2024 15:36-0400 Systolic blood pressure 138 mm[Hg] Dr. Charity Khan MD Work Phone: [facility] 06-18-2024 14:59-0400 Body height 144.[address] Charity Khan MD Work Phone: [facility] 06-18-2024 14:59-0400 Body mass index (BMI) [Ratio] 47.5 kg/m2 Dr. Charity Khan MD Work Phone: [facility] 06-18-2024 14:59-0400 Body temperature 98.6 [degF] Dr. Charity Khan MD Work Phone: [facility] 06-18-2024 14:59-0400 Body weight 99.[address] Charity Khan MD Work Phone: [facility] 06-18-2024 14:59-0400 Diastolic blood pressure 82 mm[Hg] Dr. Charity Khan MD Work Phone: [facility] 06-18-2024 14:59-0400 Heart rate 92 /min Dr. Charity Khan MD Work Phone: [facility] 06-18-2024 14:59-0400 Respiratory rate 18 /min Dr. Charity Khan MD Work Phone: [facility] 06-18-2024 14:59-0400 SaO2% (BldA) [Mass fraction] 98 % Dr. Charity Khan MD Work Phone: [facility] 06-18-2024 14:59-0400 Systolic blood pressure 128 mm[Hg] Dr. Charity Khan MD Work Phone: [facility] 06-10-2024 14:42-0400 Body mass index (BMI) [Ratio] 43 kg/m2 Dr. Charity Khan MD Work Phone: [facility] 06-10-2024 14:42-0400 Body temperature 96.9 [degF] Dr. Charity Khan MD Work Phone: [facility] 06-10-2024 14:42-0400 Body weight 99.[address] Charity Khan MD Work Phone: [facility] 06-10-2024 14:42-0400 Diastolic blood pressure 82 mm[Hg] Dr. Charity Khan MD Work Phone: [facility] 06-10-2024 14:42-0400 Heart rate 102 /min Dr. Charity Khan MD Work Phone: [facility] 06-10-2024 14:42-0400 Respiratory rate 16 /min Dr. Charity Khan MD Work Phone: [facility] 06-10-2024 14:42-0400 SaO2% (BldA) [Mass fraction] 96 % Dr. Cahrity Khan MD Work Phone: [facility] 06-10-2024 14:42-0400 Systolic blood pressure 120 mm[Hg] Dr. Charity Khan MD Work Phone: [facility] 06-08-2024 10:10-0400 Body mass index (BMI) [Ratio] 47.8 kg/m2 Dr. Charity Khan MD Work Phone: [facility] 06-08-2024 10:10-0400 Body weight 100.[address] Charity Khan MD Work Phone: [facility] 06-08-2024 10:07-0400 Body temperature 98.5 [degF] Dr. Charity Khan MD Work Phone: [facility] 06-08-2024 10:07-0400 Diastolic blood pressure 83 mm[Hg] Dr. Charity Khan MD Work Phone: [facility] 06-08-2024 10:07-0400 Heart rate 103 /min Dr. Charity Khan MD Work Phone: [facility] 06-08-2024 10:07-0400 Respiratory rate 18 /min Dr. Charity Khan MD Work Phone: [facility] 06-08-2024 10:07-0400 SaO2% (BldA) [Mass fraction] 99 % Dr. Charity Khan MD Work Phone: [facility] 06-08-2024 10:07-0400 Systolic blood pressure 128 mm[Hg] Dr. Charity Khan MD Work Phone: [facility] 03-09-2024 13:46-0500 Body height 152.[address] Charity Khan MD Work Phone: [facility] 03-09-2024 13:46-0500 Body mass index (BMI) [Ratio] 42.3 kg/m2 Dr. Charity Khan MD Work Phone: [facility] 03-09-2024 13:46-0500 Body temperature 97.5 [degF] Dr. Charity Khan MD Work Phone: [facility] 03-09-2024 13:46-0500 Body weight 98.[address] Charity Khan MD Work Phone: [facility] 03-09-2024 13:46-0500 Diastolic blood pressure 84 mm[Hg] Dr. Charity Khan MD Work Phone: [facility] 03-09-2024 13:46-0500 Heart rate 110 /min Dr. Charity Khan MD Work Phone: [facility] 03-09-2024 13:46-0500 Respiratory rate 16 /min Dr. Charity Khan MD Work Phone: [facility] 03-09-2024 13:46-0500 SaO2% (BldA) [Mass fraction] 98 % Dr. Charity Khan MD Work Phone: [facility] 03-09-2024 13:46-0500 Systolic blood pressure 130 mm[Hg] Dr. Charity Khan MD Work Phone: [facility] 05-13-2023 08:41-0500 Body height 152.[address] Charity Khan Work Phone: [facility] 05-13-2023 08:41-0500 Body mass index (BMI) [Ratio] 42.4 kg/m2 Dr. Charity Khan Work Phone: [facility] 05-13-2023 08:41-0500 Body temperature 97.1 [degF] Dr. Charity Khan Work Phone: [facility] 05-13-2023 08:41-0500 Body weight 98.[address] Charity Khan Work Phone: [facility] 05-13-2023 08:41-0500 Diastolic blood pressure 82 mm[Hg] Dr. Charity Khan Work Phone: [facility] 05-13-2023 08:41-0500 Heart rate 120 /min Dr. Charity Khan Work Phone: [facility] 05-13-2023 08:41-0500 Respiratory rate 16 /min Dr. Charity Khan Work Phone: [facility] 05-13-2023 08:41-0500 SaO2% (BldA) [Mass fraction] 98 % Dr. Charity Khan Work Phone: [facility] 05-13-2023 08:41-0500 Systolic blood pressure 140 mm[Hg] Dr. Charity Khan Work Phone: [facility] 08-16-2022 13:30-0400 Body height 149.9 cm Fang Augustin APRN.HOME CARE CONSULTANT Work Phone: [facility] 08-16-2022 13:30-0400 Body weight 94.6 kg Fang Augustin APRN.HOME CARE CONSULTANT Work Phone: [facility] 08-16-2022 13:30-0400 Diastolic blood pressure 82 mm[Hg] Fang Augustin APRN.HOME CARE CONSULTANT Work Phone: [facility] 08-16-2022 13:30-0400 Heart rate 99 /min Fang Augustin WEB SIZER.HOME CARE CONSULTANT Work Phone: [facility] 08-16-2022 13:30-0400 Respiratory rate 18 /min Fang Augustin WEB SIZER.HOME CARE CONSULTANT Work Phone: [facility] 08-16-2022 13:30-0400 SaO2% (BldA) [Mass fraction] 97 % Fang Augustin WEB SIZER.HOME CARE CONSULTANT Work Phone: [facility] 08-16-2022 13:30-0400 Systolic blood pressure 131 mm[Hg] Fang Augustin WEB SIZER.HOME CARE CONSULTANT Work Phone: [facility] 07-20-2022 08:21-0400 Body height 147.[address] Charity Khan Work Phone: [facility] 07-20-2022 08:21-0400 Body mass index (BMI) [Ratio] 42.8 kg/m2 Dr. Charity Khan Work Phone: [facility] 07-20-2022 08:21-0400 Body temperature 98.9 [degF] Dr. Charity Khan Work Phone: [facility] 07-20-2022 08:21-0400 Body weight 92.[address] Charity Khan Work Phone: [facility] 07-20-2022 08:21-0400 Diastolic blood pressure 94 mm[Hg] Dr. Charity Khan Work Phone: [facility] 07-20-2022 08:21-0400 Heart rate 91 /min Dr. Charity Khan Work Phone: [facility] 07-20-2022 08:21-0400 Respiratory rate 16 /min Dr. Charity Khan Work Phone: [facility] 07-20-2022 08:21-0400 SaO2% (BldA) [Mass fraction] 99 % Dr. Charity Khan Work Phone: [facility] 07-20-2022 08:-040 Systolic blood pressure 140 mm[Hg] Dr. Charity Khan Work Phone: [facility] Encounters Encounter Date Encounter Type Care Provider Facility Start: 01-26-2025 ambulatory [facility] Facility: [facility] Start: 01-12-2025 End: 01-12-2025 ambulatory [facility] Start: 01-07-2025 End: 01-07-[address] Tara Lyon DO -Laboratory Work Phone: Start: 01-06-2025 End: 01-06-[address] Charity Khan MD -[facility] Work Phone: Start: 01-06-2025 End: 01-06-[address] Charity Khan MD [facility] Start: 01-06-2025 End: 01-07-2025 ambulatory [facility] Start: 12-30-2024 End: 12-30-[address] Tara Lyon DO -Laboratory Work Phone: Start: 12-30-2024 End: 12-30-2024 ambulatory [facility] Start: 12-14-[address] Jordon Chaparro MD -[facility] Start: 12-14-2024 End: 12-14-[address] Jordon Chaparro MD -[facility] Work Phone: Start: 12-14-2024 End: 12-14-[address] Charity Khan MD Work Phone: -[facility] Start: 12-08-2024 Non-patient / Non-visit Dr. Rhonda ALMODOVAR -[facility] Start: 12-08-2024 End: 12-08-[address] Charity Khan MD Work Phone: -[facility] Start: 12-08-2024 End: 12-08-[address] Jordon Chaparro MD -[facility] Services Work Phone: Start: 12-08-2024 End: 12-08-2024 ambulatory [facility] [address] Facility:[facility] Start: 11-11-2024 End: 11-11-[address] Jordon Chaparro MD -[facility] Work Phone: Start: 11-11-2024 End: 11-11-[address] Charity Khan MD Work Phone: -[facility] Start: 10-29-2024 End: 10-29-[address] Charity Khan MD Work Phone: -Cat Scan [facility] Start: 10-29-2024 End: 10-29-[address] Jordon Chaparro MD -Cat Scan [facility] Work Phone: Start: 10-29-2024 End: 10-29-2024 ambulatory [facility] [address] Facility:[facility] Start: 10-07-2024 Encounter for genera l adult medical examination without abnormal findings [facility] Start: 10-07-2024 End: 10-07-[address] Charity Khan MD -[facility] Work Phone: Start: 10-07-2024 End: 10-07-[address] Charity Khan MD [facility] Start: 10-07-2024 End: 10-07-[address] Charity Khan MD Work Phone: -[facility] Start: 08-13-2024 End: 08-13-[address] Charity Khan MD Work Phone: [facility] Work Phone: Start: 08-13-2024 End: 08-13-[address] Charity Khan MD -Outpatient Bone Densitometry Work Phone: Start: 08-13-2024 End: 08-13-2024 ambulatory [facility] [address] Facility:[facility] Start: 08-05-2024 End: 08-05-[address] Jordon Chaparro MD -[facility] Work Phone: Start: 08-05-2024 End: 08-05-[address] Charity Khan MD Work Phone: [facility] Work Phone: Start: 07-31-2024 End: 07-31-[address] Charity Khan MD Work Phone: [facility] Work Phone: Start: 07-31-2024 End: 07-31-[address] Jordon Chaparro MD -[facility] Work Phone: Start: 07-31-2024 End: 07-31-2024 ambulatory [facility] [address] Facility:[facility] Start: 06-22-[address] Jordon Chaparro MD -[facility] Start: 06-18-2024 End: 06-18-[address] Jordon Chaparro MD -[facility] Work Phone: Start: 06-18-2024 End: 06-18-2024 ambulatory [facility] [address] Facility:[facility] Start: 06-12-2024 End: 06-12-[address] Charity Khan MD Work Phone: [facility] Work Phone: Start: 06-12-2024 End: 06-12-[address] Jordon Chaparro MD -Radiology, [facility] Work Phone: Start: 06-12-2024 End: 06-12-2024 ambulatory [facility] [address] Facility:[facility] Start: 06-10-2024 End: 06-10-[address] Charity Khan MD -[facility] Work Phone: Start: 06-10-2024 End: 06-10-[address] Charity Khan MD [facility] Start: 06-10-2024 End: 06-10-2024 ambulatory Charity Khan Facility:[facility] Start: 06-08-[address] Jordon Chaparro MD -[facility] Start: 06-08-2024 End: 06-08-[address] Jordon Chaparro MD -[facility] Work Phone: Start: 06-08-2024 End: 06-08-2024 ambulatory Tara Camron Facility:[facility] Start: 06-04-2024 Non-patient / Non-visit Yuko Gomez -[facility] Work Phone: Start: 06-04-2024 ambulatory Charity Khan [facility] ty:[facility] Start: 05-28-2024 End: 05-28-[address] Charity Khan MD Work Phone: [facility] Work Phone: Start: 05-28-2024 End: 05-28-[address] Tara Lyon DO -Laboratory, [place] Start: 05-28-2024 End: 05-28-2024 ambulatory Tara Lyon Facility:[facility] Start: 05-04-2024 End: 05-04-[address] Tara Lyon DO -Ultrasound, [facility] Work Phone: Start: 05-04-2024 End: 05-04-2024 ambulatory Tara Lyon Facility:[facility] Start: 04-29-2024 End: 04-29-[address] Tara Lyon DO -Laboratory Work Phone: Start: 04-29-2024 End: 04-29-2024 ambulatory Tara Lyon Facility:[facility] Start: 03-09-2024 End: 03-09-[address] Charity Khan MD -[facility] Work Phone: Start: 03-09-2024 End: 03-09-2024 ambulatory [facility] Facility:[facility] Start: 03-09-2024 End: 03-09-2024 ambulatory [facility] [address] Facility:[facility] Start: 03-05-2024 End: 03-05-[address] Charity Khan MD -Laboratory, [place] Start: 03-05-2024 End: 03-05-2024 ambulatory [facility] [address] [facility] [facility] Start: 06-09-2023 Letter encounter [facility] Work Phone: Start: 05-13-2023 End: 05-13-[address] Charity Khan Work Phone: [facility] Work Phone: Start: 05-13-2023 End: 05-13-2023 Encounter for general adult medical examination without abnormal findings Dr. Charity Khan Work Phone: [facility] Start: 05-13-2023 End: 05-13-[address] Charity Khan Work Phone: [facility] Work Phone: Start: 10-02-2022 End: 10-02-2022 ambulatory LEATHA L DIMAS Facility:[facility] Start: 09-20-2022 End: 09-20-2022 ambulatory LEATHA L DIMAS Facility:[facility] Start: 09-20-2022 End: 09-20-2022 ambulatory LEATHA L DIMAS Facility:[facility] Start: 09-20-2022 End: 09-20-2022 Subsequent hospital visit by physician Xr 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 Start: 08-16-2022 End: 08-16-2022 Patient encounter procedure Fang Augustin APRN.HOME CARE CONSULTANT Work Phone: [facility] Comment on above: Syringomyelia and sy ringobulbia (HCC) (Primary Dx); Scoliosis, unspecified scoliosis type, unspecified spinal region Start: 07-20-[address] Dixon Khan Work Phone: [facility] Start: 07-20-2022 End: 07-20-[address] Charity Khan Work Phone: [facility] Work Phone: Start: 07-20-2022 End: 07-20-2022 Encounter for general adult medical examination without abnormal findings Dr. Charity Khan Work Phone: [facility] Start: 07-20-2022 End: 07-20-[address] Charity Khan Work Phone: [facility] Start: 06-11-2022 Letter encounter Champ lei Start: 08-16-2021 End: 08-16-[address] Charity Khan Work Phone: [facility] Start: 08-07-2021 End: 08-07-[address] Charity Khan Work Phone: [facility] Start: 07-03-2021 End: 07-03-[address] Charity Khan Work Phone: [facility] Start: 02-03-[address] Dixon Khan Work Phone: [facility] Start: 09-02-2017 End: 09-02-2017 ambulatory UNKNOWN PROVIDER Facility:[facility] Start: 12-23-2016 End: 12-24-2016 Emergency department patient visit [facility] Procedures Date Procedure Procedure Detail Performing Clinician Start: 01-07-[address] Charity Khan MD Work Phone: Start: 01-07-2025 Serum inorganic phos phate measurement Dr. Charity Khan MD Work Phone: Start: 12-30-2024 Serum inorganic phos phate measurement Dr. Charity Khan MD Work Phone: Start: 12-14-[address] Ashley Khan MD Work Phone: Comment on above: Test Ordered: [id number] WHITNEY, IFA Rfx 9 Denis MultiplexANA by IFA Rfx Titer/Pattern Negative CB Reference Range: . Negative <1:80 Borderline 1:80 Positive >1:80ICAP nomenclature: AC-0For more information about Hep-2 cell patterns useANApatterns.org, the official website for theInternational Consensus on Antinuclear Antibody (WHITNEY)Patterns (ICAP).Please Note: Comment CB Reference Range: .WHITNEY Multiplex methodology was designed to detect up to 11antibodies of the 100+ antibodies that may be detected byANA IFA methodology.Performed at: [address] [id number] Director: Cj Fitch PhD, Phone: [phone] Start: 10-29-2024 CT of chest, abdomen and pelvis without contrast Dr. Charity Khan MD Work Phone: Start: 10-29-2024 Albumin/Globulin ratio Dr. Charity Khan MD Work Phone: Start: 10-29-[address] M measurement Dr. Charity Khan MD Work Phone: Comment on above: Result confirmed on concentration. Start: 10-29-2024 Serum inorganic phos phate measurement Dr. Charity Khan MD Work Phone: Start: 10-29-2024 Urine lambda light c darius measurement Dr. Charity Khan MD Work Phone: Start: 08-13-2024 Screening mammography Brionna Khan MD Work Phone: Start: 08-13-2024 Dual energy X-ray absorptiometry Dr. Charity Khan MD Work Phone: Start: 07-31-2024 MRI of pelvis with contrast Dr. Charity Khan MD Work Phone: Start: 06-22-2024 Creatinine measureme nt, [address] Charity Khan MD Work Phone: Start: 06-18-2024 Urnls dip stick/tabl et reagent auto microscopy Dr. Charity Khan MD Work Phone: Start: 06-12-2024 Complete x-ray skele ubaldo survey Dr. Charity Khan MD Work Phone: Start: 06-08-2024 Albumin/Globulin ratio Dr. Charity Khan MD Work Phone: Start: 06-08-[address]ocyt e fraction Dr. Charity Khan MD Work Phone: Start: 06-08-[address] M measurement Dr. Charity Khan MD Work Phone: Comment on above: Result confirmed on concentration. Start: 06-08-2024 Urine lambda light c darius measurement Dr. Charity Khan MD Work Phone: Start: 05-28-[address] Grant Khan MD Work Phone: Comment on above: Performed at: [facility] [address] [id number] Director: Cj Fitch PhD, Phone: [phone] Start: 05-28-[address] Celina Khan MD Work Phone: Comment on above: The atypical pANCA p attern has been observed in asignificant percentage of patients with ulcerative colitis,primary sclerosing cholangitis and autoimmune hepatitis. Start: 05-28-2024 C>3< complement assay D kendrick Khan MD Work Phone: Comment on above: Performed at: [facility] [address] [id number] Director: Cj Fitch PhD, Phone: [phone] Start: 05-28-2024 Electrophoresis: [id number] Dr. Charity Khan MD Work Phone: Start: 05-28-2024 Electrophoresis: [id number] Dr. Charity Khan MD Work Phone: Start: 05-28-2024 Electrophoresis: venkat ma globulin Dr. Charity Khan MD Work Phone: Start: 05-28-2024 Serum inorganic phos phate measurement Dr. Charity Khan MD Work Phone: Start: 05-04-[address] Charity Khan MD Work Phone: Start: 05-04-2024 Complete ultrasound of kidneys and bladder Dr. Charity Khan MD Work Phone: Start: 04-29-2024 Assay of phosphorus inorganic Dr. Charity Khan MD Work Phone: Start: 04-29-2024 Measurement of renal function Dr. Charity Khan MD Work Phone: Comment on above: GFR Calc Start: 03-09-[address] Rodrigo Khan MD Work Phone: Start: 09-20-2022 Radex entir thrc lmb r crv sac spi w/skull 2/3 vw Fang Augustin WEB SIZER.HOME CARE CONSULTANT Work Phone: Start: 09-20-2022 Mri brain brain stem w/o w/contrast material Fang Augustin WEB SIZER.HOME CARE CONSULTANT Work Phone: Start: 08-16-2021 X-ray of cervical spine Dr. Charity Khan Work Phone: Start: 08-07-2021 MRI of cervical spine Brionna Khan Work Phone: Start: 08-07-2021 MRI of thoracic spine Brionna Khan Work Phone: Start: 07-03-2021 Radiography of thora cic spine Dr. Charity Khan Work Phone: Start: 09-02-2017 NURSING SUTURE REMOVAL UNKNOWN PROVIDER Plan of Treatment Date Care Activity Detail Author Start: 02-22-2025 Immunoglobulin measurement [facility] Start: 02-22-2025 Lactate dehydrogenas e measurement [facility] Start: 02-22-2025 Serum immunofixation [facility] Start: 02-22-2025 T4 free measurement [facility] Start: 02-22-2025 Thyroid stimulating hormone measurement [facility] Start: 02-22-2025 [facility] Start: 01-26-2025 Patient encounter procedure Registered Clinical -Laboratory Work Phone: Start: 01-12-2025 Renal biopsy prq trocar/needle RENAL BIOPSY PERQ [facility] Start: 01-12-2025 Kidney biopsy Kidney Biopsy [facility] Start: 01-12-2025 End: 01-12-2025 Patient encounter procedure Departed Clinical -Cat Scan [facility] Work Phone: Start: 08-13-2024 MG Breast - bilatera l Screening [facility] Start: 08-13-2024 DXA Bone [Mass/Area] Bone density [facility] Start: 11-16-2022 Influenza vaccination C [facility] Start: 07-20-2022 Patient referral [facility] Work Phone: Start: 2022 ADVANCE DIRECTIVE DISCUSSION ADVANCE DIRECTIVE DISCUSSION [facility] Start: 2022 BONE DENSITY BONE DENSITY [facility] Start: 2022 Bone Density Screening Bone Density Screening [facility] Start: 2022 Pneumococcal vaccination [facility] Start: 2022 Pneumococcal Vaccine : 65+ (1 - PCV) Pneumococcal Vaccine: 65+ (1 - PCV) [facility] Start: 2022 PNEUMOCOCCAL: 65+ (1 - PCV) PNEUMOCOCCAL: 65+ (1 - PCV) [facility] Start: 2022 Screening for osteoporosis [facility] Start: 03-18-2022 DEPRESSION ASSESSMENT DEPRESSION ASS ESSMENT [facility] Start: 12-16-2021 Influenza vaccination Influenza Vacc ine (#1) [facility] Start: 2017 Hepatitis B (HBV) Va ccine (optional start 60+ years) Hepatitis B (HBV) Vaccine (optional start 60+ years) [facility] Start: 2017 RSV Vaccine (1 - 1-d ose 60+ series) RSV Vaccine (1 - 1-dose 60+ series) [facility] Start: 2017 RSV vaccine (optiona l 60+ years) RSV vaccine (optional 60+ years) [facility] Start: 06-03-2007 Shingles (RZV) Vacci ne (1 of 2) Shingles (RZV) Vaccine (1 of 2) [facility] Start: 06-03-2007 SHINGRIX VACCINE (1 of 2) LION GRIX VACCINE (1 of 2) [facility] Start: 2002 Cholesterol [Mass/vo lume] in Serum or Plasma Cholesterol [facility] Start: 2002 COLOGUARD (FIT-DNA) COLOGUARD (FIT-D NA) [facility] Start: 2002 Colonoscopy COLONOSCOPY [facility] Start: 2002 COLORECTAL CANCER SCREENING COLORECTAL CANCER SCREENING [facility] Start: [address] COLONOGRAPHY [facility] Start: 2002 DIABETES SCREEN DIABETES SCREEN [facility] Start: 2002 Diabetes Screening Diabetes Screenin g [facility] Start: 2002 FECAL OCCULT BLOOD FECAL OCCULT BLOO D [facility] Start: 2002 Lipid 1996 panel - S maryann or Plasma Lipid Screening [facility] Start: 2002 LIPID SCREEN LIPID SCREEN [facility] Start: 2002 Screening for malign ant neoplasm of colon [facility] Start: 2002 SIGMOIDOSCOPY SIGMOIDOSCOPY [facility] Start: 1997 Mammography [facility] Start: 1997 Screening for malign ant neoplasm of breast Mammography [facility] Start: 1978 Screening for malign ant neoplasm of cervix Pap Smear [facility] Start: 1976 Hepatitis A (HAV) Va ccine (optional start 19+ years) Hepatitis A (HAV) Vaccine (optional start 19+ years) [facility] Start: 1976 Urine microalbumin profile [facility] Start: 06-03-1975 Hepatitis C screening Hepatitis C An tibody [facility] Start: 06-03-1975 HEPATITIS C SCREENING HEPATITIS C SC REENING [facility] Start: 06-03-1975 HIV SCREENING HIV SCREENING [facility] Start: 06-03-1975 Tetanus + diphtheria + acellular pertussis vaccine (product) Tdap Booster [facility] Start: 1958 Dermatology visit Dermatology visit [facility] Start: 1957 COVID-19 Vaccine (#1) COVID-19 Vacci ne (#1) [facility] Start: 1957 Screening for malign ant neoplasm of colon Colonoscopy [facility] Albumin [Moles/volum e] in Serum or Plasma [facility] Albumin/Globulin ratio [facility] CBC W Auto Different ial panel - Blood [facility] Comprehensive metabo lic 2000 panel - Serum or Plasma [facility] DXA Bone [Mass/Area] Bone density [facility] DXA Bone [Mass/Area] Bone density [facility] Electrophoresis: [id number] [facility] Electrophoresis: venkat ma globulin [facility] Globulin measurement [facility] IgA [Mass/volume] in Serum or Plasma [facility] IgG [Mass/volume] in Serum or Plasma [facility] IgM [Mass/volume] in Serum or Plasma [facility] [place]/lambda light c darius ratio [facility] Laboratory data interpretation [facility] Lactate dehydrogenas e measurement [facility] Lambda light chains. free [Mass/volume] in Serum or Plasma [facility] Lipid 1996 panel - S maryann or Plasma [facility] MG Breast - bilatera l Screening [facility] MG Breast - bilatera l Screening [facility] MG Breast - bilatera l Screening [facility] End: 09-15-2023 Mri brain brain stem w/o w/contrast material MRI BRAIN WO/W IVCON Radiology Routine Syringomyelia and syringobulbia (HCC) 1 Occurrences starting 08/16/2022 until 09/15/2023 [facility] Work Phone: Comment on above: 1 Occurrences starti ng 08/16/2022 until 09/15/2023 End: 09-15-2023 Mri spinal canal cervical w/o & w/contr matrl MRI CERVICAL SPINE WO/W IVCON Radiology Routine Syringomyelia and syringobulbia (HCC) 1 Occurrences starting 08/16/2022 until 09/15/2023 [facility] Work Phone: Comment on above: 1 Occurrences starti ng 08/16/2022 until 09/15/2023 End: 09-15-2023 Mri spinal canal lumbar w/o & w/contr matrl MRI LUMBAR SPINE WO/W IVCON Radiology Routine Syringomyelia and syringobulbia (HCC) 1 Occurrences starting 08/16/2022 until 09/15/2023 [facility] Work Phone: Comment on above: 1 Occurrences starti ng 08/16/2022 until 09/15/2023 End: 09-15-2023 Mri spinal canal thoracic w/o & w/contr matrl MRI THORACIC SPINE WO/W IVCON Radiology Routine Syringomyelia and syringobulbia (HCC) 1 Occurrences starting 08/16/2022 until 09/15/2023 [facility] Work Phone: Comment on above: 1 Occurrences starti ng 08/16/2022 until 09/15/2023 Patient Education RAD RN Per ornelas Instructions for Kidney Biopsy [facility] Work Phone: Patient referral [facility] Work Phone: Protein [Mass/time] in 24 hour Urine [facility] Protein electrophore sis panel - Serum or Plasma [facility] End: 09-15-2023 Radex entir thrc lmbr crv sac spi w/skull 2/3 vw XR SCOLIOSIS PA STAND/LAT 2V Radiology Routine Scoliosis, unspecified scoliosis type, unspecified spinal region 1 Occurrences starting 08/16/2022 until 09/15/2023 [facility] Work Phone: Comment on above: 1 Occurrences starti ng 08/16/2022 until 09/15/2023 Urine kappa light ch ain measurement [facility] Immunizations Immunization Date Immunization Notes Care Provider Anaya siddiqui 01-06-2025 Seasonal trivalent influenza vaccine, adjuvanted, preservative free Dr. Charity Khan MD Work Phone: [facility] 03-25-2017 influenza, injectabl e, quadrivalent, preservative free [facility] 03-25-2017 influenza virus vaccine, unspecified formulation [facility] Payers Date Payer Category Payer Medicare [id number] 2024 Self-pay [id number] 2021 Medicare [id number] 2021 Medicare [employer] [place] [place] [id number] 2021-Present [phone] [address] [place] [address] HMO [id number] 2017 Unknown [id number] 2017 Unknown [id number] 1.13.56.2.7.3.6 [id number] 1957 Unknown [id number] 2.16.840.1.271063.3.579.2.732 Medicare [id number] Unknown [id number] 2.16.840.1.380148.3.579.2.462 Unknown [id number] 2.16.840.1.474179.3.579.2.462 Unknown [id number] 2.16840.1.374597.3.579.2.462 Unknown [id number] 2.16840.1.054073.3.579.2.462 Unknown [id number] 2.16840.1.760286.3.579.2.462 Unknown [id number] 2.840.1.665829.3.579.2.462 Unknown [id number] 2.16840.1.737967.3.579.2.462 Unknown [id number] 2.840.1.676192.3.579.2.462 Unknown [id number] 2.16840.1.785886.3.579.2.462 Unknown [id number] 2.840.1.353075.3.579.2.462 Unknown [id number] 2.16840.1.585072.3.579.2.462 Unknown [id number] 2.16840.1.736437.3.579.2.462 Unknown [id number] 2.16.840.1.494852.3.579.2.462 Unknown [id number] 2.16840.1.220470.3.579.2.462 Unknown [id number] 2.16840.1.623752.3.579.2.462 Unknown [id number] 2.16840.1.516086.3.579.2.462 Unknown [id number] 2.16.840.1.935604.3.579.2.462 Unknown [id number] 2.16.840.1.471539.3.579.2.462 Unknown [id number] 2.16.840.1.241392.3.579.2.462 Unknown [id number] 2.16.840.1.605471.3.579.2.462 Unknown [id number] 2.16.840.1.960796.3.579.2.462 Unknown [id number] 2.16.840.1.719074.3.579.2.462 Unknown [id number] 2.16.840.1.196206.3.579.2.462 Unknown [id number] 2.16.840.1.980752.3.579.2.462 Unknown [id number] 2.16.840.1.256396.3.579.2.462 Unknown [id number] 2.16.840.1.001174.3.579.2.462 Unknown [id number] 2.16.840.1.969994.3.579.2.462 Social History Date Type Detail Facility Start: 08-16-2021 End: 05-13-2023 Tobacco smoking status MSIS Unknown if ever smoked [facility] Start: 1955 Sex Assigned At Female [facility] Start: 03-30-2017 End: 05-13-2023 Tobacco smoking status MSIS Never smoked tobacco [facility] Start: 03-30-2017 End: 08-16-2022 Tobacco use and exposure Smokeless tobacco non-user [facility] Start: 1955 Sex Assigned At Not on file [facility] Start: 08-16-2022 Alcohol intake Current non-drinker of alcohol (finding) [facility] Start: 06-21-2017 End: 08-16-2022 Gender identity Not on file [facility] Start: 06-21-2017 End: 08-16-2022 History of Social function [facility] National Score (1-10 0), lower number is lower risk 75 [employer] [facility] Start: 09-20-2022 Sexual orientation Heterosexual (finding) [facility] Start: 06-06-2024 End: 06-16-2024 Sex Female (finding) [facility] Medical Equipment Procedure Code Equipment Code Equipment Origin al Text Equipment Identifier Dates ([id number]) Ceramic femoral head prosthesis ()[id number] FDA Start: 02-21-2021 ([id number]) Coated hip femur prosthesis, modular ()[id number] FDA Start: 02-21-2021 ([id number]) Non-constrained polyethylene acetabular liner ()[id number] FDA Start: 02-21-2021 ([id number]) Acetabular shell ()[id number] FDA Start: 02-21-2021 ([id number]) Orthopaedic bone screw, non-bioabsorbable, sterile ()[id number] FDA Start: 02-21-2021 Mental Status Date Assessment Result Facility 01-12-2025 Cognitive function Level Of Consciousness Awake [facility] Work Phone: 01-12-2025 Cognitive function Patient Orientation Pe rson [facility] Work Phone: Clinical Notes 08-16-2022 to 01-06-2025 Note Date & Type Note Facility 01-06-2025 Progress note [facility] 12-14-2024 Progress note [facility] 11-02-2024 Radiology Diagnostic study note [facility] [address] [place], [place] [address] CT Chest, Abd, Pelvis WO Cont MR#: [id number] Acct: [id number] Name: RENE RIDER Rep #: [id number] : 1955 F 69 From: Erica Carpenter MD PCP: Dr. Charity Khan MD Status: R EG CLI Study:CT Chest, Abd, Pelvis WO Cont Date of Dixon elam: 10/29/24 Exam# [id number] Ordering Dr: Adrian Chaparro MD PROCEDURE: CT CHEST, ABD, PELVIS WO CONT 10/29/2024 REASON FOR EXAM: R/O MALIGNANCY TECHNIQUE: Chest, abdomen and pelvis CT without intravenous contrast. Coronal and Sagittal reconstruction series were provided. One or more dose reduction techniques were used (e.g., Automated exposure control, adjustment of the mA and/or kV according to patient size, use of iterative reconstruction technique. RADIATION DOSE SUMMARY: CTDlvol: 21.14 mGy DLP: 1083 mGycm COMPARISON: None. FINDINGS: Mild cardiomegaly. Mild pericardial effusion. Bilateral basilar atelectatic pulmonary changes. Enlarged uterus with multiple fibroids, the largest calcified in the fundus measuring 5.4 cm. Fat containing umbilical hernia without incarceration. A few scattered simple hepatic cysts are noted with the largest in the left hepatic lobe measuring 2.7 cm. Normal unenhanced main pulmonary artery and right and left pulmonary arteries. Normal bilateral peripheral pulmonary arteries. Normal thoracic aorta and visualized great vessels. There is no demonstrated aortic aneurysm. Normal heart and pericardium. Normal mediastinum. Normal hilar regions. Normal visualized trachea and bronchi. The remaining lungs are well expanded. Normal remaining pulmonary parenchyma. Normal pleura. Normal remaining unenhanced liver. Normal gallbladder and extrahepatic biliary system. Normal unenhanced spleen. Normal pancreas. Normal bilateral adrenal glands. Normal size of the right kidney. There is no right renal mass. There are no right renal calculi. There is no right hydronephrosis. Normal visualized right ureter. Normal size of the left kidney. There is no left renal mass. There are no leftrenal calculi. There is no left hydronephrosis. Normal visualized left ureter. Normal visualized stomach. Normal small intestine. Normal colon. The appendix is visualized and appears normal. There is no demonstrated peritoneal fluid. Normal abdominal aorta. Normal inferior vena cava. Normal retroperitoneum. Normal urinary bladder. There is no pelvic lymphadenopathy. There is no pelvic fluid. CT/CT Chest, Abd, Pelvis WO Cont IMPRESSION: Mild cardiomegaly. Mild pericardial effusion. Bilateral basilar atelectatic pulmonary changes. Enlarged uterus with multiple fibroids, the largest calcified in the fundus measuring 5.4 cm. Fat containing umbilical hernia without incarceration. A few scattered simple hepatic cysts are noted with the largest in the left hepatic lobe measuring 2.7 cm. Reading Location: [place] [address] CC: Dr. Charity Khan MD; Dr. 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 November 11 9:16am Proteinuria chronic November 11, 2024 9:16am Abnormal finding on imaging chronic December 14, 2024 11:18am 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 November 11:18am Proteinuria chronic November 11:18am [facility] Work Phone: 1(673) 927-339307-23-2025 Evaluation note* Diagnosis Onset Date Resolution Status Admit Date Health care maintenance acute J marj 2024 1:44pm CKD (chronic kidney disease) , stage III chronic October 07, 2024 1:44pm Hypertension chronic October 07 025 1:44pm Proteinuria chronic October 07 1:44pm Tachycardia chronic October 07 1:44pm Abnormal finding on imaging chronic November 11, 2024 9:16am Elevated serum immunoglobuli n free light chain level chronic November [id number] 9:16am Proteinuria chronic November 11, 2024 9:16am Abnormal finding on imaging chronic December 14, 2024 11:18am Elevated serum immunoglobuli n free light chain level chronic December 14, 2024 11:18am Proteinuria chronic November 11:18am Congestion of left ear acute Oc tober 2024 10:09am Health care maintenance acute O ctober 2024 10:09am CKD (chronic kidney disease) , stage III chronic January 06 10:09am Hypertension chronic December 10:09am Proteinuria chronic January 06, 2025 10:09am [facility] Work Phone: 1(592) 427-720105-21-2025 Evaluation note* Diagnosis Onset Date Resolution Status Admit Date Proteinuria acute August 05 3:25pm Elevated serum immunoglobuli n free light chain level chronic August 05, 2024 3:25pm Health care maintenance acute J marj 2024 1:44pm Proteinuria acute October 07 1:44pm CKD (chronic kidney disease) , stage III chronic October 07, 2024 1:44pm Hypertension chronic October 07 1:44pm Tachycardia chronic October 07 1:44pm [facility] Work Phone: 1(205) 343-806603-31-2025 Radiology Diagnostic study note [facility] Services [address] [place], [place] [address] Bone Survey Comp(Axial&Append) MR#: [id number] Acct: [id number] Name: RENE RIDER Rep #: [id number] : 1955 F 69 From: [facility] DO PCP: Dr. Charity Khan MD Status: R EG CLI Study:Bone Survey Comp(Axial&Append) Date of Exam: 06/12/24 Exam# [id number] Ordering Dr: Adrian Chaparro MD EXAM: BONE SURVEY COMP(AXIAL APPEND) 06/12/2024 REASON FOR EXAM: ABNORMAL SERUM PROTEIN F,69 y/o TECHNIQUE: Radiographic images are obtained of nearly the entire axial and appendicular skeleton COMPARISON: None. FINDINGS: Skull and cervical spine demonstrate no focal lytic lesions. No obvious lytic lesions in the thoracic spine ribcage are lumbar spine. Potential 1 cm lesion with sclerotic margins in the left femoral head or possibly the acetabulum. Bones of the upper and lower extremity otherwise demonstrate no lytic lesions RAD/Bone Survey Comp(Axial&Append) IMPRESSION: A lytic lesion is seen involving the left hip. That is difficult to determine whether the lesion isin the left femoral head or the left acetabulum as it projects over both. An MRI of the left hip might be helpful. Recommend follow-up, if clinically warranted. Reading [facility] CC: Dr. Charity Khan MD; Dr. Jordon Chaparro MD ~ Photographer Apprentice: Signed [facility]03-26-2025 Evaluation note* Diagnosis Onset Date Resolution Status Admit Date Abnormal SPEP acute June 10, 2024 2:32pm Health care maintenance acute M arch 2024 2:32pm Hypertension chronic June 10, 2024 2:32pm Tachycardia chronic June 10 025 2:32pm Abnormal SPEP acute June 18, 2024 2:28pm Lytic lesion of bone on x-ray acute June 18, 2024 2:28pm Proteinuria acute June 18 2:28pm Proteinuria acute August 05 3:25pm Elevated serum immunoglobuli n free light chain level chronic August 05, 2024 3:25pm [facility] Work Phone: 1(410) 534-725603-24-2025 Evaluation note* Diagnosis Onset Date Resolution Status Admit Date Abnormal SPEP acute June 08, 2024 9:39am Abnormal SPEP acute June 10, 2024 2:32pm Health care maintenance acute arch 2024 2:32pm Hypertension chronic June 10, 2024 2:32pm Tachycardia chronic June 10 025 2:32pm Abnormal SPEP acute June 18, 2024 2:28pm Lytic lesion of bone on x-ray acute June 18, 2024 2:28pm Proteinuria acute June 18 2:28pm [facility] Work Phone: 1([phone]) 403-206203-24-2025 Evaluation note* Diagnosis Onset Date Resolution Status Admit Date Abnormal SPEP acute June 08, 2024 9:39am Abnormal SPEP acute June 10, 2024 2:32pm Health care maintenance acute arch 2024 2:32pm Hypertension chronic June 10, 2024 2:32pm Tachycardia chronic June 10, 2 025 2:32pm Abnormal SPEP acute June 18, 2024 2:28pm Lytic lesion of bone on x-ray acute June 18, 2024 2:28pm Proteinuria acute June 18 2:28pm Proteinuria acute August 05 3:25pm Elevated serum immunoglobuli n free light chain level chronic August 05, 2024 3:25pm [facility] Work Phone: 1([phone]) 309-149912-23-2024 Evaluation note* Diagnosis Onset Date Resolution Status Admit Date Microalbuminuria acute March 09, 2024 1:43pm CKD (chronic kidney disease) , stage III chronic March 09, 2 024 1:43pm Hypertension chronic February 1:43pm Tachycardia chronic February 1:43pm [facility] Work Phone: 1([phone]) 805-490212-23-2024 Evaluation note* Diagnosis Onset Date Resolution Status Admit Date Microalbuminuria acute March 09, 2024 1:43pm CKD (chronic kidney disease) , stage III chronic March 09, 2 024 1:43pm Hypertension chronic February 1:43pm Tachycardia chronic February 1:43pm Abnormal SPEP acute June 08, 2024 9:39am Abnormal SPEP acute June 10, 2024 2:32pm Health care maintenance acute M 2024 2:32pm Hypertension chronic June 10, 2024 2:32pm Tachycardia chronic June 10 025 2:32pm [facility] Work Phone: [phone]) 523-423307-06-2023 NoteHNO ID: [id number] Author: Rebecca Ham RT(R) Service: Nuclear Medicine Author Type: Technologist Type: Progress Notes Filed: 09/20/2022 11:21 AM Note Text: Radiology Service Progress Note PATIENT NAME: Rene Rider DATE OF SERVICE: September 20, 2022 TIME: 11:08 AM PATIENT IDENTITY VERIFICATION COMPLETED USING TWO (2) IDENTIFIERS: Name and Date of confirmed by patient verbally. FALL SCREENING: Has the patient had 2 falls in the last year or 1 fall with injury or currently using an Ambulatory Assistive Device (Walker, Cane, Wheelchair, Crutches, etc.)? No PATIENT GENDER DATA: Female. status: : No status: NO. PATIENT RELEVANT IMPLANT DATA REVIEWED: Not Applicable RADIOLOGY DEPARTMENT: General X-ray: Exam(s) Completed: Spine X-Ray(s): Scoliosis Series PERIPHERAL IV DATA: Not applicable SIGNED BY: RT Gunnar(R) September 20, 2022 11:08 [facility]07-06-2023 History of Present illness Narrative* Rebecca Ham RT(R) - 09/20/2022 12:00 PM EDT Radiology Service Progress Note PATIENT NAME: Rene Rider DATE OF SERVICE: September 20, 2022 TIME: 11:08 AM PATIENT IDENTITY VERIFICATION COMPLETED USING TWO (2) IDENTIFIERS: Name and Date of confirmedby patient verbally. FALL SCREENING: Has the patient had 2 falls in the last year or 1 fall with injury or currently using an Ambulatory Assistive Device (Walker, Cane, Wheelchair, Crutches, etc.)? No PATIENT GENDER DATA: Female. status: : No status: NO. PATIENT RELEVANT IMPLANT DATA REVIEWED: Not Applicable RADIOLOGY DEPARTMENT: General X-ray: Exam(s) Completed: Spine X-Ray(s): Scoliosis Series PERIPHERAL IV DATA: Not applicable SIGNED BY: RT Gunnar(R) September 20, 2022 11:08 AM [facility] NoteHNO ID: [id number] Author: RT Jatin(Lindsay) Service: ? Author Type: Technologist Type: Progress Notes Filed: 09/20/2022 10:09 AM Note Text: Radiology Service Progress Note DATE OF SERVICE: September 20, 2022 TIME: 10:09 AM PATIENT IDENTITY VERIFICATION COMPLETED USING TWO (2) STANDARD IDENTIFIERS: Name and Date of confirmed by patient verbally. FALL SCREENING: Has the patient had 2 falls in the last year or 1 fall with injury or currently using an Ambulatory Assistive Device (Walker, Cane, Wheelchair, Crutches, etc.)? No PATIENT GENDER DATA: Female. status: : No status: NO. PATIENT RELEVANT IMPLANT DATA REVIEWED: Yes ALLERGIES: Reviewed and unchanged CONTRAST ALLERGY: NO. EXAM: MRI - CONTRAST TYPE: GROUP II PERIPHERAL IV DATA: Ambulatory: A peripheral IV was started in the Right antecubital site with a Angio cath: 22 gauge. RADIOLOGY DEPARTMENT: MR; Exam(s) Completed: Head: Routine Brain Spine: Cervical spine, Thoracic spine, and Lumbar spine SIGNATURE: RT Jatin(Lindsay) PATIENT NAME: Rene Rider DATE: September 20, 2022 TIME: 10:09 [facility]07-06-2023 History of Present illness Narrative* Chelsey Betancur RT(Lindsay) - 09/20/2022 9:20 AM EDT Radiology Service Progress Note DATE OF SERVICE: September 20, 2022 TIME: 10:09 AM PATIENT IDENTITY VERIFICATION COMPLETED USING TWO (2) STANDARD IDENTIFIERS: Name and Date of confirmed by patient verbally. FALL SCREENING: Has the patient had 2 falls in the last year or 1 fall with injury or currently using an Ambulatory Assistive Device (Walker, Cane, Wheelchair, Crutches, etc.)? No PATIENT GENDER DATA: Female. status: : No status: NO. PATIENT RELEVANT IMPLANT DATA REVIEWED: Yes ALLERGIES: Reviewed and unchanged CONTRAST ALLERGY: NO. EXAM: MRI - CONTRAST TYPE: GROUP II PERIPHERAL IV DATA: Ambulatory: A peripheral IV was started in the Right antecubital site with a Angio cath: 22 gauge. RADIOLOGY DEPARTMENT: MR; Exam(s) Completed: Head: Routine Brain Spine: Cervical spine, Thoracic spine, and Lumbar spine SIGNATURE: RT Jatin(Lindsay) PATIENT NAME: Rene Rider DATE: September 20, 2022 TIME: 10:09 AM documented in this encounterGen[facility]06-01-[facility]23 NoteHNO ID: [id number] Author: Fang Augustin APRN.LISSETTE Service: ? Author Type: Nurse Practitioner Type: Progress Notes Filed: 08/16/2022 4:43 PM Note Text: SPINE SURGERY CONSULT NOTE PERLITA Weaver Date of visit: August 16, 2022 Patient Name: Ms.Jean Meri Rider Date of : 1955 Current Age: [age] year old Sex: female MRN/E# [id number] Last Office Visit: Visit date not found Chief Complaint: Patient presents with: New Patient HPI Ms.Jean Meri Rider presents to the office today as a new patient for evaluation of neck, middle, and low back pain. Neck pain radiates to bilateral trapezius regions, does not extend into arms. She endorses difficulty holding objects but denies dropping items. She endorses chronic gait difficulty secondary to right foot. She is not ambulating with assistive device. Middle back pain in midline and paraspinal region. Low back pain radiates to posterior aspect of bilateral lower extremities. Pain in back is more bothersome than leg pain. She endorses chronic right foot weakness, increased difficulty with gait. She reports has undergone previous MRI of thoracic spine which demonstrated a syrinx, did not have additional follow-up imaging with contrast for evaluation of lesion. PREVIOUS CONSERVATIVE TREATMENT: -Medication: Tylenol -Physical therapy: Completed at [facility]- 2021 -Previous healthcare providers: PCP -Injections: Denies PREVIOUS SPINE SURGERY: Denies Surgical Risk Factors: Smoking status: Denies Anticoagulants/antiplatelets: Denies Diabetic: Denies BMI: 42.12 PAIN EVALUATION 08/16/2022 1327 Pain Level: 5 Pain Location: Back Description: Burning;Sore;Aching;Sharp Duration Amount of Time: 1 Duration Units: Years Frequency: Continuous PAST MEDICAL HISTORY Diagnosis Date Hypertension PAST SURGICAL HISTORY Procedure Laterality Date TOTAL HIP REPLACEMENT Right 2020 No family history on file. ALLERGIES Allergen Reactions Sulfa (Sulfonamide * Anaphylaxis Current Outpatient Medications Medication Sig Dispense Refill amLODIPine (NORVASC) 10 mg tablet Zinc Gluconate 30 mg tab Take 30 mg by mouth. iv contrast (will be provided with radiology test) MRI TSP Inject, intravenously, once for 1 dose. No IV access, insert saline lock prior to the beginning of sedation, infusion, injection of imaging exam. Discontinue saline lock post exam. If Pt. has a central line or IVAD, may access for administration according to line specific nursing protocol. Once exam is complete flush line and de-access according to line specific nursing protocol in the MR contrast administration guidelines link. 1 Each 0 iv contrast (will be provided with radiology test) MRI Brain Inject, intravenously, once for 1 dose.No IV access, insert saline lock prior to beginning of sedation, infusion, injection of imaging exam.Discontinue saline lock post exam. If Pt. has a central line or IVAD, may access for administration according to line specific nursing protocol.Once exam is complete flush line and de-access according to line specific nursing protocol in the MR contrast administration guidelines link 1 Each 0 iv contrast (will be provided with radiology test) MRI CSP Inject, intravenously, once for 1 dose. No IV access, insert saline lock prior to the beginning of sedation, infusion, injection of imaging exam. Discontinue saline lock post exam. If Pt. has a central line or IVAD, may access for administration according to line specific nursing protocol. Once exam is complete flush line and de-access according to line specific nursing protocol in the MR contrast administration guidelines link. 1 Each 0 iv contrast (will be provided with radiology test) MRI LSP Inject, intravenously, once for 1 dose. No IV access, insert saline lock prior to the beginning of sedation, infusion, injection of imaging exam. Discontinue saline lock post exam. If Pt. has a central line or IVAD, may access for administration according to line specific nursing protocol. Once exam is complete flush line and de-access according to line specific nursing protocol in the MR contrast administration guidelines link. 1 Each 0 No current facility-administered medications for this visit. REVIEW OF SYSTEMS Review of Systems Constitutional: Negative for chills, diaphoresis and fever. HENT: Negative for congestion, trouble swallowing and voice change. Eyes: Negative for discharge and visual disturbance. Respiratory: Negative for cough, shortness of breath and wheezing. Cardiovascular: Negative for chest pain, palpitations and leg swelling. Gastrointestinal: Negative for constipation, diarrhea and nausea. Endocrine: Negative for cold intolerance and heat intolerance. Genitourinary: Negative for difficulty urinating, frequency and urgency. Musculoskeletal: Positive for arthralgias, back pain, gait problem, myalgias, neck pain and neck stiffness. Skin (more content not included)...[facility]06-01-2023 History of Present illness Narrative* Fang Augustin APRN.LISSETTE - 08/16/2022 1:30 PM EDT SPINE SURGERY CONSULT NOTE Fang Augustin APRN-LISSETTE Date of visit: August 16, 2022 Patient Name: Ms.Jean Meri Rider Date of : 1955 Current Age: [age] year old Sex: female MRN/E# [id number] Last Office Visit: Visit date not found Chief Complaint: Patient presents with: New Patient HPI Ms.Jean Meri Rider presents to the office today as a new patient for evaluation of neck, middle, and low back pain. Neck pain radiates to bilateral trapezius regions, does not extend into arms. She endorses difficulty holding objects but denies dropping items. She endorses chronic gait difficulty secondary to right foot. She is not ambulating with assistive device. Middle back pain in midline andparaspinal region. Low back pain radiates to posterior aspect of bilateral lower extremities. Pain in back is more bothersome than leg pain. She endorses chronic right foot weakness, increased difficulty with gait. She reports has undergone previous MRI of thoracic spine which demonstrated a syrinx, did not have additional follow-up imaging with contrast for evaluation of lesion. PREVIOUS CONSERVATIVE TREATMENT: -Medication: Tylenol -Physical therapy: Completed at [facility]- 2021 -Previous healthcare providers: PCP -Injections: Denies PREVIOUS SPINE SURGERY: Denies Surgical Risk Factors: Smoking status: Denies Anticoagulants/antiplatelets: Denies Diabetic: Denies BMI: 42.12 PAIN EVALUATION 08/16/2022 1327 Pain Level: 5 Pain Location: Back Description: Burning;Sore;Aching;Sharp Duration Amount of Time: 1 Duration Units: Years Frequency: Continuous PAST MEDICAL HISTORY Diagnosis Date Hypertension PAST SURGICAL HISTORY Procedure Laterality Date TOTAL HIP REPLACEMENT Right 2020 No family history on file. ALLERGIES Allergen Reactions Sulfa (Sulfonamide * Anaphylaxis Current Outpatient Medications Medication Sig Dispense Refill amLODIPine (NORVASC) 10 mg tablet Zinc Gluconate 30 mg tab Take 30 mg by mouth. iv contrast (will be provided with radiology test) MRI TSP Inject, intravenously, once for 1 dose. No IV access, insert saline lock prior to the beginning of sedation, infusion, injection of imaging exam. Discontinue saline lock post exam. If Pt. has a central line or IVAD, may access for administration according to line specific nursing protocol. Once exam is complete flush line and de-access according to line specific nursing protocol in the MR contrast administration guidelines link. 1 Each 0 iv contrast (will be provided with radiology test) MRI Brain Inject, intravenously, once for 1 dose.No IV access, insert saline lock prior to beginning of sedation, infusion, injection of imaging exam.Discontinue saline lock post exam. If Pt. has a central line or IVAD, may access for administration according to line specific nursing protocol.Once exam is complete flush line and de-access according to line specific nursing protocol in the MR contrast administration guidelines link 1 Each 0 iv contrast (will be provided with radiology test) MRI CSP Inject, intravenously, once for 1 dose. No IV access, insert saline lock prior to the beginning of sedation, infusion, injection of imaging exam. Discontinue saline lock post exam. If Pt. has a central line or IVAD, may access for administration according to line specific nursing protocol. Once exam is complete flush line and de-access according to line specific nursing protocol in the MR contrast administration guidelines link. 1 Each 0 iv contrast (will be provided with radiology test) MRI LSP Inject, intravenously, once for 1 dose. No IV access, insert saline lock prior to the beginning of sedation, infusion, injection of imaging exam. Discontinue saline lock post exam. If Pt. has a central line or IVAD, may access for administration according to line specific nursing protocol. Once exam is complete flush line and de-access according to line specific nursing protocol in the MR contrast administration guidelines link. 1 Each 0 No current facility-administered medications for this visit. REVIEW OF SYSTEMS Review of Systems Constitutional: Negative for chills, diaphoresis and fever. HENT: Negative for congestion, trouble swallowing and voice change. Eyes: Negative for discharge and visual disturbance. Respiratory: Negative for cough, shortness of breath and wheezing. Cardiovascular: Negative for chest pain, palpitations and leg swelling. Gastrointestinal: Negative for constipation, diarrhea and nausea. Endocrine: Negative for cold intolerance and heat intolerance. Genitourinary: Negative for difficulty urinating, frequency and urgency. Musculoskeletal: Positive for arthralgias, back pain, gait problem, myalgias, neck pain and neck stiffness. Skin: Negative for rash and wound. Allergic/Immunologic: Negative for environmental allergies and food allergies. Neurological: Positive for weakness. Negative for tremors, facial asymmetry, speech difficulty and numbness. Hematological: Does not bruise/bleed easily. Psychiatric/Behavioral: Negative for agitation and behavioral problems. The patient is not nervous/anxious. OBJECTIVE: BP 131/82 Pulse 99 Resp 18 Ht 4' 11 (1.50m) Wt 208 lb 8.9 oz (94.6kg) SpO2 97% BMI 42.10 kg/(m^2). PHYSICAL EXAM: General - Alert,cooperative, appropriate Head: Atraumatic, normocephalic Neck: Supple Resp -Regular and unlabored Gait and Station: Normal gait. Negative bilateral Stephanie's. No ankle clonus. Reflexes symmetrical, nonbrisk Upper extremities: Sensation: Intact to light touch Upper Extremity Strength Exam Right Left Deltoid 5/5 5/5 Biceps 5/5 5/5 Triceps 5/5 5/5 Wrist Extension 5/5 5/5 Interossei 5/5 5/5 Lower extremities: Sensation: Intact to light touch Lower Extremity Strength Exam Right Left Psoas 5/5 5/5 Quadriceps 5/5 5/5 DF 5/5 5/5 EHL 3+/5 5/5 PF 4/5 5/5 Data Review: MRI of cervical spine completed July 2021 at outside facility: FINDINGS: Normal foramen magnum and brainstem-cervical cord junction. Normal craniovertebral junction. Normal anterior atlantoaxial articulation. Normal odontoid process. Normal cervical lordosis. Normal vertebral bodies and posterior osseous elements. C2-3: Normal endplates. Normal disc height, signal and morphology. Normal central canal and intervertebral neural foramina. C3-4: Mild right facet hypertrophy and right uncovertebral joint hypertrophy produces moderate right neural foraminal stenosis. No central spinal stenosis. C4-5: Mild broad disc osteophyte complex produces mild spinal stenosis and mild bilateral neural foraminal stenosis. C5-6: Moderate bilobed disc osteophyte complex and bilateral hypertrophy produces moderate spinal stenosis with abutment of the central spinal cord, moderate right neural foraminal stenosis and mild left neural foraminal stenosis. C6-7: Moderate broad disc osteophyte complex produces moderate spinal stenosis with abutment of the central spinal cord but no neural foraminal stenosis. C7-T1: Mild broad disc osteophyte complex present mild spinal stenosis but no neural foraminal stenosis. Normal cervical cord. Normal visualized soft tissue structures. MRI thoracic spine completed July 2021 at outside facility: FINDINGS: Normal kyphosis of the thoracic spine. Mild levoscoliosis of the lower thoracic spine. T1-2, T2-3, T3-4, T4-5, T5-6, T6-7, T7-8, T8-9, T9-10, T10-11, T11-12: At T7/T8, there is a small left paracentral disc protrusion which produces mild spinal stenosis with abutment of the left hemicord but no jey cord compression. There is dilatation of the central canal within the spinal cord extending from T8 to T10 consistent with a syrinx. Correlation with MRI with contrast is recommended to exclude obstructing mass. Normal conus medullaris that terminates at the L1.. The soft tissue structures are unremarkable. Most recent blood work- 07/20/22: Creatinine 1.31 GFR 52 BUN 18 BUN/Creatine ratio: 13.7 Assessment/Plan: (G95.0) Syringomyelia and syringobulbia (HCC) (primary encounter diagnosis) Reviewed MRI cervical and thoracic spine obtained greater than 1 year ago. -MRI cervical spine demonstrates moderate central canal stenosis at C5/C6 and C6/C7. Continued worsening of symptoms over the last year. -MRI thoracic spine demonstrates a syrinx T8-T10. Recommendations were to obtain MRI with contrast,which were not obtained. - Recommend obtain MRI brain and complete spine w/wo contrast to r/out any additional areas of syrinx or lesion contributing to etiology of syrinx. -Follow up with Dr. Joseph after imaging obtained for review and further planning. (M41.9) Scoliosis, unspecified scoliosis type, unspecified spinal region -Recommended scoliosis films for evaluation of complete spinal anatomy Plan: XR SCOLIOSIS PA STAND/LAT 2V Fang Augustin APRN-HOME CARE CONSULTANT [facility] This note was partially generated using [employer] voice recognition system, and there may be some incorrect words, spellings, and punctuation that were not noted in checking the note before saving. documented in this encounterGenesis HospitalEvaluation note* Diagnosis Onset Date Resolution Status C6 radiculopathy acute Degenerative scoliosis acute C6 radiculopathy acute Degenerative scoliosis acute Syrinx of spinal cord acute [facility] Work Phone: Evaluation note* Diagnosis Onset Date Resolution Status Health care maintenance acut e C6 radiculopathy chronic Hypertension chronic Syrinx of spinal cord chroni c [facility] Work Phone: Evaluation note* Diagnosis Syringomyelia and syringobulbia (HCC)- Primary Syringomyelia and syringobulbia Scoliosis, unspecified scoliosis type, unspecified spinal region documented in this encounter [facility]* Diagnosis Scoliosis, unspecified scoliosis type, unspecified spinal region [facility]* Diagnosis Syringomyelia and syringobulbia (HCC) Syringomyelia and syringobulbia documented [facility] this [facility]* Diagnosis Onset Date Resolution Status Health care maintenance acut e Tachycardia acute Hypertension chronic [facility] Work Phone: Hospital Discharge instructionsAmbulatory Orders* Dermatology Location: None Selected [facility] Work Phone: Progress note Author Jordon Chaparro [facility] Note Date/Time December 14, 2024 12:01pm [facility] [address] [place] [id number] OFFICE VISIT Date of Service: 12/14/24 1120 MR#: [id number] Acct: [id number] Name: RENE RIDER Rep #: [id number] : 1955 From: Jordon Chaparro MD Age/Sex: 69/F Location: [facility] Status: Signed HPI Subjective Date of Service 12/14/24 Chief Complaint F/U abnormal serum protein. History of Present Illness 69-year-old woman was found to have creatinine of 1.57. SPEP on 05/28/2024 showed asymmetric gammaglobulin. She was referred for further evaluation. Had blood work 06/08/2024 showed normal immunoglobulins, no M spike, free kappa lightchain 32.7, free lambda light chain 18.8, free kappa lambda ratio 1.74. Skeletal survey on 06/12/2024 showed lytic lesion involving the left hip and MRI was suggested. MRI pelvis on 07/31/2024 showed Mild L Trochanteric bursitis, Pelvic bones were normal. CT c/a/p on 10/29/2024 showed no malignancy, small pericardial effusion. Echocardiogram and 24hr urine collection for Protein wererequested and she comes for follow-up. She feels well, denies pain. Gets swelling of the legs, using compression stockings. [facility] Medical History MGUS (monoclonal gammopathy of unknown significance) Blood glucose elevated Microalbuminuria CKD (chronic kidney disease), stage III Dermatitis Tachycardia Acute sinusitis, unspecified Chronic back pain Health care maintenance Colon cancer screening Scoliosis Cancer Anxiety Alcohol use Bladder disease Arthritis Migraine headache Non-smoker Leg cramps History of pain when walking Hypertension Preoperative evaluation to rule out surgical contraindication Osteoarthritis of right hip Right hip pain History of basal cell carcinoma History of pneumonia history of cracked palate history of club feet Hypertension Seasonal allergies Surgical History Status post Mohs surgery History of hip replacement, total H/O foot surgery History of Hx of rhinoplasty Family History Mother Hypertension Hyperlipemia Arthritis Father Hypertension Skin cancer Arthritis Social History household members: spouse housing: house Smoking Status: Never smoker alcohol intake: never substance use type: does not use what type of physical activity do you participate in: none do you feel safe at home: Yes Intake Vital Signs 11/11/24 09:55 12/14/24 11:22 Height 4 ft 11 in 4 ft 11 in Weight: 102.654 kg BMI 45.7 BP 142/90 H Blood Pressure Location Rt brachial Position Sitting Respiration 18 Pulse 80 Pulse Source Monitor Temp 97.4 F L Temperature Source Temporal Artery Pulse Oximetry (%) 96 Oxygen Delivery Method room air Intake Accompanied by: Is patient in pain?: No Allergies Sulfa (Sulfonamide Antibiotics) Allergy (Severe, Verified 12/14/24 11:25) Anaphylaxis cigarette smoke Allergy (Mild, Verified 12/14/24 11:25) hoarsness house dust mite Allergy (Mild, Verified 12/14/24 11:25) hoarsness Medications ?Medication ?Instructions ?Recorded ?Confirmed ?Type vitamin C 500 mg-multivitamin with 1 tablet PO DAILY 0 07/05/20 12/14/24 History minerals chewable tablet (Emergen-C) zinc gluconate 30 mg tablet 30 mg PO DAILY 07/05/20 History acetaminophen 500 mg tablet 1,000 mg PO Q6H PRN Pain 0 11/17/20 12/14/24 History (Tylenol Extra Strength) Handicap Placard #1 ea 07/23/22 12/14/24 Rx ascorbate calcium (vitamin C) 500 600 mg PO DAILY 0810/0712/14/24 History mg tablet cyclobenzaprine 10 mg tablet 10 mg PO TID PRN muscle s pasm #90 10/22/22 12/14/24 Rx tabs compress.stocking,knee,reg,lrg #2 ea 09/04/23 12/14/24 Rx hydrocortisone 2.5 % topical 1 applic topical BID PRN rash 09/04/23 12/14/24 Rx ointment #28.35 grams cholecalciferol (vitamin D3) 25 50 mcg PO DAILY 12/14/24 History mcg (1,000 unit) capsule carvedilol 3.125 mg tablet (Coreg) 3.125 mg PO Q12H #6 0 tabs 10/07/24 12/14/24 Rx amlodipine 10 mg tablet See Rx Instructions .Route 0 10/14/24 12/14/24 Rx .COMPLEX #90 tabs Have you fallen in the past year?: Yes Central Venous Access Central Venous Access: No 12/08/2024 Echocardiogram reviewed. ECHO/ONC Echo Complete Interpretation Summary Normal left ventricle. The global longitudinal strain = -17.3 % (normal). The left ventricular ejection fraction is 65 %. Stage 1 diastolic dysfunction. 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 [place] light chain level is stable. Plan: To continue observation. Monitor Serum proteins. (2) Proteinuria: Status: Chronic Qualifiers: Proteinuria type: unspecified Qualified Code(s): R80.9 - Proteinuria, unspecified Comment: Nephrotic range proteinuria. CT c/a/p on 10/29/2024 shows no evidence of malignancy. Repeat 24hr urine collection shows >2gram protein. Plan: To follow up with Dr. Lyon to consider Kidney biopsy. Check WHITNEY with reflex. (3) Abnormal finding on imaging: Status: Chronic Comment: Pericardial effusion on CT imaging. Echo on 12/08/2024 shows small pericardial effusion, EF 65%. Plan: To do observation. Continue work up for Renal disease. Orders: Orders [facility] Misc. Today R76.8 - Other specified abnormal immunological findings in serum, R80.9 - Proteinuria, unspecified Plan Details Follow Up: 3 Months Clinical Quality Measures Falls Risk Screening/Assistive Devices Have you fallen in the past year?: Yes 12/14/24 1201 <Electronically signed by Jordon Staton> Date _ Jordon Chaparro MD Cosigner Signature: Date (if applicable) CC: Dr. Tara Lyon DO; Dr. Charity Khan MD ~ [facility] Work Phone: Progress note Author Charity Khan [facility] Note Date/Time January 06, 2025 1 2:39pm [facility] [address] [place] [address] [place] [address] OFFICE VISIT Date of Service: 01/06/25 MR#: [id number] Acct: [id number] Name: RENE RIDER Rep #: [id number] : 1955 Provider: Dr. Promise Khan MD Age/Sex: 69/F Location[place] [facility] [place] Status: Signed Intake Vital Signs 10/07/24 13:49 12/14/24 11:22 01/06/25 10:51 Height 4 ft 11 in 4 ft 11 in 4 ft 11 in Weight: 222 lb BMI 44.8 BP 120/74 Blood Pressure Location Lt brachial Position Sitting Respiration 14 Pulse 82 Pulse Source Monitor Temp 97 F L Temp Source Temporal Pulse Oximetry (%) 95 Oxygen Delivery Method room air Intake Visit Reasons: 3 M FU Chief Complaint: Follow-up chronic conditions Recreation Manager Required: No Is patient in pain?: No Allergies Sulfa (Sulfonamide Antibiotics) Allergy (Severe, Verified 01/06/25 10:20) Anaphylaxis cigarette smoke Allergy (Mild, Verified 01/06/25 10:20) hoarsness house dust mite Allergy (Mild, Verified 01/06/25 10:20) hoarsness Medications ?Medication ?Instructions ?Recorded ?Confirmed ?Type zinc gluconate 30 mg tablet 30 mg PO DAILY 07/05/20 History acetaminophen 500 mg tablet 1,000 mg PO Q6H PRN Pain 0 11/17/20 01/06/25 History (Tylenol Extra Strength) Handicap Placard #1 ea 07/23/22 01/06/25 Rx ascorbate calcium (vitamin C) 500 600 mg PO DAILY 10/0701/06/25 History mg tablet compress.stocking,knee,reg,lrg #2 ea 09/04/23 01/06/25 Rx cholecalciferol (vitamin D3) 25 50 mcg PO DAILY 01/06/25 History mcg (1,000 unit) capsule carvedilol 3.125 mg tablet (Coreg) 3.125 mg PO Q12H #6 0 tabs 10/07/24 01/06/25 Rx amlodipine 10 mg tablet See Rx Instructions .Route 0 10/14/24 01/06/25 Rx .COMPLEX #90 tabs cyclobenzaprine 10 mg tablet 10 mg PO TID PRN muscle s pasm #90 01/06/25 01/06/25 Rx tabs Have you fallen in the past year?: No Nurse's Note: Pt needs refill on flexril. Pt states it helps her fall asleep when she is real stiff. Pt will get flu shot when she goes to burr picker refill at pharmacy. Pt states she has had intermittent L ear plugged feeling. She wonders if it isdue to weather as it tends to happen when it changes and she as a h/o allergies.Pt has tried treating w/ otc ear drops and cleaned them out, she states this didn't help much but if she blew her nose or used saline nasal spray it 'popped open Pt is okay w/ ear issue today [facility] Medical History (Updated 01/06/25 @ 16:[address] Charity Khan MD) Congestion of left ear MGUS (monoclonal gammopathy of unknown significance) Blood glucose elevated Microalbuminuria CKD (chronic kidney disease), stage III Dermatitis Tachycardia Acute sinusitis, unspecified Chronic back pain Health care maintenance Colon cancer screening Scoliosis Cancer Anxiety Alcohol use Bladder disease Arthritis Migraine headache Non-smoker Leg cramps History of pain when walking Hypertension Preoperative evaluation to rule out surgical contraindication Osteoarthritis of right hip Right hip pain History of basal cell carcinoma History of pneumonia history of cracked palate history of club feet Hypertension Seasonal allergies Surgical History Status post Mohs surgery History of hip replacement, total H/O foot surgery History of Hx of rhinoplasty Family History Mother Hypertension Hyperlipemia Arthritis Father Hypertension Skin cancer Arthritis Social History household members: spouse housing: house Smoking Status: Never smoker alcohol intake: never substance use type: does not use what type of physical activity do you participate in: none do you feel safe at home: Yes HPI HPI Chief Complaint: Follow-up chronic conditions Details: RENE RIDER, is a 69-year-old female with a history of proteinuria, presentingfor evaluation of left ear congestion and follow-up of her chronic conditions. The patient reports a sensation of being underwater in her left ear, which sheattributes to possible allergies. She denies any changes in hearing, otorrhea, cephalalgia, chills, or fever. She notes that the congestion was previously moresevere, but has improved slightly. The patient is also awaiting a renal biopsy, which was recommended by her state editor, Dr. Lyon, due to proteinuria. She reports that a radiologist is supposed to contact her to schedule the biopsy. She mentions that her previous physician, Dr. Chaparro, recommended a high-protein diet, but she is unsure if this was a miscommunication. She is currently taking amlodipine and carvedilol for blood pressure management,and her home readings have been consistently below 120/80 mmHg, with occasional elevations. Her heart rate at home has been in the low 90s. Carvedilol was started at her last visit due to suboptimal blood pressure control. The patient is also requesting a refill of Flexeril, which she uses infrequentlyfor muscle spasms. The last refill was 2 years ago. She denies any issues with the medication. ROS Const Constitutional: No body ache, chills, excessive sweating, fatigue, fever(s), frequent falls, headache(s), snoring, weakness, sleep problems or change in appetite Eyes Eyes: No blurry vision, change in vision, bulging eyes, floaters, visual disturbances, eye pain or Light sensitivity ENT ENT: No abnormal hearing, ear or mastoid pain, tinnitus, balance problems, nosebleed/epistaxis, nasal congestion, headache(s), neck pain or sore throat Resp Respiratory: No cough, excessive phlegm production, pain on inspiration, shortness of breath, snoring or wheezing Cardio Cardiology: No chest pain at rest, chest pain with exertion, excessive sweating,shortness of breath, dyspnea on exertion, lightheadedness, orthopnea or palpitations Gastro GI: No abdominal pain, change in bowel habits, constipation, cramping, diarrhea,nausea/dyspepsia or vomiting Genitourinary-Female: No burning urination, painful urination, urinary incontinence, urinary frequency, abnormal vaginal bleeding or pelvic pain Musc Musculoskeletal: No abnormal gait, joint pain, back pain, limited range of motion, neck pain or numbness Skin Skin: No dry skin, redness, excessive hair growth, yellowing of the eye, lesions, itchy eyes, rash or wounds Neuro Neurology: No abnormal gait, abnormal hearing, behavioral changes, unsteady gait/balance, weakness, frequent falls, headache(s), memory loss, numbness or visual disturbances Psych Psychiatric: No anxiety, No behavioral changes, No change in appetite, No depression, No memory loss and No Thoughts of harming yourself/Others Endo Endocrine: No cold intolerance, excessive sweating, fatigue, flushing, heat intolerance, increased thirst/drinking or increased hunger Aller/Imm Allergy/Immunologic: No itchy eyes, seasonal allergy symptoms, hives or wheezing Amando/Lymp Hematologic/Lymphatic: No easy bleeding, easy bruising, enlarged lymph nodes or other Exam Const General: cooperative, comfortable and no acute distress Orientation: alert, awake and oriented x3 HENMT Head: normal to inspection, normocephalic and atraumatic Ears: hearing grossly normal bilaterally Neck Neck: normal visual inspection, full ROM, no lymphadenopathy and supple Neck mass: No Thyroid: thyroid normal Resp Effort & Inspection: normal respiratory effort and able to speak in complete sentences Auscultation: Bilateral: Clear to Auscultation Cardio Rate: regular rate Rhythm: regular rhythm Heart Sounds: S1 normal and S2 normal GI Palpation: soft (Nontender, no palpable organomegaly.) Neuro General: patient alert, patient awake, patient oriented x3, moves all extremities and CN's II-XI intact bilaterally Extrem General: no clubbing, cyanosis or edema Psych Appearance: grossly normal Mental Status: mental status grossly normal Mood: congruent mood Affect: normal affect Immunizations Fluad 2024- 65yr up(PF)45 mcg(15 mcgx3)/0.5 mL intramuscular syringe Performing Provider: Charity Khan MD Performing Location: [facility] Administered by: Tara Johnson on 01/06/25 12:45 Dose Route Admin Location Dispensed Lot Number Expiration Date Pack age NDC [employer] 45 mcg IM Left Arm (SQ) 0.5 mL [id number] 07/13/25 99854-270-11 [id number] eXelate. VIS Given Date VIS Provided VIS Publication Date 01/06/25 Single Vaccine 24 Eligibility Eligibility Date Funding Source Not Applicable Administration Comments: renetta injection given patient tolerated well Coding Level of Care Code Off vis,est,level 4 Diagnoses Congestion of left ear H93.8X2 Proteinuria, unspecified type R80.9 Proteinuria type: unspecified CKD (chronic kidney disease), stage III N18.30 Primary hypertension I10 Hypertension type: primary hypertension Health care maintenance Z00.00 Assessment and Plan Assessment and Plan (1) Congestion of left ear: Status: Acute Plan: Exam revealed congestion and fullness in left ear. - Start Flonase 2 sprays per nostril once daily. - If no improvement after 1 week, will refer to ENT. (2) Proteinuria: Status: Chronic Qualifiers: Proteinuria type: unspecified Qualified Code(s): R80.9 - Proteinuria, unspecified Comment: Nephrotic range proteinuria. CT c/a/p on 10/29/2024 shows no evidence of malignancy. Repeat 24hr urine collection shows >2gram protein. Plan: Reviewed notes from Dr. Chaparro regarding ongoing proteinuria (>2g/24h) with no evidence of malignancy on CTAP. Blood pressure is well controlled on amlodipine and carvedilol, with home readings averaging <120/80 mmHg. Obesity could be contributing to renal stress and proteinuria. - Continue amlodipine and carvedilol as prescribed. - Await nephrology biopsy to further evaluate proteinuria. - Discussed importance of weight loss to reduce renal stress. - Provided dietary recommendations: reduce caloric intake, decrease carbohydrates, increase lean protein and healthy fats, avoid sweets, processed foods, and sugars, and increase vegetable intake. - Discussed online dietary resources (Weight Watchers, Noom, MyFitnessPal) as alternatives to in-person dietitian consultation. - Follow-up in 3-4 months. (3) CKD (chronic kidney disease), stage III: Status: Chronic Plan: Plan as above (4) Hypertension: Status: Chronic Qualifiers: Hypertension type: primary hypertension Qualified Code(s): I10 - Essential (primary) hypertension Plan: As above, readings have been better since carvedilol was initiated at her last visit - Continue amlodipine 10 mg daily and carvedilol 3.125 mg twice daily. (5) Health care maintenance: Status: Acute Plan: Flu vaccine given Orders: Orders Influenza Immunization Today Z23 - Encounter for immunization Medications: Refilled cyclobenzaprine 10 mg PO TID PRN 90 tabs 2RF muscle spasm Plan - Refilled Flexeril for muscle relaxation; patient advised to use PRN. - Continue current medications: amlodipine and carvedilol. - Recommended Flonase, 2 sprays each nostril QD for ear congestion; if no improvement after one week, consider referral to ENT. - Administer flu shot today. - Discussed importance of weight management for kidney health; recommended focusing on diet, particularly reducing calorie intake and limiting carbs, sweets, and processed foods. - Suggested online resources for dietary guidance, such as Weight Watchers, Noom, and MyFitnessPal. - Follow-up appointment scheduled in 3 months. Patient Instructions: - Continue taking your amlodipine and carvedilol as prescribed to keep your blood pressure in the target range. - Fill the cyclobenzaprine (Flexeril) prescription at [facility] and use it as needed for muscle relaxation. - Start [id number] Flonase (fluticasone nasal spray): two sprays in each nostril once daily. If your ear feeling does not improve after one week, call the office and we will arrange an ENT (ear doctor) referral. - Receive your influenza (flu) vaccine before you leave today. - Focus on weight management through diet: reduce overall calorie intake, cut back on carbohydrates and sweets, and increase protein, healthy fats, and vegetables. Consider seeing a dietitian or using an online program (for example,Weight Watchers, Climeworks, or MyFitnessPal) to guide portion sizes and meal planning. - Continue home blood pressure monitoring and record your readings to discuss atyour next visit. - Attend your kidney biopsy appointment once radiology contacts you to schedule it; this will help determine the best treatment for your proteinuria. - Schedule a follow-up appointment in 3 to 4 months for ongoing evaluation of your blood pressure, kidney function, and overall health. Clinical Quality Measures Falls Risk Screening/Assistive Devices Have you fallen in the past year?: No 01/06/25 2700 <Electronically signed by Charity davila MD> Date _ Charity Khan MD Cosigner Signature: Date (if applicable) CC: ~ [facility] Work Phone: [facility] (narrative)* Diagnostic Procedure Only (Routine) - Closed Specialty Diagnoses / Procedures Referred By Contac t Referred To Contact XR IMAGING Diagnoses Scoliosis, unspecified scoliosis type, unspecified spinal region Procedures XR SCOLIOSIS PA STAND/LAT 2V RADEX ENTIR THRC LMBR CRV SAC SPI W/SKULL 2/3 VW Fang Augustin, EDVIN.HOME CARE CONSULTANT [address] [place] [address] [place] [address] Referral ID Status Reason Start Date Expiration Date V isits Requested Visits Authorized [id number] Closed Auto-Generate d Referral 08/16/2022 09/15/2023 1 1 [facility] for referral (narrative)* Diagnostic Procedure Only (Routine) - Closed Specialty Diagnoses / Procedures Referred By Contac t Referred To Contact MR IMAGING Diagnoses Syringomyelia and syringobulbia (HCC) Procedures MRI LUMBAR SPINE WO/W IVCON MRI SPINAL CANAL LUMBAR W/O & W/CONTR Fang Li, EDVIN.HOME CARE CONSULTANT [address] [place] [address] [place] [address] Referral ID Status Reason Start Date Expiration Date Visits Re quested Visits Authorized [id number] Closed 09/13/2022 11/12/2022 1 1 * Diagnostic Procedure Only (Routine) - Closed Specialty Diagnoses / Procedures Referred By Contac t Referred To Contact MR IMAGING Diagnoses Syringomyelia and syringobulbia (HCC) Procedures MRI CERVICAL SPINE WO/W IVCON MRI SPINAL CANAL CERVICAL W/O & W/CONTR Fang Li, EDVIN.HOME CARE CONSULTANT [address] [place] [address] [place] [address] Referral ID Status Reason Start Date Expiration Date V isits Requested Visits Authorized [id number] Closed Patient Cleared - Admin/Chairm an/Director advise to proceed or did not respond 09/12/2022 11/15/2022 1 1 * Diagnostic Procedure Only (Routine) - Closed Specialty Diagnoses / Procedures Referred By Contac t Referred To Contact MR IMAGING Diagnoses Syringomyelia and syringobulbia (HCC) Procedures MRI BRAIN WO/W IVCON MRI BRAIN BRAIN STEM W/O W/CONTRAST MATERIAL Fang Augustin APRN.HOME CARE CONSULTANT [address] [facility] [place] [address] [place] [address] Referral ID Status Reason Start Date Expiration Date Visits Re quested Visits Authorized [id number] Closed 09/12/2022 11/11/2022 1 1 * Diagnostic Procedure Only (Routine) - Closed Specialty Diagnoses / Procedures Referred By Contac t Referred To Contact MR IMAGING Diagnoses Syringomyelia and syringobulbia (HCC) Procedures MRI THORACIC SPINE WO/W IVCON MRI SPINAL CANAL THORACIC W/O & W/CONTR MATRL Fang Augustin, EDVIN.HOME CARE CONSULTANT [address] [facility] [place] [address] Mr Imaging [facility] Referral ID Status Reason Start Date Expiration Date V isits Requested Visits Authorized [id number] Closed Patient Cleared - Admin/Chairm an/Director advise to proceed or did not respond 09/12/2022 11/15/2022 1 1 [facility]No reason for referral information [facility]WKet[facility] Work Phone: Reason for visit Narrative* Diagnostic Procedure Only (Routine) - Closed Specialty Diagnoses / Procedures Referred By Saraiac t Referred To Contact XR IMAGING Diagnoses Scoliosis, unspecified scoliosis type, unspecified spinal region Procedures XR SCOLIOSIS PA STAND/LAT 2V RADEX ENTIR THRC LMBR CRV SAC SPI W/SKULL 2/3 VW Fang Augustin, WEB SIZER.HOME CARE CONSULTANT [address] [facility] [place] [address] [place] [address] Referral ID Status Reason Start Date Expiration Date V isits Requested Visits Authorized [id number] Closed Auto-Generate d Referral 08/16/2022 09/15/2023 1 1 [facility] Diagnostic Procedure Only (Routine) - Closed Specialty Diagnoses / Procedures Referred By Stormy t Referred To Contact MR IMAGING Diagnoses Syringomyelia and syringobulbia (HCC) Procedures MRI THORACIC SPINE WO/W IVCON MRI SPINAL CANAL THORACIC W/O & W/CONTR MATRL Fang Augustin, WEB SIZER.HOME CARE CONSULTANT [address] [facility] [place] [address] [place] [address] Referral ID Status Reason Start Date Expiration Date V isits Requested Visits Authorized [id number] Closed Patient Cleared - Admin/Chairm an/Director advise to proceed or did not respond 09/12/2022 11/15/2022 1 1 [facility] Summary Purpose Family History Relationship Condition Age at Onset Recorded Date/T telly mother Hypertension Unknown Hyperlipidemia Unknown Arthritis Unknown father Hypertension Unknown Malignant neoplasm of skin Unknown Advance Directives Advance Directive Response Recorded Date/ Time Living Will No February 06 4:03pm Power of Lands Resource Manager No February 06, 2021 4:03pm Advance Directive Response Recorded Date/ Time Living Will No February 06 021 3:03pm Power of Lands Resource Manager No February 06, 2021 3:03pm Advance Directive Response Recorded Date/ Time Living Will No February 06 4:03pm Do you have a Healthcare Power of Lands Resource Manager? No February 06, 2021 4:03pm Chief Complaint and Reason for Visit Chief Complaint Lumbar pain xray C6 RADICULOPATHY LUMBER SPINE xray Reason for Visit C6 radiculopathy Degenerative scoliosis C6 radiculopathy Degenerative scoliosis Syrinx of spinal cord Chief Complaint CHECK UP Reason for Visit Health care maintena nce C6 radiculopathy Hypertension Syrinx of spinal cord Chief Complaint MED FU Reason for Visit Health care mainhaidera nce Tachycardia Hypertension Chief Complaint Admit Date 3 M FU March 09, 2024 1:43pm CKD, STAGE 3B May 04, 2024 12:47pm TWO ORDERS ENTERED May 28, 2024 1:0 5pm Amb Documentation June 04, 2024 4:2 3pm Reason for Visit Admit Date Microalbuminuria March 09, 2024 1:43pm CKD (chronic kidney disease), stage III March 09, 2024 1:43pm Hypertension March 09, 2024 1:43pm Tachycardia March 09, 2024 1:43pm Chief Complaint Admit Date 3 M FU March 09, 2024 1:43pm CKD, STAGE 3B May 04, 2024 12:47pm TWO ORDERS ENTERED May 28, 2024 1:0 5pm Amb Documentation June 04, 2024 4:2 3pm 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, 2024 9:3 9am MED ONC June 08, 2024 10: 54am 3 M FU June 10, 2024 2:3 2pm Other specified abnormalities of plasma proteins June 12, 2024 12:24pm Reason for Visit Admit Date Microalbuminuria March 09, 2024 1:43pm CKD (chronic kidney disease), stage III March 09, 2024 1:43pm Hypertension March 09, 2024 1:43pm Tachycardia March 09, 2024 1:43pm Abnormal SPEP June 08, 2024 9:3 9am Abnormal SPEP June 10, 2024 2:3 2pm Health care maintenance June 10, 2024 2:32pm Hypertension June 10, 2024 2:3 2pm Tachycardia June 10, 2024 2:3 2pm Chief Complaint Admit Date CKD, STAGE 3B May 04, 2024 12:47pm TWO ORDERS ENTERED May 28, 2024 1:0 5pm Amb Documentation June 04, 2024 4:2 3pm 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, 2024 9:3 9am 3 M FU June 10, 2024 2:3 2pm Other specified abnormalities of plasma proteins June 12, 2024 12:24pm [facility] PRIOR REVIEW BONE SURVEY June 18, 2024 2:28pm MED ONC June 22, 2024 10:5 7am LT HIP LESION July 31, 2024 7:44a m Reason for Visit Admit Date Abnormal SPEP June 08, 2024 9:3 9am Abnormal SPEP June 10, 2024 2:3 2pm Health care maintenance June 10, 2024 2:32pm Hypertension June 10, 2024 2:3 2pm Tachycardia June 10, 2024 2:3 2pm Abnormal SPEP June 18, 2024 2:28 pm Lytic lesion of bone on x-ray June 18, 2024 2:28pm Proteinuria June 18, 2024 2:28 pm Chief Complaint Admit Date CKD, STAGE 3B May 04, 2024 12:47pm TWO ORDERS ENTERED May 28, 2024 1:0 5pm Amb Documentation June 04, 2024 4:2 3pm 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, 2024 9:3 9am 3 M FU June 10, 2024 2:3 2pm Other specified abnormalities of plasma proteins June 12, 2024 12:24pm [facility] PRIOR REVIEW BONE SURVEY June 18, 2024 2:28pm MED ONC June 22, 2024 10:5 7am LT HIP LESION July 31, 2024 7:44a m [facility] PRIOR REVIEW MRI August 05 3:25pm Reason for Visit Admit Date Abnormal SPEP June 08, 2024 9:3 9am Abnormal SPEP June 10, 2024 2:3 2pm Health care maintenance June 10, 2024 2:32pm Hypertension June 10, 2024 2:3 2pm Tachycardia June 10, 2024 2:3 2pm Abnormal SPEP June 18, 2024 2:28 pm Lytic lesion of bone on x-ray June 18, 2024 2:28pm Proteinuria June 18, 2024 2:28 pm Proteinuria August 05, 2024 3:25p m Elevated serum immunoglobulin free light chain level August 05, 2024 3:25pm Chief Complaint Admit Date CKD, STAGE 3B May 04, 2024 12:47pm TWO ORDERS ENTERED May 28, 2024 1:0 5pm Amb Documentation June 04, 2024 4:2 3pm 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, 2024 9:3 9am 3 M FU June 10, 2024 2:3 2pm Other specified abnormalities of plasma proteins June 12, 2024 12:24pm [facility] PRIOR REVIEW BONE SURVEY June 18, 2024 2:28pm MED ONC June 22, 2024 10:5 7am LT HIP LESION July 31, 2024 7:44a m [facility] PRIOR REVIEW MRI August 05 3:25pm Post Menopausal SCREENING August 13, 2024 7:20am Chief Complaint Admit Date 3 M FU June 10, 2024 2:3 2pm Other specified abnormalities of plasma proteins June 12, 2024 12:24pm [facility] PRIOR REVIEW BONE SURVEY June 18, 2024 2:28pm MED ONC June 22, 2024 10:5 7am LT HIP LESION July 31, 2024 7:44a m [facility] PRIOR REVIEW MRI August 05 3:25pm Post Menopausal SCREENING August 13, 2024 7:20am 4 M FU October 07, 2024 1:44 pm Reason for Visit Admit Date Abnormal SPEP June 10, 2024 2:3 2pm Health care maintenance June 10, 2024 2:32pm Hypertension June 10, 2024 2:3 2pm Tachycardia June 10, 2024 2:3 2pm Abnormal SPEP June 18, 2024 2:28 pm Lytic lesion of bone on x-ray June 18, 2024 2:28pm Proteinuria June 18, 2024 2:28 pm Proteinuria August 05, 2024 3:25p m Elevated serum immunoglobulin free light chain level August 05, 2024 3:25pm Chief Complaint Admit Date LT HIP LESION July 31, 2024 7:44a m [facility] PRIOR REVIEW MRI August 05 3:25pm Post Menopausal SCREENING August 13, 2024 7:20am 4 M FU October 07, 2024 1:44 pm R/O MALIGNANCY October 29, 2024 12 :55pm Reason for Visit Admit Date Proteinuria August 05, 2024 3:25p m Elevated serum immunoglobulin free light chain level August 05, 2024 3:25pm Health care maintenance October 07, 2024 1:44pm Proteinuria October 07, 2024 1:44 pm CKD (chronic kidney disease), stage III October 07, 2024 1:44pm Hypertension Tali 23rd, 2025 1:44 pm Tachycardia October 07, 2024 1:44 pm Chief Complaint Admit Date LT HIP LESION July 31, 2024 7:44a m [facility] PRIOR REVIEW MRI August 05 3:25pm Post Menopausal SCREENING August 13, 2024 7:20am 4 M FU October 07, 2024 1:44 pm R/O MALIGNANCY October 29, 2024 12 :55pm [facility] PRIOR REVIEW CT November 11 9:16am Chief Complaint Admit Date 4 M FU October 07, 2024 1:44 pm R/O MALIGNANCY October 29, 2024 12 :55pm [facility] PRIOR REVIEW CT November 11 9:16am Other pericardial effusion (noninflammat ory) December 08, 2024 1:46pm [facility] NO LABS REVIEW 24 URINE/ECHO Sept2024 11:18am MED ONC December 14, 2024 12:00pm Reason for Visit Admit Date Health care maintenance October 07, 2024 1:44pm CKD (chronic kidney disease), stage III October 07, 2024 1:44pm Hypertension October 07, 2024 1:44 pm Proteinuria October 07, 2024 1:44 pm Tachycardia October 07, 2024 1:44 pm Abnormal finding on imaging November 11, 2024 9:16am Elevated serum immunoglobulin free light chain level November 11, 2024 9:16am Proteinuria November 11, 2024 9: 16am Abnormal finding on imaging December 142024 11:18am Elevated serum immunoglobulin free light chain level December 14, 2024 11:18am Proteinuria December 14, 2024 11:18am Chief Complaint Admit Date 4 M FU October 07, 2024 1:44 pm R/O MALIGNANCY October 29, 2024 12 :55pm [facility] PRIOR REVIEW CT November 11 9:16am Other pericardial effusion (noninflammat ory) December 08, 2024 1:46pm [facility] NO LABS REVIEW 24 URINE/ECHO Septem 2024 11:18am MED ONC December 14, 2024 12:00pm 3 M FU January 06, 2025 1 0:09am KIDNEY BX January 12, 2025 8 :51am NEEDS ORDER January 26, 2025 1:43pm Reason for Visit Admit Date Health care maintenance October 07, 2024 1:44pm CKD (chronic kidney disease), stage III October 07, 2024 1:44pm Hypertension October 07, 2024 1:44 pm Proteinuria October 07, 2024 1:44 pm Tachycardia October 07, 2024 1:44 pm Abnormal finding on imaging November 11, 2024 9:16am Elevated serum immunoglobulin free light chain level November 11, 2024 9:16am Proteinuria November 11, 2024 9: 16am Abnormal finding on imaging December 142024 11:18am Elevated serum immunoglobulin free light chain level December 14, 2024 11:18am Proteinuria December 14, 2024 11:18am Congestion of left ear January 06 10:09am Health care maintenance January 06 10:09am CKD (chronic kidney disease), stage III January 06, 2025 10:09am Hypertension January 06, 2025 1 0:09am Proteinuria January 06, 2025 1 0:09am Reason for Referral Specialty Diagnoses / Procedures Referred By Contac t Referred To Contact MR IMAGING Diagnoses Syringomyelia and syringobulbia (HCC) Procedures MRI LUMBAR SPINE WO/W IVCON MRI SPINAL CANAL LUMBAR W/O & W/CONTR Fang Li, WEB SIZER.HOME CARE CONSULTANT [address] [place] [address] Mr Imaging Referral ID Status Reason Start Date Expiration Date Visits Requested Visits Authorized [id number] Pending Review Auto-Generat ed Referral 08/16/2022 09/15/2023 1 1 Specialty Diagnoses / Procedures Referred By Contac t Referred To Contact MR IMAGING Diagnoses Syringomyelia and syringobulbia (HCC) Procedures MRI CERVICAL SPINE WO/W IVCON MRI SPINAL CANAL CERVICAL W/O & W/CONTR Fang Li, WEB SIZER.HOME CARE CONSULTANT [address] [place] [address] Mr Imaging Referral ID Status Reason Start Date Expiration Date Visits Requested Visits Authorized [id number] Pending Review Auto-Generat ed Referral 08/16/2022 09/15/2023 1 1 Specialty Diagnoses / Procedures Referred By Contac t Referred To Contact MR IMAGING Diagnoses Syringomyelia and syringobulbia (HCC) Procedures MRI BRAIN WO/W IVCON MRI BRAIN BRAIN STEM W/O W/CONTRAST MATERIAL Fang Aguustin, WEB SIZER.HOME CARE CONSULTANT [address] [place] [address] Mr Imaging Referral ID Status Reason Start Date Expiration Date Visits Requested Visits Authorized [id number] Pending Review Auto-Generat ed Referral 08/16/2022 09/15/2023 1 1 Specialty Diagnoses / Procedures Referred By Contac t Referred To Contact MR IMAGING Diagnoses Syringomyelia and syringobulbia (HCC) Procedures MRI THORACIC SPINE WO/W IVCON MRI SPINAL CANAL THORACIC W/O & W/CONTR MATRL Fang Augustin, WEB SIZER.HOME CARE CONSULTANT [address] [place] [address] Mr Imaging Referral ID Status Reason Start Date Expiration Date Visits Requested Visits Authorized [id number] Pending Review Auto-Generat ed Referral 08/16/2022 09/15/2023 1 1 Specialty Diagnoses / Procedures Referred By Contac t Referred To Contact XR IMAGING Diagnoses Scoliosis, unspecified scoliosis type, unspecified spinal region Procedures XR SCOLIOSIS PA STAND/LAT 2V RADEX ENTIR THRC LMBR CRV SAC SPI W/SKULL 2/3 VW Fang Augustin, WEB SIZER.HOME CARE CONSULTANT [address] [place] [address] Xr Imaging Referral ID Status Reason Start Date Expiration Date Visits Requested Visits Authorized [id number] Authorized Auto-Generat ed Referral 08/16/2022 09/15/2023 1 1 Additional Source Comments INFORMATION SOURCE (unrecogn ized section and content) DATE CREATED AUTHOR 09/10/2017 [facility] DATE CREATED AUTHOR AUTHOR'S ORGANIZ ATION 01/05/2020 [facility] DATE CREATED AUTHOR AUTHOR'S ORGANIZ ATION 05/11/2021 [facility] DATE CREATED AUTHOR AUTHOR'S ORGANIZ ATION 09/20/2022 [facility] DATE CREATED AUTHOR AUTHOR'S ORGANIZ ATION 10/03/2022 [facility] DATE CREATED AUTHOR AUTHOR'S ORGANIZ ATION 01/16/2025 [facility] DATE CREATED AUTHOR AUTHOR'S ORGANIZ ATION 01/27/2025 [facility] Goals (unrecognized section and content) Goals may be documented in a n alternate sectionGoals may be documented in an alternate sectionGoals may be documented in an alternate sectionGoals may be documented in an alternate sectionGoals may be documented in an alternate sectionGoals may be documented in an alternate sectionGoals may be documented in an alternate sectionGoals may be documented in an alternate sectionGoals may be documented in an alternate sectionGoals may be documented in an alternate sectionGoals may be documented in an alternate sectionGoals may be documented in an alternate sectionGoals may be documented in an alternate sectionGoals may be documented in an alternate section Care Teams (unrecognized sec tion and content) Team Status: Active Member Role Status Dates Dr. Charity Khan MD Primary Care Provider Active Team Status: Inactive Member Role Status Dates Dr. Charity Khan MD Primary Care P neha, Attending Provider, Referring Provider Active Composite Bond Technician Relationship Specialty Start Date End Date Leatha Richardson MD [address], [address] [place] [address] PCP - General Internal Medicine 12/23/16 Composite Bond Technician Relationship Specialty Start Date End Date Leatha Richardson MD [address] [facility] [place] [address] PCP - General Internal Medicine 12/23/16 Composite Bond Technician Relationship Specialty Start Date End Date Leatha Richardson MD [address] [place] [address], [address] [place] [address] PCP - General Internal Medicine 12/23/16 Composite Bond Technician Relationship Specialty Start Date End Date Leatha Richardson MD [address] [place] [address], [address] [place] [address] PCP - General Internal Medicine 12/23/16 Team Status: Inactive Member Role Status Dates Dr. Charity Khan MD Primary Care Provider, Atten ding Provider Active Team Status: Inactive Member Role Status Dates Dr. Charity Khan MD Primary Care Provider Active Start: March 05, 2024 End: March 05, 2024 Dr. Charity Khan MD Attending Provider Active Start: March 05, 2024 End: March 05, 2024 Dr. Charity Khan MD Referring Provider Active Start: March 05, 2024 End: March 05, 2024 Team Status: Inactive Member Role Status Dates Dr. Charity Khan MD Primary Care Provider Active Start: March 09, 2024 End: March 09, 2024 Dr. Charity Khan MD Attending Provider Active Start: March 09, 2024 End: March 09, 2024 Dr. Charity Khan MD Referring Provider Active Start: March 09, 2024 End: March 09, 2024 Team Status: Inactive Member Role Status Dates Dr. Charity Khan MD Primary Care Provider Active Start: April 29, 2024 End: April 29, 2024 Dr. Tara Lyon DO Attending Provider Active Start: April 29, 2024 End: April 29, 2024 Dr. Tara Lyon DO Referring Provider Active Start: April 29, 2024 End: April 29, 2024 Team Status: Inactive Member Role Status Dates Dr. Charity Khan MD Primary Care Provider Active Start: May 04, 2024 End: May 04, 2024 Dr. Traa Lyon DO Attending Provider Active Start: May 04, 2024 End: May 04, 2024 Dr. Tara Lyon DO Referring Provider Active Start: May 04, 2024 End: May 04, 2024 Team Status: Inactive Member Role Status Dates Dr. Charity Khan MD Primary Care Provider Active Start: May 28, 2024 End: May 28, 2024 Dr. Tara Lyon DO Attending Provider Active Start: May 28, 2024 End: May 28, 2024 Dr. Tara Lyon DO Referring Provider Active Start: May 28, 2024 End: May 28, 2024 Team Status: Active Member Role Status Dates Dr. Charity Khan MD Primary Care Provider Active Start: June 04, 2024 Yuko Delgado Attending Provider Active Start: June 04, 2024 Team Status: Inactive Member Role Status Dates Dr. Charity Khan MD Primary Care Provider Active Start: June 08, 2024 End: June 08, 2024 Dr. Jordon Chaparro MD Attending Provider Active S tart: June 08, 2024 End: June 08, 2024 Dr. Tara Lyon DO Referring Provider Active Start: June 08, 2024 End: June 08, 2024 Team Status: Active Member Role Status Dates Dr. Charity Khan MD Primary Care Provider Active Start: June 08, 2024 Dr. Jordon Chaparro MD Attending Provider Active S tart: June 08, 2024 Dr. Jordon Chaparro MD Referring Provider Active S tart: June 08, 2024 Team Status: Inactive Member Role Status Dates Dr. Charity Khan MD Primary Care Provider Active Start: June 10, 2024 End: June 10, 2024 Dr. Charity Khan MD Attending Provider Active Start: June 10, 2024 End: June 10, 2024 Dr. Charity Khan MD Referring Provider Active Start: June 10, 2024 End: June 10, 2024 Team Status: Inactive Member Role Status Dates Dr. Charity Khan MD Primary Care Provider Active Start: June 12, 2024 End: June 12, 2024 Dr. Jordon Chaparro MD Attending Provider Active S tart: June 12, 2024 End: June 12, 2024 Dr. Jordon Chaparro MD Referring Provider Active S tart: June 12, 2024 End: June 12, 2024 Team Status: Inactive Member Role Status Dates Dr. Charity Khan MD Primary Care Provider Active Start: June 18, 2024 End: June 18, 2024 Dr. Charity Khan MD Referring Provider Active Start: June 18, 2024 End: June 18, 2024 Dr. Jordon Chaparro MD Attending Provider Active S tart: June 18, 2024 End: June 18, 2024 Team Status: Active Member Role Status Dates Dr. Charity Khan MD Primary Care Provider Active Start: June 22, 2024 Dr. Jordon Chaparro MD Attending Provider Active S tart: June 22, 2024 Dr. Jordon Chaparro MD Referring Provider Active S tart: June 22, 2024 Team Status: Inactive Member Role Status Dates Dr. Charity Khan MD Primary Care Provider Active Start: July 31, 2024 End: July 31, 2024 Dr. Jordon Chaparro MD Attending Provider Active S tart: July 31, 2024 End: July 31, 2024 Dr. Jordon Chaparro MD Referring Provider Active S tart: July 31, 2024 End: July 31, 2024 Team Status: Inactive Member Role Status Dates Dr. Charity Khan MD Primary Care Provider Active Start: August 05, 2024 End: August 05, 2024 Dr. Charity Khan MD Referring Provider Active Start: August 05, 2024 End: August 05, 2024 Dr. Jordon Chaparro MD Attending Provider Active S tart: August 05, 2024 End: August 05, 2024 Team Status: Inactive Member Role Status Dates Dr. Charity Khan MD Primary Care Provider Active Start: August 13, 2024 End: August 13, 2024 Dr. Charity Khan MD Attending Provider Active Start: August 13, 2024 End: August 13, 2024 Dr. Charity Khan MD Referring Provider Active Start: August 13, 2024 End: August 13, 2024 Team Status: Active Member Role/Relationship Status Dates Dr. Charity Khan MD Primary Care Provider Active Team Status: Inactive Member Role/Relationship Status Dates Dr. Charity Khan MD Primary Care Provider Active Start: June 10, 2024 End: June 10, 2024 Dr. Charity Khan MD Attending Provider Active Start: June 10, 2024 End: June 10, 2024 Dr. Charity Khan MD Referring Provider Active Start: June 10, 2024 End: June 10, 2024 Team Status: Inactive Member Role/Relationship Status Dates Dr. Charity Khan MD Primary Care Provider Active Start: June 12, 2024 End: June 12, 2024 Dr. Jordon Chaparro MD Attending Provider Active S tart: June 12, 2024 End: June 12, 2024 Dr. Jordon Chaparro MD Referring Provider Active S tart: June 12, 2024 End: June 12, 2024 Team Status: Inactive Member Role/Relationship Status Dates Dr. Charity Khan MD Primary Care Provider Active Start: June 18, 2024 End: June 18, 2024 Dr. Charity Khan MD Referring Provider Active Start: June 18, 2024 End: June 18, 2024 Dr. Jordon Chaparro MD Attending Provider Active S tart: June 18, 2024 End: June 18, 2024 Team Status: Active Member Role/Relationship Status Dates Dr. Charity Khna MD Primary Care Provider Active Start: June 22, 2024 Dr. Jordon Chaparro MD Attending Provider Active S tart: June 22, 2024 Dr. Jordon Chaparro MD Referring Provider Active S tart: June 22, 2024 Team Status: Inactive Member Role/Relationship Status Dates Dr. Charity Khan MD Primary Care Provider Active Start: July 31, 2024 End: July 31, 2024 Dr. Jordon Chaparro MD Attending Provider Active S tart: July 31, 2024 End: July 31, 2024 Dr. Jordon Chaparro MD Referring Provider Active S tart: July 31, 2024 End: July 31, 2024 Team Status: Inactive Member Role/Relationship Status Dates Dr. Charity Khan MD Primary Care Provider Active Start: August 05, 2024 End: August 05, 2024 Dr. Charity Khan MD Referring Provider Active Start: August 05, 2024 End: August 05, 2024 Dr. Jordon Chaparro MD Attending Provider Active S tart: August 05, 2024 End: August 05, 2024 Team Status: Inactive Member Role/Relationship Status Dates Dr. Charity Khan MD Primary Care Provider Active Start: August 13, 2024 End: August 13, 2024 Dr. Charity Khan MD Attending Provider Active Start: August 13, 2024 End: August 13, 2024 Dr. Charity Khan MD Referring Provider Active Start: August 13, 2024 End: August 13, 2024 Team Status: Inactive Member Role/Relationship Status Dates Dr. Charity Khan MD Primary Care Provider Active Start: October 07, 2024 End: October 07, 2024 Dr. Charity Khan MD Attending Provider Active Start: October 07, 2024 End: October 07, 2024 Dr. Charity Khan MD Referring Provider Active Start: October 07, 2024 End: October 07, 2024 Team Status: Inactive Member Role/Relationship Status Dates Dr. Charity Khan MD Primary Care Provider Active Start: July 31, 2024 End: July 31, 2024 Dr. Jordon Chaparro MD Attending Provider Active S tart: July 31, 2024 End: July 31, 2024 Dr. Jordon Chaparro MD Referring Provider Active S tart: July 31, 2024 End: July 31, 2024 Team Status: Inactive Member Role/Relationship Status Dates Dr. Charity Khan MD Primary Care Provider Active Start: August 05, 2024 End: August 05, 2024 Dr. Charity Khan MD Referring Provider Active Start: August 05, 2024 End: August 05, 2024 Dr. Jordon Chaparro MD Attending Provider Active S tart: August 05, 2024 End: August 05, 2024 Team Status: Inactive Member Role/Relationship Status Dates Dr. Charity Khan MD Primary Care Provider Active Start: August 13, 2024 End: August 13, 2024 Dr. Charity Khan MD Attending Provider Active Start: August 13, 2024 End: August 13, 2024 Dr. Charity hKan MD Referring Provider Active Start: August 13, 2024 End: August 13, 2024 Team Status: Inactive Member Role/Relationship Status Dates Dr. Charity Khan MD Primary Care Provider Active Start: October 07, 2024 End: October 07, 2024 Dr. Charity Khan MD Attending Provider Active Start: October 07, 2024 End: October 07, 2024 Dr. Charity Khan MD Referring Provider Active Start: October 07, 2024 End: October 07, 2024 Team Status: Inactive Member Role/Relationship Status Dates Dr. Charity Khan MD Primary Care Provider Active Start: October 29, 2024 End: October 29, 2024 Dr. Jordon Chaparro MD Attending Provider Active S tart: October 29, 2024 End: October 29, 2024 Dr. Jordon Chaparro MD Referring Provider Active S tart: October 29, 2024 End: October 29, 2024 Dr. Tara Lyon DO Other Provider Active Sta rt: October 29, 2024 End: October 29, 2024 Team Status: Inactive Member Role/Relationship Status Dates Dr. Charity Khan MD Primary Care Provider Active Start: November 11, 2024 End: November 11, 2024 Dr. Charity Khan MD Referring Provider Active Start: November 11, 2024 End: November 11, 2024 Dr. Jordon Chaparro MD Attending Provider Active S tart: November 11, 2024 End: November 11, 2024 Team Status: Active Member Role/Relationship Status Dates Dr. Charity Khan MD Primary care physician Activ e Team Status: Inactive Member Role/Relationship Status Dates Dr. Charity Khan MD Primary care physician Activ e Start: October 07, 2024 End: October 07, 2024 Dr. Charity Khan MD Attending physician Active Start: October 07, 2024 End: October 07, 2024 Dr. Charity Khan MD Referring Provider Active Start: October 07, 2024 End: October 07, 2024 Team Status: Inactive Member Role/Relationship Status Dates Dr. Charity Khan MD Primary care physician Activ e Start: October 29, 2024 End: October 29, 2024 Dr. Jordon Chaparro MD Attending physician Active Start: October 29, 2024 End: October 29, 2024 Dr. Jordon Chaparro MD Referring Provider Active S tart: October 29, 2024 End: October 29, 2024 Dr. Tara Lyon DO Nurse Practitioner Active Start: October 29, 2024 End: October 29, 2024 Team Status: Inactive Member Role/Relationship Status Dates Dr. Charity Khan MD Primary care physician Activ e Start: November 11, 2024 End: November 11, 2024 Dr. Charity Khan MD Referring Provider Active Start: November 11, 2024 End: November 11, 2024 Dr. Jordon Chaparro MD Attending physician Active Start: November 11, 2024 End: November 11, 2024 Team Status: Inactive Member Role/Relationship Status Dates Dr. Charity Khan MD Primary care physician Activ e Start: December 08, 2024 End: December 08, 2024 Dr. Jordon Chaparro MD Attending physician Active Start: December 08, 2024 End: December 08, 2024 Dr. Jordon Chaparro MD Referring Provider Active S tart: December 08, 2024 End: December 08, 2024 Team Status: Active Member Role/Relationship Status Dates Dr. Charity Khan MD Primary care physician Activ e Start: December 08, 2024 Dr. Lalo Cooper MD Attending physician Active Start: December 08, 2024 Team Status: Inactive Member Role/Relationship Status Dates Dr. Charity Khan MD Primary care physician Activ e Start: December 14, 2024 End: December 14, 2024 Dr. Charity Khan MD Referring Provider Active Start: December 14, 2024 End: December 14, 2024 Dr. Jordon Chaparro MD Attending physician Active Start: December 14, 2024 End: December 14, 2024 Team Status: Active Member Role/Relationship Status Dates Dr. Charity Khan MD Primary care physician Activ e Start: December 14, 2024 Dr. Jordon Chaparro MD Attending physician Active Start: December 14, 2024 Dr. Jordon Chaparro MD Referring Provider Active S tart: December 14, 2024 Team Status: Inactive Member Role/Relationship Status Dates Dr. Charity Khan MD Primary care physician Activ e Start: December 30, 2024 End: December 30, 2024 Dr. Tara Lyon DO Attending physician Active Start: December 30, 2024 End: December 30, 2024 Team Status: Inactive Member Role/Relationship Status Dates Dr. Charity Khan MD Primary care physician Activ e Start: January 06, 2025 End: January 06, 2025 Dr. Charity Khan MD Attending physician Active Start: January 06, 2025 End: January 06, 2025 Dr. Charity Khan MD Referring Provider Active Start: January 06, 2025 End: January 06, 2025 Team Status: Inactive Member Role/Relationship Status Dates Dr. Charity Khan MD Primary care physician Activ e Start: January 07, 2025 End: January 07, 2025 Dr. Tara Lyon DO Attending physician Active Start: January 07, 2025 End: January 07, 2025 Dr. Tara Lyon DO Referring Provider Active Start: January 07, 2025 End: January 07, 2025 Team Status: Inactive Member Role/Relationship Status Dates Dr. Charity Khan MD Primary care physician Activ e Start: January 12, 2025 End: January 12, 2025 Dr. Tara Lyon DO Attending physician Active Start: January 12, 2025 End: January 12, 2025 Dr. Tara Lyon DO Referring Provider Active Start: January 12, 2025 End: January 12, 2025 Team Status: Active Member Role/Relationship Status Dates Dr. Charity Khan MD Primary care physician Activ e Start: January 26, 2025 Dr. Tara Lyon DO Attending physician Active Start: January 26, 2025 Dr. Tara Lyno DO Referring Provider Active Start: January 26, 2025 Source Comments (unrecognize d section and content) In the event this informatio n is protected by the Federal Confidentiality of Alcohol and Drug Abuse Patient Records regulations: The Federal rules restrict any use of the information to criminally investigate or prosecute any alcohol or drug abuse patient.[facility] the event this information is protected by the Federal Confidentiality of Alcohol and Drug Abuse Patient Records regulations: The Federal rules restrict any use of the information to criminally investigate or prosecute any alcohol or drug abuse patient.[facility] the event this information is protected by the Federal Confidentiality of Alcohol and Drug Abuse Patient Records regulations: The Federal rules restrict any use of the information to criminally investigate or prosecute any alcohol or drug abuse patient.[facility] the event this information is protected by the Federal Confidentiality of Alcohol and Drug Abuse Patient Records regulations: The Federal rules restrict any use of the information to criminally investigate or prosecute any alcohol or drug abuse patient.[facility] Reason for Visit (unrecogniz ed section and content) Reason Comments New Patient Reason Comments Appointment Xray & MRI 09/20 and o ffice appointment 09/24 FOR RECORDS PERTAINING TO PATIENTS WHO ARE OR HAVE BEEN ENROLLED IN A CHEMICAL DEPENDENCY/SUBSTANCEABUSE PROGRAM, SOME INFORMATION MAY BE OMITTED. This clinical summary was aggregated from multiple sources. Caution should be exercised in using it in the provision of clinical care. This summary normalizes information from multiple sources, and as a consequence, information in this document may materially change the coding, format and clinical context of patient data. In addition, data may be omitted in some cases. CLINICAL DECISIONS SHOULD BE BASED ON THE PRIMARY CLINICAL RECORDS. [facility] provides no warranty or guarantee of the accuracy or completeness of information in this document.
== END | disposition home or self-care (01) ==
LOC: LAB 14:31
PROVIDERS: PCP Internal Medicine; Referring Provider Internal Medicine Nephrology; Visit Provider Internal Medicine Nephrology
DX: N02.B9 Other recurrent and persistent immunoglobulin A nephropathy (principal)
CPT/HCPCS: 36415; 80053